=== PATIENT | female | born 1935 | race Caucasian/White ===

== ENCOUNTER 2021-10-08 07:56 | Observation (INO) | payer MEDICARE, SELFPAY ==
[2021-10-08] VITALS (17 sets, daily range): BP systolic 114–144; BP diastolic 49–113; PULSE 67–76; RESP 15–28; TEMP 36.4–36.8; O2SAT 96–100; BMI 34.3
--- NOTE | ~2021-10-08 | CT_ITS ---
EXAMINATION: CT abdomen pelvis w con DATE: 10/08/2021 09:01 INDICATION: Generalized abdominal pain, diarrhea. TECHNIQUE: Computed tomography (CT) of the abdomen and pelvis was performed with 100 CC Omnipaque 300 intravenous contrast. Automated exposure control and iterative reconstruction technique were employe d. Exam dose: 1097.37 mGy-cm total exam DLP. COMPARISON: None. FINDINGS: Minimal discoid atelectasis or scarring in the lower lung zones. Cardiomegaly. Prominent mitral annulus calcification. Prominent coronary artery calcification. No per icardial or pleural effusion. Small sliding hiatal hernia. Status post cholecystectomy, which likely accounts for mild prominence of the bile ducts. No hepatic space-occupying mass lesion. Diffuse pancreatic atrophy. No pancreatic mass lesion, calcification or ductal dilatation. Normal splenic size. Normal morphology of the adrenal glands. 8 mm left renal cyst. No renal space occupying mass lesion is noted otherwise. No urinary tract calc ulus or hydroureteronephrosis. The urinary bladder is evacuated, unremarkable. Status post hysterecto my. There is extensive calcification of the abdominal aorta but no aneurysm. No intraperitoneal or retrop eritoneal or pelvic mass lesion or adenopathy or ascites. Right fat-containing inguinal hernia. Diverticulosis of left and right colon; no CT evidence of diverticulitis. No bowel obstruction. Ther e are some fluid containing small bowel segments with occasional small bowel air-fluid levels, which may be due to enteritis or mild adynamic ileus. Diverticulosis of left and right colon, particularly sigmoid colon; no CT evidence of diverticulitis No bowel wall thickening or pneumatosis or intraperit farias free air. Small fat-containing umbilical hernia. Small right supraumbilical ventral fat-containing hernia. Ther e are at least a couple of fat-containing periumbilical fat-containing hernias. Bilateral L5 pars and articularis defects with grade 1 anterolisthesis at L5-S1. There is degenerative change at the apophyseal joints of the lumbar spine with associated grade 1 ant erolisthesis at L3-4. There is severe degenerative disc disease at L3-4, L4-5 and L5-S1, with associated mild retrolisthesi s at L4-5.. Moderately severe degenerative disc disease at L2-3. Diffuse idiopathic skeletal hyperostosis of the thoracic spine. Bilateral hip osteoarthritis. IMPRESSION: Nondilated fluid containing small bowel segments and scattered small bowel air-fluid lev els, which may be due to enteritis or mild adynamic ileus Cardiomegaly Small sliding hiatal hernia Status post cholecystectomy Pancreatic atrophy Diverticulosis of left and right colon 8 mm left renal cyst Right fat-containing inguinal hernia Small fat-containing umbilical hernia right supraumbilical and a couple of periumbilical ventral abdo velasquez wall fat-containing hernias Extensive degenerative changes of the thoracic and particularly lumbar spine Bilateral hip osteoarthritis Reviewed, dictated and finalized at [facility]. Reviewed, dictated and finalized at [facility]. IMPRESSION: Nondilated fluid containing small bowel segments and scattered sma ll bowel air-fluid levels, which may be due to enteritis or mild adynamic ileus Cardiomegaly Small sliding hiatal hernia Status post cholecystectomy Pancreatic atrophy Diverticulosis of left and right colon 8 mm left renal cyst Right fat-containing inguinal hernia Small fat-containing umbilical hernia right supraumbilical and a couple of jyotsna umbilical ventral abdominal wall fat-containing hernias Extensive degenerative changes of the thoracic and particularly lumbar spine Bilateral hip osteoarthritis
--- NOTE | ~2021-10-08 | XR_ITS ---
XR chest 2V DATE: 10/08/2021 08:28 INDICATION: Weakness TECHNIQUE: AP and lateral views COMPARISON: None FINDINGS: Cardiomegaly. There is extensive thoracic aortic calcification. No hilar or mediastinal enl argement. There is mild discoid atelectasis or scarring in the lower lung zones. No pulmonary consolidation is noted. No pleural effusion or pulmonary vascular congestion or pneumothorax. Diffuse osteopenia. There is scoliosis and degenerative change of the thoracic and lumbar spine. Ther e are some calcifications in the region of the rotator cuff which may indicate bilateral rotator cuff calcific tendinitis. Status post cholecystectomy. IMPRESSION: Mild discoid atelectasis or scarring in the lower lung zones Cardiomegaly Aortic atherosclerosis Osteopenia Status post cholecystectomy Reviewed, dictated and finalized at [facility].
--- NOTE | 2021-10-08 07:58 | ECG_ITS ---
Measurements Intervals [place] Rate: 70 P: 82 [place]: 158 QRS: -38 QRSD: 93 T: 57 QT: 427 QTc: 463 Interpretive Statements SINUS RHYTHM LEFT AXIS DEVIATION BORDERLINE R WAVE PROGRESSION, ANTERIOR LEADS ST-T WAVE ABNORMALITY IN HIGH LATERAL LEADS- CONSIDER ISCHEMIA ABNORMAL ECG Electronically Signed On 10-08-2021 17:08:58 CDT by Puneet Ibarra D.O.
--- NOTE | 2021-10-08 08:12 | PC.NURSE ---
Patient reports she has issues with constipation even though she has diarrhea, she has had past bowel obstruction. Patient reports her abd feels larger than normal and is painful with palpation.
[2021-10-08 08:16] LABS: Basophils Absolute Auto 0.1 K/mm3 (0.0-0.1); Basophils Percent Auto 0.9 % (0.2-1.2); Eosinophils Absolute Auto 0.1 K/mm3 (0-0.3); Eosinophils Percent Auto 1.8 % (0-4.4); Hematocrit 34.4 % (37.0-47.0); Hemoglobin 11.6 g/dL (12.0-15.0); Immature Granulocyte Absolute 0.03 K/mm3 (0.00-0.031); Immature Granulocyte Percent A 0.4 % (0-0.5); Lymphocytes Absolute Auto 1.22 K/mm3 (0.9-3.2); Lymphocytes Percent Auto 15.6 % (18.3-44.2); Mean Corpuscular HGB Conc 33.7 g/dl (32-36); Mean Corpuscular Hemoglobin 29.1 pg (26-34); Mean Corpuscular Volume 86.4 fl (80-100); Mean Platelet Volume 9.5 fl (7.4-10.4); Monocytes Absolute Auto 0.6 K/mm3 (0.1-0.6); Monocytes Percent Auto 7.9 % (2.6-8.5); Neutrophils Absolute Auto 5.7 K/mm3 (1.3-6.7); Neutrophils Percent Auto 73.4 % (45.5-73.1); Platelet Count Result 246 k/mm3 (150-375); Red Blood Count 3.98 M/mm3 (4.2-5.4); Red Cell Distribution Width 13.9 % (11.5-14.5); White Blood Count 7.8 K/mm3 (4.5-10.0)
--- NOTE | 2021-10-08 08:17 | ED.ABDPAIN ---
HPI - Abdominal Pain General Chief Complaint: Weakness Stated Complaint: ABD PAIN/DIARRHEA/WEAKNESS Time Seen by Provider: 10/08/21 08:12 History of Present Illness HPI narrative: pt says night not feeling well then sometime on Saturday more abd pain and diarrhea that evening no blood no other bad food sick contacts travel no n/v/urine chagnes/cp/sob/f/neuro cahgnes but feeling weak all over no uri/loc/trauma. 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 EYES: Denies visual changes, redness, or discharge. ENT: Denies rhinorrhea, congestion, sore throat, or otalgia. CARDIOVASCULAR: Denies chest pain, palpitations, or edema. RESPIRATORY: Denies cough or dyspnea. GASTROINTESTINAL: Denies, nausea, vomiting, but has diarrhea and difuse abd pain. GENITOURINARY: Denies dysuria or hematuria. SKIN: Denies rash or itching. MUSCULOSKELETAL: Denies back pain, joint pain, or myalgia. NEUROLOGIC: Denies headache, numbness, but feels weakness all over. PSYCHIATRIC: Denies anxiety or depression. [facility] Past Medical History Medical History (Updated 10/08/21 @ 10:48 by Tonya Huerta MD) Femoral distal fracture Family History Family History Other Cerebrovascular accident Diabetes mellitus Family history of arthritis Family history of cardiovascular disease Family history of malignant neoplasm Hypertension Social History Social History Smoking status: Never smoker Alcohol intake: current Exam Const: Other: APPEARANCE: Well appearing, no pain in distress, well-nourished. Head normocephalic atraumtaic. EYES: PERRLA/EOMI, conjunctivae very clear. NOSE: Normal no drainage EARS:TMS clear Janet Hoang, with good light reflex. THROAT: Pharynx clear, no exudate. mild tachy membranes NECK: Supple. No adenopathy, no masses. RESPIRATORY: Airway patent, repsirations nonlabored. Clear to auscultation bilaterally, no rales, rhonchi, wheezing. CARDIOVASCULAR: Regular rate and rhythm without murmurs rubs or gallops. ABDOMINAL: Soft, difuse tend no r/g, nondistended, no hepatosplenomegally no masses MUSCULOSKELETAl: Moves all extremities. Strenght/ROM intact, No edema, No calf tenderness. NEURO: Alert. Cranial nerves II through XII intact. Good gait. Good coordination just globally weak due to dehydrated SKIN:: Warm, dry. Normal Color PSYCHIATRIC: Normal affect/mood, normal interaction with parents. Course Course Emergency Course: updated pt at 1035 pt still having pain, lives by herself and daughter has sick at home unable to be there with her will keep here adding flagyl for infection/ileus and admitting Reevaluation(s) Reevaluation #1: dr orlando pina for admission at 1048 Vital Signs Vital signs: Vital Signs Temperature 36.5 C 10/08/21 07:59 Pulse Rate 71 10/08/21 07:59 Respiratory Rate 20 10/08/21 07:59 Blood Pressure 114/74 10/08/21 07:59 Pulse Oximetry 100 10/08/21 07:59 Oxygen Delivery Room Air 10/08/21 07:59 Temperature 36.5 C 10/08/21 07:59 Pulse Rate 68 10/08/21 11:01 Respiratory Rate 17 10/08/21 11:01 Blood Pressure 144/92 H 10/08/21 10:16 Pulse Oximetry 100 10/08/21 10:16 Oxygen Delivery Room Air 10/08/21 07:59 MDM - Abdominal Pain Lab Data Result diagrams: 10/08/21 08:08 10/08/21 08:08 Labs: Lab Results 10/08/21 10/08/21 10/08/21 Range/Units 08:08 08:08 08:08 WBC 7.8 (4.5-10.0) K/mm3 RBC 3.98 L (4.2-5.4) M/mm3 Hgb 11.6 L (12.0-15.0) g/dL Hct 34.4 L (37.0-47.0) % M
[2021-10-08 08:29] LABS: Alanine Aminotransferase 9 U/L (6-35); Albumin Level 3.6 g/dL (3.5-5.1); Alkaline Phosphatase 81 U/L (38-126); Anion Gap 8 mmol/L (8-16); Aspartate Amino Transferase 20 U/L (14-36); Bilirubin,Total 0.6 mg/dL (0.2-1.3); Blood Urea Nitrogen 22 mg/dL (7-17); Calcium 8.7 mg/dL (8.4-10.2); Carbon Dioxide 23 mmol/L (22-30); Chloride 99 mmol/L (98-107); Estimated CRCL calculation 29 ml/min; Estimated Glomerular Filt Rate 39; Glucose 105 mg/dL (65-110); Potassium 4.1 mmol/L (3.4-5.0); Sodium 130 mmol/L (137-145)
[2021-10-08 09:00] LABS: Magnesium 1.8 mg/dL (1.6-2.3)
[2021-10-08 09:12] LABS: Troponin I < 0.012 ng/mL (0.000-0.034)
[2021-10-08 09:34] LABS: Glucose Point of Care 86 mg/dl (65-105)
[2021-10-08 09:43] LABS: Appearance Urine Clear (Clear); Bilirubin Urine Negative (Negative); Blood Urine Negative (Negative); Color Urine Yellow (Yellow); Glucose Urine UA Negative (Negative); Ketones Urine Negative (Negative); Leukocyte Esterase Ur Negative LEU/UL (Negative); Nitrate Urine Negative (Negative); Protein Urine Trace mg/dL (Negative)
[2021-10-08 09:59] LABS: RBC Urine 0-2 /hpf (0-2); WBC Urine 0-3 /hpf
[2021-10-08 10:00] LABS: Add Urine Microscopic? YES
[2021-10-08] MEDS: fentaNYL CITRATE INJ (*CRX) 100 MCG/2 ML VIAL 50 MCG IV PUSH (10:26)
[2021-10-08] MEDS: FAMOTIDINE 20 MG/2 ML VIAL IV PUSH (10:30)
[2021-10-08] MEDS: SODIUM CHLORIDE 0.9% IV 1,000 ML 999 ML IV CONT (10:30)
[2021-10-08] MEDS: ONDANSETRON INJ 4 MG/2 ML VIAL IV PUSH ×2 (10:30→17:03)
[2021-10-08 10:32] LABS: SARS-CoV-2 RNA PCR Negative
[2021-10-08] MEDS: metroNIDAZOLE 500 MG/ISO 100ML 500 MG/100 ML BAG 100 MG IVPB (11:10)
--- NOTE | 2021-10-08 11:14 | PM.IMHP ---
H&P: HPI History of Present Illness Date/Time: 10/08/21 11:14 Chief Complaint: acute abdominal pain Diarrhea Weakness Narrative: patient is a 86-year-old female with medical history of peripheral neuropathy, hypertension, oa, insulin-dependent diabetes mellitus. She presented to [place] emergency department after complaints of abdominal pain and diarrhea since Saturday. Patient reports increased fatigue and weakness. She denies any melena or hematochezia. She denies any recent sick contacts or eating poor food. She denies any recent travel. While in the emergency department labs and imaging were obtained. WBC 7.8, hemoglobin 11.6, hematocrit 34.4 and platelet 246, sodium 130, potassium 1, chloride 99, BUN 22 and creatinine 1.3 with normal LFTs and a negative troponin. UA obtained which was negative. CT of the abdomen and pelvis revealed nondilated fluid containing small bowel segments and scattered small bowel air blue suggestive of enteritis. chest x-ray revealed mild discoid atelectasis or scarring of the lower lungs. But no other acute cardiopulmonary process. EKG revealed normal sinus rhythm with diffuse ST changes. No T-wave in changes. Hospitalist was consulted for further management observation to ileus, enteritis and physical debility. Patient was treated with Pepcid, fentanyl, Flagyl and 1 L of IV fluids in the emergency department. She was also administered Zofran x1. This relieved the patient's symptoms. Patient is being admitted for further management. Review of Systems Review of Systems: All systems reviewed & are unremarkable except as noted in HPI and below PMFSH Past Medical History Medical History (Updated 10/08/21 @ 11:24 by Carin Teixeira APRN) Femoral distal fracture Family History Family History Other Cerebrovascular accident Diabetes mellitus Family history of arthritis Family history of cardiovascular disease Family history of malignant neoplasm Hypertension Social History Social History Smoking status: Never smoker Alcohol intake: current Meds Home Medications and Allergies Home Medications Medication Instructions Recorded Confirmed Type No Home Medications 04/21/19 04/21/19 History Allergies Allergy/AdvReac Type Severity Reaction Status Date / Time poison oak extract Allergy Unknown Unknown Verified 10/08/21 12:28 Vital Signs Vital Signs - 24 hr 10/08/21 07:59 07/03/22 08:06 10/08/21 08:02 Temperature 97.7 F Pulse Rate 71 70 71 Respiratory Rate 20 28 H Blood Pressure 114/74 Pulse Oximetry 100 99 Oxygen Delivery Room Air 10/08/21 09:19 10/08/21 09:45 10/08/21 09:47 Temperature Pulse Rate 70 70 Respiratory Rate 27 H 18 Blood Pressure 134/113 H Pulse Oximetry 99 100 100 Oxygen Delivery 10/08/21 10:00 10/08/21 10:02 10/08/21 10:15 Temperature Pulse Rate 69 67 70 Respiratory Rate 18 20 28 H Blood Pressure 117/93 H Pulse Oximetry 100 100 100 Oxygen Delivery 10/08/21 10:16 10/08/21 11:01 Temperature Pulse Rate 71 68 Respiratory Rate 19 17 Blood Pressure 144/92 H Pulse Oximetry 100 Oxygen Delivery Exam Narrative: General: No acute distress. Mental Status: Awake, alert and oriented to person, place, and time with clear speech. Skin: Skin in warm, dry and intact without rashes or lesions. Head: Normocephalic and atraumatic. Eyes: Conjunctivae are clear without exudates or hemorrhage. Sclera is non-icteric. EOM are intact, PERRLA. Ears: The external ear and canal are non-tender and without swelling or discharge. Nose: Nasal mucosa is pink and moist. Septum midline. Nares patent bilaterally. Throat: Oral mucosa pink and moist with good dentition. Tongue midline. Neck: The neck supple without adenopathy. Trachea midline. No JVD. Cardiac: S1 and S2 regular rate and rhythm.
[2021-10-08 11:35] LABS: Lactic Acid Reflex 0.8 mmol/L (0.7-2.0)
--- NOTE | 2021-10-08 11:41 | PC.NURSE ---
Pt family at bedside. Removed bed alarm.
--- NOTE | 2021-10-08 13:04 | PC.NURSE ---
This patient, Scar Sewell, was admitted to 3 [facility] Surg Room 311-01 at 1303 from ED nurse Bart. Patient/family oriented to hospital policies and general routines including ID bracelet, bed and alarms, visiting hours, pain management, procedures, bathroom and other care routines, personal items, smoking policy, room service/diet, and visiting hours. Information on how to activate the Rapid Response Team has been discussed. Patient/Family are encouraged to report perceived risks to care and to ask questions if they do not understand what they are told or what they should do.
[2021-10-08] MEDS: SODIUM CHLORIDE 0.9% IV 1,000 ML 150 ML IV CONT (13:32)
--- NOTE | 2021-10-08 13:42 | PC.NURSE ---
pt unable to recall home medication
--- NOTE | 2021-10-08 13:45 | PC.NURSE ---
pt states takes 15 u of lantus at HS, and takes bp pill daily in morning but unsure dosage, daughter in law to stop by and verify bp med name and dosage
--- NOTE | 2021-10-08 13:47 | PC.NURSE ---
pt up to bsc without difficulty, urinated in sample unable to collect stool sample at this time.
--- NOTE | 2021-10-08 14:23 | PC.NURSE ---
called pharmacy for 11 am zosyn dose, awaiting delivery of medication
--- NOTE | 2021-10-08 15:21 | PC.NURSE ---
pt uses mail delivery for medication pt prefer [facility] in [place] if new medication at discharge, updated in computer
--- NOTE | 2021-10-08 17:27 | PC.NURSE ---
clarified medication with Susana pt daughter losartan 25 mg po daily and lantus 15 u at hs
--- NOTE | 2021-10-08 18:06 | PC.NURSE ---
all med passed by Korin Breeding this shift.
--- NOTE | 2021-10-08 18:08 | PC.NURSE ---
pt up to bsc without difficulty, urinated in sample unable to collect stool sample at this time.
--- NOTE | 2021-10-08 18:08 | PC.NURSE ---
This patient, Scar Sewell, was admitted to 3 [facility] Surg Room 311-01 at 1303 from ED nurse Bart. Patient/family oriented to hospital policies and general routines including ID bracelet, bed and alarms, visiting hours, pain management, procedures, bathroom and other care routines, personal items, smoking policy, room service/diet, and visiting hours. Information on how to activate the Rapid Response Team has been discussed. Patient/Family are encouraged to report perceived risks to care and to ask questions if they do not understand what they are told or what they should do. Initialized on 10/08/21 13:04 - END OF NOTE
--- NOTE | 2021-10-08 18:09 | PC.NURSE ---
pt unable to recall home medication
[2021-10-08] MEDS: MELATONIN 5 MG TABLET PO (21:15)
[2021-10-08 22:23] LABS: Toxigenic C. Diff NEGATIVE (NEGATIVE)
[2021-10-09 00:50] LABS: Glucose Point of Care 82 mg/dl (65-105)
[2021-10-09] MEDS: DEXTROSE 5%/0.45% SOD CHL 1,000 ML 75 ML IV CONT (01:30)
[2021-10-09 05:58] VITALS: BP 155/56; PULSE 80; RESP 20; TEMP 36.7; O2SAT 100
[2021-10-09 06:24] LABS: Glucose Point of Care 106 mg/dl (65-105)
[2021-10-09 07:05] LABS: Basophils Absolute Auto 0.1 K/mm3 (0.0-0.1); Eosinophils Absolute Auto 0.2 K/mm3 (0-0.3); Eosinophils Percent Auto 2.8 % (0-4.4); Hematocrit 33.8 % (37.0-47.0); Hemoglobin 10.7 g/dL (12.0-15.0); Immature Granulocyte Absolute 0.05 K/mm3 (0.00-0.031); Immature Granulocyte Percent A 0.8 % (0-0.5); Lymphocytes Absolute Auto 0.85 K/mm3 (0.9-3.2); Mean Corpuscular HGB Conc 31.7 g/dl (32-36); Mean Corpuscular Hemoglobin 28.6 pg (26-34); Mean Corpuscular Volume 90.4 fl (80-100); Mean Platelet Volume 9.4 fl (7.4-10.4); Monocytes Absolute Auto 0.5 K/mm3 (0.1-0.6); Monocytes Percent Auto 7.9 % (2.6-8.5); Neutrophils Absolute Auto 4.5 K/mm3 (1.3-6.7); Neutrophils Percent Auto 73.5 % (45.5-73.1); Platelet Count Result 233 k/mm3 (150-375); Red Blood Count 3.74 M/mm3 (4.2-5.4); Red Cell Distribution Width 14.2 % (11.5-14.5); White Blood Count 6.1 K/mm3 (4.5-10.0)
--- NOTE | 2021-10-09 07:11 | PM.IMPN ---
Progress Note: A&P Assessment and Plan (1) Physical debility: Code(s): R53.81 - Other malaise Status: Acute Assessment and Plan: consult physical therapy and occupational therapy eval and treat (2) Ileus: Code(s): K56.7 - Ileus, unspecified Status: Acute Assessment and Plan: Ileus vs enteritis 2/2 below (3) Enteritis: Code(s): K52.9 - Noninfective gastroenteritis and colitis, unspecified Status: Acute Assessment and Plan: Monitor vital signs, I&Os, track stool output, watch for bloody stools, neuro status and patient is a fall risk Monitor serum electrolytes and CBC Gentle IV fluid resuscitation continue on Zosyn 3.375g q6hr , patient does not have a leukocytosis. C diff negative. patient did receive Zosyn and Flagyl in the emergency department. Diet: Clear liquids, advanced as tolerated (4) Abdominal pain: Code(s): R10.9 - Unspecified abdominal pain Status: Acute Assessment and Plan: 2/2 above (5) Hyponatremia: Code(s): E87.1 - Hypo-osmolality and hyponatremia Status: Acute Assessment and Plan: patient appears to have chronic hyponatremia. Approximately 3 years ago the patient had a sodium level of 127. Currently no neuro deficits. However the patient appears dehydrated on exam. She will be initiated on IV fluids on the floor. During renal function appears worse, presenting with possible IVAN as well. Patient's sodium improved- 132 (6) IVAN (acute kidney injury): Code(s): N17.9 - Acute kidney failure, unspecified Status: Acute Assessment and Plan: Patient received 1 L fluid bolus in the emergency department, baseline creatinine and BUN 0.80/12 GFR greater than 60 ( June 2018). continue IV fluid resuscitation Subjective Date/time seen: 10/09/21 07:11 patient is doing well this morning. Advance diet to regular started with clear liquid diet. Patient continues to have mild abdominal discomfort but significantly improved since admission. Monitor fluid volume status closely as patient continues to have IV fluids. With advancement of diet may discontinue IV fluids. Patient's labs are stable. Patient's creatinine is 1.4 this morning, unsure what the patient's baseline creatinine is that she was 0.83 years ago. Patient is followed with a new physician and she is unaware of what her renal function was at previously. Unable to obtain records over the weekend. Patient currently denies any chest pain or sob Review of Systems Review of Systems: All systems reviewed & are unremarkable except as noted in HPI and below Exam Narrative: General: No acute distress. [facility] Mental Status: Awake, alert and oriented to person, place, and time with clear speech. Skin: Skin in warm, dry and intact without rashes or lesions. Head: Normocephalic and atraumatic. Eyes: Conjunctivae are clear without exudates or hemorrhage. Sclera is non-icteric. EOM are intact, PERRLA. Ears: The external ear and canal are non-tender and without swelling or discharge. Nose: Nasal mucosa is pink and moist. Septum midline. Nares patent bilaterally. Throat: Oral mucosa pink and moist with good dentition. Tongue midline. Neck: The neck supple without adenopathy. Trachea midline. No JVD. Cardiac: S1 and S2 regular rate and rhythm. No murmurs, gallops, or rubs auscultated. Respiratory: Chest wall symmetric, nontender and without deformity or trauma. Respirations even and unlabored. Lung sounds are clear to auscultation in all lobes bilaterally without wheezes, rhonchi, or rales. Abdominal: Abdomen soft, round and non-tender to palpation. Bowel sounds present and normoactive in all 4 quadrants. Spine: Neck and back with grossly normal curvature, no deformity in appearance or signs of trauma. Extremities: Upper and lower extremities atraumatic without tenderness or deformity. Full range of motion and muscle strength 4/5 to all extremiti
[2021-10-09 07:22] LABS: Alanine Aminotransferase 8 U/L (6-35); Albumin Level 3.2 g/dL (3.5-5.1); Alkaline Phosphatase 72 U/L (38-126); Anion Gap 3 mmol/L (8-16); Aspartate Amino Transferase 19 U/L (14-36); Bilirubin,Total 0.6 mg/dL (0.2-1.3); Blood Urea Nitrogen 16 mg/dL (7-17); Carbon Dioxide 26 mmol/L (22-30); Chloride 103 mmol/L (98-107); Estimated CRCL calculation 27 ml/min; Estimated Glomerular Filt Rate 36; Glucose 96 mg/dL (65-110); Magnesium 1.7 mg/dL (1.6-2.3); Potassium 3.9 mmol/L (3.4-5.0); Sodium 132 mmol/L (137-145)
[2021-10-09 08:00] VITALS: PULSE 80; RESP 20; O2SAT 100
[2021-10-09 12:16] LABS: Glucose Point of Care 204 mg/dl (65-105)
[2021-10-09 14:00] VITALS: BP 151/58; PULSE 67; RESP 20; TEMP 36.8; O2SAT 100
[2021-10-09 16:59] LABS: Glucose Point of Care 223 mg/dl (65-105)
[2021-10-09 20:47] LABS: Glucose Point of Care 172 mg/dl (65-105)
[2021-10-09] MEDS: MELATONIN 5 MG TABLET PO (21:37)
[2021-10-09 22:00] VITALS: BP 151/100; PULSE 115; RESP 15; TEMP 36.4; O2SAT 97
[2021-10-10 05:53] VITALS: BP 174/60; PULSE 71; RESP 16; TEMP 36.1; O2SAT 96
[2021-10-10 07:33] LABS: Basophils Absolute Auto 0.1 K/mm3 (0.0-0.1); Basophils Percent Auto 1.4 % (0.2-1.2); Eosinophils Absolute Auto 0.2 K/mm3 (0-0.3); Eosinophils Percent Auto 3.8 % (0-4.4); Hematocrit 35.7 % (37.0-47.0); Hemoglobin 11.3 g/dL (12.0-15.0); Immature Granulocyte Absolute 0.05 K/mm3 (0.00-0.031); Immature Granulocyte Percent A 0.8 % (0-0.5); Lymphocytes Absolute Auto 1.17 K/mm3 (0.9-3.2); Lymphocytes Percent Auto 18.8 % (18.3-44.2); Mean Corpuscular HGB Conc 31.7 g/dl (32-36); Mean Corpuscular Volume 91.5 fl (80-100); Mean Platelet Volume 9.8 fl (7.4-10.4); Monocytes Absolute Auto 0.5 K/mm3 (0.1-0.6); Monocytes Percent Auto 7.4 % (2.6-8.5); Neutrophils Absolute Auto 4.2 K/mm3 (1.3-6.7); Neutrophils Percent Auto 67.8 % (45.5-73.1); Platelet Count Result 246 k/mm3 (150-375); White Blood Count 6.2 K/mm3 (4.5-10.0)
[2021-10-10 07:51] LABS: Alanine Aminotransferase 8 U/L (6-35); Albumin Level 3.6 g/dL (3.5-5.1); Alkaline Phosphatase 72 U/L (38-126); Anion Gap 7 mmol/L (8-16); Aspartate Amino Transferase 21 U/L (14-36); Bilirubin,Total 0.6 mg/dL (0.2-1.3); Blood Urea Nitrogen 12 mg/dL (7-17); Calcium 8.3 mg/dL (8.4-10.2); Carbon Dioxide 22 mmol/L (22-30); Chloride 102 mmol/L (98-107); Estimated CRCL calculation 29 ml/min; Estimated Glomerular Filt Rate 39; Glucose 146 mg/dL (65-110); Sodium 131 mmol/L (137-145)
[2021-10-10 08:03] LABS: Glucose Point of Care 148 mg/dl (65-105)
[2021-10-10] MEDS: LOSARTAN POTASSIUM 25 MG TABLET PO (09:38)
--- NOTE | 2021-10-10 10:22 | PM.DS ---
DS: Admitting Diagnosis Discharge Date 10/10/2021 1022 Admitting Diagnosis Abdominal pain Enteritis Hyponatremia IVAN Physical debility DS: Discharge Diagnosis Discharge Diagnosis (1) Enteritis: Code(s): K52.9 - Noninfective gastroenteritis and colitis, unspecified Status: Acute (2) IVAN (acute kidney injury): Code(s): N17.9 - Acute kidney failure, unspecified Status: Acute (3) Hyponatremia: Code(s): E87.1 - Hypo-osmolality and hyponatremia Status: Acute (4) Physical debility: Code(s): R53.81 - Other malaise Status: Acute (5) Diabetes: Code(s): E11.9 - Type 2 diabetes mellitus without complications Status: Chronic DS: Summary Hospital Course Reason for hospitalization: Acute abdominal pain Diarrhea Weakness Hospital Course: Scar Sewell is an 86-year-old female with medical history of?insulin-dependent diabetes with peripheral neuropathy, hypertension, and arthritis.? She presented to the ED, for evaluation of abdominal pain and diarrhea since the Saturday before admission.? She had associated increased fatigue and generalized weakness.? No melena or hematochezia.? No recent sick contacts or concerns for food poisoning.? She denied recent travel, fever, chills, rigors or diaphoresis. In the emergency department, labs and imaging were obtained.? WBC 7.8, hemoglobin 11.6, hematocrit 34.4 and platelet 246, sodium 130, potassium 1, chloride 99, BUN 22 and creatinine 1.3 with normal LFTs and a negative troponin.? UA was negative for acute infection.? CT of the abdomen and pelvis revealed nondilated fluid containing small bowel segments and scattered small bowel air blue suggestive of enteritis. Chest x-ray revealed mild discoid atelectasis or scarring of the lower lungs, but no other acute cardiopulmonary process.? EKG revealed normal sinus rhythm?with diffuse ST changes and no T-wave in changes.?She was treated with Pepcid, fentanyl, Flagyl and 1 L of IV fluids in the emergency department.? She was also administered Zofran x1.? The patient was referred for observation. She was kept NPO with IV hydration and IV zosyn Q6 hours. Zofran was continued PRN for nausea or vomiting. Stool culture and stool cdiff were negative. Her symptoms improved and her diet was advanced to regular food, which she tolerated well. Renal function and sodium level were stable at the time of discharge. She was encouraged to eat low residue diet until feeling better and then changing to high fiber diet to prevent constipation. Neuologic status was stable and at baseline. PT/OT was consulted for evaluation and patient was independent with ambulation. She did not require home health services or outpatient needs. The patient's insulin regimen was discussed. She was counseled at length regarding checking her blood sugar at home at least once daily prior to insulin administration and as needed for symptoms of hypoglycemia, which were thoroughly explained. She verbalized understanding and glucometer supplies were refilled at discharge. She was counseled on diet with her family member and when to seek further care. Glucose remained 86-105 mg/dL while inpatient and off lantus therapy. The patient was discharged home hemodynamically stable and tolerating regular consistency food. She remained afebrile and without abdominal pain. Status at Discharge Cognitive/behavioral status at discharge: AAOx3. Functional status at discharge: independent ambulation Overall status at discharge: patient is progressing back to baseline Time Spent with Patient Time attestation: Total time spent providing and/or coordinating discharge services: Time spent: Greater than 30 minutes (>50% time spent with patient education) Exam Narrative: General: No acute distress. Well-developed older adult female sitting up in the chair. Mental Status/Psych: Awake, alert and oriented to person, place, and time with clear s
== END 2021-10-10 11:30 | disposition home or self-care (01) ==
LOC: ANHED 10:48 → ANH3MEDSUR 12:30
PROVIDERS: Nurse Practitioner Family; Admitting Provider Internal Medicine; Emergency Provider Emergency Medicine; PCP Family Medicine; Visit Provider Nurse Practitioner Family
DX: K52.9 Noninfective gastroenteritis and colitis, unspecified (principal); N17.9 Acute kidney failure, unspecified; E87.1 Hypo-osmolality and hyponatremia; R53.81 Other malaise; E11.42 Type 2 diabetes mellitus with diabetic polyneuropathy; Z79.4 Long term (current) use of insulin; K56.7 Ileus, unspecified; R53.1 Weakness; R10.9 Unspecified abdominal pain; Z90.49 Acquired absence of other specified parts of digestive tract; R94.31 Abnormal electrocardiogram [ECG] [EKG]; I70.0 Atherosclerosis of aorta; M85.80 Other specified disorders of bone density and structure, unspecified site; I10 Essential (primary) hypertension; R53.83 Other fatigue; K44.9 Diaphragmatic hernia without obstruction or gangrene; K86.89 Other specified diseases of pancreas; K57.90 Diverticulosis of intestine, part unspecified, without perforation or abscess without bleeding; N28.1 Cyst of kidney, acquired; K42.9 Umbilical hernia without obstruction or gangrene; M16.0 Bilateral primary osteoarthritis of hip; J98.11 Atelectasis
CPT/HCPCS: 36415; 71046; 74177; 80053; 81001; 82948; 83605; 83735; 84443; 84484; 85025; 87045; 87427; 87493; 93005; 96374; 96375; 96376; 97162; 97165; 99285; A9270; C9803; G0378; J2405; J2543; J3010; J7030; Q9967; U0003; U0005

== ENCOUNTER 2021-11-20 09:23 | Observation (INO) | payer MEDICARE, SELFPAY ==
--- NOTE | ~2021-11-20 | CT_ITS ---
EXAMINATION: CT abdomen pelvis wo con DATE: 11/20/2021 10:23 INDICATION: Right abdomen and back pain TECHNIQUE: Computed tomography (CT) of the abdomen and pelvis was performed without intravenous contr ast. The dose-length product was 889.05 mGy-cm. Automated exposure control and iterative reconstructi on technique were employed. COMPARISON: CT dated 10/08/2021. FINDINGS: Lung bases are unremarkable. No significant pleural or pericardial effusion. Small hiatal h ernia. There is atherosclerosis of the aorta without aneurysm. There is a fat-containing ventral abdo velasquez wall hernia. Status post cholecystectomy. The liver, spleen, adrenal glands are unremarkable. There is fatty repla cement of the pancreas. There is bilateral renal atrophy. Colonic diverticulosis without evidence for acute diverticulitis. Status post hysterectomy. Severe lumbar spondylosis with grade 2 spondylolisth esis at L5-S1. IMPRESSION: 1. No acute abdominal abnormality. 2: Fat-containing ventral abdominal wall hernias. Reviewed, dictated and finalized at location B.
--- NOTE | ~2021-11-20 | CT_ITS ---
EXAMINATION: CT lumbar spine wo con DATE: 11/20/2021 16:55 INDICATION: Intractable back pain. TECHNIQUE: Computed tomography (CT) of the lumbar spine was performed without intravenous contrast. A utomated exposure control and iterative reconstruction technique were employed. The dose-length produ ct was 1292.81 mGy-cm. COMPARISON: None FINDINGS: There is a small sliding hiatal hernia. There is diverticulosis of the colon without eviden ce of diverticulitis. There is 8 degrees levocurvature of thoracolumbar lumbar spine. There are chron ic bilateral L5 pars defects. There is 7 mm anterolisthesis of L5 on S1. There is 6 mm anterolisthesi s of L3 on L4 and 4 mm retrolisthesis of L4 on L5. There is mild chronic height loss of L5 vertebral body posteriorly. There is mildly decreased disc height at L2-L3 and severely decreased disc height f rom L3-L4 through L5-S1. The following disc levels are specifically discussed: L1-L2: The disc is bulging. There is severe bilateral facet joint osteoarthritis. There is mild right and moderate left neural foraminal stenosis. There is mild central canal stenosis. L2-L3: The disc is bulging. There is severe bilateral facet joint osteoarthritis. There is moderate b ilateral neural foraminal stenosis. There is mild central canal stenosis. L3-L4: The disc is bulging. There is severe bilateral facet joint osteoarthritis. There is moderate b ilateral neural foraminal stenosis. There is mild central canal stenosis with moderate stenosis of le ft lateral recess. L4-L5: The disc is bulging. There is severe bilateral facet joint osteoarthritis. There is moderate b ilateral neural foraminal stenosis. There is mild central canal stenosis. L5-S1: The disc is bulging. There is severe bilateral facet joint osteoarthritis. There is moderate b ilateral neural foraminal stenosis. There is mild central canal stenosis. IMPRESSION: 1. Severe lumbar spondylosis. 2. Chronic bilateral L5 pars defects with grade 2 anterolisthesis of L5 on S1. Reviewed, dictated and finalized at location A.
--- NOTE | ~2021-11-20 | MR_ITS ---
EXAMINATION: MR lumbar spine wo con DATE: 11/21/2021 06:50 INDICATION: Intractable back pain TECHNIQUE: Magnetic resonance imaging (MRI) of the lumbar spine was performed without intravenous con trast. Sequences included sagittal T2-weighted FSE, sagittal T2-weighted FS FSE, sagittal T1-weighted FSE, and axial T2-weighted FSE. COMPARISON: Lumbar spine CT dated 11/20/2021 FINDINGS: Mild lumbar levocurvature. 5 mm anterolisthesis L3 on L4 and L5 on S1 and 5 mm retrolisthesis L4 on L 5. Bilateral L5 pars interarticularis defects. Chronic appearing mild posterior wedging of L5 with ap proximately 20% posterior vertebral body height loss. Severe disc height loss at L3-L4, L4-L5 and L5- S1. Moderate disc height loss at T10-T11 and mild disc height loss at T12-L1 and L2-L3. Scattered fib rovascular degenerative endplate changes in the mid to lower lumbar spine. T1 and T2 hyperintense hem angioma at L1. The conus medullaris terminates at L1. There is normal signal in the caudal spinal cor d. 1 cm T2 hyperintense cysts at the lower pole of the left kidney. The following disc levels are spe cifically discussed: T12-L1: Disc is mildly bulging with superimposed annular fissure. Macro flavum There is mild left and moderate right facet joint osteoarthritis. There is mild bilateral neural foraminal stenosis. There is mild central canal stenosis. L1-L2: Disc is minimally bulging. There is hypertrophy of the ligamentum flavum. There is moderate bi lateral facet joint osteoarthritis. There is mild right and mild to moderate left neural foraminal st enosis. There is mild central canal stenosis. L2-L3: Moderate diffuse disc bulge with annular fissures. There is hypertrophy of the ligamentum flav um. There is severe bilateral facet joint osteoarthritis. There is moderate bilateral neural foramina l stenosis. There is moderate central canal stenosis. L3-L4: Annular fissure with broad-based disc extrusion extending from foraminal zone to foraminal zon e with disc material extending up to 4 mm cephalad to the level of the inferior endplate of L3. There is hypertrophy of the ligamentum flavum. There is severe bilateral facet joint osteoarthritis. There is moderate left and and severe right neural foraminal stenosis. There is severe central canal steno sis. L4-L5: Annular fissure and broad-based disc extrusion extending from foraminal zone to foraminal zone with disc extending up to 4 mm caudal to the level of the superior endplate of L5. There is moderate right and severe left facet joint osteoarthritis. There is moderate right and severe left neural for aminal stenosis. There is mild central canal stenosis. L5-S1: Annular fissure with broad-based disc extrusion extending from foraminal zone to foraminal zon e with disc material extending up to 7 mm cephalad to the level of the inferior endplate of L5. There is moderate bilateral facet joint osteoarthritis. There is moderate right and moderate to severe lef t neural foraminal stenosis. There is mild central canal stenosis. IMPRESSION: 1. Severe lower cervical spondylosis including L5 spondylolysis with bilateral pars interarticularis defects and 5 mm anterolisthesis on S1. Reviewed, dictated and finalized at location A.
[2021-11-20 09:36] VITALS: BP 146/87; PULSE 78; RESP 18; TEMP 36.7; O2SAT 100
[2021-11-20 09:53] LABS: Basophils Absolute Auto 0.1 K/mm3 (0.0-0.1); Basophils Percent Auto 0.9 % (0.2-1.2); Eosinophils Absolute Auto 0.1 K/mm3 (0-0.3); Eosinophils Percent Auto 1.4 % (0-4.4); Hematocrit 38.1 % (37.0-47.0); Hemoglobin 12.9 g/dL (12.0-15.0); Immature Granulocyte Absolute 0.02 K/mm3 (0.00-0.031); Immature Granulocyte Percent A 0.4 % (0-0.5); Lymphocytes Absolute Auto 1.01 K/mm3 (0.9-3.2); Lymphocytes Percent Auto 18.2 % (18.3-44.2); Mean Corpuscular HGB Conc 33.9 g/dl (32-36); Mean Corpuscular Hemoglobin 28.9 pg (26-34); Mean Corpuscular Volume 85.4 fl (80-100); Mean Platelet Volume 9.1 fl (7.4-10.4); Monocytes Absolute Auto 0.4 K/mm3 (0.1-0.6); Monocytes Percent Auto 7.4 % (2.6-8.5); Neutrophils Percent Auto 71.7 % (45.5-73.1); Platelet Count Result 254 k/mm3 (150-375); Red Blood Count 4.46 M/mm3 (4.2-5.4); Red Cell Distribution Width 13.9 % (11.5-14.5); White Blood Count 5.6 K/mm3 (4.5-10.0)
[2021-11-20] MEDS: traMADol HCL (*CRX) 50 MG TABLET PO (09:58)
[2021-11-20 10:02] LABS: Alanine Aminotransferase 11 U/L (6-35); Alkaline Phosphatase 78 U/L (38-126); Anion Gap 7 mmol/L (8-16); Aspartate Amino Transferase 22 U/L (14-36); Bilirubin,Total 0.6 mg/dL (0.2-1.3); Blood Urea Nitrogen 15 mg/dL (7-17); Carbon Dioxide 27 mmol/L (22-30); Chloride 95 mmol/L (98-107); Estimated CRCL calculation 33 ml/min; Estimated Glomerular Filt Rate 47; Glucose 107 mg/dL (65-110); Lipase 42 U/L (23-300); Potassium 4.3 mmol/L (3.4-5.0); Sodium 129 mmol/L (137-145)
[2021-11-20 10:27] LABS: Appearance Urine Clear (Clear); Bilirubin Urine Negative (Negative); Blood Urine Negative (Negative); Color Urine Yellow (Yellow); Glucose Urine UA Negative (Negative); Ketones Urine Negative (Negative); Leukocyte Esterase Ur Negative LEU/UL (Negative); Nitrate Urine Negative (Negative); Protein Urine 1+ mg/dL (Negative); Specific Grav Ur 1.015 (1.001-1.035); Urobilinogen Urine 0.2 mg/dL (<2.0); pH Urine 7.5 (5.0-9.0)
[2021-11-20 10:33] LABS: Mucus Urine Rare /lpf; RBC Urine 0-2 /hpf (0-2); Squamous Epithelial Cell Urine Rare /hpf (Few); WBC Urine 0-3 /hpf
[2021-11-20 10:35] LABS: Add Urine Microscopic? YES
[2021-11-20] MEDS: MORPHINE SULFATE (*CRX) 2 MG/ML INJ 1 MG IV PUSH (11:11)
--- NOTE | 2021-11-20 13:11 | PM.IMHP ---
H&P: HPI History of Present Illness Date/Time: 11/20/21 13:11 Chief Complaint: Back pain Narrative: This is an 86-year-old female patient who resides at home alone. She has a history of having a hip fracture in the past that required surgical repair. Her 1 leg is been shorter since that repair and this has caused her to have some lower back pain. She has a history of sciatica but cannot get in to the orthopedic doctor until about January. The patient stated that she has so much pain to her left leg due to the sciatic pain from her back that it interferes with her daily living. Patient's sodium levels also 129 her last 1 last month was 131. Her creatinine is 1.1 and her GFR is 47 which is improved from last month. Her urine is negative. The patient is being admitted to observation status on the date of service of 11/20/2021. Review of Systems Review of Systems: See HPI All systems reviewed & are unremarkable except as noted in HPI and below Constitutional: Constitutional: Reports as per HPI and Reports no additional constitutional complaints Eyes: Eyes: Reports as per HPI and Reports no additional eye complaints ENT: Reports system reviewed and no additional complaints, except as documented and Reports Normal hearing present Cardiovascular: Cardiovascular: Reports no additional cardiovascular complaints Respiratory: Respiratory: Reports no additional respiratory complaints and Reports no additional respiratory complaints Gastrointestinal: Gastrointestinal: Reports as per HPI and Reports no additional gastrointestinal complaints Musculoskeletal: Musculoskeletal: Reports no additional musculoskeletal complaints Integumentary/Breasts: Skin/Breast: Reports system reviewed and no additional complaints, except as docu and Reports as per HPI Neurologic: Reports system reviewed and no additional complaints, except as documented, Reports as per HPI and Reports Normal hearing present Psychiatric: Psychiatric: Reports no additional psychiatric complaints and Reports as per HPI Endocrine: Endocrine: Reports no additional endocrine complaints Hematologic/Lymphatic: Hematologic/Lymphatic: Reports no additional hematologic/lymphatic complaints Allergic/Immunologic: Allergic/Immunologic: Reports no additional allergic/immunologic complaints PMFSH Past Medical History Medical History Diabetes Femoral distal fracture Hip fracture requiring operative repair Hypertension Surgical History Surgical History (Updated 11/20/21 @ 13:13 by Laura Clay NP) H/O: hysterectomy History of hip surgery Hx of cholecystectomy Family History Family History Other Cerebrovascular accident Diabetes mellitus Family history of arthritis Family history of cardiovascular disease Family history of malignant neoplasm Hypertension Social History Social History (Updated 11/20/21 @ 16:07 by Laura Clay NP) Social History: She is of with 2 children. She used to drive of school bus. She chose her 2 daughter lost to be her durable power estate attorney for healthcare. She never smoked. She lives home alone. Code status dnr Smoking status: Never smoker Alcohol intake: unknown Substance use: unknown Spiritual care concerns: No Meds Home Medications and Allergies Home Medications Medication Instructions Recorded Confirmed Type insulin glargine 100 unit/mL 15 unit subcut HS 10/08/21 10/08/21 History subcutaneous solution (Lantus U-100 Insulin) losartan 25 mg tablet 25 tablet PO DAILY 10/08/21 10/08/21 History blood-glucose meter #1 ea 10/10/21 Rx lancets 30 gauge and blood glucose #50 ea 10/10/21 Rx strips combo pack Allergies Allergy/AdvReac Type Severity Reaction Status Date / Time poison oak extract Allergy Unknown Unknown Verified 11/20/21 13:31 Vital Signs Vital Signs
[2021-11-20 13:23] VITALS: BP 100/65; PULSE 67; RESP 18; O2SAT 100
--- NOTE | 2021-11-20 13:26 | ECG_ITS ---
Measurements Intervals [place] Rate: 72 P: 85 AR: 155 QRS: -52 QRSD: 93 T: 21 QT: 424 QTc: 465 Interpretive Statements SINUS RHYTHM LEFT ANTERIOR FASCICULAR BLOCK [QRS AXIS <= -45, QR IN I, RS IN II] COMPARED TO ECG 10/08/2021 08:04:06 THERE IS NO SIGNIFICANT DIFFERENCE Electronically Signed On 11-20-2021 14:10:42 CDT by Kashif Wynn M.D.
--- NOTE | 2021-11-20 13:36 | ED.GENADULT ---
HPI - General Adult General Chief complaint: Back Pain/Injury Stated complaint: right leg pain Time Seen by Provider: 11/20/21 09:27 Related Data Home Medications Medication Instructions Recorded Confirmed insulin glargine 100 unit/mL 15 unit subcut HS 10/08/21 10/08/21 subcutaneous solution (Lantus U-100 Insulin) losartan 25 mg tablet 25 tablet PO DAILY 10/08/21 10/08/21 Allergies Allergy/AdvReac Type Severity Reaction Status Date / Time poison oak extract Allergy Unknown Unknown Verified 11/20/21 13:31 [facility] Past Medical History Medical History (Updated 11/20/21 @ 13:13 by Laura Clay NP) Diabetes Femoral distal fracture Hip fracture requiring operative repair Hypertension Surgical History Surgical History (Updated 11/20/21 @ 13:13 by Laura Clay NP) H/O: hysterectomy History of hip surgery Hx of cholecystectomy Family History Family History Other Cerebrovascular accident Diabetes mellitus Family history of arthritis Family history of cardiovascular disease Family history of malignant neoplasm Hypertension Social History Social History (Updated 11/20/21 @ 13:14 by Laura Clay NP) Social History: 2 c school bus full code Smoking status: Never smoker Alcohol intake: unknown Substance use: unknown Spiritual care concerns: No Course Vital Signs Vital signs: Vital Signs Temperature 98.0 F 11/20/21 09:36 Pulse Rate 78 11/20/21 09:36 Respiratory Rate 18 11/20/21 09:36 Blood Pressure 146/87 H 11/20/21 09:36 Pulse Oximetry 100 11/20/21 09:36 Oxygen Delivery Room Air 11/20/21 09:36 Temperature 98.0 F 11/20/21 09:36 Pulse Rate 67 11/20/21 13:23 Respiratory Rate 18 11/20/21 13:23 Blood Pressure 100/65 11/20/21 13:23 Pulse Oximetry 100 11/20/21 13:23 Oxygen Delivery Room Air 11/20/21 09:36 Medical Decision Making Vital Signs Vital Signs: Vital Signs Temperature 98.0 F 11/20/21 09:36 Pulse Rate 78 11/20/21 09:36 Respiratory Rate 18 11/20/21 09:36 Blood Pressure 146/87 H 11/20/21 09:36 Pulse Oximetry 100 11/20/21 09:36 Oxygen Delivery Room Air 11/20/21 09:36 Temperature 98.0 F 11/20/21 09:36 Pulse Rate 67 11/20/21 13:23 Respiratory Rate 18 11/20/21 13:23 Blood Pressure 100/65 11/20/21 13:23 Pulse Oximetry 100 11/20/21 13:23 Oxygen Delivery Room Air 11/20/21 09:36 Lab Data Result diagrams: 11/20/21 09:46 11/20/21 09:46 Labs: Lab Results 11/20/21 11/20/21 11/20/21 Range/Units 09:46 09:46 10:14 WBC 5.6 (4.5-10.0) K/mm3 RBC 4.46 (4.2-5.4) M/mm3 Hgb 12.9 (12.0-15.0) g/dL Hct 38.1 (37.0-47.0) % MCV 85.4 (80-100) fl MCH 28.9 (26-34) pg MCHC 33.9 (32-36) g/dl RDW 13.9 (11.5-14.5) % Plt Count 254 (150-375) k/mm3 MPV 9.1 (7.4-10.4) fl Immature Gran % (Auto) 0.4 (0-0.5) % Neut % (Auto) 71.7 (45.5-73.1) % Lymph % (Auto) 18.2 L (18.3-44.2) % Harney % (Auto) 7.4 (2.6-8.5) % Eos % (Auto) 1.4 (0-4.4) % Baso % (Auto) 0.9 (0.2-1.2) % Lymph # (Auto) 1.01 (0.9-3.2) K/mm3 Harney # (Auto) 0.4 (0.1-0.6) K/mm3 Eos # (Auto) 0.1 (0-0.3) K/mm3 Baso # (Auto) 0.1 (0.0-0.1) K/mm3 Abs Immat Gran (auto) 0.02 (0.00-0.031) K/mm3 Absolute Neuts (auto) 4.0 (1.3-6.7) K/mm3 Absolute Nucleated RBC 0.0 (0.0-0.012) K/mm3 Nucleated RBC % 0.0 (0.0-0.2) % Sodium 129 L (137-145) mmol/L Potassium 4.3 (3.4-5.0) mmol/L Chloride 95 L (98-107) mmol/L Carbon Dioxide 27 (22-30) mmol/L Anion Gap 7 L (8-16) mmol/L BUN 15 (7-17) mg/dL Creatinine 1.10 H (0.7-1.0) mg/dL Estim Creat Clear Calc 33 ml/min Estimated GFR 47 L (59 - ) Glucose 107 (65-110) mg/dL Calcium 9.0 (8.4-10.2) mg/dL Total Bilirubin 0.6 (0.2-1.3) mg/dL AST 22 (14-
[2021-11-20 15:30] VITALS: BP 112/54; PULSE 67; RESP 18; O2SAT 100
[2021-11-20 15:40] VITALS: BMI 32.6
--- NOTE | 2021-11-20 15:48 | ADMGEN ---
This patient, Scar Sewell, was admitted to Medical Room 344-01. Patient/family oriented to hospital policies and general routines including ID bracelet, bed and alarms, visiting hours, pain management, procedures, bathroom and other care routines, personal items, smoking policy, room service/diet, and visiting hours. Information on how to activate the Rapid Response Team has been discussed. Patient/Family are encouraged to report perceived risks to care and to ask questions if they do not understand what they are told or what they should do.
[2021-11-20 16:05] VITALS: BP 118/55; PULSE 65; RESP 18; TEMP 36.6; O2SAT 100
[2021-11-20 17:05] LABS: Glucose Point of Care 107 mg/dl (65-105)
--- NOTE | 2021-11-20 17:24 | ED.GENADULT ---
HPI - General Adult General Chief complaint: Back Pain/Injury Stated complaint: right leg pain Time Seen by Provider: 11/20/21 09:27 Source: RN notes reviewed History of Present Illness HPI narrative: Patient presents emergency room from home for right-sided back and leg pain. Patient states that she been having increasing pain in the right buttocks going in the right lateral hip and down the leg for the past 5 days. Per the patient's daughter the patient had a history of a femur fracture on the left side in her leg has always been shorter on the right they recently had gotten her a heel rise and since that time she is had increasing pain on the right side. Patient's been trying to take Tylenol at home with minimal relief and took 1000 mg of Tylenol this morning she denies any fevers or chills chest pain shortness of breath abdominal pain numbness or weakness of the extremities bowel or bladder incontinence or any other symptoms Related Data Home Medications Medication Instructions Recorded Confirmed insulin glargine 100 unit/mL 15 unit subcut HS 10/08/21 11/20/21 subcutaneous solution (Lantus U-100 Insulin) losartan 25 mg tablet 25 tablet PO DAILY 10/08/21 11/20/21 Allergies Allergy/AdvReac Type Severity Reaction Status Date / Time poison oak extract Allergy Unknown Unknown Verified 11/20/21 13:31 Review of Systems Review of Systems: Gen.: Denies fevers or chills ENT: Denies congestion Respiratory: Denies shortness of breath or cough CV: Denies chest pain or palpitations GI: Denies abdominal pain nausea, emesis or diarrhea denies incontinence Musculoskeletal: See HPI Neuro: Denies numbness, tingling, weakness or focal weakness Skin: Denies rash Except as documented, all other systems reviewed and negative [facility] Past Medical History Medical History Diabetes Femoral distal fracture Hip fracture requiring operative repair Hypertension Surgical History Surgical History (Updated 11/20/21 @ 13:13 by Laura Clay NP) H/O: hysterectomy History of hip surgery Hx of cholecystectomy Family History Family History Other Cerebrovascular accident Diabetes mellitus Family history of arthritis Family history of cardiovascular disease Family history of malignant neoplasm Hypertension Social History Social History Social History: She is of with 2 children. She used to drive of school bus. She chose her 2 daughter lost to be her durable power deputy commonwealth's attorney for healthcare. She never smoked. She lives home alone. Code status dnr Smoking status: Never smoker Alcohol intake: unknown Substance use: unknown Spiritual care concerns: No Exam Narrative: APPEARANCE: No acute distress, nontoxic, resting in bed HEENT: Normocephalic, atraumatic, OMM RESPIRATORY: No respiratory distress, clear to auscultation bilaterally with no rhonchi wheezing or rales CARDIOVASCULAR: RRR s murmur ABDOMINAL: Soft nondistended tender palpation right lower quadrant no tenderness right upper quadrant, left upper quadrant left lower quadrant no rebound or guarding Back: No midline thoracic lumbar tenderness palpation tender palpation of right paravertebral muscles L4-5 and right piriformis region MUSCULOSKELETAl: Moves all extremities. No clubbing, cyanosis or edema. Tender to palpation of the right lateral hip no swelling or ecchymosis pain with flexion of the great and 45 degrees no tenderness right knee or ankle dorsalis pedis pulse 2+ neurovascular intact NEURO: Awake and alert. Following commands, speech normal, no focal deficits SKIN:: Warm, dry. Normal Color PSYCHIATRIC: Normal affect/mood Course Course Emergency Course: Patient continued to have pain after tramadol given will give morphine Patient continues have pain in the lower back a
[2021-11-20 20:21] LABS: Glucose Point of Care 189 mg/dl (65-105)
[2021-11-20] MEDS: INSULIN GLARGINE (*BKC) 100 UNITS/ML 15 UNITS SUB-Q (20:56)
[2021-11-20 21:27] VITALS: BP 146/60; PULSE 65; RESP 16; TEMP 37; O2SAT 100
[2021-11-21] MEDS: traMADol HCL (*CRX) 25 MG TABLET PO (02:58)
[2021-11-21] MEDS: CYCLOBENZAPRINE HCL 5 MG TABLET PO (02:58)
[2021-11-21] MEDS: fentaNYL CITRATE INJ (*CRX) 100 MCG/2 ML VIAL 25 MCG IV PUSH ×2 (04:29→08:51)
[2021-11-21 05:53] LABS: Basophils Absolute Auto 0.1 K/mm3 (0.0-0.1); Eosinophils Absolute Auto 0.2 K/mm3 (0-0.3); Eosinophils Percent Auto 2.4 % (0-4.4); Hematocrit 37.3 % (37.0-47.0); Hemoglobin 12.2 g/dL (12.0-15.0); Immature Granulocyte Absolute 0.05 K/mm3 (0.00-0.031); Immature Granulocyte Percent A 0.7 % (0-0.5); Lymphocytes Absolute Auto 1.07 K/mm3 (0.9-3.2); Lymphocytes Percent Auto 15.4 % (18.3-44.2); Mean Corpuscular HGB Conc 32.7 g/dl (32-36); Mean Corpuscular Hemoglobin 28.8 pg (26-34); Mean Platelet Volume 9.1 fl (7.4-10.4); Monocytes Absolute Auto 0.6 K/mm3 (0.1-0.6); Monocytes Percent Auto 8.9 % (2.6-8.5); Neutrophils Percent Auto 71.6 % (45.5-73.1); Platelet Count Result 246 k/mm3 (150-375); Red Blood Count 4.24 M/mm3 (4.2-5.4); Red Cell Distribution Width 14.2 % (11.5-14.5)
[2021-11-21 05:54] VITALS: BP 168/66; PULSE 68; RESP 16; TEMP 37.1; O2SAT 98
[2021-11-21 05:58] VITALS: BP 128/42
[2021-11-21 06:09] LABS: Alanine Aminotransferase 17 U/L (6-35); Albumin Level 3.6 g/dL (3.5-5.1); Alkaline Phosphatase 78 U/L (38-126); Anion Gap 4 mmol/L (8-16); Aspartate Amino Transferase 30 U/L (14-36); Bilirubin,Total 0.5 mg/dL (0.2-1.3); Blood Urea Nitrogen 20 mg/dL (7-17); CRP < 0.5 mg/dL (<1.0); Calcium 8.9 mg/dL (8.4-10.2); Carbon Dioxide 29 mmol/L (22-30); Chloride 92 mmol/L (98-107); Estimated CRCL calculation 28 ml/min; Estimated Glomerular Filt Rate 39; Glucose 89 mg/dL (65-110); Lactate Dehydrogenase 136 U/L (120-246); Magnesium 2.1 mg/dL (1.6-2.3); Potassium 3.8 mmol/L (3.4-5.0); Sodium 125 mmol/L (137-145)
[2021-11-21 06:52] LABS: Hemoglobin A1C 6.6 % (<5.7)
[2021-11-21 08:00] VITALS: PULSE 68; RESP 16; O2SAT 98
[2021-11-21 08:02] LABS: Glucose Point of Care 97 mg/dl (65-105)
[2021-11-21] MEDS: predniSONE 20 MG TABLET 60 MG PO (08:51)
--- NOTE | 2021-11-21 10:11 | PM.IMPN ---
Progress Note: A&P Assessment and Plan (1) Sciatica: Code(s): M54.30 - Sciatica, unspecified side Status: Acute Assessment and Plan: -the patient lives home alone is not able to provide activities of daily living or take care of herself at this time due to the pain. -neurosurgeon has been consulted -MRI pending -she is continent of bowel and bladder. -she is moving all extremities without difficulty -she was started on muscle relaxers -PT OT evaluation -prednisone -analgesics (2) Hypertension: Code(s): I10 - Essential (primary) hypertension Status: Acute Assessment and Plan: -resume home medication of losartan -monitor BMP (3) Diabetes: Code(s): E11.9 - Type 2 diabetes mellitus without complications Status: Chronic Assessment and Plan: -Accu-Cheks AC and HS -continue with Lantus (4) Hyponatremia: Code(s): E87.1 - Hypo-osmolality and hyponatremia Status: Acute Assessment and Plan: -continue to monitor, she is at her baseline. -check electrolytes daily. (5) Weakness: Code(s): R53.1 - Weakness Status: Acute Assessment and Plan: -PT and OT evaluation greatly be appreciated. Subjective Date/time seen: 11/21/21 10:11 Still complaining of lower back pain with right-sided sciatica symptoms. Exam Narrative: General: alert and oriented appears to be in pain Psych: appropriate mood nad affect Eyes: PERRLA Neck: Trachea midline, no new lesions Skin: no changes Lungs: CTA Cardiac: Normal S1,S2, no MGR ABD: soft, nd, nt, nbs Ext: no new lesions, no cce Vasc: Pulses intact Musculoskeletal: Some mild tenderness on palpation of lumbar paraspinal muscles on the right side worse than left Objective Data Vital Signs Vital Signs: Vital Signs - 24 hr 11/20/21 13:23 11/20/21 15:30 11/20/21 16:05 Temperature 97.8 F Pulse Rate 67 67 65 Respiratory Rate 18 18 18 Blood Pressure 100/65 112/54 L 118/55 L Pulse Oximetry 100 100 100 Oxygen Delivery 11/20/21 15:40 11/20/21 20:00 11/20/21 21:27 Temperature 98.6 F Pulse Rate 65 Respiratory Rate 16 Blood Pressure 146/60 H Pulse Oximetry 100 Oxygen Delivery Room Air Room Air 08/16/22 05:54 11/21/21 05:58 Temperature 98.7 F Pulse Rate 68 Respiratory Rate 16 Blood Pressure 168/66 H 128/42 L Pulse Oximetry 98 Oxygen Delivery Intake/Output Intake/Output: Intake & Output 11/18/21 11/19/21 11/20/21 11/21/21 23:59 23:59 23:59 23:59 Intake Total 360 240 Output Total 0 200 Balance 360 40 Meds/Results Medications: Active Medications Generic Name Dose Route Start Last Admin Trade Name Freq PRN Reason Stop Dose Admin Cyclobenzaprine HCl 5 mg 11/20/21 15:53 11/21/21 02:58 Cyclobenzaprine Hcl 5 Mg Tablet PO 5 mg Q8H PRN Administration Muscle Spasm Dextrose 12.5 gm 11/20/21 15:50 Dextrose 50% 25 Gm/50 Ml Syringe IV PUSH PRN PRN Hypoglycemia Protocol Fentanyl Citrate 25 mcg 11/20/21 15:53 11/21/21 08:51 Fentanyl Citrate Inj (*Crx) 100 Mcg/2 Ml Vial IV PUSH 25 mcg Q4H PRN Administration Pain Rated 7-10 Glucagon 1 mg 11/20/21 15:50 Glucagon For Inj 1 Mg Vial IM PRN PRN Hypoglycemia Protocol Glucose 15 gm 11/20/21 15:50 Glucose Oral Gel 15 Gm Of Glucse In 37.5 Gm Tube PO PRN PRN Hypoglycemia Protocol Dextrose 1,000 mls @ 100 mls/hr 11/20/21 15:50 Dextrose 5% 1,000 Ml IVPB PRN PRN Hypoglycemia Protocol Insulin Aspart 3 - 6 units 11/20/21 17:00 11/21/21 08:46 Insulin Aspart (*Bkc) 100 Units/Ml SUB-Q Not Given [facility] Protocol Insulin Glargine 15 units 11/20/21 21:00 11/20/21 20:56 Insulin Glargine (*Bkc) 100 Units/Ml SUB-Q 15 units HS SLOAN Administration Prednisone 60 mg 11/21/21 08:00 11/21/21 08:51 Prednisone 20 Mg Tablet PO 60 mg DAILY@0800 SLOAN Administration Tramadol H
[2021-11-21 12:09] LABS: Glucose Point of Care 126 mg/dl (65-105)
[2021-11-21 14:00] VITALS: BP 150/52; PULSE 73; RESP 18; TEMP 36.1; O2SAT 96
[2021-11-21 17:37] LABS: Glucose Point of Care 227 mg/dl (65-105)
[2021-11-21] MEDS: INSULIN ASPART (*BKC) 100 UNITS/ML SUB-Q (17:49)
--- NOTE | 2021-11-21 20:13 | WPDCN ---
Assessment and Plan Assessment and plan (1) Spondylolisthesis at L3-L4 level: Code(s): M43.16 - Spondylolisthesis, lumbar region Status: Acute (2) Foraminal stenosis of lumbar region: Code(s): M48.061 - Spinal stenosis, lumbar region without neurogenic claudication Status: Acute (3) Lumbar spondylosis: Code(s): M47.816 - Spondylosis without myelopathy or radiculopathy, lumbar region Status: Acute Plan Ms. Landers is an 86-year-old female likely has a right L3 radiculopathy related to the foraminal stenosis on the right at L3-4. She does not seem to have quadriceps weakness. Curiously, she has very slight dorsiflexion weakness on the right which could not be related to this nerve root and may be longstanding related to some other process. From a surgical perspective simple foraminotomy at L3-4 could be helpful and is unmanageable surgery if she could be cleared for anesthesia. She prefers to proceed nonsurgically for now. She is doing somewhat better today. If she can be made to be independent in transfers and freely ambulatory with her pain relatively controlled with by mouth pain medicine than she could leave the hospital to follow up as an outpatient, perhaps seeing a local animated cartoons painter for injection around the L3 nerve root and biting time to see if the problem will improve enough that she can avoid surgical decompression. If she cannot be made freely ambulatory then we should consider surgical decompression while she is an inpatient. She will participate with physical therapy tomorrow to demonstrate that she can make transfers and ambulate independently. I have recommended switching her by mouth pain medication to Nixon and trying to avoid the IV pain medication as she is improved and she could be sent home on Nixon as necessary. I will continue to follow. HPI Data of Consult Date/Time: 11/21/21 20:13 Requesting Physician: Billy Levine MD Primary Care Provider: Trevin Wray MD Consult Narrative Narrative: Scar Landers is a 86 year old female Who presented to [facility] with complaints of right lower extremity pain that she has been experiencing for a few weeks. It became severe enough on Saturday that she had to seek help from the emergency room. She was admitted. She has been treated with by mouth analgesics and muscle relaxants. She states that today she is doing somewhat better and has walked on her own power. She has an abnormal gait related to a left femur fracture and its repair years ago. She states that she is not steady on her feet because of confidence but she does not report specific muscle group weakness of either lower extremity. She does not report any bowel or bladder incontinence. The discomfort in the right leg extends down to the knee from some mid back. She is currently taking tramadol by mouth and fentanyl IV. She has an MRI evaluation available for our review. Review of Systems Review of Systems: The patient denies shortness of breath, cough, fever, chills, nausea, vomiting, shortness of breath, weight loss, weight gain, new urinary or bowel disturbance, chest pain. She acknowledges back and right lower extremity pain and an orthopedic injury to her left leg causing an abnormal gait. She is otherwise negative on 12 systems except as noted elsewhere. [facility] Past Medical History Medical History Diabetes Femoral distal fracture Hip fracture requiring operative repair Hypertension Surgical History Surgical History H/O: hysterectomy History of hip surgery Hx of cholecystectomy Family History Family History Other Cerebrovascular accident Diabetes mellitus Family history of arthritis Family history of cardiovascular disease Family history
[2021-11-21 20:15] LABS: Glucose Point of Care 330 mg/dl (65-105)
[2021-11-21] MEDS: INSULIN GLARGINE (*BKC) 100 UNITS/ML 15 UNITS SUB-Q (20:22)
[2021-11-21] MEDS: HYDROcodone/acetaminophen (*CRX) 5-325 MG TABLET 1 TAB PO (20:22)
[2021-11-21 21:44] VITALS: BP 175/55; PULSE 76; RESP 16; TEMP 36.9; O2SAT 99
[2021-11-22 05:59] VITALS: BP 165/80; PULSE 18; RESP 100; TEMP 36.7; O2SAT 100
[2021-11-22 08:00] VITALS: PULSE 18; RESP 100; O2SAT 100
[2021-11-22 08:19] LABS: Glucose Point of Care 125 mg/dl (65-105)
[2021-11-22] MEDS: predniSONE 20 MG TABLET 60 MG PO (09:18)
[2021-11-22 12:40] LABS: Glucose Point of Care 135 mg/dl (65-105)
--- NOTE | 2021-11-22 13:35 | WPDPN ---
Progress Note: A&P Assessment and Plan (1) Lumbar spondylosis: Code(s): M47.816 - Spondylosis without myelopathy or radiculopathy, lumbar region Status: Acute (2) Foraminal stenosis of lumbar region: Code(s): M48.061 - Spinal stenosis, lumbar region without neurogenic claudication Status: Acute (3) Spondylolisthesis at L3-L4 level: Code(s): M43.16 - Spondylolisthesis, lumbar region Status: Acute Plan I recommend increasing Ms. mckenna towels out of bed activity with physical therapy. She should walk in the [place] at least 3 times a day and be up in a chair 3 times a day moving towards as normal activities she can manage. To be at home she must be able to make transfers and ambulate independently. She is still very negative about any decompressive surgery. She is without specific neurologic deficit at this point but is somewhat debilitated. Again, she will need to increase her out of bed activity and do so independently in order to be at home. Subjective Date/time seen: 11/22/21 13:35 Ms. Landers is about the same today as when I saw her yesterday. She has not enjoyed any out of bed activity yet today. She is not complaining of significant pain today. She is not having new lower extremity symptoms. Exam Narrative: Strength appears to be normal in the bilateral lower extremities to direct confrontation. Sensation was intact to light touch throughout the lower extremities. Straight leg raise was negative bilaterally. Objective Data Vital Signs Vital Signs: Vital Signs - 24 hr 11/21/21 14:00 11/21/21 21:44 11/21/21 20:00 Temperature 97.0 F L 98.4 F Pulse Rate 73 76 Respiratory Rate 18 16 Blood Pressure 150/52 H 175/55 H Pulse Oximetry 96 99 Oxygen Delivery Room Air 11/22/21 05:59 11/22/21 08:00 Temperature 98.1 F Pulse Rate 18 L 18 L Respiratory Rate 100 H 100 H Blood Pressure 165/80 H Pulse Oximetry 100 100 Oxygen Delivery Room Air Intake/Output Intake/Output: Intake & Output 11/19/21 11/20/21 11/21/21 11/22/21 23:59 23:59 23:59 23:59 Intake Total 360 1270 570 Output Total 0 775 450 Balance 360 495 120 Meds/Results Medications: Active Medications Generic Name Dose Route Start Last Admin Trade Name Zelalemq PRN Reason Stop Dose Admin Hydrocodone Bitart/Acetaminophen 1 tab 11/21/21 20:12 11/21/21 20:22 Hydrocodone/Acetaminophen (*Crx) 5-325 Mg Tablet PO 1 tab Q4H PRN Administration Pain Rated 4-6 Cyclobenzaprine HCl 5 mg 11/20/21 15:53 11/21/21 02:58 Cyclobenzaprine Hcl 5 Mg Tablet PO 5 mg Q8H PRN Administration Muscle Spasm Dextrose 12.5 gm 11/20/21 15:50 Dextrose 50% 25 Gm/50 Ml Syringe IV PUSH PRN PRN Hypoglycemia Protocol Fentanyl Citrate 25 mcg 11/20/21 15:53 11/21/21 08:51 Fentanyl Citrate Inj (*Crx) 100 Mcg/2 Ml Vial IV PUSH 25 mcg Q4H PRN Administration Pain Rated 7-10 Glucagon 1 mg 11/20/21 15:50 Glucagon For Inj 1 Mg Vial IM PRN PRN Hypoglycemia Protocol Glucose 15 gm 11/20/21 15:50 Glucose Oral Gel 15 Gm Of Glucse In 37.5 Gm Tube PO PRN PRN Hypoglycemia Protocol Dextrose 1,000 mls @ 100 mls/hr 11/20/21 15:50 Dextrose 5% 1,000 Ml IVPB PRN PRN Hypoglycemia Protocol Insulin Aspart 3 - 6 units 11/20/21 17:00 11/22/21 09:17 Insulin Aspart (*Bkc) 100 Units/Ml SUB-Q Not Given TIDWM [facility] Protocol Insulin Glargine 15 units 11/20/21 21:00 11/21/21 20:22 Insulin Glargine (*Bkc) 100 Units/Ml SUB-Q 15 units HS SLOAN Administration Lidocaine 3 patch 11/22/21 09:00 Lidocaine 5% Patch TRANSDERM DAILY SLOAN Prednisone 60 mg 11/21/21 08:00 11/22/21 09:18 Prednisone 20 Mg Tablet PO 60 mg DAILY@0800 SLOAN Administration Tramadol HCl 25 mg 11/20/21 15:52 11/21/21 02:58 Tramadol Hcl (*Crx) 25 Mg Tablet PO 25 mg Q4H PRN Administration Pain Rated 4-6
[2021-11-22 14:00] VITALS: BP 149/48; PULSE 70; RESP 16; TEMP 36.3; O2SAT 100
--- NOTE | 2021-11-22 14:52 | PM.IMPN ---
Progress Note: A&P Assessment and Plan (1) Sciatica: Code(s): M54.30 - Sciatica, unspecified side Status: Acute Assessment and Plan: -the patient lives home alone is not able to provide activities of daily living or take care of herself at this time due to the pain. -neurosurgeon has been consulted -MRI pending -she is continent of bowel and bladder. -she is moving all extremities without difficulty -she was started on muscle relaxers -PT OT evaluation -prednisone -analgesics (2) Hypertension: Code(s): I10 - Essential (primary) hypertension Status: Acute Assessment and Plan: -resume home medication of losartan -monitor BMP (3) Diabetes: Code(s): E11.9 - Type 2 diabetes mellitus without complications Status: Chronic Assessment and Plan: -Accu-Cheks AC and HS -continue with Lantus (4) Hyponatremia: Code(s): E87.1 - Hypo-osmolality and hyponatremia Status: Acute Assessment and Plan: -continue to monitor, she is at her baseline. -check electrolytes daily. (5) Weakness: Code(s): R53.1 - Weakness Status: Acute Assessment and Plan: -PT and OT evaluation greatly be appreciated. Subjective Date/time seen: 11/22/21 14:52 This is an 86-year-old female patient who resides at home alone.? She has a history of having a hip fracture in the past that required surgical repair.? Her 1 leg is been shorter since that repair and this has caused her to have some lower back pain.? She has a history of sciatica but cannot get in to the orthopedic doctor until about January.? The patient stated that she has so much pain to her left leg due to the sciatic pain from her back that it interferes with her daily living.? Patient's sodium levels also 129 her last 1 last month was 131.? Her creatinine is 1.1 and her GFR is 47 which is improved from last month.? Her urine is negative.? The patient is being admitted to observation status on the date of service of 11/20/2021. Review of Systems Review of Systems: All systems reviewed & are unremarkable except as noted in HPI and below Objective Data Vital Signs Vital Signs: Vital Signs - 24 hr 11/21/21 21:44 11/21/21 20:00 11/22/21 05:59 Temperature 98.4 F 98.1 F Pulse Rate 76 18 L Respiratory Rate 16 100 H Blood Pressure 175/55 H 165/80 H Pulse Oximetry 99 100 Oxygen Delivery Room Air 11/22/21 08:00 11/22/21 14:00 Temperature 97.3 F L Pulse Rate 18 L 70 Respiratory Rate 100 H 16 Blood Pressure 149/48 H Pulse Oximetry 100 100 Oxygen Delivery Room Air Intake/Output Intake/Output: Intake & Output 11/19/21 11/20/21 11/21/21 11/22/21 23:59 23:59 23:59 23:59 Intake Total 360 1270 570 Output Total 0 775 450 Balance 360 495 120 Meds/Results Medications: Active Medications Generic Name Dose Route Start Last Admin Trade Name Freq PRN Reason Stop Dose Admin Hydrocodone Bitart/Acetaminophen 1 tab 11/21/21 20:12 11/21/21 20:22 Hydrocodone/Acetaminophen (*Crx) 5-325 Mg Tablet PO 1 tab Q4H PRN Administration Pain Rated 4-6 Cyclobenzaprine HCl 5 mg 11/20/21 15:53 11/21/21 02:58 Cyclobenzaprine Hcl 5 Mg Tablet PO 5 mg Q8H PRN Administration Muscle Spasm Dextrose 12.5 gm 11/20/21 15:50 Dextrose 50% 25 Gm/50 Ml Syringe IV PUSH PRN PRN Hypoglycemia Protocol Fentanyl Citrate 25 mcg 11/20/21 15:53 11/21/21 08:51 Fentanyl Citrate Inj (*Crx) 100 Mcg/2 Ml Vial IV PUSH 25 mcg Q4H PRN Administration Pain Rated 7-10 Glucagon 1 mg 11/20/21 15:50 Glucagon For Inj 1 Mg Vial IM PRN PRN Hypoglycemia Protocol Glucose 15 gm 11/20/21 15:50 Glucose Oral Gel 15 Gm Of Glucse In 37.5 Gm Tube PO PRN PRN Hypoglycemia Protocol Dextrose 1,000 mls @ 100 mls/hr 11/20/21 15:50 Dextrose 5% 1,000 Ml IVPB PRN PRN Hypoglycemia Protocol Insulin Aspart 3 - 6 units 11/06
--- NOTE | 2021-11-22 16:13 | PM.DS ---
DS: Admitting Diagnosis Discharge Date 11/22/2021 Admitting Diagnosis low back pain DS: Discharge Diagnosis Discharge Diagnosis (1) Sciatica: Code(s): M54.30 - Sciatica, unspecified side Status: Acute (2) Hypertension: Code(s): I10 - Essential (primary) hypertension Status: Acute (3) Diabetes: Code(s): E11.9 - Type 2 diabetes mellitus without complications Status: Chronic (4) Hyponatremia: Code(s): E87.1 - Hypo-osmolality and hyponatremia Status: Acute (5) Weakness: Code(s): R53.1 - Weakness Status: Acute DS: Summary Hospital Course Reason for hospitalization: Back pain Narrative: This is an 86-year-old female patient who resides at home alone.? She has a history of having a hip fracture in the past that required surgical repair.? Her 1 leg is been shorter since that repair and this has caused her to have some lower back pain.? She has a history of sciatica but cannot get in to the orthopedic doctor until about January.? The patient stated that she has so much pain to her left leg due to the sciatic pain from her back that it interferes with her daily living.? Patient's sodium levels also 129 her last 1 last month was 131.? Her creatinine is 1.1 and her GFR is 47 which is improved from last month.? Her urine is negative.? The patient is being admitted to observation status on the date of service of 11/20/2021. Hospital Course: patient with low back pain seen by spine surgeon no surgical intervention is needed recommended conservative management with physical activity patient able to manage her ADLs able to transfer from bed to chair, patient was able to walk with a physical therapy without any difficulty, patient's family lives close by and will monitor patient, clinically stable will discharge the patient today. Time Spent with Patient Time attestation: Total time spent providing and/or coordinating discharge services: Exam Narrative: elderly frail Patient is comfortable, NAD HEENT: eyes are clear and none icteric LUNGS: normal respiratory effort ABD: moderately distended Lower extremities: no edema SKIN: nonjaundiced Neuro: grossly intact. DS: Data Data Completed and Pending Labs on day of discharge: Labs from last 24 hours 11/22/21 11/22/21 11/21/21 12:33 08:08 19:50 POC Capillary Glucose 135 H 125 H 330 H 11/21/21 17:35 POC Capillary Glucose 227 H Discharge Plan Discharge Attending physician on discharge: Power Robledo Consulting providers: Moo Hall ; Kashif Cartagena ; Laura Clay ; Aron Daugherty ; Kashif Wynn ; Tian Ardon ; Chandu Pina ; Manuel Becerra V. Discharging Clinician: Power Robledo Patient Disposition: Home, Self-Care Activity: as tolerated Diet: heart healthy Discharge Instructions: Patient to follow-up with her primary care provider as soon as possible, if any symptoms redeveloped to go to nearest emergency department. Patient Instructions: Antibiotic Form Stand Alone Forms: General Discharge Information Follow-up/Referrals: Moo Hall MD [Physician] - Trevin Wray MD [Primary Care Provider] - Discharge Medications: New lidocaine [Lidoderm] 5 % Adhesive Patch,Medicated 3 patch transdermal DAILY Qty: 5 0RF prednisone 10 mg tablet 10 mg PO DAILY Qty: 42 0RF Rx Instructions: 6Tx2d, 5Tx2d, 4Tx2d, 3Tx2d, 2Tx2d, 1Tx2d tramadol-acetaminophen 37.5-325 mg tablet 1 tablet PO Q6H PRN (Reason: pain) Qty: 30 0RF Continued insulin glargine [Lantus U-100 Insulin] 100 unit/mL solution 15 unit SUBCUT HS losartan 25 mg tablet 25 tablet PO DAILY (DME) lancets-blood glucose strips 30 gauge combo pack See Rx Instructions .Route Qty: 50 0RF Rx Instructions: As directed (DME) blood-glucose meter Misc See Rx Instructions .Route Qty: 1 0RF Rx Instructions: As directed Madi
[2021-11-22] MEDS: INSULIN ASPART (*BKC) 100 UNITS/ML SUB-Q (17:04)
[2021-11-22 17:10] LABS: Glucose Point of Care 259 mg/dl (65-105)
== END 2021-11-22 18:00 | disposition home or self-care (01) ==
LOC: ANHED 09:42 → ANH3MED 15:30
PROVIDERS: Nurse Practitioner; Admitting Provider Internal Medicine; Emergency Provider Emergency Medicine; PCP Family Medicine; Visit Provider Family Medicine
DX: M54.41 Lumbago with sciatica, right side (principal); I10 Essential (primary) hypertension; E11.9 Type 2 diabetes mellitus without complications; E87.1 Hypo-osmolality and hyponatremia; R53.1 Weakness; M21.70 Unequal limb length (acquired), unspecified site; M79.604 Pain in right leg; M47.816 Spondylosis without myelopathy or radiculopathy, lumbar region; M48.061 Spinal stenosis, lumbar region without neurogenic claudication; M43.16 Spondylolisthesis, lumbar region; I44.4 Left anterior fascicular block; K45.8 Other specified abdominal hernia without obstruction or gangrene; Z87.81 Personal history of (healed) traumatic fracture; Z98.890 Other specified postprocedural states; Z79.4 Long term (current) use of insulin; Z79.899 Other long term (current) drug therapy
CPT/HCPCS: 36415; 72131; 72148; 74176; 80053; 81001; 82948; 83036; 83615; 83690; 83735; 84443; 85025; 86140; 93005; 96374; 96375; 96376; 97110; 97161; 97165; 99285; A9270; G0378; J1815; J2270; J3010; J7512

== ENCOUNTER 2021-12-25 09:51 | Emergency (ER) | payer MEDICARE, SELFPAY ==
[2021-12-25] VITALS (13 sets, daily range): BP systolic 110–151; BP diastolic 49–93; PULSE 64–70; RESP 16–29; TEMP 36.6; O2SAT 95–100
--- NOTE | ~2021-12-25 | CT_ITS ---
EXAMINATION: CT abdomen pelvis w con DATE: 12/25/2021 12:15 INDICATION: Generalized abdominal pain. TECHNIQUE: Computed tomography (CT) of the abdomen and pelvis was performed with 100 mL Omnipaque 350 intravenous contrast. Automated exposure control and iterative reconstruction technique were employe d. The dose-length product was 1057.82 mGy-cm. COMPARISON: CT abdomen and pelvis 11/20/2021, 10/08/21 FINDINGS: The visualized portions of the lung bases demonstrate mild atelectasis and mild chronic moses g disease. No pleural effusion. There is left atrial enlargement of the heart. There are coronary art miguel angel calcifications. No pericardial effusion. There is a small sliding hiatal hernia. There is mild in trahepatic biliary duct dilatation. The common duct is dilated to 13 mm. There are changes of cholecy stectomy. The spleen, pancreas, and adrenal glands are normal. There is cortical thinning of the kidn eys. There is a 9 mm cyst in left kidney. There is a right inguinal hernia containing fat. There are multiple supraumbilical ventral hernias containing fat. There are scattered diverticula in the colon. There is wall thickening thickening of sigmoid colon with surrounding fat stranding, consistent with diverticulitis. There are no dilated loops of bowel. The appendix is not visualized. There are no pa thologically enlarged lymph nodes. There is no free intraperitoneal fluid. There is severe lumbar and thoracic spondylosis. There are chronic bilateral L5 pars defects. There is 5 mm anterolisthesis of L5 on S1. IMPRESSION: 1. [id number] sigmoid diverticulitis. No perforation or abscess. 2. Small sliding hiatal hernia. 3. Mildly intrahepatic and extrahepatic biliary duct dilatation status post cholecystectomy, stable f rom 10/08/2021 and likely not clinically significant given the normal liver function tests. 4. Supraumbilical ventral hernias containing fat. Reviewed, dictated and finalized at location A. IMPRESSION: 1. [id number] sigmoid diverticulitis. No perforation or abscess. 2. Small sliding hiatal hernia. 3. Mildly intrahepatic and extrahepatic biliary duct dilatation status post cho lecystectomy, stable from 10/08/2021 and likely not clinically significant given the normal liver function tests. 4. Supraumbilical ventral hernias containing fat.
--- NOTE | 2021-12-25 10:56 | ED.ABDPAIN ---
HPI - Abdominal Pain General Chief Complaint: Abdominal Pain Stated Complaint: abd pain, diarrhea Time Seen by Provider: 12/25/21 09:56 Source: patient, family and old records reviewed Mode of arrival: EMS Limitations: no limitations History of Present Illness HPI narrative: Patient is an 86-year-old female who presents the ED via EMS with report of lower abdominal pain. Daughter at bedside assisted in providing information. She reports patient has had intermittent abdominal pain for the last 6 months. She was seen in the ED for back pain and abdominal pain on 11/20 at which point she had a negative CT scan of her abdomen pelvis. Patient does have a history of diverticulosis and was started on Cipro and Flagyl for a suspected diverticulitis flare-up last Saturday by her primary care doctor. Patient reports pain became worse this morning in her lower abdomen, prompting her presentation. Patient has not taken anything for pain today. Last had a bowel movement today and was diarrhea. Denies rectal bleeding, melena. Denies nausea, vomiting. Denies fever. Denies urinary symptoms. Related Data Home Medications Medication Instructions Recorded Confirmed insulin glargine 100 unit/mL 15 unit subcut HS 10/08/21 11/20/21 subcutaneous solution (Lantus U-100 Insulin) losartan 25 mg tablet 25 tablet PO DAILY 10/08/21 11/20/21 Allergies Allergy/AdvReac Type Severity Reaction Status Date / Time poison oak extract Allergy Unknown Unknown Verified 11/20/21 13:31 Review of Systems Review of Systems: CONSTITUTIONAL: Denies fever, chills, or sweats. CARDIOVASCULAR: Denies chest pain. RESPIRATORY: Denies dyspnea. GASTROINTESTINAL: Reports lower ABD pain, diarrhea. Denies rectal bleeding, melena, nausea, vomiting. GENITOURINARY: Denies dysuria or hematuria. All systems reviewed & are unremarkable except as noted in HPI and below PMFSH Past Medical History Medical History Diabetes Femoral distal fracture Hip fracture requiring operative repair Hypertension Surgical History Surgical History H/O: hysterectomy History of hip surgery Hx of cholecystectomy Family History Family History Other Cerebrovascular accident Diabetes mellitus Family history of arthritis Family history of cardiovascular disease Family history of malignant neoplasm Hypertension Social History Social History Social History: She is of with 2 children. She used to drive of school bus. She chose her 2 daughter lost to be her durable power insurance defense attorney for healthcare. She never smoked. She lives home alone. Code status dnr Smoking status: Never smoker Alcohol intake: unknown Substance use: unknown Spiritual care concerns: No Exam Narrative: GENERAL: Elderly, well-nourished, non-toxic, in no acute distress. HEAD: Normocephalic, atraumatic. NECK: Supple. No adenopathy, no masses. RESPIRATORY: Airway patent, respirations nonlabored. Clear to auscultation bilaterally, no rales, rhonchi, wheezing. CARDIOVASCULAR: Regular rate and rhythm without murmurs, rubs, or gallops. Peripheral pulses 2+ and equal bilaterally. ABDOMINAL: Soft, diffuse tenderness in lower abdomen, worse in suprapubic region and right lower quadrant. Nondistended, no hepatosplenomegaly. Normoactive BS. MUSCULOSKELETAL: Moves all extremities. Strength/ROM intact without gross deformities. SKIN: Warm, dry, normal color. No rashes. NEURO: A&O X3. [place]. Speech clear. Cranial nerves II-XII grossly intact. Steady gait. No ataxic movements. PSYCHIATRIC: Appropriate mood and affect. Normal interaction. Course Vital Signs Vital signs: Vital Signs Temperature 97.9 F 12/25/21 09:54 Pulse Rate 70 12/25/21 09:54 Respiratory Ra
[2021-12-25] MEDS: SODIUM CHLORIDE 0.9% IV 1,000 ML 999 ML IV CONT (11:02)
[2021-12-25] MEDS: ONDANSETRON INJ 4 MG/2 ML VIAL IV PUSH (11:03)
[2021-12-25] MEDS: MORPHINE SULFATE (*CRX) 2 MG/ML INJ IV PUSH (11:03)
[2021-12-25 11:30] LABS: Appearance Urine Clear (Clear); Bilirubin Urine Negative (Negative); Blood Urine Negative (Negative); Color Urine Yellow (Yellow); Glucose Urine UA Trace mg/dL (Negative); Ketones Urine Negative (Negative); Leukocyte Esterase Ur Trace LEU/UL (Negative); Nitrate Urine Negative (Negative); Protein Urine 1+ mg/dL (Negative); Specific Grav Ur 1.025 (1.001-1.035); Urobilinogen Urine 0.2 mg/dL (<2.0)
[2021-12-25 11:38] LABS: Basophils Absolute Auto 0.1 K/mm3 (0.0-0.1); Basophils Percent Auto 0.7 % (0.2-1.2); Eosinophils Absolute Auto 0.1 K/mm3 (0-0.3); Immature Granulocyte Absolute 0.09 K/mm3 (0.00-0.031); Immature Granulocyte Percent A 1.1 % (0-0.5); Lymphocytes Percent Auto 12.5 % (18.3-44.2); Mean Corpuscular HGB Conc 32.3 g/dl (32-36); Mean Corpuscular Hemoglobin 28.8 pg (26-34); Mean Corpuscular Volume 89.3 fl (80-100); Monocytes Absolute Auto 0.8 K/mm3 (0.1-0.6); Monocytes Percent Auto 9.9 % (2.6-8.5); Neutrophils Percent Auto 74.8 % (45.5-73.1); Platelet Count Result 280 k/mm3 (150-375); Red Blood Count 3.47 M/mm3 (4.2-5.4); Red Cell Distribution Width 14.6 % (11.5-14.5)
[2021-12-25 11:41] LABS: RBC Urine 0-2 /hpf (0-2)
[2021-12-25 11:43] LABS: Add Urine Microscopic? YES
[2021-12-25 11:48] LABS: Alanine Aminotransferase 12 U/L (6-35); Albumin Level 2.8 g/dL (3.5-5.1); Alkaline Phosphatase 54 U/L (38-126); Anion Gap 9 mmol/L (8-16); Aspartate Amino Transferase 21 U/L (14-36); Bilirubin,Total 0.3 mg/dL (0.2-1.3); Blood Urea Nitrogen 17 mg/dL (7-17); Calcium 7.8 mg/dL (8.4-10.2); Carbon Dioxide 21 mmol/L (22-30); Chloride 100 mmol/L (98-107); Estimated CRCL calculation 30 ml/min; Estimated Glomerular Filt Rate 39; Glucose 186 mg/dL (65-110); Lipase 42 U/L (23-300); Potassium 3.8 mmol/L (3.4-5.0); Sodium 130 mmol/L (137-145)
[2021-12-25] MEDS: MORPHINE SULFATE (*CRX) 4 MG/ML INJ IV PUSH (14:23)
== END 2021-12-25 17:00 | disposition home or self-care (01) ==
PROVIDERS: Physician Assistant; Emergency Provider Emergency Medicine; PCP Family Medicine
DX: K57.32 Diverticulitis of large intestine without perforation or abscess without bleeding (principal); E11.9 Type 2 diabetes mellitus without complications; I10 Essential (primary) hypertension; Z90.710 Acquired absence of both cervix and uterus; Z66 Do not resuscitate; Z79.4 Long term (current) use of insulin; K44.9 Diaphragmatic hernia without obstruction or gangrene; K43.9 Ventral hernia without obstruction or gangrene
CPT/HCPCS: 36415; 74177; 80053; 81001; 83690; 85025; 87086; 96365; 96375; 96376; 99284; J0131; J2270; J2405; J7030; Q9967

== ENCOUNTER 2021-12-31 15:44 | Observation (INO) | payer MEDICARE, SELFPAY ==
[2021-12-31] VITALS (10 sets, daily range): BP systolic 115–174; BP diastolic 48–99; PULSE 65–78; RESP 16–22; TEMP 36.2–36.6; O2SAT 97–100; BMI 34.5
--- NOTE | ~2021-12-31 | CT_ITS ---
EXAMINATION: CT abdomen pelvis w con DATE: 12/31/2021 17:18 INDICATION: Lower quadrant abdominal pain TECHNIQUE: Computed tomography (CT) of the abdomen and pelvis was performed with 100 CC Omnipaque 350 intravenous contrast. Automated exposure control and iterative reconstruction technique were employe d. Exam dose: 1271.37 mGy-cm total exam DLP. COMPARISON: 12/25/2021 CT abdomen pelvis FINDINGS: Minimal atelectasis at the lung bases. No pericardial or pleural effusion. Stable prominenc e size of the intrahepatic and extrahepatic bile ducts since 12/25/2021, likely due to the postcholecy stectomy state. No hepatic, splenic space-occupying mass lesion. Pancreatic atrophy. No pancreatic mass lesion, calci fication or ductal dilatation. Normal morphology of the adrenal glands. 9.4 mm lower pole left renal cyst Renal space-occupying mass lesion or urinary tract calculus or hydroureteronephrosis. The urinary rafael dder is evacuated and not optimally dilated. Right fat-containing inguinal hernia. Status post hysterectomy. There is atherosclerotic calcification abdominal aorta and iliac arteries but no aneurysm. No intrape ritoneal mass lesion or adenopathy or ascites. Small sliding hiatal hernia is noted Diverticulosis of left and right colon. There is mild pericolic soft tissue fat infiltration at the j unction of the distal descending and proximal sigmoid colon consistent with mild sigmoid diverticulit is, without evidence of abscess. There obstruction is noted. There are scattered containing ventral abdominal wall hernias. Diffuse osteopenia. Diffuse idiopathic skeletal hyperostosis of the thoracic spine. 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 Moderately severe degenerative disc disease at L2-3 and severe degenerative disc disease at L3-4, L4- 5 and L5-S1, with mild retrolisthesis at L4-5. There is prominent degenerative changes apophyseal joints with associated grade 1 anterolisthesis at L3-4. Bilateral hip osteoarthritis. IMPRESSION: Mild acute sigmoid diverticulitis Junction of the descending and sigmoid colon, without abscess or free air Diverticulosis of left and right colon Status post cholecystectomy with prominence of the intrahepatic and extrahepatic bile ducts Pancreatic atrophy Small sliding hiatal hernia Left renal cyst Fat-containing right inguinal hernia Reviewed, dictated and finalized at [facility]. Reviewed, dictated and finalized at [facility]. IMPRESSION: Mild acute sigmoid diverticulitis Junction of the descending and sigmoid colon, without abscess or free air Diverticulosis of left and right colon Status post cholecystectomy with prominence of the intrahepatic and extrahepati c bile ducts Pancreatic atrophy Small sliding hiatal hernia Left renal cyst Fat-containing right inguinal hernia
[2021-12-31 16:15] LABS: Basophils Absolute Auto 0.1 K/mm3 (0.0-0.1); Basophils Percent Auto 1.1 % (0.2-1.2); Eosinophils Absolute Auto 0.1 K/mm3 (0-0.3); Eosinophils Percent Auto 0.8 % (0-4.4); Hematocrit 35.1 % (37.0-47.0); Hemoglobin 11.5 g/dL (12.0-15.0); Immature Granulocyte Absolute 0.05 K/mm3 (0.00-0.031); Immature Granulocyte Percent A 0.7 % (0-0.5); Lymphocytes Absolute Auto 1.08 K/mm3 (0.9-3.2); Lymphocytes Percent Auto 14.4 % (18.3-44.2); Mean Corpuscular HGB Conc 32.8 g/dl (32-36); Mean Corpuscular Volume 88.6 fl (80-100); Mean Platelet Volume 9.4 fl (7.4-10.4); Monocytes Absolute Auto 0.7 K/mm3 (0.1-0.6); Monocytes Percent Auto 9.1 % (2.6-8.5); Neutrophils Absolute Auto 5.6 K/mm3 (1.3-6.7); Neutrophils Percent Auto 73.9 % (45.5-73.1); Platelet Count Result 292 k/mm3 (150-375); Red Blood Count 3.96 M/mm3 (4.2-5.4); Red Cell Distribution Width 14.8 % (11.5-14.5); White Blood Count 7.5 K/mm3 (4.5-10.0)
[2021-12-31] MEDS: MORPHINE SULFATE (*CRX) 4 MG/ML INJ IV PUSH (16:19)
[2021-12-31 16:27] LABS: Alanine Aminotransferase 13 U/L (6-35); Albumin Level 3.2 g/dL (3.5-5.1); Alkaline Phosphatase 59 U/L (38-126); Anion Gap 6 mmol/L (8-16); Aspartate Amino Transferase 21 U/L (14-36); Bilirubin,Total 0.5 mg/dL (0.2-1.3); Blood Urea Nitrogen 17 mg/dL (7-17); Calcium 8.3 mg/dL (8.4-10.2); Carbon Dioxide 22 mmol/L (22-30); Chloride 103 mmol/L (98-107); Estimated CRCL calculation 29 ml/min; Estimated Glomerular Filt Rate 39; Glucose 147 mg/dL (65-110); Lipase 55 U/L (23-300); Potassium 3.7 mmol/L (3.4-5.0); Sodium 131 mmol/L (137-145)
[2021-12-31 16:37] LABS: Appearance Urine Clear (Clear); Bilirubin Urine Negative (Negative); Blood Urine Negative (Negative); Color Urine Yellow (Yellow); Glucose Urine UA Negative (Negative); Ketones Urine Negative (Negative); Leukocyte Esterase Ur Trace LEU/UL (Negative); Nitrate Urine Negative (Negative); Protein Urine 2+ mg/dL (Negative); Urobilinogen Urine 0.2 mg/dL (<2.0)
[2021-12-31 16:42] LABS: Mucus Urine Rare /lpf; RBC Urine 0-2 /hpf (0-2); WBC Urine 0-3 /hpf
[2021-12-31 16:48] LABS: Add Urine Microscopic? YES
--- NOTE | 2021-12-31 17:27 | ED.GENADULT ---
HPI - General Adult General Chief complaint: Abdominal Pain Stated complaint: abdomen with diarrhea Time Seen by Provider: 12/31/21 16:06 History of Present Illness HPI narrative: Patient is an 86-year-old female who presents ER with abdominal pain and diarrhea. Patient has been having pain for 3 weeks and had been on some oral antibiotics for diverticulitis. She finished medication yesterday and developed worsening left lower quadrant abdominal pain today. No fevers or chills or sweats. No vomiting. She does report she is gassy has been belching regularly. No history of bowel obstruction and she continues to pass gas. Denies constipation. Related Data Home Medications Medication Instructions Recorded Confirmed insulin glargine 100 unit/mL 15 unit subcut HS 10/08/21 11/20/21 subcutaneous solution (Lantus U-100 Insulin) losartan 25 mg tablet 25 tablet PO DAILY 10/08/21 11/20/21 Allergies Allergy/AdvReac Type Severity Reaction Status Date / Time poison oak extract Allergy Unknown Unknown Verified 11/20/21 13:31 Review of Systems Review of Systems: All systems reviewed & are unremarkable except as noted in HPI and below Constitutional: Constitutional: Denies chills and Denies fever(s) ENT: Denies nasal congestion and Denies sore throat Cardiovascular: Cardiovascular: Denies chest pain and Denies radiating jaw, neck or arm pain Respiratory: Respiratory: Denies cough and Denies dyspnea Gastrointestinal: Gastrointestinal: Reports abdominal pain, Reports bloating, Denies nausea and Denies vomiting PMFSH Past Medical History Medical History Diabetes Femoral distal fracture Hip fracture requiring operative repair Hypertension Surgical History Surgical History H/O: hysterectomy History of hip surgery Hx of cholecystectomy Family History Family History Other Cerebrovascular accident Diabetes mellitus Family history of arthritis Family history of cardiovascular disease Family history of malignant neoplasm Hypertension Social History Social History Social History: She is of with 2 children. She used to drive of school bus. She chose her 2 daughter lost to be her durable power family law attorney for healthcare. She never smoked. She lives home alone. Code status dnr Smoking status: Never smoker Alcohol intake: unknown Substance use: unknown Spiritual care concerns: No Exam Narrative: GENERAL: Uncomfortable-appearing, well-nourished, and in no acute distress. HEAD: Normocephalic, atraumatic. ENT: Mucous membranes moist. CHEST: Clear to auscultation. No respiratory distress. HEART: Regular rate and rhythm. Normal peripheral pulses. ABDOMEN: Soft, tender palpation left lower quadrant with guarding, nondistended, normal active bowel sounds EXTREMITIES: Normal range of motion. No edema. SKIN: Warm, dry, no rash. NEURO: Alert and oriented x3. PSYCH: Normal mood and affect. Course Course Emergency Course: Admit to hospitalist service for diverticulitis that failed outpatient therapy. Will start on Zosyn. Vital Signs Vital signs: Vital Signs Temperature 97.9 F 12/31/21 15:49 Pulse Rate 78 12/31/21 15:49 Respiratory Rate 16 12/31/21 15:49 Blood Pressure 116/48 L 12/31/21 15:49 Pulse Oximetry 100 12/31/21 15:49 Oxygen Delivery Room Air 12/31/21 15:49 Temperature 97.2 F L 12/31/21 16:03 Pulse Rate 74 12/31/21 16:46 Respiratory Rate 20 12/31/21 16:46 Blood Pressure 115/98 H 12/31/21 16:46 Pulse Oximetry 99 12/31/21 16:46 Oxygen Delivery Room Air 12/31/21 15:49 Medical Decision Making Vital Signs Vital Signs: Vital Signs Temperature 97.9 F 12/31/21 15:49 Pulse Rate 78 12/31/21 15:49
--- NOTE | 2021-12-31 18:00 | PM.IMHP ---
H&P: HPI History of Present Illness Date/Time: 12/31/21 18:00 <Vandana Gonzalez PA-C - Last Filed: 12/31/21 23:31> Chief Complaint: Abdominal pain. <Vandana Gonzalez PA-C - Last Filed: 12/31/21 23:31> Narrative: This is a very pleasant 86-year-old female with insulin-dependent type 2 diabetes mellitus, chronic kidney disease, and hypertension who presented to the emergency department from home for evaluation of abdominal pain. She has had ongoing issues with diffuse abdominal discomfort and diarrhea for a couple of months. She was admitted to the hospital in early October with dehydration and enteritis and again in mid November with low back pain attributed to sciatica. Last Saturday she was started on ciprofloxacin and metronidazole for presumed diverticulitis flare up and she was seen in the ER on 12/[address] of the abdomen pelvis showed acute on chronic diverticulitis and she was told to continue her antibiotics and follow-up with surgery as an outpatient. Unfortunately she continues to have cramping and occasional sharp shooting discomfort in the left side of her abdomen with nausea and bloating. She has also had soft and loose stools that she reports as being dark in color. She denies chills and sweats and she has not had a fever to her knowledge. She was afebrile on arrival to the emergency department. White blood cell count was normal at 7.5 and her other labs were reassuring. CT of the abdomen pelvis once again showed findings of sigmoid diverticulitis and extensive diverticulosis. Due to ongoing symptoms she is being admitted for IV antibiotics and pain control as well as consultation with surgery. <Vandana Gonzalez PA-C - Last Filed: 12/31/21 23:31> Review of Systems Review of Systems: Twelve systems were reviewed and are negative except for as per HPI. <Vandana Gonzalez PA-C - Last Filed: 12/31/21 23:31> [facility] Past Medical History Medical History: Medical History Chronic anemia Chronic kidney disease, stage 3 Hip fracture requiring operative repair Hypertension Insulin dependent type 2 diabetes mellitus <Vandana Gonzalez PA-C - Last Filed: 12/31/21 23:31> Surgical History Surgical History: Surgical History History of cholecystectomy Open cholecystectomy History of hip surgery (02/2019) ORIF left femur fracture. History of hysterectomy <Vandana Gonzalez PA-C - Last Filed: 12/31/21 23:31> Family History Family History: Family History Other Cerebrovascular accident Diabetes mellitus Family history of arthritis Family history of cardiovascular disease Family history of malignant neoplasm Hypertension <Vandana Gonzalez PA-C - Last Filed: 12/31/21 23:31> Social History Social History: Social History Social History: The patient is with good and has 2 children. She lives in her own home in [place], 2 daughters live nearby. She is a lifelong nonsmoker. No alcohol or illicit substance abuse. Surrogate medical decision maker: Susana or Lani, daughters. Code status: Full code. Spiritual care concerns: No <Vandana Gonzalez PA-C - Last Filed: 12/31/21 23:31> Meds Home Medications and Allergies Home medications: Home Medications Medication Instructions Recorded Confirmed Type losartan 25 mg tablet 25 tablet PO DAILY 10/08/21 12/31/21 History blood-glucose meter #1 ea 10/10/21 12/31/21 Rx lancets 30 gauge and blood glucose #50 ea 10/10/21 12/31/21 Rx strips combo pack hydrocodone 5 mg-acetaminophen 325 1 tablet PO Q6H PRN pain #10 tabs 12/25/21 12/31/21 Rx mg tablet ondansetron 4 mg disintegrating 4 mg PO Q8H PRN nausea and 12/25/21 12/31/21 Rx tablet vomiting #12 tabs escitalopram oxalate 5 mg t
[2021-12-31 19:07] LABS: SARS-CoV-2 RNA PCR Negative
--- NOTE | 2021-12-31 20:27 | ADMGEN ---
This patient, Scar Sewell, was admitted to [facility] Surg Room 311-01. Patient/family oriented to hospital policies and general routines including ID bracelet, bed and alarms, visiting hours, pain management, procedures, bathroom and other care routines, personal items, smoking policy, room service/diet, and visiting hours. Information on how to activate the Rapid Response Team has been discussed. Patient/Family are encouraged to report perceived risks to care and to ask questions if they do not understand what they are told or what they should do.
[2021-12-31 20:31] LABS: Glucose Point of Care 104 mg/dl (65-105)
[2022-01-01] MEDS: SODIUM CHLORIDE 0.9% IV 1,000 ML 100 ML IV CONT (00:07)
[2022-01-01 05:59] VITALS: BP 169/81; PULSE 70; RESP 17; TEMP 36.4; O2SAT 98
[2022-01-01 06:29] LABS: Glucose Point of Care 116 mg/dl (65-105)
[2022-01-01 06:53] LABS: Hematocrit 33.3 % (37.0-47.0); Hemoglobin 10.5 g/dL (12.0-15.0); Mean Corpuscular HGB Conc 31.5 g/dl (32-36); Mean Corpuscular Hemoglobin 28.6 pg (26-34); Mean Corpuscular Volume 90.7 fl (80-100); Mean Platelet Volume 9.5 fl (7.4-10.4); Platelet Count Result 264 k/mm3 (150-375); Red Blood Count 3.67 M/mm3 (4.2-5.4); Red Cell Distribution Width 14.9 % (11.5-14.5); White Blood Count 5.2 K/mm3 (4.5-10.0)
[2022-01-01 07:04] LABS: Anion Gap 8 mmol/L (8-16); Blood Urea Nitrogen 13 mg/dL (7-17); Calcium 8.1 mg/dL (8.4-10.2); Carbon Dioxide 25 mmol/L (22-30); Chloride 101 mmol/L (98-107); Estimated CRCL calculation 28 ml/min; Estimated Glomerular Filt Rate 39; Glucose 104 mg/dL (65-110); Magnesium 2.1 mg/dL (1.6-2.3); Potassium 3.6 mmol/L (3.4-5.0); Sodium 134 mmol/L (137-145)
[2022-01-01 07:26] LABS: Hemoglobin A1C 7.3 % (<5.7)
[2022-01-01] MEDS: LOSARTAN POTASSIUM 25 MG TABLET PO (09:50)
[2022-01-01] MEDS: ENOXAPARIN 30 MG/0.3 ML SYRINGE SUB-Q (09:50)
[2022-01-01] MEDS: ESCITALOPRAM OXALATE 5 MG TABLET PO (09:50)
--- NOTE | 2022-01-01 10:27 | PM.CNGS ---
Assessment and Plan Assessment and plan (1) Diverticulitis: Code(s): K57.92 - Diverticulitis of intestine, part unspecified, without perforation or abscess without bleeding Status: Acute Assessment and Plan: CT scans from November and December all reviewed. There is evidence of uncomplicated sigmoid diverticulitis on the CT scan a week ago when she was treated with oral antibiotics as an outpatient. She has now returned to the ER with complaints of abdominal pain and the repeat CT scan still shows sigmoid diverticulitis without significant change. No evidence of perforation or abscess. No leukocytosis and she is afebrile. Would recommend to continue treating this conservatively with broad-spectrum IV antibiotics, IV fluids, and analgesics as needed. Will start a clear liquid diet. There is no indication for urgent surgical intervention. Will continue to follow along with serial abdominal exams and labs to see how she progresses with the current treatment. (2) Insulin dependent type 2 diabetes mellitus: Code(s): E11.9 - Type 2 diabetes mellitus without complications; Z79.4 - hand chain maker (current) use of insulin Status: Acute (3) Chronic kidney disease, stage 3: Code(s): N18.30 - Chronic kidney disease, stage 3 unspecified Status: Acute (4) Chronic anemia: Code(s): D64.9 - Anemia, unspecified Status: Acute (5) Hypertension: Code(s): I10 - Essential (primary) hypertension Status: Acute Plan I have discussed the patient's case and plan of care with Dr. Dotson. Thank you for allowing us to see the patient in consultation and we will continue to follow along with you. History of Present Illness Consult details Consult date: 01/01/22 Reason for consult: other (Acute on chronic uncomplicated sigmoid diverticulitis, failed outpatient therapy) Requesting physician: Vandana Gonzalez PA-C Narrative: This is an 86-year-old woman with insulin-dependent type 2 diabetes mellitus, chronic kidney disease, and hypertension who presented to the ED from home for evaluation of abdominal pain. Although she is oriented, she is forgetful and has difficulty with answering historical questions. Her history is primarily obtained from review of the electronic medical record. Her daughter had reported ongoing issues with diffuse abdominal discomfort and diarrhea for the past couple months. She was admitted to the hospital in early September with dehydration and enteritis and again in mid November with low back pain attributed to sciatica. She was evaluated by her PCP on 12/20/21 and was started on ciprofloxacin and metronidazole for presumed diverticulitis as an outpatient. She then presented to the ER on 12/24/[address] scan of abdomen and pelvis showed acute on chronic diverticulitis with no evidence of perforation or abscess. She was sent home and told to continue oral antibiotics with the recommendation to follow-up with surgery as an outpatient. Her antibiotics ended 2 days ago and she apparently began having worsening abdominal pain again yesterday. She has associated nausea and bloating. In the ER, her labs showed a normal white blood cell count. Repeat CT scan of the abdomen and pelvis showed findings of sigmoid diverticulitis without significant change. No evidence of perforation or abscess. She was admitted to the hospitalist service for inpatient treatment with IV antibiotics due to ongoing symptoms. She is currently on IV Zosyn and NPO. Our service has been consulted for recurrent diverticulitis. She is now seen on the medical floor with no family at the bedside. She denies any abdominal pain at this time. She is complaining of thirst and denies any nausea at this time. She cannot recall if she has ever had a colonoscopy in the past. She cannot recall any history of previous episodes of diverticulitis prior to this month. Previous abdominal surgeries include an open cholecyste
--- NOTE | 2022-01-01 11:18 | PM.IMPN ---
Progress Note: A&P Assessment and Plan (1) Diverticulitis: Code(s): K57.92 - Diverticulitis of intestine, part unspecified, without perforation or abscess without bleeding Status: Acute Assessment and Plan: continue antibiotics, already improved. (2) Chronic anemia: Code(s): D64.9 - Anemia, unspecified Status: Acute (3) Chronic kidney disease, stage 3: Code(s): N18.30 - Chronic kidney disease, stage 3 unspecified Status: Acute (4) Insulin dependent type 2 diabetes mellitus: Code(s): E11.9 - Type 2 diabetes mellitus without complications; Z79.4 - medical terminologist (current) use of insulin Status: Acute (5) Hypertension: Code(s): I10 - Essential (primary) hypertension Status: Acute Subjective Date/time seen: 01/01/22 11:18 No new complaints Exam Narrative: General: Nontoxic-appearing female supine in bed. Weight: 83 kilograms. BMI: 34.6. HEENT: Normocephalic, atraumatic. PERRL, EOMI. Sclera anicteric. Tacky mucous membranes. Neck: Supple. Respiratory: Lungs are clear to auscultation bilaterally. Cardiovascular: Regular rate and rhythm with S1-S2. Gastrointestinal: Abdomen is soft and obese with positive bowel sounds. She is tender to palpation throughout the abdomen, more so in the left mid quadrant. No guarding or rebound tenderness. Skin: Warm and dry. No rash or lesions on limited exam. Extremities: No cyanosis, clubbing, or significant edema. Radial and pedal pulses intact. Neurological: Alert. Cranial nerves 2-12 are grossly intact. No gross focal deficits to casual conversation. Psychiatric: Pleasant and cooperative with appropriate mood and affect. Seems to have some mild memory loss. Objective Data Vital Signs Vital Signs: Vital Signs - 24 hr 12/31/21 15:49 12/31/21 16:03 12/31/21 16:01 Temperature 97.9 F 97.2 F L Pulse Rate 78 71 65 Respiratory Rate 16 20 20 Blood Pressure 116/48 L 135/66 135/66 Pulse Oximetry 100 99 99 Oxygen Delivery Room Air 12/31/21 16:16 12/31/21 16:31 12/31/21 16:46 Temperature Pulse Rate 73 73 74 Respiratory Rate 20 20 20 Blood Pressure 132/99 H 147/66 H 115/98 H Pulse Oximetry 100 100 99 Oxygen Delivery 12/31/21 19:07 12/31/21 19:16 12/31/21 19:17 Temperature Pulse Rate 69 68 68 Respiratory Rate 21 H 22 H 17 Blood Pressure 174/83 H Pulse Oximetry Oxygen Delivery 12/31/21 22:00 01/01/22 05:59 01/01/22 09:30 Temperature 97.9 F 97.5 F L Pulse Rate 65 70 Respiratory Rate 18 17 Blood Pressure 140/63 169/81 H Pulse Oximetry 97 98 Oxygen Delivery Room Air Intake/Output Intake/Output: Intake & Output 12/29/21 12/30/21 12/31/21 01/01/22 23:59 23:59 23:59 23:59 Intake Total 50 100 Output Total 500 Balance 50 -400 Meds/Results Medications: Active Medications Generic Name Dose Route Start Last Admin Trade Name Freq PRN Reason Stop Dose Admin Acetaminophen 650 mg 12/31/21 18:51 Acetaminophen 325 Mg Tablet PO Q4H PRN Mild Pain (1-3) or Fever Hydrocodone Bitart/Acetaminophen 1 tab 12/31/21 23:31 Hydrocodone/Acetaminophen (*Crx) 5-325 Mg Tablet PO Q6H PRN Pain Rated 4-6 Dextrose 12.5 gm 12/31/21 23:28 Dextrose 50% 25 Gm/50 Ml Syringe IV PUSH PRN PRN Hypoglycemia Protocol Enoxaparin Sodium 30 mg 01/01/22 09:00 01/01/22 09:50 Enoxaparin 30 Mg/0.3 Ml Syringe SUB-Q 30 mg DAILY SLOAN Administration Escitalopram Oxalate 5 mg 01/01/22 09:00 01/01/22 09:50 Escitalopram Oxalate 5 Mg Tablet PO 5 mg DAILY SLOAN Administration Glucagon 1 mg 12/31/21 23:28 Glucagon For Inj 1 Mg Vial IM PRN PRN Hypoglycemia Protocol Glucose 15 gm 12/31/21 23:28 Glucose Oral Gel 15 Gm Of Glucse In 37.5 Gm Tube PO PRN PRN Hypoglycemia Protocol Piperacillin Sod/Tazobactam Sod 2.25 gm in 50 mls @ 100 mls/hr 01/01/22 01:00 01/01/22 09:45 Zosyn 2.25
[2022-01-01 11:45] LABS: Glucose Point of Care 92 mg/dl (65-105)
[2022-01-01 14:00] VITALS: BP 159/71; PULSE 71; RESP 17; TEMP 36.3; O2SAT 100
[2022-01-01 18:33] LABS: Glucose Point of Care 256 mg/dl (65-105)
[2022-01-01] MEDS: INSULIN GLARGINE (*BKC) 100 UNITS/ML 8 UNITS SUB-Q (21:03)
[2022-01-01 21:33] VITALS: BP 168/72; PULSE 68; RESP 14; TEMP 36.3; O2SAT 98
[2022-01-01 21:50] LABS: Glucose Point of Care 228 mg/dl (65-105)
[2022-01-02 06:00] VITALS: BP 195/76; PULSE 74; RESP 14; TEMP 36.8; O2SAT 97
[2022-01-02] MEDS: hydrALAZINE HCL 20 MG/ML VIAL 10 MG IV PUSH (06:35)
[2022-01-02 07:49] LABS: Glucose Point of Care 106 mg/dl (65-105)
[2022-01-02 08:09] VITALS: BP 144/61; PULSE 70; RESP 12; TEMP 36.4; O2SAT 99
[2022-01-02] MEDS: HYDROcodone/acetaminophen (*CRX) 5-325 MG TABLET 1 TAB PO ×2 (08:16→14:14)
[2022-01-02] MEDS: ONDANSETRON INJ 4 MG/2 ML VIAL IV PUSH ×2 (08:16→13:30)
[2022-01-02] MEDS: ESCITALOPRAM OXALATE 5 MG TABLET PO (08:17)
[2022-01-02] MEDS: LOSARTAN POTASSIUM 25 MG TABLET PO (08:17)
[2022-01-02] MEDS: ENOXAPARIN 30 MG/0.3 ML SYRINGE SUB-Q (08:17)
--- NOTE | 2022-01-02 10:54 | PM.IMPN ---
Progress Note: A&P Assessment and Plan (1) Diverticulitis: Code(s): K57.92 - Diverticulitis of intestine, part unspecified, without perforation or abscess without bleeding Status: Acute Assessment and Plan: continue antibiotics, Yesterday she was doing much better. Today she is having more pain. Appreciate surgical input. (2) Chronic anemia: Code(s): D64.9 - Anemia, unspecified Status: Acute Assessment and Plan: Anemia of chronic disease, this is chronic. Monitor hemoglobin periodically (3) Chronic kidney disease, stage 3: Code(s): N18.30 - Chronic kidney disease, stage 3 unspecified Status: Acute Assessment and Plan: appears to be baseline. (4) Insulin dependent type 2 diabetes mellitus: Code(s): E11.9 - Type 2 diabetes mellitus without complications; Z79.4 - snf (current) use of insulin Status: Acute Assessment and Plan: Monitor blood sugars. Insulin as needed. Blood sugars have been between 90 and 200. (5) Hypertension: Code(s): I10 - Essential (primary) hypertension Status: Acute Assessment and Plan: Blood pressure looks good. Subjective Date/time seen: 01/02/22 10:54 patient is complaining of moderate to severe pain in the left lower quadrant left abdomen. Exam Narrative: General: Nontoxic-appearing female supine in bed. Weight: 83 kilograms. BMI: 34.6. HEENT: Normocephalic, atraumatic. PERRL, EOMI. Sclera anicteric. Tacky mucous membranes. Neck: Supple. Respiratory: Lungs are clear to auscultation bilaterally. Cardiovascular: Regular rate and rhythm with S1-S2. Gastrointestinal: Abdomen is soft and obese with positive bowel sounds. She is tender to palpation throughout the abdomen, more so in the left mid quadrant. No guarding or rebound tenderness. Skin: Warm and dry. No rash or lesions on limited exam. Extremities: No cyanosis, clubbing, or significant edema. Radial and pedal pulses intact. Neurological: Alert. Cranial nerves 2-12 are grossly intact. No gross focal deficits to casual conversation. Psychiatric: Pleasant and cooperative with appropriate mood and affect. Seems to have some mild memory loss. Objective Data Vital Signs Vital Signs: Vital Signs - 24 hr 01/01/22 13:03 01/01/22 14:00 01/01/22 21:33 Temperature 97.4 F L 97.3 F L Pulse Rate 71 68 Respiratory Rate 17 14 Blood Pressure 159/71 H 168/72 H Pulse Oximetry 100 98 Oxygen Delivery Room Air 01/01/22 19:50 01/02/22 06:00 01/02/22 08:09 Temperature 98.2 F 97.6 F Pulse Rate 74 70 Respiratory Rate 14 12 Blood Pressure 195/76 H 144/61 H Pulse Oximetry 97 99 Oxygen Delivery Room Air Intake/Output Intake/Output: Intake & Output 12/30/21 12/31/21 01/01/22 01/02/22 23:59 23:59 23:59 23:59 Intake Total 50 1040 550 Output Total 1000 1200 Balance 50 40 -650 Meds/Results Medications: Active Medications Generic Name Dose Route Start Last Admin Trade Name Freq PRN Reason Stop Dose Admin Acetaminophen 650 mg 12/31/21 18:51 Acetaminophen 325 Mg Tablet PO Q4H PRN Mild Pain (1-3) or Fever Hydrocodone Bitart/Acetaminophen 1 tab 12/31/21 23:31 01/02/22 08:16 Hydrocodone/Acetaminophen (*Crx) 5-325 Mg Tablet PO 1 tab Q6H PRN Administration Pain Rated 4-6 Dextrose 12.5 gm 12/31/21 23:28 Dextrose 50% 25 Gm/50 Ml Syringe IV PUSH PRN PRN Hypoglycemia Protocol Enoxaparin Sodium 30 mg 01/01/22 09:00 01/02/22 08:17 Enoxaparin 30 Mg/0.3 Ml Syringe SUB-Q 30 mg DAILY SLOAN Administration Escitalopram Oxalate 5 mg 01/01/22 09:00 01/02/22 08:17 Escitalopram Oxalate 5 Mg Tablet PO 5 mg DAILY SLOAN Administration Glucagon 1 mg 12/31/21 23:28 Glucagon For Inj 1 Mg Vial IM PRN PRN Hypoglycemia Protocol Glucose 15 gm 12/31/21 23:28 Glucose Oral Gel 15 Gm Of Glucse In 37.5 Gm Tube PO PRN PRN
[2022-01-02 11:28] LABS: Basophils Absolute Auto 0.1 K/mm3 (0.0-0.1); Basophils Percent Auto 1.5 % (0.2-1.2); Eosinophils Absolute Auto 0.1 K/mm3 (0-0.3); Eosinophils Percent Auto 1.5 % (0-4.4); Hematocrit 32.8 % (37.0-47.0); Hemoglobin 10.7 g/dL (12.0-15.0); Immature Granulocyte Absolute 0.02 K/mm3 (0.00-0.031); Immature Granulocyte Percent A 0.3 % (0-0.5); Lymphocytes Absolute Auto 0.88 K/mm3 (0.9-3.2); Lymphocytes Percent Auto 14.6 % (18.3-44.2); Mean Corpuscular HGB Conc 32.6 g/dl (32-36); Mean Corpuscular Hemoglobin 28.6 pg (26-34); Mean Corpuscular Volume 87.7 fl (80-100); Mean Platelet Volume 9.3 fl (7.4-10.4); Monocytes Absolute Auto 0.6 K/mm3 (0.1-0.6); Monocytes Percent Auto 9.1 % (2.6-8.5); Neutrophils Absolute Auto 4.4 K/mm3 (1.3-6.7); Platelet Count Result 287 k/mm3 (150-375); Red Blood Count 3.74 M/mm3 (4.2-5.4); Red Cell Distribution Width 14.8 % (11.5-14.5)
[2022-01-02 11:33] LABS: Anion Gap 9 mmol/L (8-16); Blood Urea Nitrogen 11 mg/dL (7-17); Calcium 8.2 mg/dL (8.4-10.2); Carbon Dioxide 27 mmol/L (22-30); Chloride 99 mmol/L (98-107); Estimated CRCL calculation 28 ml/min; Estimated Glomerular Filt Rate 39; Glucose 104 mg/dL (65-110); Potassium 3.7 mmol/L (3.4-5.0); Sodium 135 mmol/L (137-145)
[2022-01-02 12:22] LABS: Glucose Point of Care 101 mg/dl (65-105)
--- NOTE | 2022-01-02 13:26 | PM.PNGS ---
Progress Note: A&P Assessment and Plan (1) Diverticulitis: Code(s): K57.92 - Diverticulitis of intestine, part unspecified, without perforation or abscess without bleeding Status: Acute Assessment and Plan: Still having abdominal pain today, but now complaining of more epigastric abdominal pain when I saw her this morning. WBC remains normal and she is afebrile. No peritoneal signs on exam. Continue with IV antibiotics and a liquid diet, and repeat labs tomorrow. (2) Insulin dependent type 2 diabetes mellitus: Code(s): E11.9 - Type 2 diabetes mellitus without complications; Z79.4 - [facility]DC (current) use of insulin Status: Acute (3) Chronic anemia: Code(s): D64.9 - Anemia, unspecified Status: Acute Plan I have discussed the patient's case and plan of care with Dr. Dotson. Subjective Subjective Date/Time Seen: 01/02/22 11:26 Patient reports: afebrile Interval history: Patient seen and examined with no family at the bedside. Although oriented to self, place, and time, she still is forgetful and confused with recent history. She reports having epigastric abdominal pain at the time of my exam. This is different in location than yesterday when it was in the LLQ. I asked her if the pain has improved any from yesterday and she responded I don't remember yesterday and I don't know. All she has had for pain since being admitted to the floor is one dose of [place] earlier this morning. Denies any nausea or vomiting. She tolerated clear liquids yesterday but has refused her breakfast tray today. Review of Systems Review of Systems: ROS unobtainable: Yes unobtainable due to mental status Exam Const: General: no acute distress and awake Orientation/consciousness: patient oriented x3 and Other orientation findings (but forgetful and confused regarding her history) GI: Inspection: non-distended and no visible herniation GI Palp: Yes Soft to palpation, Yes Tenderness to palpation present (GI) (diffusely tender in all quadrants), No Guarding due to palpation present (GI), Yes No hepatosplenomegaly present and No Rebound tenderness present Auscultation: normal bowel sounds Extrem: General: normal to inspection and no edema Objective Data Vital Signs Vital Signs: Vital Signs - 24 hr 01/01/22 14:00 01/01/22 21:33 01/01/22 19:50 Temperature 97.4 F L 97.3 F L Pulse Rate 71 68 Respiratory Rate 17 14 Blood Pressure 159/71 H 168/72 H Pulse Oximetry 100 98 Oxygen Delivery Room Air 01/02/22 06:00 01/02/22 08:09 Temperature 98.2 F 97.6 F Pulse Rate 74 70 Respiratory Rate 14 12 Blood Pressure 195/76 H 144/61 H Pulse Oximetry 97 99 Oxygen Delivery Intake/Output Intake/Output: Intake & Output 12/30/21 12/31/21 01/01/22 01/02/22 23:59 23:59 23:59 23:59 Intake Total 50 1040 600 Output Total 1000 1200 Balance 50 40 -600 Meds/Results Medications: Active Medications Generic Name Dose Route Start Last Admin Trade Name Freq PRN Reason Stop Dose Admin Acetaminophen 650 mg 12/31/21 18:51 Acetaminophen 325 Mg Tablet PO Q4H PRN Mild Pain (1-3) or Fever Hydrocodone Bitart/Acetaminophen 1 tab 12/31/21 23:31 01/02/22 08:16 Hydrocodone/Acetaminophen (*Crx) 5-325 Mg Tablet PO 1 tab Q6H PRN Administration Pain Rated 4-6 Dextrose 12.5 gm 12/31/21 23:28 Dextrose 50% 25 Gm/50 Ml Syringe IV PUSH PRN PRN Hypoglycemia Protocol Enoxaparin Sodium 30 mg 01/01/22 09:00 01/02/22 08:17 Enoxaparin 30 Mg/0.3 Ml Syringe SUB-Q 30 mg DAILY SLOAN Administration Escitalopram Oxalate 5 mg 01/01/22 09:00 01/02/22 08:17 Escitalopram Oxalate 5 Mg Tablet PO 5 mg DAILY SLOAN Administration Glucagon 1 mg 12/31/21 23:28 Glucagon For Inj 1 Mg Vial IM PRN PRN Hypoglycemia Protocol Glucose 15 gm 12/31/21 23:28 Glucose Oral Gel 15 Gm Of Glucse In 37.5 Gm Tube PO PRN PRN Hypoglycemi
[2022-01-02 14:00] VITALS: BP 142/60; PULSE 67; RESP 20; TEMP 37.1; O2SAT 98
--- NOTE | 2022-01-02 14:18 | PCOTNOTE ---
Attempted patient at 14:16 pm this date, patient refused stated pain is very high, I just can't do anything. RN aware
[2022-01-02 16:41] LABS: Glucose Point of Care 104 mg/dl (65-105)
--- NOTE | 2022-01-02 17:17 | PCPTNOTE ---
PT attempted to see 2x today, however on first attempt in A.M. patient stated she was too tired to participate due to taking sleeping medication. In the afternoon patient refused due to pain. PT will continue to follow per plan of care.
[2022-01-02] MEDS: INSULIN GLARGINE (*BKC) 100 UNITS/ML 8 UNITS SUB-Q (20:18)
[2022-01-02 20:27] LABS: Glucose Point of Care 136 mg/dl (65-105)
[2022-01-02 21:58] VITALS: BP 149/76; PULSE 73; RESP 16; TEMP 36.6; O2SAT 98
--- NOTE | 2022-01-03 05:03 | PC.NURSE ---
Pt resting comfortably all shift. Pt stated she had a rough morning, but that she is better right now and doesn't want to be any trouble. Pt was reassured that she is no trouble and that we are here to help her how ever she needs help. Pt has been up to the bed side commode over night. Pt compliant with care. Will continue to monitor pt.
[2022-01-03 05:45] VITALS: BP 163/60; PULSE 70; RESP 20; TEMP 36.4; O2SAT 97
[2022-01-03 06:15] LABS: Basophils Absolute Auto 0.1 K/mm3 (0.0-0.1); Basophils Percent Auto 1.4 % (0.2-1.2); Eosinophils Absolute Auto 0.1 K/mm3 (0-0.3); Eosinophils Percent Auto 2.2 % (0-4.4); Hematocrit 34.4 % (37.0-47.0); Hemoglobin 10.9 g/dL (12.0-15.0); Immature Granulocyte Absolute 0.03 K/mm3 (0.00-0.031); Immature Granulocyte Percent A 0.5 % (0-0.5); Lymphocytes Absolute Auto 0.97 K/mm3 (0.9-3.2); Lymphocytes Percent Auto 17.4 % (18.3-44.2); Mean Corpuscular HGB Conc 31.7 g/dl (32-36); Mean Corpuscular Volume 91.5 fl (80-100); Mean Platelet Volume 9.6 fl (7.4-10.4); Monocytes Absolute Auto 0.5 K/mm3 (0.1-0.6); Monocytes Percent Auto 9.2 % (2.6-8.5); Neutrophils Absolute Auto 3.9 K/mm3 (1.3-6.7); Neutrophils Percent Auto 69.3 % (45.5-73.1); Platelet Count Result 268 k/mm3 (150-375); Red Blood Count 3.76 M/mm3 (4.2-5.4); Red Cell Distribution Width 14.9 % (11.5-14.5); White Blood Count 5.6 K/mm3 (4.5-10.0)
[2022-01-03 06:23] LABS: Anion Gap 8 mmol/L (8-16); Blood Urea Nitrogen 11 mg/dL (7-17); Calcium 8.1 mg/dL (8.4-10.2); Carbon Dioxide 25 mmol/L (22-30); Chloride 100 mmol/L (98-107); Estimated CRCL calculation 28 ml/min; Estimated Glomerular Filt Rate 39; Glucose 98 mg/dL (65-110); Potassium 3.5 mmol/L (3.4-5.0); Sodium 133 mmol/L (137-145)
[2022-01-03 06:41] LABS: CRP < 0.5 mg/dL (<1.0)
[2022-01-03 08:08] LABS: Glucose Point of Care 92 mg/dl (65-105)
[2022-01-03] MEDS: ENOXAPARIN 30 MG/0.3 ML SYRINGE SUB-Q (08:34)
[2022-01-03] MEDS: HYDROcodone/acetaminophen (*CRX) 5-325 MG TABLET 1 TAB PO ×2 (08:35→16:36)
[2022-01-03] MEDS: ESCITALOPRAM OXALATE 5 MG TABLET PO (08:35)
[2022-01-03] MEDS: LOSARTAN POTASSIUM 25 MG TABLET PO (08:35)
[2022-01-03 11:57] LABS: Glucose Point of Care 237 mg/dl (65-105)
[2022-01-03] MEDS: INSULIN ASPART (*BKC) 100 UNITS/ML SUB-Q ×2 (12:15→16:36)
--- NOTE | 2022-01-03 13:13 | PM.PNGS ---
Progress Note: A&P Assessment and Plan (1) Diverticulitis: Code(s): K57.92 - Diverticulitis of intestine, part unspecified, without perforation or abscess without bleeding Status: Acute Assessment and Plan: Pain much improved today. WBC remains normal. Okay to advance diet as tolerated to low fiber. Continue antibiotics per primary service. No indication for surgical intervention. Will sign off at this point. Please let us know if there are any surgical questions or concerns. (2) Insulin dependent type 2 diabetes mellitus: Code(s): E11.9 - Type 2 diabetes mellitus without complications; Z79.4 - terminal gauger supervisor (current) use of insulin Status: Acute (3) Chronic anemia: Code(s): D64.9 - Anemia, unspecified Status: Acute Plan I have discussed the patient's case and plan of care with Dr. Dotson. Subjective Subjective Date/Time Seen: 01/03/22 13:13 Patient reports: tolerating liquids well, flatus, bowel movement and afebrile Interval history: Patient seen and examined with her niece at the bedside. She reports very mild abdominal pain in LLQ today, much improved. No nausea or vomiting. Tolerating clear liquids. Review of Systems Review of Systems: ROS unobtainable: Yes unobtainable due to mental status Exam Const: General: no acute distress and awake Orientation/consciousness: patient oriented x3 GI: Inspection: non-distended GI Palp: Yes Soft to palpation, Yes Tenderness to palpation present (GI) (mild LLQ, LUQ), No Guarding due to palpation present (GI) and No Rebound tenderness present Auscultation: normal bowel sounds Psych: Insight: Fair insight present (Psych) Objective Data Vital Signs Vital Signs: Vital Signs - 24 hr 01/02/22 14:00 01/02/22 20:26 01/02/22 21:58 Temperature 98.7 F 97.9 F Pulse Rate 67 73 Respiratory Rate 20 16 Blood Pressure 142/60 H 149/76 H Pulse Oximetry 98 98 Oxygen Delivery Room Air 01/03/22 05:45 01/03/22 07:51 Temperature 97.6 F Pulse Rate 70 Respiratory Rate 20 Blood Pressure 163/60 H Pulse Oximetry 97 Oxygen Delivery Room Air Intake/Output Intake/Output: Intake & Output 12/31/21 01/01/22 01/02/22 01/03/22 23:59 23:59 23:59 23:59 Intake Total 50 1040 820 700 Output Total 1000 1200 1200 Balance 50 40 -380 -500 Meds/Results Medications: Active Medications Generic Name Dose Route Start Last Admin Trade Name Freq PRN Reason Stop Dose Admin Acetaminophen 650 mg 12/31/21 18:51 Acetaminophen 325 Mg Tablet PO Q4H PRN Mild Pain (1-3) or Fever Hydrocodone Bitart/Acetaminophen 1 tab 01/02/22 13:42 01/03/22 08:35 Hydrocodone/Acetaminophen (*Crx) 5-325 Mg Tablet PO 1 tab Q4H PRN Administration Pain Rated 4-6 Dextrose 12.5 gm 12/31/21 23:28 Dextrose 50% 25 Gm/50 Ml Syringe IV PUSH PRN PRN Hypoglycemia Protocol Enoxaparin Sodium 30 mg 01/01/22 09:00 01/03/22 08:34 Enoxaparin 30 Mg/0.3 Ml Syringe SUB-Q 30 mg DAILY SLOAN Administration Escitalopram Oxalate 5 mg 01/01/22 09:00 01/03/22 08:35 Escitalopram Oxalate 5 Mg Tablet PO 5 mg DAILY SLOAN Administration Glucagon 1 mg 12/31/21 23:28 Glucagon For Inj 1 Mg Vial IM PRN PRN Hypoglycemia Protocol Glucose 15 gm 12/31/21 23:28 Glucose Oral Gel 15 Gm Of Glucse In 37.5 Gm Tube PO PRN PRN Hypoglycemia Protocol Piperacillin Sod/Tazobactam Sod 2.25 gm in 50 mls @ 100 mls/hr 01/01/22 01:00 01/03/22 12:33 Zosyn 2.25 Gm/D5w 50 Ml IVPB 100 mls/hr Q6H SLOAN Administration Dextrose 1,000 mls @ 100 mls/hr 12/31/21 23:28 Dextrose 5% 1,000 Ml IVPB PRN PRN Hypoglycemia Protocol Insulin Aspart 2 - 5 units 01/01/22 08:00 01/03/22 12:15 Insulin Aspart (*Bkc) 100 Units/Ml SUB-Q 2 units TIDWM SLOAN Administration Protocol Insulin Glargine 8 units 01/01/22 21:00 01/02/22 20:18 Insulin Glargine (*Bkc) 100 Units/Ml
--- NOTE | 2022-01-03 13:50 | PM.IMPN ---
Progress Note: A&P Assessment and Plan (1) Diverticulitis: Code(s): K57.92 - Diverticulitis of intestine, part unspecified, without perforation or abscess without bleeding Status: Acute Assessment and Plan: Patient presents with abdominal pain. CT scan shows mild acute sigmoid diverticulitis. No abscess or free air. Still with abdominal pain. White count normal. Continue Zosyn. On full liquid diet. Advance as she tolerates . Increase activity. PT OT. change to oral abx tomorrow. (2) Chronic anemia: Code(s): D64.9 - Anemia, unspecified Status: Acute Assessment and Plan: Patient with anemia chronic disease Although no iron studies noted. Will check iron and B12. Continue monitor H&H. (3) Chronic kidney disease, stage 3: Code(s): N18.30 - Chronic kidney disease, stage 3 unspecified Status: Acute Assessment and Plan: Creatinine 1.3 and stable. Continue to monitor. (4) Insulin dependent type 2 diabetes mellitus: Code(s): E11.9 - Type 2 diabetes mellitus without complications; Z79.4 - exterminator (current) use of insulin Status: Acute Assessment and Plan: A1c 7.3. The patient's blood glucose was reviewed on 01/03 Glucose remains mostly well controlled. Continue AccuCheks covering with sliding scale. Hypoglycemia protocol available as needed. Continue current medications. (5) Hypertension: Code(s): I10 - Essential (primary) hypertension Status: Acute Assessment and Plan: Patient's blood pressure was reviewed on 01/03 Blood pressure remains poorly controlled. Losartan has been resumed. Will continue current medications. Subjective Date/time seen: 01/03/22 13:50 Interval history: 86yo female with CKD, DM and HTN here for abdominal pain and found to have diverticulitis. assuming care. Chart reviewed. She denies any nausea or vomiting. She did have a bowel movement. She still feels very weak. She has not been out of bed much. She does have abdominal pain mostly in the left side and flank. She mentions that her son this morning at the [facility]. Exam Narrative: AF 976 163/60 70 20 97% ra Gen - NARD lying semi-recumbent in bed Chest - right base crackles that improve with deep inspiration; nml RR CV - RRR S1/S2 Abd - Soft, minimal left sided and left lower quad tenderness Ext - No pedal edema Psych - Nml mood and affect Skin - Warm and dry Objective Data Vital Signs Vital Signs: Vital Signs - 24 hr 01/02/22 14:00 01/02/22 20:26 01/02/22 21:58 Temperature 98.7 F 97.9 F Pulse Rate 67 73 Respiratory Rate 20 16 Blood Pressure 142/60 H 149/76 H Pulse Oximetry 98 98 Oxygen Delivery Room Air 01/03/22 05:45 01/03/22 07:51 Temperature 97.6 F Pulse Rate 70 Respiratory Rate 20 Blood Pressure 163/60 H Pulse Oximetry 97 Oxygen Delivery Room Air Intake/Output Intake/Output: Intake & Output 12/31/21 01/01/22 01/02/22 01/03/22 23:59 23:59 23:59 23:59 Intake Total 50 1040 820 750 Output Total 1000 1200 1200 Balance 50 40 -380 -450 Meds/Results Medications: Active Medications Generic Name Dose Route Start Last Admin Trade Name Zelalemq PRN Reason Stop Dose Admin Acetaminophen 650 mg 12/31/21 18:51 Acetaminophen 325 Mg Tablet PO Q4H PRN Mild Pain (1-3) or Fever Hydrocodone Bitart/Acetaminophen 1 tab 01/02/22 13:42 01/03/22 08:35 Hydrocodone/Acetaminophen (*Crx) 5-325 Mg Tablet PO 1 tab Q4H PRN Administration Pain Rated 4-6 Dextrose 12.5 gm 12/31/21 23:28 Dextrose 50% 25 Gm/50 Ml Syringe IV PUSH PRN PRN Hypoglycemia Protocol Enoxaparin Sodium 30 mg 01/01/22 09:00 01/03/22 08:34 Enoxaparin 30 Mg/0.3 Ml Syringe SUB-Q 30 mg DAILY SLOAN Administration Escitalopram Oxalate 5 mg 01/01/22 09:00 01/03/22 08:35 Escitalopram Oxalate 5 Mg Tablet PO 5 mg DAILY
--- NOTE | 2022-01-03 13:52 | PCOTNOTE ---
Attempted to see patient this pm, however patient declined. Pt sleeping upon entering, easily aroused. Did you hear what happened today? My son this morning. I just feel lazy today. Pt requested to bathe upper body laying in bed, That's good for today. Thank you.
[2022-01-03 14:00] VITALS: BP 124/46; PULSE 66; RESP 18; TEMP 36.9; O2SAT 98
[2022-01-03 16:35] LABS: Glucose Point of Care 259 mg/dl (65-105)
[2022-01-03] MEDS: INSULIN GLARGINE (*BKC) 100 UNITS/ML 8 UNITS SUB-Q (20:19)
[2022-01-03 20:22] LABS: Glucose Point of Care 161 mg/dl (65-105)
[2022-01-03 22:00] VITALS: BP 116/49; PULSE 69; RESP 14; TEMP 36.2; O2SAT 98
--- NOTE | 2022-01-04 01:58 | PC.NURSE ---
Pt resting comfortably this shift. Pt has no complaints of pain. Pt continues to use bedside commode. Will continue to monitor pt.
[2022-01-04 05:27] VITALS: BP 150/62; PULSE 70; RESP 14; TEMP 36.6; O2SAT 97
[2022-01-04 05:58] LABS: Hematocrit 34.2 % (37.0-47.0); Mean Corpuscular HGB Conc 32.2 g/dl (32-36); Mean Corpuscular Hemoglobin 29.3 pg (26-34); Mean Platelet Volume 9.6 fl (7.4-10.4); Platelet Count Result 244 k/mm3 (150-375); Red Blood Count 3.76 M/mm3 (4.2-5.4); Red Cell Distribution Width 14.8 % (11.5-14.5); White Blood Count 6.2 K/mm3 (4.5-10.0)
[2022-01-04 06:47] LABS: Anion Gap 5 mmol/L (8-16); Blood Urea Nitrogen 11 mg/dL (7-17); Carbon Dioxide 25 mmol/L (22-30); Chloride 99 mmol/L (98-107); Estimated CRCL calculation 28 ml/min; Estimated Glomerular Filt Rate 39; Glucose 100 mg/dL (65-110); Iron 39 ug/dL (37-170); Potassium 3.4 mmol/L (3.4-5.0); Sodium 129 mmol/L (137-145)
[2022-01-04 06:52] LABS: Percent Iron Saturation 22 % (20-50)
[2022-01-04 07:41] LABS: Glucose Point of Care 105 mg/dl (65-105)
[2022-01-04 07:48] LABS: Folic Acid > 20.0 ng/mL (2.76->20)
[2022-01-04] MEDS: LOSARTAN POTASSIUM 25 MG TABLET PO (08:25)
[2022-01-04] MEDS: HYDROcodone/acetaminophen (*CRX) 5-325 MG TABLET 1 TAB PO (08:25)
[2022-01-04] MEDS: ENOXAPARIN 30 MG/0.3 ML SYRINGE SUB-Q (08:26)
[2022-01-04] MEDS: ESCITALOPRAM OXALATE 5 MG TABLET PO (08:26)
[2022-01-04] MEDS: AMOXICILLIN/CLAVULANATE K 500-125 MG TAB 1 TABLET PO (09:13)
[2022-01-04 10:12] LABS: Glucose Point of Care 177 mg/dl (65-105)
[2022-01-04 11:25] LABS: Glucose Point of Care 177 mg/dl (65-105)
[2022-01-04 14:00] VITALS: BP 139/55; PULSE 68; RESP 14; TEMP 36.1; O2SAT 99
[2022-01-04 16:44] LABS: Glucose Point of Care 195 mg/dl (65-105)
--- NOTE | 2022-01-04 17:49 | PM.DS ---
DS: Admitting Diagnosis Discharge Date 01/04/22 Admitting Diagnosis Abdominal pain DS: Discharge Diagnosis Discharge Diagnosis (1) Diverticulitis: Code(s): K57.92 - Diverticulitis of intestine, part unspecified, without perforation or abscess without bleeding Status: Acute (2) Chronic anemia: Code(s): D64.9 - Anemia, unspecified Status: Acute (3) Chronic kidney disease, stage 3: Code(s): N18.30 - Chronic kidney disease, stage 3 unspecified Status: Acute (4) Insulin dependent type 2 diabetes mellitus: Code(s): E11.9 - Type 2 diabetes mellitus without complications; Z79.4 - [facility] (current) use of insulin Status: Acute (5) Hypertension: Code(s): I10 - Essential (primary) hypertension Status: Acute DS: Summary Hospital Course Reason for hospitalization: 86yo female with CKD, DM and HTN here for abdominal pain and found to have diverticulitis. Please see H&P for details Hospital Course: Patient presents with abdominal pain.? CT scan shows mild acute sigmoid diverticulitis.? No abscess or free air.? White count was normal and remained normal. She had mild anemia consistent with anemia of chronic disease. She was started on Zosyn. She has CKD with Cr 1.3 and this remained stable. A1c 7.3.?Glucose remained mostly well controlled.?She was started on clear liquid diet and diet was advanced. She was up walking in the halls with therapy but not up much on her own accord. She did well. She was transitioned to oral abx. She was able to be discharged home on 01/04/22. Status at Discharge Cognitive/behavioral status at discharge: stable Time Spent with Patient Time attestation: Total time spent providing and/or coordinating discharge services: 35 minutes Time spent: Greater than 30 minutes Exam Narrative: AF 96.9 139/55 68 14 99% ra Gen - NARD lying semi-recumbent in bed Chest - few scattered rhonchi o/w clear. nml RR CV - RRR S1/S2 Abd - Soft, no significant abdominal pain. nml BS Ext - No pedal edema Psych - Nml mood and affect Skin - Warm and dry DS: Data Data Completed and Pending Labs on day of discharge: Labs from last 24 hours 01/04/22 01/04/22 01/04/22 16:36 11:23 10:04 WBC RBC Hgb Hct MCV MCH MCHC RDW Plt Count MPV Sodium Potassium Chloride Carbon Dioxide Anion Gap BUN Creatinine Estim Creat Clear Calc Estimated GFR Glucose POC Capillary Glucose 195 H 177 H 177 H Calcium Magnesium Iron TIBC % Saturation Ferritin Vitamin B12 Folate 01/04/22 01/04/22 01/04/22 07:29 05:33 05:33 WBC RBC Hgb Hct MCV MCH MCHC RDW Plt Count MPV Sodium 129 L Potassium 3.4 Chloride 99 Carbon Dioxide 25 Anion Gap 5 L BUN 11 Creatinine 1.30 H Estim Creat Clear Calc 28 Estimated GFR 39 L Glucose 100 POC Capillary Glucose 105 Calcium 8.0 L Magnesium 2.0 Iron 39 TIBC 175 L % Saturation 22 Ferritin 114.00 Vitamin B12 691.0 Folate > 20.0 H 01/04/22 01/03/22 05:33 20:17 WBC 6.2 RBC 3.76 L Hgb 11.0 L Hct 34.2 L MCV 91.0 MCH 29.3 MCHC 32.2 RDW 14.8 H Plt Count 244 MPV 9.6 Sodium Potassium Chloride Carbon Dioxide Anion Gap BUN Creatinine Estim Creat Clear Calc Estimated GFR Glucose POC Capillary Glucose 161 H Calcium Magnesium Iron TIBC % Saturation Ferritin Vitamin B12 Folate Discharge Plan Discharge Discharging Clinician: Zbigniew Mazariegos Anticipated Discharge Date/Time: 01/04/22 17:56 Patient Disposition: Home Health Service Activity: as tolerated Diet: low fiber Discharge Instructions: Per Care Coordination, patient to discharge with [facility] ([phone]) for PT/OT and fdc services. [facility]
== END 2022-01-04 19:11 | disposition home health service (06) ==
LOC: ANHED 19:01 → ANH3MEDSUR 19:49
PROVIDERS: Chiropractor; Nurse Practitioner Family; Physician Assistant; Admitting Provider Family Medicine; Emergency Provider Emergency Medicine; PCP Family Medicine; Visit Provider Internal Medicine
DX: K57.32 Diverticulitis of large intestine without perforation or abscess without bleeding (principal); K86.89 Other specified diseases of pancreas; I12.9 Hypertensive chronic kidney disease with stage 1 through stage 4 chronic kidney disease, or unspecified chronic kidney disease; E11.22 Type 2 diabetes mellitus with diabetic chronic kidney disease; N18.30 Chronic kidney disease, stage 3 unspecified; K44.9 Diaphragmatic hernia without obstruction or gangrene; K40.90 Unilateral inguinal hernia, without obstruction or gangrene, not specified as recurrent; Z90.49 Acquired absence of other specified parts of digestive tract; Z90.710 Acquired absence of both cervix and uterus; D64.9 Anemia, unspecified; N28.1 Cyst of kidney, acquired; Z20.822 Contact with and (suspected) exposure to COVID-19; Z79.4 Long term (current) use of insulin; Z79.891 Long term (current) use of opiate analgesic; Z79.899 Other long term (current) drug therapy; Z83.3 Family history of diabetes mellitus; Z82.49 Family history of ischemic heart disease and other diseases of the circulatory system
CPT/HCPCS: 36415; 74177; 80048; 80053; 81001; 82607; 82728; 82746; 82948; 83036; 83540; 83550; 83690; 83735; 85025; 85027; 86140; 96365; 96366; 96372; 96375; 96376; 97116; 97161; 97165; 99285; A9270; C9803; G0378; J0360; J1650; J1815; J2270; J2405; J2543; J7030; Q9967; U0003; U0005

== ENCOUNTER 2022-09-07 09:45 | Inpatient (IN) | payer MEDICARE, SELFPAY ==
[2022-09-07] VITALS (26 sets, daily range): BP systolic 129–155; BP diastolic 52–74; PULSE 65–80; RESP 14–35; TEMP 36.1–36.5; O2SAT 96–100; BMI 31.1
--- NOTE | ~2022-09-07 | XR_ITS ---
XR enema water soluble DATE: 09/08/2022 14:27 INDICATION: Sigmoid colon stricture reported on 09/07/2022 CT examination TECHNIQUE: Water-soluble retrograde contrast enema with Omnipaque 350 2 minutes fluoroscopy time DAP 99.7 Gycm2 COMPARISON: 09/07/2022 CTA chest abdomen pelvis FINDINGS: There are numerous diverticula of the sigmoid colon. 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 This severe stricture impeded the retrograde flow of barium, preventing complete filling of the colon . Diverticulosis of the descending colon is noted. 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 Reviewed, dictated and finalized at location A. IMPRESSION: Severe constricting apple core lesion consistent with adenocarcinom a of the proximal sigmoid colon Diverticulosis of the sigmoid and descending colon Incomplete examination of the colon
--- NOTE | ~2022-09-07 | XR_ITS ---
EXAMINATION: XR chest port-a-cath/central INDICATION: Central line insertion TECHNIQUE: AP view of the chest was obtained. COMPARISON: 09/07/2022 FINDINGS: A right internal jugular central venous catheter ends with its tip in the proximal right at rium. The nasogastric tube is in the stomach. The lungs are free of acute opacities. No pleural effus ion or pneumothorax. The cardiomediastinal silhouette is normal. The visualized bones and soft tissue s are unremarkable. IMPRESSION: 1. Right internal jugular central venous catheter ending with its tip in the proximal right atrium. Reviewed, dictated and finalized at location F. IMPRESSION: 1. Right internal jugular central venous catheter ending with its tip in the pr oximal right atrium.
--- NOTE | ~2022-09-07 | CT_ITS ---
EXAMINATION: CT cervical spine wo con DATE: 09/07/2022 11:02 INDICATION: Syncope. TECHNIQUE: Computed tomography (CT) of the cervical spine was performed without intravenous contrast. Automated exposure control and iterative reconstruction technique were employed. The dose-length pro duct was 188.08 mGy-cm. COMPARISON: None FINDINGS: There are nodules in the thyroid measuring up to 11 mm, likely not clinically significant.. There is 7 degrees dextrocurvature of cervical spine. There is kyphosis of cervical spine. Vertebral body heights and intervertebral disc heights are normal. The following disc levels are specifically discussed: C2-C3: There is no uncovertebral joint osteoarthritis. There is severe bilateral facet joint osteoart hritis. There is mild left neural foraminal stenosis. There is no central canal stenosis. C3-C4: There is mild bilateral uncovertebral joint osteoarthritis. There is severe bilateral facet blanca int osteoarthritis. There is mild bilateral neural foraminal stenosis. There is mild central canal st enosis. C4-C5: There is mild right and moderate left uncovertebral joint osteoarthritis. There is mild right and severe left facet joint osteoarthritis. There is mild left neural foraminal stenosis. There is mi ld central canal stenosis. C5-C6: There is mild bilateral uncovertebral joint osteoarthritis. There is mild right and severe lef t facet joint osteoarthritis. There is mild left neural foraminal stenosis. There is mild central can al stenosis. C6-C7: There is mild left uncovertebral joint osteoarthritis. There is moderate bilateral facet joint osteoarthritis. There is mild left neural foraminal stenosis. There is mild central canal stenosis. C7-T1: There is no uncovertebral joint osteoarthritis. There is severe bilateral facet joint osteoart hritis. There is mild bilateral neural foraminal stenosis. There is no central canal stenosis. IMPRESSION: 1. No fracture. 2. Mild cervical spondylosis. Reviewed, dictated and finalized at location A.
--- NOTE | ~2022-09-07 | XR_ITS ---
XR chest 1V portable 09/15/2022 05:57 Indication: Respiratory failure Procedure: AP portable chest Comparison: Comparison to multiple prior studies sequentially, with oldest reviewed study dated 09/2022. Findings: Right IJ central line tip near the cavoatrial junction. Bilateral perihilar interstitial in filtrates. Possible left pleural effusion. No pneumothorax. No acute osseous abnormality. Cardiomegal y. Impression: 1: Bilateral perihilar interstitial infiltrates may represent edema, pneumonia and/or atelectasis. Reviewed, dictated and finalized at location A. Impression: 1: Bilateral perihilar interstitial infiltrates may represent edema, pneumonia and/or atelectasis.
--- NOTE | ~2022-09-07 | XR_ITS ---
Portable chest x-ray Comparison: 09/12/2022 Clinical History: Respiratory failure Findings: NG tube and right IJ line are unchanged. Probable linear areas of bibasilar atelectasis or scarring. Lungs are otherwise clear. Cardiomediastinal silhouette is stable. Bones and soft tissues are unremarkable. Impression: Probable linear bibasilar atelectasis and/or scarring. Support tubes, as above. Reviewed, dictated and finalized at location . Impression: Probable linear bibasilar atelectasis and/or scarring. Support tubes, as above.
--- NOTE | ~2022-09-07 | XR_ITS ---
EXAMINATION: XR chest 1V portable INDICATION: Shortness of breath TECHNIQUE: Portable AP chest at 0839 hours COMPARISON: 09/15/2022 FINDINGS: A left upper extremity PICC ends with its tip in the proximal superior vena cava. A right i nternal jugular catheter has been removed. Left basilar airspace opacities persist but have improved. No pleural effusion or pneumothorax. Cardiomegaly is noted. IMPRESSION: 1. Left basilar airspace opacity, consistent with atelectasis versus pneumonia. 2. Right internal jugular catheter removed and right upper extremity PICC placed in expected position . Reviewed, dictated and finalized at location A. IMPRESSION: 1. Left basilar airspace opacity, consistent with atelectasis versus pneumonia. 2. Right internal jugular catheter removed and right upper extremity PICC place d in expected position.
--- NOTE | ~2022-09-07 | XR_ITS ---
EXAMINATION: XR chest 1V DATE: 09/07/2022 11:09 INDICATION: Syncope. TECHNIQUE: A single frontal view of the chest was obtained. COMPARISON: Chest 2 views 10/08/2021, chest CT 09/07/2022 FINDINGS: The chest demonstrates clear lungs without pneumonia, pleural effusion, or pneumothorax. Th e heart size is normal. Surgical clips in the right upper quadrant are likely from cholecystectomy. IMPRESSION: 1. No acute cardiopulmonary disease. Reviewed, dictated and finalized at location A.
--- NOTE | ~2022-09-07 | XR_ITS ---
XR abdomen NG/feed tube rechec DATE: 09/08/2022 08:39 INDICATION: Nasogastric tube position check TECHNIQUE: Portable AP view on 10/05/2022 at 0835 hours COMPARISON: KUB at 0514 hours FINDINGS: NG tube is again noted with distal tip overlying the gastric fundus. Surgical clip, right upper quadrant, likely due to cholecystectomy. Nonspecific bowel gas pattern. IMPRESSION: NG tube tip in gastric fundus Reviewed, dictated and finalized at Location A. Reviewed, dictated and finalized at location A.
--- NOTE | ~2022-09-07 | XR_ITS ---
XR abdomen NG/feed tube insert DATE: 09/08/2022 06:11 INDICATION: NG tube placement TECHNIQUE: Portable AP view on at 0514 hours COMPARISON: 09/07/2022 portable AP view at 1300 hours FINDINGS: An NG tube is present, distal tip overlying the gastric fundus, the proximal side-port situ ated in the region of the diaphragmatic hiatus. Surgical clips overlie the right upper quadrant, consistent with cholecystectomy. Nonspecific bowel gas pattern. Radiopaque contrast material is noted in the urinary bladder. Degenerative changes of the thoracic and lumbar spine. Osteopenia. IMPRESSION: NG tube in gastric fundus with proximal side port near diaphragmatic hiatus Reviewed, dictated and finalized at [facility] A. Reviewed, dictated and finalized at location A. IMPRESSION: NG tube in gastric fundus with proximal side port near diaphragmati c hiatus
--- NOTE | ~2022-09-07 | XR_ITS ---
Portable chest x-ray Comparison: 09/10/2022 Clinical History: Respiratory failure Findings: Endotracheal tube, NG tube, and right IJ line are in satisfactory positions. Lungs are elsy ar, without focal consolidation or pleural effusion. Cardiomediastinal silhouette is stable. Bones a nd soft tissues are unremarkable. Impression: Support tubes, as above. Clear lungs. Reviewed, dictated and finalized at location M. Impression: Support tubes, as above. Clear lungs.
--- NOTE | ~2022-09-07 | US_ITS ---
EXAMINATION: US renal BI DATE: 09/12/2022 16:20 INDICATION: Acute kidney injury. TECHNIQUE: Multiple ultrasound grayscale images of the kidneys were obtained. COMPARISON: CT abdomen and pelvis 09/07/2022 FINDINGS: The right kidney measures 10.6 x 4.5 x 5.6 cm. The left kidney measures 10.6 x 5.0 x 5.3 cm. The kidn eys demonstrate normal parenchymal echogenicity. There is no hydronephrosis. The bladder is obscured by bandages. There is a small volume of ascites. IMPRESSION: 1. Normal kidney sizes. No hydronephrosis. 2. Small volume of ascites. Reviewed, dictated and finalized at location A.
--- NOTE | ~2022-09-07 | CT_ITS ---
EXAMINATION: CT abdomen pelvis wo con DATE: 09/21/2022 14:17 INDICATION: Abdominal pain. Emesis. TECHNIQUE: Computed tomography (CT) of the abdomen and pelvis was performed without intravenous contr ast. Automated exposure control and iterative reconstruction technique were employed. The dose-length product was 1249.79 mGy-cm. COMPARISON: CT abdomen and pelvis 09/16/2022 FINDINGS: The visualized portions of the lung bases demonstrate mild atelectasis. There are small ple ural effusions. The heart size is normal. There are coronary artery calcifications. No pericardial ef fusion. The calcifications aortic . There is a small sliding hiatal hernia. The liver and spleen are normal. There are changes of cholecystectomy. The pancreas and adrenal glands are normal. There is co rtical thinning of the kidneys. There is mild bilateral hydronephrosis and hydroureter. The bladder i s markedly distended. There is a right inguinal hernia containing fat. There is an end colostomy in t he left abdomen. There is a Parish pouch in the pelvis. There are scattered diverticula in the colo n. There is calcified atherosclerosis of the aorta and many of the other arteries. Anterior skin stap les are noted. There is a large volume of ascites. Body wall edema is noted. There are chronic bilate ral L5 pars defects. There is 7 mm anterolisthesis of L5 on S1. There is severe thoracic and lumbar s pondylosis. IMPRESSION: 1. Small pleural effusions, stable from 09/16/2022. 2. Stable large volume of ascites. 3. New mild bilateral hydronephrosis, likely secondary to the markedly distended bladder. 4. Small sliding hiatal hernia. Reviewed, dictated and finalized at location A. IMPRESSION: 1. Small pleural effusions, stable from 09/16/2022. 2. Stable large volume of ascites. 3. New mild bilateral hydronephrosis, likely secondary to the markedly distende d bladder. 4. Small sliding hiatal hernia.
--- NOTE | ~2022-09-07 | CT_ITS ---
EXAMINATION: CTA chest PE abdomen pel DATE: 09/07/2022 11:02 INDICATION: Syncope. TECHNIQUE: Computed tomography angiography (CTA) of the chest was performed with 100 mL Omnipaque-350 intravenous contrast timed to evaluate the pulmonary arteries. Coronal maximum intensity projection 3D-reconstructions were created by the technologist. Computed tomography (CT) of the abdomen and pelv is was performed with intravenous contrast. Automated exposure control and iterative reconstruction t echnique were employed. The dose-length product was 1834.95 mGy-cm. COMPARISON: Chest CT 12/31/2021 FINDINGS: CTA chest: The lungs demonstrate mild atelectasis. A calcified left lung nodule and calcified left hi lar lymph nodes are consistent with old granulomatous disease. There are peripheral reticular opaciti es in right lower lobe, consistent with chronic interstitial lung disease. No pleural effusion. There is left atrial enlargement of the heart. There are coronary artery calcifications. No pericardial ef fusion. There is a small sliding hiatal hernia. There is no pulmonary embolus. There is severe thorac ic spondylosis. CT abdomen and pelvis: There is mild intrahepatic biliary duct dilatation and dilatation of the commo n duct to 12 mm, likely not clinically significant given the normal liver function tests. There are c hanges of cholecystectomy. The spleen, pancreas, and adrenal glands are normal. There is cortical thi nning of the kidneys. There is a 10 mm cyst in left kidney. There are supraumbilical and periumbilica l ventral hernias containing fat. There is a right inguinal hernia containing fat. There are scattere d diverticula in the colon. There is focal wall thickening of the sigmoid colon with stricture. There is gaseous distention of the more proximal colon. The small bowel is normal in caliber. There is zay cified atherosclerosis of the aorta and many of the other arteries. There are no pathologically enlar ged lymph nodes. There is a small volume of ascites. There is severe lumbar spondylosis. There are ch ronic bilateral L5 pars defects. There is 9 mm anterolisthesis of L5 on S1. IMPRESSION: 1. Focal wall thickening of the sigmoid colon with stricture and partial bowel obstruction suspicious for adenocarcinoma. 2. Small volume of ascites. 3. No pulmonary embolus. 4. Small sliding hiatal hernia. 5. Ventral hernias and right inguinal hernia containing fat. Reviewed, dictated and finalized at location A.
--- NOTE | ~2022-09-07 | XR_ITS ---
EXAMINATION: XR abdomen NG/feed tube insert DATE: 09/07/2022 13:05 INDICATION: Nasogastric tube placement. TECHNIQUE: An upright view of the abdomen was obtained. COMPARISON: Abdomen radiographs 05/21/2016 FINDINGS: The lower abdomen is excluded. The nasogastric tube tip is in the stomach. Surgical clips i n the right upper quadrant are likely from cholecystectomy. IMPRESSION: 1. Nasogastric tube tip in the stomach. Reviewed, dictated and finalized at location A.
--- NOTE | ~2022-09-07 | CT_ITS ---
EXAMINATION: CT brain wo con DATE: 09/07/2022 11:01 INDICATION: Syncope. TECHNIQUE: Computed tomography (CT) of the head was performed without intravenous contrast. The mA wa s adjusted according to patient size. Iterative reconstruction technique was employed. The dose-lengt h product was 908.00 mGy-cm. COMPARISON: Head CT 09/14/2013 FINDINGS: There are scattered areas of low attenuation in the cerebral white matter. There is no intr acranial hemorrhage, acute infarction, or abnormal intracranial mass lesion. The ventricles are julien l in size. There is mild mucosal thickening in the paranasal sinuses. The mastoid air cells are julien l. There is a peripherally calcified mass in left parietal scalp, likely an old hematoma or sebaceous cyst. There are likely changes of ocular lens replacement surgeries. IMPRESSION: 1. Worsened moderate nonspecific cerebral white matter disease, which likely represents chronic small vessel ischemic disease. Reviewed, dictated and finalized at location A. IMPRESSION: 1. Worsened moderate nonspecific cerebral white matter disease, which likely re presents chronic small vessel ischemic disease.
--- NOTE | ~2022-09-07 | XR_ITS ---
Portable chest x-ray Comparison: 09/11/2022 Clinical History: Respiratory failure Findings: Endotracheal tube, NG tube, and right IJ line are in satisfactory positions. Suspected ELECTRICAL LINEMAN D. No consolidation or pleural effusion. Cardiomediastinal silhouette is stable. Bones and soft tiss ues are unremarkable. Impression: Support tubes, as above. Suspected COPD. Reviewed, dictated and finalized at location M. Impression: Support tubes, as above. Suspected COPD.
--- NOTE | ~2022-09-07 | CT_ITS ---
EXAMINATION: CT abdomen pelvis wo con DATE: 09/16/2022 17:08 INDICATION: Nausea and vomiting TECHNIQUE: Computed tomography (CT) of the abdomen and pelvis was performed without intravenous contr ast. Automated exposure control and iterative reconstruction technique were employed. Exam dose: 132 5.95 mGy-cm total exam DLP. COMPARISON: 09/07/2022 CTA chest abdomen pelvis FINDINGS: Mild bilateral dependent pleural effusions with associated compressive bilateral lower lobe atelectasis. Cardiomegaly. Coronary artery calcification. Mitral annulus calcification. No pericardial effusion. There is moderate ascites. Nodular appearing surface of the liver suggesting cirrhosis. No hepatic space by mass lesion is evide nt on this limited noncontrast examination. Status post cholecystectomy. No bile duct dilatation. Prominent pancreatic atrophy/fatty change. No pancreatic duct dilatation is noted. Normal splenic size. Normal adrenal glands. Bilateral renal atrophy. No renal space-occupying mass lesion or urinary tract calculus or hydrourete ronephrosis is evident. There is a Davis catheter within the evacuated urinary bladder. There is extensive atherosclerotic calcification of the abdominal aorta, without aneurysm. No intrape ritoneal or retroperitoneal or pelvic mass lesion or adenopathy is evident. Transverse colostomy. Diverticulosis of the colon. There are nonspecific fluid levels of the small galdino wel which may be due to enteritis or mild adynamic ileus. Degenerative changes of the thoracic spine including diffuse idiopathic skeletal hyperostosis. There is severe multilevel degenerative disc disease of the lumbar spine; there is associated mild re trolisthesis at L4 5. Bilateral L5 pars interarticularis defects are present with associated grade 2 anterolisthesis at L5- S1. Grade 1 anterolisthesis at L3-4 due to degenerative change at the apophyseal joints. Bilateral hip osteoarthritis. Recent abdominal surgery with hipolito along the mid anterior abdominal and posterior black Edema of the abdominal and pelvic black proximal thighs IMPRESSION: Cardiomegaly Hepatic surface nodularity suggested, which may indicate cirrhosis Moderate ascites Diverticulosis of the colon Transverse colostomy Mild bilateral pleural effusions, bilateral dependent lower lobe atelectasis Edema of the abdominal pelvic black, proximal thighs Reviewed, dictated and finalized at Location A. Reviewed, dictated and finalized at location A.
--- NOTE | ~2022-09-07 | XR_ITS ---
XR abdomen obstructive series DATE: 09/09/2022 08:45 INDICATION: Partial colon obstruction due to: Stricture TECHNIQUE: Portable supine and upright AP views COMPARISON: 09/25/2022 portable AP 10/05/2022/abdominal contrast radiographic adenoma FINDINGS: Mild residual radiopaque contrast material is noted in the sigmoid colon; diverticulosis of the sigmoid colon.. No intraperitoneal free air is detected. No abnormal dilatation of the small or large bowel. Levoscoliosis and multilevel degenerative disc disease of the lumbar spine. 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 Reviewed, dictated and finalized at location A.
--- NOTE | ~2022-09-07 | US_ITS ---
EXAMINATION: US renal BI DATE: 09/21/2022 14:41 INDICATION: Elevated creatinine TECHNIQUE: Multiple grayscale and Doppler ultrasound images of the kidneys were obtained. COMPARISON: 09/12/2022 FINDINGS: The right kidney measures 11.7 x 6.9 x 5.6 cm. The left kidney measures 11.0 x 4.9 x 5.2 cm . The kidneys demonstrate normal parenchymal echogenicity. Right upper quadrant ascites is noted. The re is mild bilateral hydronephrosis.. The bladder is normal in appearance. Ureteral jets are not defi nitely demonstrated.. IMPRESSION: 1. Mild bilateral hydronephrosis. Reviewed, dictated and finalized at location A.
--- NOTE | ~2022-09-07 | XR_ITS ---
EXAMINATION: XR abdomen/kub 1V INDICATION: Abdominal pain and vomiting TECHNIQUE: Supine views of the abdomen were obtained on 2 radiographs. COMPARISON: CT, 09/16/2022 FINDINGS: Surgical skin hipolito are noted. There are no definitely dilated loops of bowel or free int raperitoneal gas there is advanced osteoarthritis of the hips. Severe lumbar spondylosis is noted. Th ere are cholecystectomy clips in the right upper quadrant.. IMPRESSION: 1. No radiographic correlate for the patient's symptoms. Reviewed, dictated and finalized at location A.
--- NOTE | ~2022-09-07 | XR_ITS ---
Portable chest x-ray Comparison: 09/13/2022 Clinical History: Respiratory failure Findings: Right IJ line is unchanged. There is mild bibasilar pulmonary edema/atelectasis. Probable minimal left pleural effusion. Cardiomediastinal silhouette is stable. Bones and soft tissues are un remarkable. Impression: Mild bibasilar pulmonary edema/atelectasis and probable minimal left pleural effusion. Correlate clin ically for pneumonia. Right IJ line, unchanged. Reviewed, dictated and finalized at location M. Impression: Mild bibasilar pulmonary edema/atelectasis and probable minimal left pleural ef fusion. Correlate clinically for pneumonia. Right IJ line, unchanged.
--- NOTE | ~2022-09-07 | XR_ITS ---
Portable upright view of the abdomen Clinical history: NG tube placement Findings: NG tube is in satisfactory position. Bowel gas pattern is nonspecific. No evidence for obst ruction or free air. No abnormal mass lesion or calcification is seen. Osseous structures are intact. Impression: NG tube in satisfactory position. Visualized bowel loops demonstrate nonspecific bowel gas pattern. Reviewed, dictated and finalized at location . Impression: NG tube in satisfactory position. Visualized bowel loops demonstrate nonspecific bowel gas pattern.
--- NOTE | 2022-09-07 09:49 | ECG_ITS ---
Measurements Intervals [place] Rate: 64 P: 81 AR: 169 QRS: -47 QRSD: 93 T: 69 QT: 429 QTc: 445 Interpretive Statements SINUS RHYTHM LEFT ANTERIOR FASCICULAR BLOCK [QRS AXIS <= -45, QR IN I, RS IN II] COMPARED TO ECG 11/20/2021 13:36:24 NO SIGNIFICANT CHANGES Electronically Signed On 09-07-2022 13:49:14 CDT by Raul Vigil M.D.
[2022-09-07 10:22] LABS: Basophils Absolute Auto 0.1 K/mm3 (0.0-0.1); Basophils Percent Auto 0.7 % (0.2-1.2); Eosinophils Absolute Auto 0.1 K/mm3 (0-0.3); Hematocrit 34.8 % (37.0-47.0); Hemoglobin 11.5 g/dL (12.0-15.0); Immature Granulocyte Absolute 0.05 K/mm3 (0.00-0.031); Immature Granulocyte Percent A 0.6 % (0-0.5); Lymphocytes Absolute Auto 0.91 K/mm3 (0.9-3.2); Lymphocytes Percent Auto 10.9 % (18.3-44.2); Mean Corpuscular Hemoglobin 27.9 pg (26-34); Mean Corpuscular Volume 84.5 fl (80-100); Mean Platelet Volume 9.5 fl (7.4-10.4); Monocytes Absolute Auto 0.4 K/mm3 (0.1-0.6); Monocytes Percent Auto 5.1 % (2.6-8.5); Neutrophils Absolute Auto 6.8 K/mm3 (1.3-6.7); Neutrophils Percent Auto 81.7 % (45.5-73.1); Platelet Count Result 267 k/mm3 (150-375); Red Blood Count 4.12 M/mm3 (4.2-5.4); Red Cell Distribution Width 15.4 % (11.5-14.5); White Blood Count 8.4 K/mm3 (4.5-10.0)
[2022-09-07 10:33] LABS: Prothrombin Time 13.9 Seconds (11.1-14.7)
[2022-09-07 10:35] LABS: Lactic Acid Reflex 1.2 mmol/L (0.7-2.0)
[2022-09-07 10:36] LABS: Alanine Aminotransferase 12 U/L (6-35); Albumin Level 3.5 g/dL (3.5-5.1); Alkaline Phosphatase 77 U/L (38-126); Anion Gap 8 mmol/L (8-16); Aspartate Amino Transferase 26 U/L (14-36); Bilirubin,Total 0.6 mg/dL (0.2-1.3); Blood Urea Nitrogen 21 mg/dL (7-17); Calcium 8.4 mg/dL (8.4-10.2); Carbon Dioxide 22 mmol/L (22-30); Chloride 93 mmol/L (98-107); Estimated CRCL calculation 25 ml/min; Estimated Glomerular Filt Rate 36; Glucose 109 mg/dL (65-110); Potassium 5.1 mmol/L (3.4-5.0); Sodium 123 mmol/L (137-145)
[2022-09-07 10:37] LABS: Magnesium 1.9 mg/dL (1.6-2.3)
[2022-09-07 10:41] LABS: Appearance Urine Clear (Clear); Bacteria Urine None Seen /hpf; Bilirubin Urine Negative (Negative); Blood Urine Negative (Negative); Color Urine Yellow (Yellow); Glucose Urine UA Negative (Negative); Ketones Urine Negative (Negative); Leukocyte Esterase Ur Negative LEU/UL (Negative); Need Manual Microscopic Reviewed; Nitrate Urine Negative (Negative); Non Pathogenic Casts 0-2; Protein Urine Trace mg/dL (Negative); RBC Urine 0-2 /hpf (0-2); Specific Grav Ur 1.012 (1.001-1.035); Squamous Epithelial Cell Urine None seen /hpf (Few); WBC Urine 0-5 /hpf
[2022-09-07 10:47] LABS: NT Pro B Type Natriuretic Pept 3840 pg/mL (19.9-100); Troponin I < 0.012 ng/mL (0.000-0.034)
[2022-09-07 10:50] LABS: Add Urine Microscopic? YES
[2022-09-07 11:16] LABS: Lipase 35 U/L (23-300)
[2022-09-07] MEDS: ONDANSETRON INJ 4 MG/2 ML VIAL IV PUSH (11:27)
[2022-09-07] MEDS: DICYCLOMINE HCL INJ 20 MG/2 ML VIAL IM (11:27)
[2022-09-07] MEDS: FAMOTIDINE 20 MG/2 ML VIAL IV PUSH (11:27)
--- NOTE | 2022-09-07 12:56 | ED.GENADULT ---
HPI - General Adult General Chief complaint: Fall Stated complaint: syncopal, abd pain, dizziness Time Seen by Provider: 09/07/22 10:05 History of Present Illness HPI narrative: Scar Sewell is an 87 y/o female with past medical history of diverticulosis with admission about a year ago for acute diverticulitis, DM and cholecystectomy. She is brought in today by EMS from home after having a possible syncope/ fall today. She denies hitting head or LOC but then she is not quite sure. Patient reports feeling light headed with abdominal pain that started yesterday. She reports she has frequent BMs so her PCP has her on daily loperamide, she tried taking gas medication yesterday to help with her pain. Today she started to feel worse and either lowered self or fell and then called for her daughter in law to come who then called 911 Patient's main complaint is this lower to left lower abdominal pain that feels much worse today. She reports she had an episode of emesis this AM before the syncope/fall. Her last BM was her normal small amount of stool yesterday, the last time she ate was last night at dinner. Related Data Allergies Allergy/AdvReac Type Severity Reaction Status Date / Time poison oak extract Allergy Unknown Unknown Verified 08/24/22 10:20 Review of Systems Review of Systems: CONSTITUTIONAL: Denies fever, chills, or sweats. EYES: Denies visual changes, redness, or discharge. ENT: Denies rhinorrhea, congestion, sore throat, or otalgia. CARDIOVASCULAR: Denies chest pain, palpitations, or edema. RESPIRATORY: Denies cough or dyspnea. GASTROINTESTINAL: Reports lower mid to left lower abdominal pain progressing over the past couple days became worse today. Episode of emesis today before syncope, last BM yesterday GENITOURINARY: Denies dysuria or hematuria. SKIN: Denies rash or itching. MUSCULOSKELETAL: Denies back pain, joint pain, or myalgia. NEUROLOGIC: Denies headache, numbness, dizziness, or weakness. PSYCHIATRIC: Denies anxiety or depression. 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 History of hysterectomy Family History Family History Other Cerebrovascular accident Diabetes mellitus Family history of arthritis Family history of cardiovascular disease Family history of malignant neoplasm Hypertension Social History Social History (Updated 09/07/22 @ 13:34 by Laura Clay NP) Social History: The patient is with good and has 2 children one son she lives home alone . She is a lifelong nonsmoker. No alcohol or illicit substance abuse. Surrogate medical decision maker: Susana or Lani, daughters. Code status: DNR Smoking status: Never smoker Alcohol intake: never Substance use: never Substance use type: does not use Lack of Transportation: No Lack of Food: Never True Current Housing: I Have Housing Concerned About Future Housing: No Difficulty Paying Gas/Electric Bills: No Difficulty Paying for Meds: No Currently Unemployed: No Education: [employer]
[2022-09-07] MEDS: SODIUM CHLORIDE 0.9% IV 1,000 ML 75 ML IV CONT (13:25)
[2022-09-07] MEDS: fentaNYL CITRATE INJ (*CRX) 100 MCG/2 ML VIAL 25 MCG IV PUSH (13:25)
--- NOTE | 2022-09-07 13:29 | PM.IMHP ---
H&P: HPI History of Present Illness Date/Time: 09/07/22 13:29 Chief Complaint: fall Narrative: this is a 87-year-old female patient is very hard of hearing. The patient has a history of diverticulosis with history of diverticulitis and diabetes. The patient was brought from home after a possible syncopal episode she had a fall. The patient denied hitting her head or losing consciousness. The patient stated that she felt lightheaded with abdominal pain. She reports she has frequent BM saw her PCP place the patient on Lomotil. The patient also tried taking Gas-X yesterday to help with her pain. The patient felt worse today and lowered herself to the ground and called her daughter in-law to come get her and the daughter lost suggested that she call 911. The patient had an episode of emesis this morning before she had her syncope and fall. Her last bowel movement was normal yesterday. She last ate last night at her dinner. H&H 11.5 and 34.8. sodium 123. Potassium 5.1 chloride 93. Creatinine is 1.4 her last known creatinine is 1.3 on 01/04/2022. BNP 3840. and ng tip in the stomach. Chest abdomen pelvis CT 1. Focal wall thickening of the sigmoid colon with stricture and partial bowel obstruction suspicious for adenocarcinoma. 2. Small volume of ascites. 3. No pulmonary embolus. 4. Small sliding hiatal hernia. 5. Ventral hernias and right inguinal hernia containing fat. chest x-ray was read as no acute cardiopulmonary disease. Cervical spine CT read as 1. No fracture. 2. Mild cervical spondylosis. head CT read as. Worsened moderate nonspecific cerebral white matter disease, which likely represents chronic small vessel ischemic disease. the patient was given IV fluids, Pepcid Bentyl Zofran and fentanyl. I also ordered her Chloraseptic spray for the complaints of sore throat after the NG tube was placed. I had a discussion with the patient she stated she is a DNR. I asked the patient if I could involve GI to see if we could possibly do a colonoscopy for biopsies of the possible mass. The patient stated that she does not want a biopsy at this time. The patient had asked me if we could take out the NG tube several times because of so uncomfortable. The patient stated just let me .The Patient is being admitted to inpatient status on the date of service of 09/07/2022. Review of Systems Review of Systems: All systems reviewed & are unremarkable except as noted in HPI and below Constitutional: Constitutional: Reports as per HPI and Reports no additional constitutional complaints Eyes: Eyes: Reports as per HPI and Reports no additional eye complaints ENT: Reports system reviewed and no additional complaints, except as documented and Reports Normal hearing present Cardiovascular: Cardiovascular: Reports no additional cardiovascular complaints Respiratory: Respiratory: Reports no additional respiratory complaints and Reports no additional respiratory complaints Gastrointestinal: Gastrointestinal: Reports as per HPI and Reports no additional gastrointestinal complaints Musculoskeletal: Musculoskeletal: Reports no additional musculoskeletal complaints Integumentary/Breasts: Skin/Breast: Reports system reviewed and no additional complaints, except as docu and Reports as per HPI Neurologic: Reports system reviewed and no additional complaints, except as documented, Reports as per HPI and Reports Normal hearing present Psychiatric: Psychiatric: Reports no additional psychiatric complaints and Reports as per HPI Endocrine: Endocrine: Reports no additional endocrine complaints Hematologic/Lymphatic: Hematologic/Lymphatic: Reports no additional hematologic/lymphatic complaints Allergic/Immunologic: Allergic/Immunologic: Reports no additional allergic/immunologic complaints [facility] Past Medical History Medical History Atherosclerosis of aorta Cerebral atherosclerosis Chronic
[2022-09-07] MEDS: PHENOL/SOD PHENO SPRAY CHERRY (*BKC) 1 SPRAY MUCOUS MEM ×2 (13:42→16:53)
--- NOTE | 2022-09-07 14:45 | PC.NURSE ---
This patient, Scar Sewell, was admitted to 2 Medical Room 242-. Patient/family oriented to hospital policies and general routines including ID bracelet, bed and alarms, visiting hours, pain management, procedures, bathroom and other care routines, personal items, smoking policy, room service/diet, and visiting hours. Information on how to activate the Rapid Response Team has been discussed. Patient/Family are encouraged to report perceived risks to care and to ask questions if they do not understand what they are told or what they should do.
--- NOTE | 2022-09-07 15:10 | PCDIET ---
MST 2 for unsure of weight loss. Patient is admitted for Bowel Obstruction. Diet order is currently NPO. No nutrition recommendations at this time. Will follow up once diet order has advanced.
[2022-09-08 00:28] LABS: Anion Gap 5 mmol/L (8-16); Blood Urea Nitrogen 22 mg/dL (7-17); Calcium 8.2 mg/dL (8.4-10.2); Carbon Dioxide 24 mmol/L (22-30); Chloride 96 mmol/L (98-107); Estimated CRCL calculation 25 ml/min; Estimated Glomerular Filt Rate 36; Glucose 91 mg/dL (65-110); Potassium 4.9 mmol/L (3.4-5.0); Sodium 125 mmol/L (137-145)
[2022-09-08 04:16] VITALS: BP 138/73; PULSE 65; RESP 20; TEMP 36.5; O2SAT 99
[2022-09-08 06:17] LABS: Alanine Aminotransferase 13 U/L (6-35); Albumin Level 3.6 g/dL (3.5-5.1); Alkaline Phosphatase 84 U/L (38-126); Anion Gap 7 mmol/L (8-16); Aspartate Amino Transferase 34 U/L (14-36); Bilirubin,Total 0.7 mg/dL (0.2-1.3); Blood Urea Nitrogen 21 mg/dL (7-17); Calcium 8.4 mg/dL (8.4-10.2); Carbon Dioxide 24 mmol/L (22-30); Chloride 95 mmol/L (98-107); Cholesterol 148 mg/dL (0-200); Estimated CRCL calculation 25 ml/min; Estimated Glomerular Filt Rate 36; Glucose 86 mg/dL (65-110); HDL Direct 34 mg/dL; Magnesium 2.1 mg/dL (1.6-2.3); Sodium 126 mmol/L (137-145); Triglycerides 98 mg/dL (<150)
[2022-09-08 06:18] LABS: Lactic Acid Reflex 0.7 mmol/L (0.7-2.0)
[2022-09-08 06:28] LABS: LDL Cholesterol Direct 86 mg/dL
--- NOTE | 2022-09-08 07:52 | PM.IMPN ---
Progress Note: A&P Assessment and Plan (1) Bowel obstruction: Qualifiers: Intestinal obstruction extent: partial Intestinal obstruction type: unspecified Qualified Code(s): K56.600 - Partial intestinal obstruction, unspecified as to cause Code(s): K56.609 - Unspecified intestinal obstruction, unspecified as to partial versus complete obstruction Status: Acute Assessment and Plan: Patient presented to the hospital with complaints of abdominal pain. Patient reportedly had multiple episodes of diarrhea has been taking Lomotil. Last bowel movement 09/06 and reportedly normal. Patient had episode of emesis. CT abdomen and pelvis demonstrated focal wall thickening to the sigmoid colon with stricture partial bowel obstruction suspicious for adenocarcinoma General surgery consulted and managing Continue bowel rest, NG tube, and IV fluids Await bowel function return (2) Syncope and collapse: Code(s): R55 - Syncope and collapse Status: Acute Assessment and Plan: Patient presented with fall and questionable syncope versus near-syncope. No reported head injury of consciousness patient ?is not quite sure? per ED notes. Head CT is negative for acute disease, incidentally noted on a worsened moderate nonspecific cerebral white matter disease Likely secondary to dehydration from emesis EKG shows sinus rhythm with left anterior fascicular block at 64 beats per minute without significant change from 11/20/2021 orthostatic vitals Continue gentle IV hydration. Patient was noted to have elevated BNP she is NPO due to bowel obstruction as above some monitor volume status closely. (3) Dehydration: Code(s): E86.0 - Dehydration Status: Acute Assessment and Plan: As above. (4) Hyponatremia: Code(s): E87.1 - Hypo-osmolality and hyponatremia Status: Acute Assessment and Plan: Sodium noted to be 123 on admission. Baseline sodium appears 130-135. Likely hypovolemia hyponatremia. Continue IV fluids. Monitor neuro status and sodium level. Holding SSRI due to NPO 09/08/2022 sodium 126 this morning. Repeat this afternoon (5) Type 2 diabetes mellitus with diabetic chronic kidney disease: Qualifiers: Chronic kidney disease stage: stage 3 (moderate) Chronic kidney disease stage 3 subtype: stage 3b (GFR 30-44) Diabetes mellitus press tender long goods insulin use: with longterm use Qualified Code(s): E11.22 - Type 2 diabetes mellitus with diabetic chronic kidney disease; N18.32 - Chronic kidney disease, stage 3b; Z79.4 - detention (current) use of insulin Code(s): E11.22 - Type 2 diabetes mellitus with diabetic chronic kidney disease Status: Chronic Assessment and Plan: Chronic, insulin dependent diabetes. hold lantus accu-Cheks every 6 hours with low dose aspart sliding scale insulin Q6 hours. A1c 6.2% h/o CKD 3b with baseline GFR 39, creatinine 1.3, BUN 11. On admission, BUN 21, creatinine 1.4, GFR 36 and near baseline. (6) Major depressive disorder, recurrent, unspecified: Qualifiers: Active/Remission status: remission status unspecified Qualified Code(s): F33.9 - Major depressive disorder, recurrent, unspecified Code(s): F33.9 - Major depressive disorder, recurrent, unspecified Status: Chronic Assessment and Plan: Chronic, not in acute exacerbation. Lexapro on hold on treating hyponatremia and patient is NPO. (7) Pure hypercholesterolemia, unspecified: Code(s): E78.00 - Pure hypercholesterolemia, unspecified Status: Chronic Assessment and Plan: Chronic, does not appear patient is on a statin her other cholesterol-lowering medications. Lipid panel within normal limits; LDL 86, HDL 34, triglycerides 98 Plan code status: DNR Discharge disposition: Patient is from home and lives alone. Ambulate with assistance and order PT/OT if concerns raised Diet:
[2022-09-08 08:06] LABS: Glucose Point of Care 91 mg/dl (65-105)
[2022-09-08 08:39] LABS: Hemoglobin A1C 6.2 % (<5.7)
[2022-09-08 08:53] LABS: Free T4 Free Thyroxine Reflex 1.05 ng/dL (0.78-2.19)
[2022-09-08] MEDS: FAMOTIDINE 20 MG/2 ML VIAL IV PUSH ×2 (09:09→20:50)
[2022-09-08] MEDS: DEXTROSE 5%/0.9% SOD CHL 1,000 ML 75 ML IV CONT (09:10)
[2022-09-08 09:45] LABS: Total Triiodothyronine (T3) 0.86 NG/ML (0.97-1.69)
[2022-09-08 11:50] LABS: Glucose Point of Care 103 mg/dl (65-105)
--- NOTE | 2022-09-08 14:49 | PM.CNGS ---
Assessment and Plan Assessment and plan (1) Bowel obstruction: Qualifiers: Intestinal obstruction extent: partial Intestinal obstruction type: unspecified Qualified Code(s): K56.600 - Partial intestinal obstruction, unspecified as to cause Code(s): K56.609 - Unspecified intestinal obstruction, unspecified as to partial versus complete obstruction Status: Acute Assessment and Plan: I discussed the findings of sigmoid colon stricture and partial colonic obstruction with the patient. I explained that the most likely causes for this would be diverticular disease or colon cancer. Patient was not interested in colonoscopy but did agree to a lower GI contrast study with water-soluble contrast. I am not sure she would agree to surgery but she does not seem to be adamantly opposed. Assuming she does have at least partial colonic obstruction, any improvement will be very temporary without surgery which could include a colostomy. Recommend continuing the nasogastric tube for now with NPO except ice chips. Will get lower GI as above. Further plans pending the result. (2) Type 2 diabetes mellitus with diabetic chronic kidney disease: Qualifiers: Diabetes mellitus moth exterminator insulin use: with moth exterminator use Chronic kidney disease stage: stage 3 (moderate) Chronic kidney disease stage 3 subtype: stage 3b (GFR 30-44) Qualified Code(s): E11.22 - Type 2 diabetes mellitus with diabetic chronic kidney disease; N18.32 - Chronic kidney disease, stage 3b; Z79.4 - salvage determiner (current) use of insulin Code(s): E11.22 - Type 2 diabetes mellitus with diabetic chronic kidney disease Status: Chronic (3) detention (current) use of insulin: Code(s): Z79.4 - detention (current) use of insulin Status: Acute (4) Hyponatremia: Code(s): E87.1 - Hypo-osmolality and hyponatremia Status: Acute Assessment and Plan: One hundred twenty-three on admission History of Present Illness Consult details Consult date: 09/08/22 Requesting physician: Gabrielle Robertson APRN Narrative: Patient is an 87-year-old woman who was having lower abdominal pain and an episode of vomiting. She came to the emergency room yesterday after having possibly a syncopal episode and a fall. She does not really recall the details but does think she got lightheaded due to her abdominal pain and then fell but is unsure if she lost consciousness. She was brought to the emergency room by emergency services. Evaluation there showed her to have normal vital signs and some tenderness in the left lower abdomen. She is mildly anemic with a normal white blood cell count. Her creatinine was elevated at 1.4. She had a BNP of 3840. Sodium was low at 123 and potassium was slightly elevated at 5.1. Liver enzymes and urinalysis were normal. She had a CT scan of the abdomen and pelvis which showed evidence of a partial distal colonic obstruction in the sigmoid colon. There was focal wall thickening and stricture suspicious for carcinoma. Patient was admitted here briefly for an episode of diverticulitis approximately 9 months ago. She does not recall ever having had a colonoscopy. When the hospitalist saw her for admission she declined to be interested in having a colonoscopy. She has DNR status. She has insulin-dependent diabetes and hypertension. She had a previous open cholecystectomy and hysterectomy. She had a nasogastric tube placed in the emergency room. She had removed the NG at least a couple of times since then but currently it is in place and working well. She is seen now in consultation. She tells me that her abdominal pain is gone. She has passed some gas but no bowel movements. I discussed the x-ray findings and my suspicions for her diagnosis. I explained that surgery will likely be necessary if the CT scan report of a sigmoid colon stricture is correct. She was not sure if she would be willing to have surgery and voiced that
[2022-09-08 15:44] LABS: Anion Gap 5 mmol/L (8-16); Blood Urea Nitrogen 22 mg/dL (7-17); Calcium 8.3 mg/dL (8.4-10.2); Carbon Dioxide 25 mmol/L (22-30); Chloride 96 mmol/L (98-107); Estimated CRCL calculation 27 ml/min; Estimated Glomerular Filt Rate 39; Glucose 98 mg/dL (65-110); Potassium 4.8 mmol/L (3.4-5.0); Sodium 126 mmol/L (137-145)
[2022-09-08 15:53] VITALS: BP 190/69; PULSE 69; RESP 18; TEMP 36.3; O2SAT 100
[2022-09-08 16:30] VITALS: BP 192/80
[2022-09-08 16:58] LABS: Glucose Point of Care 110 mg/dl (65-105)
[2022-09-08 18:52] VITALS: BP 135/72
[2022-09-08 20:00] VITALS: PULSE 69; RESP 18; O2SAT 100
--- NOTE | 2022-09-08 20:35 | PC.NURSE ---
Per report from day shift nurse: Patient has pulled out NG tube 3 times today. NG tube was out when typewriter aligner arrived on unit. Day shift nurse had called exchange to report to surgery and was awaiting call back for further instruction right before shift change. Dr Fountain called typewriter aligner back and typewriter aligner explained situation. Patient is adamant that she does not want NG tube replaced. Dr. Fountain stated that because patient was refusing we will leave the NG tube out at this time.
[2022-09-08] MEDS: LORazepam INJ (*CRX) 2 MG/ML VIAL 0.5 MG IV PUSH (20:50)
[2022-09-08 23:22] VITALS: BP 152/68; PULSE 70; RESP 20; TEMP 36.6; O2SAT 99
[2022-09-09 06:00] VITALS: BP 145/90; PULSE 84; RESP 18; TEMP 36.5; O2SAT 95
[2022-09-09 07:45] LABS: Glucose Point of Care 110 mg/dl (65-105)
--- NOTE | 2022-09-09 09:18 | P.PNIM_ITS ---
Progress Note: A&P Assessment and Plan (1) Bowel obstruction: Qualifiers: Intestinal obstruction extent: partial Intestinal obstruction type: unspecified Qualified Code(s): K56.600 - Partial intestinal obstruction, unspecified as to cause Code(s): K56.609 - Unspecified intestinal obstruction, unspecified as to partial versus complete obstruction Status: Acute Assessment and Plan: Patient presented to the hospital with complaints of abdominal pain. Patient reportedly had multiple episodes of diarrhea has been taking Lomotil. Last bowel movement 09/06 and reportedly normal. Patient had episode of emesis. * CT abdomen and pelvis demonstrated focal wall thickening to the sigmoid colon with stricture partial bowel obstruction suspicious for adenocarcinoma * General surgery managing * Patient pulled multiple NG tubes out overnight and currently discontinued. * Continue bowel rest and IV fluids. Adjust per Surgery recommendations. * Await bowel function return (2) Syncope and collapse: Code(s): R55 - Syncope and collapse Status: Acute Assessment and Plan: Patient presented with fall and questionable syncope versus near-syncope. No reported head injury of consciousness patient ?is not quite sure? per ED notes. * Head CT is negative for acute disease, incidentally noted on a worsened moderate nonspecific cerebral white matter disease * Likely secondary to dehydration from emesis * EKG shows sinus rhythm with left anterior fascicular block at 64 beats per minute without significant change from 11/20/2021 * orthostatic vitals * Continue gentle IV hydration. Patient was noted to have elevated BNP she is NPO due to bowel obstruction as above some monitor volume status closely. (3) Dehydration: Code(s): E86.0 - Dehydration Status: Acute Assessment and Plan: As above. (4) Hyponatremia: Code(s): E87.1 - Hypo-osmolality and hyponatremia Status: Acute Assessment and Plan: Sodium noted to be 123 on admission. Baseline sodium appears 130-135. Likely hypovolemia hyponatremia. * Continue IV fluids. * Monitor neuro status and sodium level. * Holding SSRI due to NPO * 09/08/22 sodium 126 in am and pm. * 09/09/22 sodium 128. Improving. (5) Type 2 diabetes mellitus with diabetic chronic kidney disease: Qualifiers: Chronic kidney disease stage: stage 3 (moderate) Chronic kidney disease stage 3 subtype: stage 3b (GFR 30-44) Diabetes mellitus half-way insulin use: with half-way use Qualified Code(s): E11.22 - Type 2 diabetes mellitus with diabetic chronic kidney disease; N18.32 - Chronic kidney disease, stage 3b; Z79.4 - retirement (current) use of insulin Code(s): E11.22 - Type 2 diabetes mellitus with diabetic chronic kidney disease Status: Chronic Assessment and Plan: Chronic, insulin dependent diabetes. * hold lantus * accu-Cheks every 6 hours with low dose aspart sliding scale insulin Q6 hours. * A1c 6.2% * h/o CKD 3b with baseline GFR 39, creatinine 1.3, BUN 11. On admission, BUN 21, creatinine 1.4, GFR 36 and near baseline. * Glucose stable 110 to 128 on D5 fluids. (6) Major depressive disorder, recurrent, unspecified: Code(s): F33.9 - Major depressive disorder, recurrent, unspecified Status: Chronic Assessment and Plan: Chronic, not in acute exacerbation. * Resume Lexapro since NG tube is out. Monitor sodium level (7) Pure hypercholesterolemia, unspecified: Code(s): E78.00 - Pure hypercholesterolemia, unspecified
--- NOTE | 2022-09-09 09:18 | PM.IMPN ---
Progress Note: A&P Assessment and Plan (1) Bowel obstruction: Qualifiers: Intestinal obstruction extent: partial Intestinal obstruction type: unspecified Qualified Code(s): K56.600 - Partial intestinal obstruction, unspecified as to cause Code(s): K56.609 - Unspecified intestinal obstruction, unspecified as to partial versus complete obstruction Status: Acute Assessment and Plan: Patient presented to the hospital with complaints of abdominal pain. Patient reportedly had multiple episodes of diarrhea has been taking Lomotil. Last bowel movement 09/06 and reportedly normal. Patient had episode of emesis. CT abdomen and pelvis demonstrated focal wall thickening to the sigmoid colon with stricture partial bowel obstruction suspicious for adenocarcinoma General surgery managing Patient pulled multiple NG tubes out overnight and currently discontinued. Continue bowel rest and IV fluids. Adjust per Surgery recommendations. Await bowel function return (2) Syncope and collapse: Code(s): R55 - Syncope and collapse Status: Acute Assessment and Plan: Patient presented with fall and questionable syncope versus near-syncope. No reported head injury of consciousness patient ?is not quite sure? per ED notes. Head CT is negative for acute disease, incidentally noted on a worsened moderate nonspecific cerebral white matter disease Likely secondary to dehydration from emesis EKG shows sinus rhythm with left anterior fascicular block at 64 beats per minute without significant change from 11/20/2021 orthostatic vitals Continue gentle IV hydration. Patient was noted to have elevated BNP she is NPO due to bowel obstruction as above some monitor volume status closely. (3) Dehydration: Code(s): E86.0 - Dehydration Status: Acute Assessment and Plan: As above. (4) Hyponatremia: Code(s): E87.1 - Hypo-osmolality and hyponatremia Status: Acute Assessment and Plan: Sodium noted to be 123 on admission. Baseline sodium appears 130-135. Likely hypovolemia hyponatremia. Continue IV fluids. Monitor neuro status and sodium level. Holding SSRI due to NPO 09/08/22 sodium 126 in am and pm. 09/09/22 sodium 128. Improving. (5) Type 2 diabetes mellitus with diabetic chronic kidney disease: Qualifiers: Chronic kidney disease stage: stage 3 (moderate) Chronic kidney disease stage 3 subtype: stage 3b (GFR 30-44) Diabetes mellitus moth exterminator insulin use: with fpc use Qualified Code(s): E11.22 - Type 2 diabetes mellitus with diabetic chronic kidney disease; N18.32 - Chronic kidney disease, stage 3b; Z79.4 - moth exterminator (current) use of insulin Code(s): E11.22 - Type 2 diabetes mellitus with diabetic chronic kidney disease Status: Chronic Assessment and Plan: Chronic, insulin dependent diabetes. hold lantus accu-Cheks every 6 hours with low dose aspart sliding scale insulin Q6 hours. A1c 6.2% h/o CKD 3b with baseline GFR 39, creatinine 1.3, BUN 11. On admission, BUN 21, creatinine 1.4, GFR 36 and near baseline. Glucose stable 110 to 128 on D5 fluids. (6) Major depressive disorder, recurrent, unspecified: Code(s): F33.9 - Major depressive disorder, recurrent, unspecified Status: Chronic Assessment and Plan: Chronic, not in acute exacerbation. Resume Lexapro since NG tube is out. Monitor sodium level (7) Pure hypercholesterolemia, unspecified: Code(s): E78.00 - Pure hypercholesterolemia, unspecified Status: Chronic Assessment and Plan: Chronic, does not appear patient is on a statin her other cholesterol-lowering medications. Lipid panel within normal limits; LDL 86, HDL 34, triglycerides 98 (8) Delirium: Code(s): R41.0 - Disorientation, unspecified Status: Acute Assessment and Plan: Patient with confusion, agitation and hallucinations stevie
[2022-09-09] MEDS: FAMOTIDINE 20 MG/2 ML VIAL IV PUSH ×2 (10:19→20:09)
[2022-09-09 11:54] LABS: Glucose Point of Care 116 mg/dl (65-105)
[2022-09-09 13:55] VITALS: BP 142/70; PULSE 75; RESP 18; TEMP 36.4; O2SAT 99
--- NOTE | 2022-09-09 14:18 | PCPTNOTE ---
HOLD PT eval this date per WILMA Hernandez, she reports pt is confused and AMS.
[2022-09-09 15:06] LABS: Basophils Absolute Auto 0.1 K/mm3 (0.0-0.1); Basophils Percent Auto 1.6 % (0.2-1.2); Eosinophils Absolute Auto 0.2 K/mm3 (0-0.3); Eosinophils Percent Auto 3.4 % (0-4.4); Hematocrit 35.7 % (37.0-47.0); Hemoglobin 11.5 g/dL (12.0-15.0); Immature Granulocyte Absolute 0.03 K/mm3 (0.00-0.031); Immature Granulocyte Percent A 0.5 % (0-0.5); Lymphocytes Absolute Auto 1.12 K/mm3 (0.9-3.2); Lymphocytes Percent Auto 20.1 % (18.3-44.2); Mean Corpuscular HGB Conc 32.2 g/dl (32-36); Mean Corpuscular Hemoglobin 27.7 pg (26-34); Mean Platelet Volume 9.5 fl (7.4-10.4); Monocytes Absolute Auto 0.6 K/mm3 (0.1-0.6); Monocytes Percent Auto 9.9 % (2.6-8.5); Neutrophils Absolute Auto 3.6 K/mm3 (1.3-6.7); Neutrophils Percent Auto 64.5 % (45.5-73.1); Platelet Count Result 266 k/mm3 (150-375); Red Blood Count 4.15 M/mm3 (4.2-5.4); Red Cell Distribution Width 15.5 % (11.5-14.5); White Blood Count 5.6 K/mm3 (4.5-10.0)
[2022-09-09] MEDS: DEXTROSE 5%/0.9% SOD CHL 1,000 ML 75 ML IV CONT (15:11)
[2022-09-09 15:36] LABS: Alanine Aminotransferase 14 U/L (6-35); Albumin Level 3.7 g/dL (3.5-5.1); Alkaline Phosphatase 82 U/L (38-126); Anion Gap 8 mmol/L (8-16); Aspartate Amino Transferase 34 U/L (14-36); Bilirubin,Total 0.9 mg/dL (0.2-1.3); Blood Urea Nitrogen 19 mg/dL (7-17); Calcium 8.6 mg/dL (8.4-10.2); Carbon Dioxide 22 mmol/L (22-30); Chloride 98 mmol/L (98-107); Estimated CRCL calculation 31 ml/min; Estimated Glomerular Filt Rate 47; Glucose 128 mg/dL (65-110); Potassium 4.7 mmol/L (3.4-5.0); Sodium 128 mmol/L (137-145)
--- NOTE | 2022-09-09 16:23 | PM.PNGS ---
Progress Note: A&P Assessment and Plan (1) Stricture of sigmoid colon: Code(s): K56.699 - Other intestinal obstruction unspecified as to partial versus complete obstruction Status: Acute Assessment and Plan: I discussed the findings with the patient and with her [id number] and her niece. Her lower GI yesterday showed complete retrograde obstruction to an apple-core lesion in the distal descending or proximal sigmoid colon. This is most likely a colon cancer. It could also be a diverticular stricture but this seems to be less likely. I explained that while colostomy is an option and may be necessary, resection with anastomosis would be preferable and is likely to be successful. I discussed the surgery with the patient and her 2 family members. Plan is to do this as an open surgery and resect the strictured area with primary anastomosis. I explained that despite our intentions, it may be necessary to create a colostomy rather than anastomosis. I also explained that the patient is at high risk for this surgery due to her age and her mental status as well as her diabetes and kidney disease. None the less, aside from hospice, the only other option would be simple colostomy diversion which they would not want to do. I also explained that usually elderly patients have worsened mental status after surgery. They understand that patient may well need to go to [facility] after discharge. I explained the usual length of time in the hospital as well as the usual overall recovery. I explained that mental status changes due usually reverse but not always and sometimes they stay had a diminished capacity following the surgery. Patient is right now very confused and, according to her family, more confused than when she 1st came to the hospital. After discussion, the patient and her family agree to go ahead with the surgery. We will plan to do this tomorrow afternoon. (2) Bowel obstruction: Qualifiers: Intestinal obstruction extent: partial Intestinal obstruction type: unspecified Qualified Code(s): K56.600 - Partial intestinal obstruction, unspecified as to cause Code(s): K56.609 - Unspecified intestinal obstruction, unspecified as to partial versus complete obstruction Status: Acute Assessment and Plan: Complete retrograde obstruction of the proximal sigmoid distal descending colon, partial antegrade obstruction. If patient begins eating, she will no doubt experience symptoms of distal colonic obstruction similar to what she had on admission. Although I would like to keep a nasogastric tube down until her surgery, she is more confused and unable to leave this in place. We will continue NPO with sips for meds and ice chips. Plan to proceed tomorrow as discussed. (3) Hyponatremia: Code(s): E87.1 - Hypo-osmolality and hyponatremia Status: Acute Assessment and Plan: Improving, sodium 128 today. (4) Type 2 diabetes mellitus with diabetic chronic kidney disease: Qualifiers: Diabetes mellitus snf insulin use: with terminal carman use Chronic kidney disease stage: stage 3 (moderate) Chronic kidney disease stage 3 subtype: stage 3b (GFR 30-44) Qualified Code(s): E11.22 - Type 2 diabetes mellitus with diabetic chronic kidney disease; N18.32 - Chronic kidney disease, stage 3b; Z79.4 - superintendent marine [employer] (current) use of insulin Code(s): E11.22 - Type 2 diabetes mellitus with diabetic chronic kidney disease Status: Chronic (5) superintendent marine oil terminal (current) use of insulin: Code(s): Z79.4 - superintendent marine oil terminal (current) use of insulin Status: Acute Subjective Subjective Date/Time Seen: 09/09/22 16:23 Patient reports: other (Patient more confused today.) Interval history: Patient would not leave her nasogastric tube in place. Refused to have it replaced. Review of Systems Review of Systems: ROS unobtainable: Yes unobtainable due to mental status Exam Const: General:
--- NOTE | 2022-09-09 16:32 | PCOTNOTE ---
Attempted OT evaluation on this date. Per WILMA Hernandez, request waiting on pt. evaluation, as she reports pt is confused with behavioral concerns for safety at this time.
[2022-09-09 17:46] LABS: Glucose Point of Care 143 mg/dl (65-105)
[2022-09-09 17:53] LABS: Carcinoembryonic Antigen 3.6 ng/mL (0.0-3.0)
[2022-09-09] MEDS: QUEtiapine FUMARATE 12.5 MG TABLET PO (20:09)
[2022-09-09 21:24] VITALS: BP 109/84; PULSE 75; RESP 14; TEMP 36.3; O2SAT 100
[2022-09-10] VITALS (12 sets, daily range): BP systolic 163–171; BP diastolic 57–72; PULSE 66–102; RESP 14–22; TEMP 36.2–36.5; O2SAT 95–100; BMI 31.1
[2022-09-10 00:40] LABS: Glucose Point of Care 142 mg/dl (65-105)
[2022-09-10] MEDS: CHLORHEXIDINE GLUCONATE 4% SOL 120 ML BTL 1 APPLIC TOPICAL (04:19)
[2022-09-10] MEDS: DEXTROSE 5%/0.9% SOD CHL 1,000 ML 75 ML IV CONT (04:37)
[2022-09-10 06:02] LABS: Basophils Absolute Auto 0.1 K/mm3 (0.0-0.1); Basophils Percent Auto 1.3 % (0.2-1.2); Eosinophils Absolute Auto 0.3 K/mm3 (0-0.3); Eosinophils Percent Auto 4.7 % (0-4.4); Hematocrit 34.7 % (37.0-47.0); Hemoglobin 11.1 g/dL (12.0-15.0); Immature Granulocyte Absolute 0.02 K/mm3 (0.00-0.031); Immature Granulocyte Percent A 0.4 % (0-0.5); Lymphocytes Absolute Auto 1.06 K/mm3 (0.9-3.2); Lymphocytes Percent Auto 19.9 % (18.3-44.2); Mean Corpuscular Hemoglobin 27.7 pg (26-34); Mean Corpuscular Volume 86.5 fl (80-100); Mean Platelet Volume 9.8 fl (7.4-10.4); Monocytes Absolute Auto 0.5 K/mm3 (0.1-0.6); Monocytes Percent Auto 10.1 % (2.6-8.5); Neutrophils Absolute Auto 3.4 K/mm3 (1.3-6.7); Neutrophils Percent Auto 63.6 % (45.5-73.1); Platelet Count Result 253 k/mm3 (150-375); Red Blood Count 4.01 M/mm3 (4.2-5.4); Red Cell Distribution Width 15.5 % (11.5-14.5); White Blood Count 5.3 K/mm3 (4.5-10.0)
[2022-09-10 06:18] LABS: Alanine Aminotransferase 13 U/L (6-35); Albumin Level 3.2 g/dL (3.5-5.1); Alkaline Phosphatase 70 U/L (38-126); Anion Gap 3 mmol/L (8-16); Aspartate Amino Transferase 29 U/L (14-36); Bilirubin,Total 0.7 mg/dL (0.2-1.3); Blood Urea Nitrogen 17 mg/dL (7-17); Calcium 8.2 mg/dL (8.4-10.2); Carbon Dioxide 26 mmol/L (22-30); Chloride 99 mmol/L (98-107); Estimated CRCL calculation 31 ml/min; Estimated Glomerular Filt Rate 47; Glucose 143 mg/dL (65-110); Potassium 4.5 mmol/L (3.4-5.0); Sodium 128 mmol/L (137-145)
[2022-09-10 06:40] LABS: Glucose Point of Care 149 mg/dl (65-105)
--- NOTE | 2022-09-10 08:23 | PCOTNOTE ---
Patient is going for surgery today, plan to cancel OT orders at this time. Please re-order therapy following surgery and when medically appropriate.
[2022-09-10 08:29] LABS: Glucose Point of Care 169 mg/dl (65-105)
--- NOTE | 2022-09-10 08:31 | PCPTNOTE ---
Patient is going for surgery today, plan to cancel PT orders at this time. Please re-order therapy following surgery and when medically appropriate.
[2022-09-10] MEDS: FAMOTIDINE 20 MG/2 ML VIAL IV PUSH ×2 (08:52→22:42)
[2022-09-10 11:48] LABS: Glucose Point of Care 174 mg/dl (65-105)
--- NOTE | 2022-09-10 12:24 | PC.NURSE ---
To OR via bed. Family at bedside. Davis draining yellow urine. Family at bedside. Verbal report given to Claire DILLON Preop at bedside.
--- NOTE | 2022-09-10 13:03 | WPDHPUPDATE1 ---
History and Physical Update Update Date/Time: 09/10/22 13:03 History and Physical has been reviewed, including an updated exam of the patient. There are NO changes in the patient's condition. Risks, benefits, and alternatives have been discussed and questions answered. Patient agrees to proceed with procedure.
--- NOTE | 2022-09-10 13:04 | P.CDI_ITS ---
CDI Query Clarification Request BMI 31.1 Nutritional Diagnostic Statement Severe malnutrition related to inadequate protein-energy intake in the setting of acute disease (small bowel obstruction) as evidence by <EER for > 7 days (NPO x 4 days and poor PO intake at home < 75% of estimated needs with significant weight loss of 6% in the past month. Please refer to the comprehensive nutrition assessment for further information. Please clarify severity of protein calorie malnutrition * Mild * Moderate * Severe * Other/Unspecified <Amanda Sofia RN - Last Filed: 09/10/22 13:10> Clarified Diagnosis Clarified Diagnosis: severe protein-calorie malnutrition <Sharon Arce APRN - Last Filed: 09/13/22 20:12>
--- NOTE | 2022-09-10 13:08 | P.PNIM_ITS ---
Progress Note: A&P Assessment and Plan (1) Bowel obstruction: Qualifiers: Intestinal obstruction extent: partial Intestinal obstruction type: unspecified Qualified Code(s): K56.600 - Partial intestinal obstruction, unspecified as to cause Code(s): K56.609 - Unspecified intestinal obstruction, unspecified as to partial versus complete obstruction Status: Acute Assessment and Plan: Patient presented to the hospital with complaints of abdominal pain. Patient reportedly had multiple episodes of diarrhea has been taking Lomotil. Last bowel movement 09/06 and reportedly normal. Patient had episode of emesis. * CT abdomen and pelvis demonstrated focal wall thickening to the sigmoid colon with stricture partial bowel obstruction suspicious for adenocarcinoma * General surgery managing * Patient pulled multiple NG tubes out overnight and currently discontinued. * Continue bowel rest and IV fluids. * 09/10/22 going to OR today for open surgery with resection of stricture. (2) Stricture of sigmoid colon: Code(s): K56.699 - Other intestinal obstruction unspecified as to partial versus complete obstruction Status: Acute Assessment and Plan: As above. (3) Syncope and collapse: Code(s): R55 - Syncope and collapse Status: Resolved Assessment and Plan: Patient presented with fall and questionable syncope versus near-syncope. No reported head injury of consciousness patient ?is not quite sure? per ED notes. * Head CT is negative for acute disease, incidentally noted on a worsened moderate nonspecific cerebral white matter disease * Likely secondary to dehydration from emesis * EKG shows sinus rhythm with left anterior fascicular block at 64 beats per minute without significant change from 11/20/2021 * orthostatic vitals negative * Continue gentle IV hydration while NPO. (4) Dehydration: Code(s): E86.0 - Dehydration Status: Acute Assessment and Plan: As above. (5) Hyponatremia: Code(s): E87.1 - Hypo-osmolality and hyponatremia Status: Acute Assessment and Plan: Sodium noted to be 123 on admission. Baseline sodium appears 130-135. Likely hypovolemia hyponatremia. * Continue IV fluids. * Monitor neuro status and sodium level. * Holding SSRI due to NPO * 09/08/22 sodium 126 in am and pm. * 09/09/22 sodium 128. Improving. * 09/10/22 sodium 128 and unchanged. (6) Type 2 diabetes mellitus with diabetic chronic kidney disease: Qualifiers: Chronic kidney disease stage: stage 3 (moderate) Chronic kidney disease stage 3 subtype: stage 3b (GFR 30-44) Diabetes mellitus medical terminologist insulin use: with medical terminologist use Qualified Code(s): E11.22 - Type 2 diabetes mellitus with diabetic chronic kidney disease; N18.32 - Chronic kidney disease, stage 3b; Z 79.4 - rodent exterminator (current) use of insulin Code(s): E11.22 - Type 2 diabetes mellitus with diabetic chronic kidney disease Status: Chronic Assessment and Plan: Chronic, insulin dependent diabetes. * hold lantus * accu-Cheks every 6 hours with low dose aspart sliding scale insulin Q6 hours. * A1c 6.2% * h/o CKD 3b with baseline GFR 39, creatinine 1.3, BUN 11. On admission, BUN 21, creatinine 1.4, GFR 36 and near baseline. * Glucose stable <180 on D5 fluids. (7) Major depressive disorder, recurrent, unspecified: Qualifiers: Active/Remission status: remission status unspecified Qualified Code(s): F33.9 - Major depressive disorder, recurrent, unspecified Code(s): F33.9
--- NOTE | 2022-09-10 13:08 | PM.IMPN ---
Progress Note: A&P Assessment and Plan (1) Bowel obstruction: Qualifiers: Intestinal obstruction extent: partial Intestinal obstruction type: unspecified Qualified Code(s): K56.600 - Partial intestinal obstruction, unspecified as to cause Code(s): K56.609 - Unspecified intestinal obstruction, unspecified as to partial versus complete obstruction Status: Acute Assessment and Plan: Patient presented to the hospital with complaints of abdominal pain. Patient reportedly had multiple episodes of diarrhea has been taking Lomotil. Last bowel movement 09/06 and reportedly normal. Patient had episode of emesis. CT abdomen and pelvis demonstrated focal wall thickening to the sigmoid colon with stricture partial bowel obstruction suspicious for adenocarcinoma General surgery managing Patient pulled multiple NG tubes out overnight and currently discontinued. Continue bowel rest and IV fluids. 09/10/22 going to OR today for open surgery with resection of stricture. (2) Stricture of sigmoid colon: Code(s): K56.699 - Other intestinal obstruction unspecified as to partial versus complete obstruction Status: Acute Assessment and Plan: As above. (3) Syncope and collapse: Code(s): R55 - Syncope and collapse Status: Resolved Assessment and Plan: Patient presented with fall and questionable syncope versus near-syncope. No reported head injury of consciousness patient ?is not quite sure? per ED notes. Head CT is negative for acute disease, incidentally noted on a worsened moderate nonspecific cerebral white matter disease Likely secondary to dehydration from emesis EKG shows sinus rhythm with left anterior fascicular block at 64 beats per minute without significant change from 11/20/2021 orthostatic vitals negative Continue gentle IV hydration while NPO. (4) Dehydration: Code(s): E86.0 - Dehydration Status: Acute Assessment and Plan: As above. (5) Hyponatremia: Code(s): E87.1 - Hypo-osmolality and hyponatremia Status: Acute Assessment and Plan: Sodium noted to be 123 on admission. Baseline sodium appears 130-135. Likely hypovolemia hyponatremia. Continue IV fluids. Monitor neuro status and sodium level. Holding SSRI due to NPO 09/08/22 sodium 126 in am and pm. 09/09/22 sodium 128. Improving. 09/10/22 sodium 128 and unchanged. (6) Type 2 diabetes mellitus with diabetic chronic kidney disease: Qualifiers: Chronic kidney disease stage: stage 3 (moderate) Chronic kidney disease stage 3 subtype: stage 3b (GFR 30-44) Diabetes mellitus fpc insulin use: with fpc use Qualified Code(s): E11.22 - Type 2 diabetes mellitus with diabetic chronic kidney disease; N18.32 - Chronic kidney disease, stage 3b; Z79.4 - terminal operations manager (current) use of insulin Code(s): E11.22 - Type 2 diabetes mellitus with diabetic chronic kidney disease Status: Chronic Assessment and Plan: Chronic, insulin dependent diabetes. hold lantus accu-Cheks every 6 hours with low dose aspart sliding scale insulin Q6 hours. A1c 6.2% h/o CKD 3b with baseline GFR 39, creatinine 1.3, BUN 11. On admission, BUN 21, creatinine 1.4, GFR 36 and near baseline. Glucose stable <180 on D5 fluids. (7) Major depressive disorder, recurrent, unspecified: Qualifiers: Active/Remission status: remission status unspecified Qualified Code(s): F33.9 - Major depressive disorder, recurrent, unspecified Code(s): F33.9 - Major depressive disorder, recurrent, unspecified Status: Chronic Assessment and Plan: Chronic, not in acute exacerbation. Resume Lexapro since NG tube is out. Monitor sodium level (8) Pure hypercholesterolemia, unspecified: Code(s): E78.00 - Pure hypercholesterolemia, unspecified Status: Chronic Assessment and Plan: Chronic, does not appear patient
[2022-09-10 13:21] LABS: Glucose Point of Care 144 mg/dl (65-105)
[2022-09-10 14:01] LABS: Glucose Point of Care 161 mg/dl (65-105)
--- NOTE | 2022-09-10 14:01 | WPDANESEPPF ---
Anes - Initial Pre Proc Eval Procedure: Operation Date: 09/10/22 15:00 Proposed Procedures p Open Sigmoidectomy - Lino Fountain MD Date/Time: 09/10/22 14:01 Surgeon: Billy Levine MD Pre Op Diagnosis: Bowel Obstruction Patient Data Age: 87 Gender: F Height: 1.57 m Weight: 77.2 kg Last Vital Signs Temp 36.5 C 09/10/22 13:06 Pulse 70 09/10/22 13:06 Resp 14 09/10/22 13:06 BP 168/57 H 09/10/22 13:06 Pulse Ox 97 09/10/22 13:06 O2 Del Method Room Air 09/10/22 13:06 Allergies Allergy/AdvReac Type Severity Reaction Status Date / Time poison oak extract Allergy Unknown Unknown Verified 09/10/22 13:11 Home Medications Medication Instructions Recorded Confirmed Type blood-glucose meter #1 ea 10/10/21 09/08/22 Rx lancets 30 gauge and blood glucose #50 ea 10/10/21 09/08/22 Rx strips combo pack insulin glargine 100 unit/mL 8 unit (0.08 mL) subcut HS #10 mL 01/04/22 09/07/22 Rx subcutaneous solution (Lantus U-100 Insulin) escitalopram oxalate 10 mg tablet 10 mg PO DAILY #90 tabs 04/16/22 09/07/22 Rx losartan 25 mg tablet 25 mg PO DAILY #90 tabs 04/24/22 09/07/22 Rx insulin syringe-needle U-100 1 mL #100 ea 07/16/22 09/08/22 Rx 29 gauge x 1/2 (BD Insulin Syringe) Laboratory Tests 09/09/22 09/09/22 09/09/22 14:42 16:52 17:42 WBC 5.6 K/mm3 (4.5-10.0) RBC 4.15 L M/mm3 (4.2-5.4) Hgb 11.5 L g/dL (12.0-15.0) Hct 35.7 L % (37.0-47.0) MCV 86.0 fl (80-100) MCH 27.7 pg (26-34) MCHC 32.2 g/dl (32-36) RDW 15.5 H % (11.5-14.5) Plt Count 266 k/mm3 (150-375) MPV 9.5 fl (7.4-10.4) Immature Gran % (Auto) 0.5 % (0-0.5) Neut % (Auto) 64.5 % (45.5-73.1) Lymph % (Auto) 20.1 % (18.3-44.2) Graham % (Auto) 9.9 H % (2.6-8.5) Eos % (Auto) 3.4 % (0-4.4) Baso % (Auto) 1.6 H % (0.2-1.2) Lymph # (Auto) 1.12 K/mm3 (0.9-3.2) Graham # (Auto) 0.6 K/mm3 (0.1-0.6) Eos # (Auto) 0.2 K/mm3 (0-0.3) Baso # (Auto) 0.1 K/mm3 (0.0-0.1) Abs Immat Gran (auto) 0.03 K/mm3 (0.00-0.031) Absolute Neuts (auto) 3.6 K/mm3 (1.3-6.7) Absolute Nucleated RBC 0.0 K/mm3 (0.0-0.012) Nucleated RBC % 0.0 % (0.0-0.2) Sodium 128 L mmol/L (137-145) Potassium 4.7 mmol/L (3.4-5.0) Chloride 98 mmol/L (98-107) Carbon Dioxide 22 mmol/L (22-30) Anion Gap 8 mmol/L (8-16) BUN 19 H mg/dL (7-17) Creatinine 1.10 H mg/dL (0.7-1.0) Estim Creat Clear Calc 31 ml/min Estimated GFR 47 L (59 - ) Glucose 128 H mg/dL (65-110) POC Capillary Glucose 143 H mg/dl (65-105) Calcium 8.6 mg/dL (8.4-10.2) Total Bilirubin 0.9 mg/dL (0.2-1.3) AST 34 U/L (14-36) ALT 14 U/L (6-35) Alkaline Phosphatase 82 U/L (38-126) Total Protein 7.0 g/dL (6.3-8.2) Albumin 3.7 g/dL (3.5-5.1) Carcinoembryonic Ag 3.6 H ng/mL (0.0-3.0) Blood Type A Positive Antibody Screen Negative 09/09/22 09/10/22 09/10/22 23:54 05:10 06:37 WBC 5.3 K/mm3 (4.5-10.0) RBC 4.01 L M/mm3 (4.2-5.4) Hgb 11.1 L g/dL (12.0-15.0) Hct 34.7 L % (37.0-47.0) MCV 86.5 fl (80-100) MCH 27.7 pg (26-34) MCHC 32.0 g/dl (32-36) RDW 15.5 H % (11.5-14.5) Plt Count 253 k/mm3 (150-375) MPV 9.8 fl (7.4-10.4) Immature Gran % (Auto) 0.4 % (0-0.5) Neut % (Auto) 63.6 % (45.5-73.1) Lymph % (Auto) 19.9 % (18.3-44.2) Graham % (Auto) 10.1 H % (2.6-8.5) Eos % (Auto) 4.7 H % (0-4.4) Baso % (Auto) 1.3 H %
[2022-09-10] MEDS: metroNIDAZOLE 500 MG/ISO 100ML 500 MG/100 ML BAG 100 MG IVPB (14:25)
[2022-09-10] MEDS: ceFAZolin 2 GM/D5W 50 ML 2 GM/50 ML BAG IVPB (14:25)
[2022-09-10 17:26] LABS: Hematocrit 40.3 % (37.0-47.0); Hemoglobin 12.8 g/dL (12.0-15.0); Mean Corpuscular HGB Conc 31.8 g/dl (32-36); Mean Corpuscular Hemoglobin 28.1 pg (26-34); Mean Corpuscular Volume 88.6 fl (80-100); Mean Platelet Volume 9.3 fl (7.4-10.4); Platelet Count Result 249 k/mm3 (150-375); Red Blood Count 4.55 M/mm3 (4.2-5.4); Red Cell Distribution Width 15.5 % (11.5-14.5); White Blood Count 16.2 K/mm3 (4.5-10.0)
[2022-09-10 18:09] LABS: INR 1.2; Prothrombin Time 15.9 Seconds (11.1-14.7)
[2022-09-10 18:10] LABS: Partial Thromboplastin Time 35.2 SECONDS (22.3-36.8)
--- NOTE | 2022-09-10 19:24 | W.PM.PROC2 ---
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 She came into the hospital with a possible syncopal episode and abdominal pain. CT scan suggested a malignancy in the sigmoid colon. She had a water-soluble lower GI which showed complete retrograde obstruction of a apple-core lesion in the proximal sigmoid colon very suggestive of malignancy. Her CEA level was slightly elevated at 3.6. CT scan did not show any evidence of metastatic disease. She has not been vomiting and is taken to surgery now for left colectomy and hopefully colo rectal anastomosis. Findings The bowel was quite a bit more dilated and edematous than expected. There were a tremendous number of diverticuli in the left colon as well as the upper rectum. There was a lot of edema and inflammation around the area of the tumor and sigmoid colon. The distal descending colon and most of the sigmoid colon were stuck to the left lateral abdominal sidewall and left upper pelvis. Attempts were made to provide colorectal anastomosis. However once the left colon was removed, there was oozing of blood from literally all of the areas of dissection despite the fact that these had been dry before. It took a considerable amount of time to achieve hemostasis. Blood loss was much more than expected at 500 cc. 2 units of packed cells were given intraoperatively. The patient was not hypotensive during the surgery. The splenic flexure was taken down in anticipation of colo rectal anastomosis. However, despite several attempts to find suitable bowel for anastomosis, this could not be achieved. Patient ended with a distal transverse end colostomy in the left upper quadrant. Rectum was stapled off consistent with a Parish procedure. Description of Procedure Patient was taken to surgery and induced into general anesthesia. Davis catheter was placed. Rectal irrigation and rectal tube were placed. She was in Puneet stirrups in lithotomy. The abdomen was prepped and draped. A lower midline incision was made following the previous lower abdominal midline incision and going above the umbilicus to coincide with the lower portion of her right paramedian incision. We dissected down through the abdominal wall fascia. There were anterior abdominal wall he shins and some hernias of the abdominal wall. Peritoneal cavity was opened. We took down these omental adhesions. I removed the herniated contents and removed any frayed fascia associated with the hernias. I was able to palpate the tumor. I freed the omentum from numerous adhesions. I then eviscerated the omentum and the small intestine so that it lay on the anterior abdominal wall above the incision. This allowed us good access to the descending colon and sigmoid colon. The sigmoid colon and distal descending colon were very attached to the left lateral sidewall. Dissection was carried out above the area of the tumor and the inflammation associated with the obstruction. I was then able to carefully dissect the distal descending colon tumor and sigmoid colon off of the sidewall and mobilize the left colon on its mesentery. Cautery was used for hemostasis. Eventually all of this was mobilized. The number of diverticuli were significant and they extended well up most of the left colon. Even down to what appeared to be rectum at the peritoneal reflection had diverticula. I dissected out the upper rectum dividing the lateral peritoneal attachments. I took care to find both ureters and carefully avoided them. I then dissected across the up
[2022-09-10] MEDS: LACTATED RINGERS 1,000 ML 100 ML IV CONT (20:00)
[2022-09-10] MEDS: hetaSTARCH 6%/NACL 500 ML 250 ML IV CONT (20:10)
[2022-09-10] MEDS: MIDAZOLAM HCL (*CRX) 2 MG/2 ML VIAL IV PUSH (20:15)
[2022-09-10] MEDS: FENTANYL 2,500MCG/NS250ML(*CRX 2,500 MCG/250 ML BAG IV CONT (21:08)
[2022-09-10] MEDS: MIDAZOLAM 100MG/NS 100ML(*CRX) 100 MG/100 ML BAG IV CONT (21:09)
[2022-09-10 21:17] LABS: Alveolar/Arterial O2 Gradient 51.1 mmHg; Base Excess ABG -10.7 mEq/l (+/-2.0); Device VENTILATOR; Fractional Inspired Oxygen 30 %; HCO3 ABG 14.1 mEq/l (22.0-26.0); Oxygen Content ABG 17.8 %vol (16.0-22.0); Oxygen Saturation ABG 98.4 % (95.0-100.0); Oxyhemoglobin 97.2 % THb (90.0-100.0); PCO2 ABG 28.9 mmHg (35.0-45.0); PO2 ABG 128.8 mmHg (80.0-100.0); PO2 FiO2 Ratio Arterial Blood 4.29 %; Site Drawn RIGHT BRACHIAL; Total Hemoglobin 12.9 g/dL (12.0-18.0); pH ABG 7.307 (7.350-7.450)
[2022-09-10 21:18] LABS: Arterial Blood Gas PEEP 5 cmH2O; Arterial Blood Gas Tidal Volume 400 ml; Arterial Blood Gas Vent Mode CMV; Arterial Blood Gas Ventilator rate 16 /MIN
--- NOTE | 2022-09-10 21:46 | P.PCNBED_ITS ---
Procedures Central Line Placement Right IJ: Central Line Date: 09/10/22 Central Line Time: 16:45 Consent: I have discussed with the patient and/or surrogate, the non-emergent placement of a central venous catheter, including its clinical necessity/indication and associated potential risks and complications. The patient and/or surrogate understand(s) and acknowledge(s) the need to proceed with central venous catheter insertion as an important element of the patient's clinical management. Time Out Performed: Yes Patient Position: trendelenburg Patient placed on monitor/pulse ox: Yes Provider Prep: mask, sterile gown, sterile gloves, Max. sterile barrier precautions, cap, hand hygiene with conventional soap/water or alcohol based hand rub and emergent ? sterile barriers not used Central line prep: 2% Chlorhexidine scrub Local anesthesia used: other anesthetic (versed) Amount of anesthesia used (ml): 2 Sterile US Technique with sterile gel/sterile probe covers: Yes Central line lumen inserted: triple Tanzanian: 15 Length (cm): 15 Depth of Insertion (cm): 15 Post Procedure: sutured in place, good blood return, all ports aspirated, flushed, capped, transparent dressing, hemostatic product, antimicrobial product and aseptic technique maintained throughout procedure Post procedure x-ray: tip of catheter in good position and no pneumothorax seen Patient tolerated procedure: well and no complications Complications: none
[2022-09-10] MEDS: SODIUM BICARBONATE 8.4% 50 MEQ/50 ML SYRINGE 100 MEQ IV PUSH (22:27)
[2022-09-10] MEDS: MINERAL OIL/WHITE PETROLATUM OINTMENT 1 APPLIC EACH EYE (22:38)
[2022-09-11] VITALS (34 sets, daily range): BP systolic 91–137; BP diastolic 51–83; PULSE 86–116; RESP 18–25; TEMP 36.6–37.3; O2SAT 99–100
[2022-09-11] MEDS: INSULIN ASPART (*BKC) 100 UNITS/ML SUB-Q ×4 (01:10→21:03)
[2022-09-11 01:27] LABS: Glucose Point of Care 236 mg/dl (65-105)
[2022-09-11 05:27] LABS: Basophils Absolute Auto 0.1 K/mm3 (0.0-0.1); Basophils Percent Auto 0.5 % (0.2-1.2); Eosinophils Absolute Auto 0.2 K/mm3 (0-0.3); Eosinophils Percent Auto 2.1 % (0-4.4); Hematocrit 33.5 % (37.0-47.0); Immature Granulocyte Absolute 0.02 K/mm3 (0.00-0.031); Immature Granulocyte Percent A 0.2 % (0-0.5); Lymphocytes Absolute Auto 0.51 K/mm3 (0.9-3.2); Lymphocytes Percent Auto 4.9 % (18.3-44.2); Mean Corpuscular HGB Conc 32.8 g/dl (32-36); Mean Corpuscular Hemoglobin 28.4 pg (26-34); Mean Corpuscular Volume 86.6 fl (80-100); Mean Platelet Volume 9.6 fl (7.4-10.4); Monocytes Absolute Auto 0.5 K/mm3 (0.1-0.6); Monocytes Percent Auto 4.6 % (2.6-8.5); Neutrophils Absolute Auto 9.1 K/mm3 (1.3-6.7); Neutrophils Percent Auto 87.7 % (45.5-73.1); Platelet Count Result 219 k/mm3 (150-375); Red Blood Count 3.87 M/mm3 (4.2-5.4); Red Cell Distribution Width 15.7 % (11.5-14.5); White Blood Count 10.4 K/mm3 (4.5-10.0)
[2022-09-11] MEDS: LACTATED RINGERS 1,000 ML 100 ML IV CONT ×2 (05:29→14:23)
[2022-09-11 05:51] LABS: Alkaline Phosphatase 42 U/L (38-126); Anion Gap 6 mmol/L (8-16); Aspartate Amino Transferase 36 U/L (14-36); Bilirubin,Total 0.9 mg/dL (0.2-1.3); Blood Urea Nitrogen 22 mg/dL (7-17); Calcium 7.3 mg/dL (8.4-10.2); Carbon Dioxide 22 mmol/L (22-30); Chloride 106 mmol/L (98-107); Estimated CRCL calculation 22 ml/min; Estimated Glomerular Filt Rate 31; Glucose 193 mg/dL (65-110); Potassium 3.8 mmol/L (3.4-5.0); Sodium 134 mmol/L (137-145)
[2022-09-11 05:54] LABS: Alveolar/Arterial O2 Gradient 52.5 mmHg; Base Excess ABG -6.7 mEq/l (+/-2.0); Carboxyhemoglobin 0.3 % THb (0-2.0); Fractional Inspired Oxygen 25 %; HCO3 ABG 16.6 mEq/l (22.0-26.0); Methemoglobin ABG 0.1 %THb (0-1.5); Oxygen Content ABG 16.2 %vol (16.0-22.0); Oxygen Saturation ABG 97.3 % (95.0-100.0); Oxyhemoglobin 96.3 % THb (90.0-100.0); PO2 ABG 93.7 mmHg (80.0-100.0); PO2 FiO2 Ratio Arterial Blood 3.75 %; Reduced Hemoglobin 3.3 %THb (0-5.0); Total Hemoglobin 11.9 g/dL (12.0-18.0); pH ABG 7.406 (7.350-7.450)
[2022-09-11 05:55] LABS: Device VENTILATOR; Site Drawn RIGHT BRACHIAL
[2022-09-11 05:56] LABS: Arterial Blood Gas PEEP 5 cmH2O; Arterial Blood Gas Tidal Volume 400 ml; Arterial Blood Gas Vent Mode CMV; Arterial Blood Gas Ventilator rate 20 /MIN
[2022-09-11 06:18] LABS: Alanine Aminotransferase 33 U/L (6-35)
--- NOTE | 2022-09-11 07:05 | PCOTNOTE ---
Patient currently on mechanical ventilation. Canceling OT orders at this time. Please re-order when medically appropriate.
--- NOTE | 2022-09-11 07:22 | PM.PNGS ---
Progress Note: A&P Assessment and Plan (1) Bowel obstruction: Qualifiers: Intestinal obstruction extent: partial Intestinal obstruction type: unspecified Qualified Code(s): K56.600 - Partial intestinal obstruction, unspecified as to cause Code(s): K56.609 - Unspecified intestinal obstruction, unspecified as to partial versus complete obstruction Status: Acute Assessment and Plan: Colostomy functioning well relieving the obstruction (2) Stricture of sigmoid colon: Code(s): K56.699 - Other intestinal obstruction unspecified as to partial versus complete obstruction Status: Acute Assessment and Plan: Most likely sigmoid colon cancer. Await pathology report. (3) Acute respiratory failure: Code(s): J96.00 - Acute respiratory failure, unspecified whether with hypoxia or hypercapnia Status: Acute Assessment and Plan: Remains critically ill. Management per trash collector. Subjective Subjective Date/Time Seen: 09/11/22 07:22 Post Op day: 1 Patient reports: other (Remains on mechanical ventilator) Interval history: Patient was hypotensive last night while in the ICU. Central line placed and additional fluids were given. Blood pressure now stable. Making adequate urine. Review of Systems Review of Systems: ROS unobtainable: Yes unobtainable due to endotracheal tube Exam Const: General: other (On mechanical ventilator, nonresponsive) GI: Inspection: non-distended, incision (Dressing dry and intact) and other (Much colostomy output) GI Palp: Yes Soft to palpation Auscultation: absent bowel sounds Objective Data Vital Signs Vital Signs: Vital Signs - 24 hr 09/10/22 08:24 09/10/22 08:52 09/10/22 13:06 Temperature 36.5 C Pulse Rate 70 Respiratory Rate 18 14 Blood Pressure 168/57 H Pulse Oximetry 95 95 97 Oxygen Delivery Room Air Room Air Room Air Fraction of Inspired Oxygen 09/10/22 20:57 09/10/22 21:08 09/10/22 21:09 Temperature Pulse Rate 86 85 85 Respiratory Rate 22 H 20 Blood Pressure Pulse Oximetry 100 Oxygen Delivery Mechanical Ventilation Fraction of Inspired Oxygen 40 09/10/22 21:16 09/10/22 21:16 09/10/22 20:00 Temperature Pulse Rate 89 89 83 Respiratory Rate 18 18 18 Blood Pressure Pulse Oximetry 100 Oxygen Delivery Mechanical Ventilation Fraction of Inspired Oxygen 30 09/10/22 22:00 09/11/22 00:00 09/11/22 00:00 Temperature 36.2 C L Pulse Rate 98 98 Respiratory Rate 20 20 Blood Pressure 163/72 H Pulse Oximetry 100 100 Oxygen Delivery Mechanical Ventilation Fraction of Inspired Oxygen 30 30 09/10/22 23:05 09/11/22 02:15 09/11/22 03:49 Temperature Pulse Rate 83 97 97 Respiratory Rate 20 Blood Pressure Pulse Oximetry 100 100 100 Oxygen Delivery Mechanical Ventilation Mechanical Ventilation Mechanical Ventilation Fraction of Inspired Oxygen 30 30 30 09/11/22 03:51 09/11/22 02:00 09/11/22 04:00 Temperature 37.3 C Pulse Rate 98 96 Respiratory Rate 20 20 Blood Pressure 106/63 97/55 L Pulse Oximetry 100 100 Oxygen Delivery Fraction of Inspired Oxygen 30 09/10/22 23:00 09/10/22 23:00 09/11/22 05:00 Temperature Pulse Rate 102 H 102 H 94 Respiratory Rate 20 20 Blood Pressure Pulse Oximetry 99 Oxygen Delivery Mechanical Ventilation Fraction of Inspired Oxygen 25 09/11/22 06:00 Temperature Pulse Rate 93 Respiratory Rate 20 Blood Pressure 92/54 L Pulse Oximetry 100 Oxygen Delivery Fraction of Inspired Oxygen Intake/Output Intake/Output: Intake & Output 09/08/22 09/09/22 09/10/22 09/11/22 23:59 23:59 23:59 23:59 Intake Total 9263 405 2895 1000 Output Total 175 1150 2770 525 Balance 825 -902 -203 475 Meds/Results Medications: Active Medications Generic Name Dose Route Start Last Admin Trade Name Freq PRN Reason Stop Dose Admin Acetaminophen 650 mg 09/10/22 19:50 Acetaminophen 650
--- NOTE | 2022-09-11 07:37 | WPDANESPN ---
Anes - Prog Note Post-Op Date/Time: 09/11/22 07:37 Respiratory status: other (remains intubated) Vital Signs: Last Vital Signs Temp 37.3 C 09/11/22 04:00 Pulse 93 09/11/22 06:00 Resp 20 09/11/22 06:00 BP 92/54 L 09/11/22 06:00 Pulse Ox 100 09/11/22 06:00 O2 Del Method Mechanical Ventilation 09/11/22 05:00 FiO2 25 09/11/22 05:00 Pain Score (VAS): unable to assess-pt remains mechanically ventilated I/O: Intake & Output 09/10/22 09/10/22 09/11/22 15:59 23:59 07:59 Intake Total 466 406 1223 Output Total 700 690 525 Balance -550 10 475 Laboratory Tests 09/11/22 05:16 09/11/22 05:16 09/09/22 09/10/22 09/10/22 16:52 08:14 11:45 WBC RBC Hgb Hct MCV MCH MCHC RDW Plt Count MPV Immature Gran % (Auto) Neut % (Auto) Lymph % (Auto) Bland % (Auto) Eos % (Auto) Baso % (Auto) Lymph # (Auto) Bland # (Auto) Eos # (Auto) Baso # (Auto) Abs Immat Gran (auto) Absolute Neuts (auto) Absolute Nucleated RBC Nucleated RBC % PT INR APTT Puncture Site ABG pH ABG pCO2 ABG pO2 ABG PO2/FiO2 Ratio ABG HCO3 ABG O2 Saturation ABG O2 Content ABG Base Excess A-a Gradient Oxyhemoglobin Carboxyhemoglobin Methemoglobin Reduced Hemoglobin Total Hemoglobin O2 Delivery Device O2 Liters/Min Minute Volume Vent Rate Vent Mode FiO2 Tidal Volume PEEP Peak Inspir Pressure Pressure Support Sodium Potassium Chloride Carbon Dioxide Anion Gap BUN Creatinine Estim Creat Clear Calc Estimated GFR Glucose POC Capillary Glucose 169 H 174 H Calcium Total Bilirubin AST ALT Alkaline Phosphatase Total Protein Albumin Blood Type A Positive Antibody Screen Negative Crossmatch See Detail 09/10/22 09/10/22 09/10/22 13:16 13:35 17:10 WBC 16.2 H RBC 4.55 Hgb 12.8 Hct 40.3 MCV 88.6 MCH 28.1 MCHC 31.8 L RDW 15.5 H Plt Count 249 MPV 9.3 Immature Gran % (Auto) Neut % (Auto) Lymph % (Auto) Bland % (Auto) Eos % (Auto) Baso % (Auto) Lymph # (Auto) Bland # (Auto) Eos # (Auto) Baso # (Auto) Abs Immat Gran (auto) Absolute Neuts (auto) Absolute Nucleated RBC Nucleated RBC % PT INR APTT Puncture Site ABG pH ABG pCO2 ABG pO2 ABG PO2/FiO2 Ratio ABG HCO3 ABG O2 Saturation ABG O2 Content ABG Base Excess A-a Gradient Oxyhemoglobin Carboxyhemoglobin Methemoglobin Reduced Hemoglobin Total Hemoglobin O2 Delivery Device O2 Liters/Min Minute Volume Vent Rate Vent Mode FiO2 Tidal Volume PEEP Peak Inspir Pressure Pressure Support Sodium Potassium Chloride Carbon Dioxide Anion Gap BUN Creatinine Estim Creat Clear Calc Estimated GFR Glucose POC Capillary Glucose 144 H 161 H Calcium Total Bilirubin AST ALT Alkaline Phosphatase Total Protein Albumin Blood Type Antibody Screen Crossmatch 09/10/22 09/10/22 09/11/22 17:45 20:52 01:09 WBC RBC Hgb Hct MCV MCH MCHC RDW Plt Count MPV Immature Gran % (Auto) Neut % (Auto) Lymph % (Auto) Bland % (Auto) Eos % (Auto) Baso % (Auto) Lymph # (Auto) Bland # (Auto) Eos # (Auto) Baso # (Auto) Abs Immat Gran (auto) Absolute Neuts (auto) Absolute Nucleated RBC Nucleated RBC % PT 15.9 H INR 1.2 APTT 35.2 Puncture Site Right brachial ABG pH 7.307 L ABG pCO2 28.9 L ABG pO2 128.8 H ABG PO2/FiO2 Ratio 4.29 ABG HCO3 14.1 L ABG O2 Saturation 98.4 ABG O2 Content 17.8 ABG Base Excess -10.7 A-a Gradient 51.1 Oxyhemoglobin 97.2 Carboxyhemoglobin Methemoglobin Reduced Hemoglobin
--- NOTE | 2022-09-11 07:42 | PCPTNOTE ---
Patient currently on mechanical ventilation. Canceling PT orders at this time. Please re-order when medically appropriate.
--- NOTE | 2022-09-11 07:59 | PM.IMPN ---
Progress Note: A&P Assessment and Plan (1) Bowel obstruction: Qualifiers: Intestinal obstruction extent: partial Intestinal obstruction type: unspecified Qualified Code(s): K56.600 - Partial intestinal obstruction, unspecified as to cause Code(s): K56.609 - Unspecified intestinal obstruction, unspecified as to partial versus complete obstruction Status: Acute Assessment and Plan: Patient presented to the hospital with complaints of abdominal pain. Patient reportedly had multiple episodes of diarrhea has been taking Lomotil. Last bowel movement 09/06 and reportedly normal. Patient had episode of emesis. CT abdomen and pelvis demonstrated focal wall thickening to the sigmoid colon with stricture partial bowel obstruction suspicious for adenocarcinoma. 09/10/22 OR resection of stricture, placement of colostomy (2) Stricture of sigmoid colon: Code(s): K56.699 - Other intestinal obstruction unspecified as to partial versus complete obstruction Status: Acute Assessment and Plan: As above. (3) Syncope and collapse: Code(s): R55 - Syncope and collapse Status: Resolved Assessment and Plan: Patient presented with fall and questionable syncope versus near-syncope. No reported head injury of consciousness patient ?is not quite sure? per ED notes. Head CT is negative for acute disease, incidentally noted on a worsened moderate nonspecific cerebral white matter disease Likely secondary to dehydration from emesis EKG shows sinus rhythm with left anterior fascicular block at 64 beats per minute without significant change from 11/20/2021 orthostatic vitals negative int/sed, monitor telemetry (4) Dehydration: Code(s): E86.0 - Dehydration Status: Acute Assessment and Plan: As above. (5) Hyponatremia: Code(s): E87.1 - Hypo-osmolality and hyponatremia Status: Acute Assessment and Plan: Resolved, monitor (6) Type 2 diabetes mellitus with diabetic chronic kidney disease: Qualifiers: Chronic kidney disease stage: stage 3 (moderate) Chronic kidney disease stage 3 subtype: stage 3b (GFR 30-44) Diabetes mellitus nursing home insulin use: with watermelon harvesting supervisor use Qualified Code(s): E11.22 - Type 2 diabetes mellitus with diabetic chronic kidney disease; N18.32 - Chronic kidney disease, stage 3b; Z79.4 - watermelon harvesting supervisor (current) use of insulin Code(s): E11.22 - Type 2 diabetes mellitus with diabetic chronic kidney disease Status: Chronic Assessment and Plan: Goal less than 180 for best healing, defer glucose control to animal treatment investigator, continue accuchecks + SSI (7) Major depressive disorder, recurrent, unspecified: Qualifiers: Active/Remission status: remission status unspecified Qualified Code(s): F33.9 - Major depressive disorder, recurrent, unspecified Code(s): F33.9 - Major depressive disorder, recurrent, unspecified Status: Chronic Assessment and Plan: Continue home meds as able (8) Delirium: Code(s): R41.0 - Disorientation, unspecified Status: Acute Assessment and Plan: Patient with confusion, agitation and hallucinations overnight and today 09/09/22. CT head on admission was negative for acute disease. neuro exam without focal changes. Stop Ativan; patient received 2 doses yesterday and today. Delirium protocol 09/10/22 patient is without hallucinations, but more lethargic today. change seroquel 12.5 mg PO at HS PRN agitation. (9) Protein-calorie malnutrition, severe: Code(s): E43 - Unspecified severe protein-calorie malnutrition Status: Acute Assessment and Plan: Severe, protein-calorie malnutrition. Appreciate Four Roll Calender Operator recommendations when patient is able to take PO. Plan code status: DNR Discharge disposition: Patient is from home and lives alone. Diet: NPO DVT prophylaxis: SCDs GI prophylaxis: with famoti
[2022-09-11] MEDS: dexmedeTOMIDine 400 MCG/100 ML 400 MCG/100 ML BAG IV CONT (08:00)
[2022-09-11] MEDS: FAMOTIDINE 20 MG/2 ML VIAL IV PUSH ×2 (08:56→21:03)
[2022-09-11] MEDS: MINERAL OIL/WHITE PETROLATUM OINTMENT 1 APPLIC EACH EYE ×2 (09:00→21:03)
--- NOTE | 2022-09-11 09:28 | WPDCNINT ---
Assessment and Plan Assessment and plan (1) Acute respiratory failure: Code(s): J96.00 - Acute respiratory failure, unspecified whether with hypoxia or hypercapnia Status: Acute Assessment and Plan: Acute Respiratory failure secondary to general anesthesia and hypotension ABG and PCXR reviewed Will plan sedation holiday and weaning trial and if possible will try to extubate patient Bronchodilators (2) Bowel obstruction: Qualifiers: Intestinal obstruction extent: partial Intestinal obstruction type: unspecified Qualified Code(s): K56.600 - Partial intestinal obstruction, unspecified as to cause Code(s): K56.609 - Unspecified intestinal obstruction, unspecified as to partial versus complete obstruction Status: Acute Assessment and Plan: Likely secondary to colon cancer Now status post Left colectomy with creation end colostomy, Parish procedure, takedown splenic flexure Colostomy in place with stool output Bowel sounds are still absent Management per surgery (3) Stricture of sigmoid colon: Code(s): K56.699 - Other intestinal obstruction unspecified as to partial versus complete obstruction Status: Acute Assessment and Plan: See above (4) Hypotension: Code(s): I95.9 - Hypotension, unspecified Status: Acute Assessment and Plan: Likely secondary to general anesthesia and volume loss Status post IV fluid bolus and PRBC transfusion Blood pressure has improved and patient has any vasopressors this time Continue monitor closely IV albumin ordered (5) Delirium: Code(s): R41.0 - Disorientation, unspecified Status: Acute Assessment and Plan: Patient had issues with delirium prior to surgery while on the floor and pulled out lines and tubes multiple times. She was started on Seroquel which is now on hold after surgery I will start patient on Precedex infusion to try to extubate patient and hold fentanyl and Versed (6) Acute on chronic renal failure: Code(s): N17.9 - Acute kidney failure, unspecified; N18.9 - Chronic kidney disease, unspecified Status: Acute Assessment and Plan: Patient has chronic kidney disease and creatinine is now elevated 1.6. Continue IV fluids Monitor urine output electrolytes and creatinine (7) Type 2 diabetes mellitus with diabetic chronic kidney disease: Qualifiers: Diabetes mellitus fpc insulin use: with fpc use Chronic kidney disease stage: stage 3 (moderate) Chronic kidney disease stage 3 subtype: stage 3b (GFR 30-44) Qualified Code(s): E11.22 - Type 2 diabetes mellitus with diabetic chronic kidney disease; N18.32 - Chronic kidney disease, stage 3b; Z79.4 - terminal make up operator (current) use of insulin Code(s): E11.22 - Type 2 diabetes mellitus with diabetic chronic kidney disease Status: Chronic Assessment and Plan: Sliding scale insulin Plan DVT prophylaxis -SCDs Stress ulcer prophylaxis -Pepcid Nutrition -NPO Code Status -patient is DNR Total Critical Care Time - 35 minutes Due to a high probability of clinically significant, life threatening deterioration, the patient required my highest level of preparedness to intervene emergently and I personally spent this critical care time directly and personally managing the patient. This critical care time included obtaining a history; examining the patient; pulse oximetry; ordering and review of studies; arranging urgent treatment with development of a management plan; evaluation of patient's response to treatment; frequent reassessment; and discussions with other providers. It was exclusive of separately billable procedures and treating other patients and teaching time. Please see Assessment and Plan section and the rest of the note for further information on patient assessment and treatment Decorating And Assembly Supervisor Consult Note Consult date: 09/11/22 Reason for consult: Acute respiratory failure HPI: Scar Salazar
--- NOTE | 2022-09-11 11:25 | PCFNICU ---
ICU Rounding Note: Pt current nutrition is NPO Last recorded weight is 77.2 kg. Bowel Motility:+Bm reported / Labs Reviewed:Glu 193, GFR 31,BUN 22, Cr 1.6, Na 134, Alb 2.0 Meds Noted:Pepcid, LR Skin: WNL Additional Notes: Patient remains on mechanical vent. Post opt colectomy. No plans for tube feedings today. Following daily in ICU rounds.
[2022-09-11] MEDS: ALBUMIN HUMAN 25% 25 GM/100 ML 100 ML IVPB ×2 (11:50→17:21)
[2022-09-11 13:08] LABS: Glucose Point of Care 230 mg/dl (65-105)
[2022-09-11] MEDS: CENTRAL LINE FLUSH 10 ML IV PUSH ×2 (13:47→21:04)
[2022-09-11 14:35] LABS: Basophils Absolute Auto 0.1 K/mm3 (0.0-0.1); Basophils Percent Auto 0.4 % (0.2-1.2); Hematocrit 30.4 % (37.0-47.0); Hemoglobin 10.1 g/dL (12.0-15.0); Immature Granulocyte Absolute 0.04 K/mm3 (0.00-0.031); Immature Granulocyte Percent A 0.3 % (0-0.5); Lymphocytes Absolute Auto 0.59 K/mm3 (0.9-3.2); Lymphocytes Percent Auto 4.4 % (18.3-44.2); Mean Corpuscular HGB Conc 33.2 g/dl (32-36); Mean Corpuscular Hemoglobin 28.5 pg (26-34); Mean Corpuscular Volume 85.9 fl (80-100); Mean Platelet Volume 9.5 fl (7.4-10.4); Monocytes Absolute Auto 0.5 K/mm3 (0.1-0.6); Monocytes Percent Auto 3.7 % (2.6-8.5); Neutrophils Absolute Auto 12.3 K/mm3 (1.3-6.7); Neutrophils Percent Auto 91.2 % (45.5-73.1); Platelet Count Result 202 k/mm3 (150-375); Red Blood Count 3.54 M/mm3 (4.2-5.4); Red Cell Distribution Width 15.9 % (11.5-14.5); White Blood Count 13.5 K/mm3 (4.5-10.0)
[2022-09-11 14:45] LABS: Fibrinogen 395 mg/dl (215-510); INR 1.6; Prothrombin Time 20.1 Seconds (11.1-14.7)
[2022-09-11] MEDS: fentaNYL CITRATE INJ (*CRX) 100 MCG/2 ML VIAL 25 MCG IV PUSH (16:15)
[2022-09-11] MEDS: LACTATED RINGERS 500 ML 999 ML IV CONT (18:06)
[2022-09-11] MEDS: ALBUMIN HUMAN 5% 25 GM/500 ML BTL IV CONT (18:18)
[2022-09-11 21:04] LABS: Glucose Point of Care 203 mg/dl (65-105)
[2022-09-11 21:04] LABS: Glucose Point of Care 206 mg/dl (65-105)
[2022-09-12] VITALS (22 sets, daily range): BP systolic 71–151; BP diastolic 43–72; PULSE 81–98; RESP 15–24; TEMP 37–37.4; O2SAT 92–100
[2022-09-12] MEDS: ALBUMIN HUMAN 25% 25 GM/100 ML 100 ML IVPB ×4 (00:14→17:38)
[2022-09-12 00:27] LABS: Glucose Point of Care 156 mg/dl (65-105)
[2022-09-12] MEDS: LACTATED RINGERS 1,000 ML 100 ML IV CONT (02:33)
[2022-09-12] MEDS: fentaNYL CITRATE INJ (*CRX) 100 MCG/2 ML VIAL 12.5 MCG IV PUSH (02:39)
[2022-09-12] MEDS: dexmedeTOMIDine 400 MCG/100 ML 400 MCG/100 ML BAG 5.79 MCG IV CONT (02:58)
[2022-09-12 04:20] LABS: Glucose Point of Care 168 mg/dl (65-105)
[2022-09-12] MEDS: CENTRAL LINE FLUSH 10 ML IV PUSH ×4 (05:00→21:01)
[2022-09-12 05:11] LABS: Basophils Percent Auto 0.2 % (0.2-1.2); Hematocrit 24.5 % (37.0-47.0); Hemoglobin 8.1 g/dL (12.0-15.0); Immature Granulocyte Absolute 0.08 K/mm3 (0.00-0.031); Immature Granulocyte Percent A 0.7 % (0-0.5); Lymphocytes Absolute Auto 0.66 K/mm3 (0.9-3.2); Lymphocytes Percent Auto 6.1 % (18.3-44.2); Mean Corpuscular HGB Conc 33.1 g/dl (32-36); Mean Corpuscular Hemoglobin 28.3 pg (26-34); Mean Corpuscular Volume 85.7 fl (80-100); Mean Platelet Volume 9.9 fl (7.4-10.4); Monocytes Absolute Auto 0.5 K/mm3 (0.1-0.6); Monocytes Percent Auto 4.4 % (2.6-8.5); Neutrophils Absolute Auto 9.6 K/mm3 (1.3-6.7); Neutrophils Percent Auto 88.6 % (45.5-73.1); Platelet Count Result 163 k/mm3 (150-375); Red Blood Count 2.86 M/mm3 (4.2-5.4); Red Cell Distribution Width 15.9 % (11.5-14.5); White Blood Count 10.8 K/mm3 (4.5-10.0)
[2022-09-12 05:17] LABS: Alanine Aminotransferase 16 U/L (6-35); Albumin Level 2.9 g/dL (3.5-5.1); Alkaline Phosphatase 32 U/L (38-126); Anion Gap 5 mmol/L (8-16); Aspartate Amino Transferase 56 U/L (14-36); Bilirubin,Total 0.8 mg/dL (0.2-1.3); Blood Urea Nitrogen 29 mg/dL (7-17); Calcium 7.8 mg/dL (8.4-10.2); Carbon Dioxide 26 mmol/L (22-30); Chloride 103 mmol/L (98-107); Estimated CRCL calculation 18 ml/min; Estimated Glomerular Filt Rate 24; Glucose 149 mg/dL (65-110); Magnesium 1.5 mg/dL (1.6-2.3); Sodium 134 mmol/L (137-145)
[2022-09-12] MEDS: fentaNYL CITRATE INJ (*CRX) 100 MCG/2 ML VIAL 25 MCG IV PUSH (05:19)
[2022-09-12 05:51] LABS: Alveolar/Arterial O2 Gradient 35.8 mmHg; Base Excess ABG -0.8 mEq/l (+/-2.0); Carboxyhemoglobin 0.3 % THb (0-2.0); Fractional Inspired Oxygen 21 %; HCO3 ABG 21.7 mEq/l (22.0-26.0); Methemoglobin ABG 0.3 %THb (0-1.5); Oxygen Content ABG 12.1 %vol (16.0-22.0); Oxyhemoglobin 94.7 % THb (90.0-100.0); PCO2 ABG 27.9 mmHg (35.0-45.0); PO2 ABG 80.5 mmHg (80.0-100.0); PO2 FiO2 Ratio Arterial Blood 3.83 %; Reduced Hemoglobin 4.7 %THb (0-5.0)
[2022-09-12 05:53] LABS: Device VENTILATOR; Modified Allen's Test Pass; Site Drawn RIGHT RADIAL; pH ABG 7.508 (7.350-7.450)
[2022-09-12 05:54] LABS: Arterial Blood Gas PEEP 5 cmH2O; Arterial Blood Gas Tidal Volume 400 ml; Arterial Blood Gas Vent Mode CMV; Arterial Blood Gas Ventilator rate 18 /MIN
[2022-09-12 07:39] LABS: Glucose Point of Care 158 mg/dl (65-105)
[2022-09-12 08:10] LABS: Creatine Kinase 1010 U/L (30-135)
--- NOTE | 2022-09-12 08:25 | WPDINTPN ---
Progress Note: A&P Assessment and Plan (1) Acute respiratory failure: Code(s): J96.00 - Acute respiratory failure, unspecified whether with hypoxia or hypercapnia Status: Acute Assessment and Plan: Acute Respiratory failure secondary to general anesthesia and hypotension ABG and PCXR reviewed 09/11 PSV weaning trial was attempted but patient became apneic was not awake enough. Sedation was discontinue and transition to Precedex 09/12 will perform a weaning trial and assess for extubation Bronchodilators (2) Bowel obstruction: Qualifiers: Intestinal obstruction extent: partial Intestinal obstruction type: unspecified Qualified Code(s): K56.600 - Partial intestinal obstruction, unspecified as to cause Code(s): K56.609 - Unspecified intestinal obstruction, unspecified as to partial versus complete obstruction Status: Acute Assessment and Plan: Likely secondary to colon cancer Now status post Left colectomy with creation end colostomy, Parish procedure, takedown splenic flexure Colostomy in place with stool output Bowel sounds are still absent Management per surgery (3) Stricture of sigmoid colon: Code(s): K56.699 - Other intestinal obstruction unspecified as to partial versus complete obstruction Status: Acute Assessment and Plan: See above (4) Hypotension: Code(s): I95.9 - Hypotension, unspecified Status: Acute Assessment and Plan: Likely secondary to general anesthesia and volume loss Status post IV fluid bolus and PRBC transfusion Blood pressure has improved and patient is not requiring any vasopressors Continue monitor closely Continue iV albumin (5) Delirium: Code(s): R41.0 - Disorientation, unspecified Status: Acute Assessment and Plan: Patient had issues with delirium prior to surgery while on the floor and pulled out lines and tubes multiple times. She was started on Seroquel which is now on hold after surgery Continue precedex infusion to try to extubate patient and hold fentanyl and Versed (6) Acute on chronic renal failure: Code(s): N17.9 - Acute kidney failure, unspecified; N18.9 - Chronic kidney disease, unspecified Status: Acute Assessment and Plan: Patient has chronic kidney disease and creatinine is now elevated 2.0 Likely multifactorial secondary to surgery hypotension and contrast Patient has received adequate amount of IV fluids. Will hold crystalloids continue albumin for another [address] done recently did not show any stones or hydronephrosis Check CK level Consult nephrology Monitor urine output electrolytes and creatinine (7) Type 2 diabetes mellitus with diabetic chronic kidney disease: Qualifiers: Diabetes mellitus terminal gauger insulin use: with terminal gauger use Chronic kidney disease stage: stage 3 (moderate) Chronic kidney disease stage 3 subtype: stage 3b (GFR 30-44) Qualified Code(s): E11.22 - Type 2 diabetes mellitus with diabetic chronic kidney disease; N18.32 - Chronic kidney disease, stage 3b; Z79.4 - rn long term care (current) use of insulin Code(s): E11.22 - Type 2 diabetes mellitus with diabetic chronic kidney disease Status: Chronic Assessment and Plan: Sliding scale insulin (8) Anemia: Code(s): D64.9 - Anemia, unspecified Status: Acute Assessment and Plan: Multifactorial She had received 2 units of PRBC intraoperatively Hemoglobin trended down to 8.1 today No obvious signs of bleed Continue to monitor closely Transfuse as needed Plan DVT prophylaxis -SCDs Stress ulcer prophylaxis -Pepcid Nutrition -NPO Code Status -patient is DNR Total Critical Care Time - 32 minutes Due to a high probability of clinically significant, life threatening deterioration, the patient required my highest level of preparedness to intervene emergently and I personally spent this critical care time directly and personally managing the patien
--- NOTE | 2022-09-12 08:45 | PM.CNNEP ---
Assessment and Plan Assessment and plan (1) IVAN (acute kidney injury): Code(s): N17.9 - Acute kidney failure, unspecified Status: Acute Assessment and Plan: multifactorial: recent surgery hypotension/hemodyanamic instability prerenal factors ARB therapy CD REACTOR OPERATOR contrast exposure (although less likely since that was on 09/07/22) recent imaging of kidneys without obstruction check CPK, urine electrolytes, and urine eosinophils check renal ultrasound continue efforts to maintain hemodynamics follow repeat labs and UOP (2) Chronic kidney disease, stage 3b: Code(s): N18.32 - Chronic kidney disease, stage 3b Status: Chronic Assessment and Plan: baseline creatinine seems run around 1.1 - 1.4mg/dl in the last year or so presumably secondary to hypertension, diabetes, vascular disease, and age-related changes (3) Bowel obstruction: Qualifiers: Intestinal obstruction extent: partial Intestinal obstruction type: unspecified Qualified Code(s): K56.600 - Partial intestinal obstruction, unspecified as to cause Code(s): K56.609 - Unspecified intestinal obstruction, unspecified as to partial versus complete obstruction Status: Acute Assessment and Plan: due to colon cancer s/p left colectomy with creation end colostomy, Parish procedure, and takedown splenic flexure colostomy in place await for return of bowel function Surgery following (4) Acute respiratory failure: Code(s): J96.00 - Acute respiratory failure, unspecified whether with hypoxia or hypercapnia Status: Acute Assessment and Plan: due to general anesthesia and hypotension follow CXR and ABGs on bronchodilators weaning as tolerated (5) Hypotension: Code(s): I95.9 - Hypotension, unspecified Status: Acute Assessment and Plan: probably due anesthesia and volume depletion s/p IVFs and PRBC transfusion BP better and no need for vasopressor therapy PRN IV albumin follow trend of hemodynamics (6) Type 2 diabetes mellitus with diabetic chronic kidney disease: Qualifiers: Chronic kidney disease stage: stage 3 (moderate) Chronic kidney disease stage 3 subtype: stage 3b (GFR 30-44) Diabetes mellitus intermediate manager insulin use: with jail use Qualified Code(s): E11.22 - Type 2 diabetes mellitus with diabetic chronic kidney disease; N18.32 - Chronic kidney disease, stage 3b; Z79.4 - care home (current) use of insulin Code(s): E11.22 - Type 2 diabetes mellitus with diabetic chronic kidney disease Status: Chronic Assessment and Plan: follow accu-checks glycemic control per process control operator I will continue follow the patient with you while she remains hospitalized and make further recommendations as deemed necessary. Thank you for allowing me to participate in care of this patient. History of Present Illness Reason for Consult Consult date: 09/12/22 Reason for consult: acute renal failure (on chronic kidney disease) Chief Complaint Chief complaint: Bowel Obstruction History of Present Illness Narrative: All the information I have obtained is from review of the electronic medical record as well as discussion with the physician/nurses involved in the patient's care as she is currently intubated and on mechanical ventilation. The patient is an 87-year-old female with a past medical history as outlined below who presented to [facility] Emergency room after a possible syncopal episode and associated fall. Following the fall, she reports no losing consciousness or hitting her head. She does state though that she felt lightheaded prior to the fall in association with abdominal pain. Interestingly, she has been having issues and problems with frequent bowel movements if not diarrhea and when she saw her primary care physician for this issue, she was started on Lomotil. The day prior to admission, she state
--- NOTE | 2022-09-12 08:45 | P.CONNP_ITS ---
Assessment and Plan Assessment and plan (1) IVAN (acute kidney injury): Code(s): N17.9 - Acute kidney failure, unspecified Status: Acute Assessment and Plan: * multifactorial: * recent surgery * hypotension/hemodyanamic instability * prerenal factors * ARB therapy E COMMERCE ARCHITECT * contrast exposure (although less likely since that was on 09/07/22) * recent imaging of kidneys without obstruction * check CPK, urine electrolytes, and urine eosinophils * check renal ultrasound * continue efforts to maintain hemodynamics * follow repeat labs and UOP (2) Chronic kidney disease, stage 3b: Code(s): N18.32 - Chronic kidney disease, stage 3b Status: Chronic Assessment and Plan: * baseline creatinine seems run around 1.1 - 1.4mg/dl in the last year or so * presumably secondary to hypertension, diabetes, vascular disease, and age- related changes (3) Bowel obstruction: Qualifiers: Intestinal obstruction extent: partial Intestinal obstruction type: uns pecified Qualified Code(s): K56.600 - Partial intestinal obstruction, unsp ecified as to cause Code(s): K56.609 - Unspecified intestinal obstruction, unspecified as to partial versus complete obstruction Status: Acute Assessment and Plan: * due to colon cancer * s/p left colectomy with creation end colostomy, Parish procedure, and [place] splenic flexure * colostomy in place * await for return of bowel function * Surgery following (4) Acute respiratory failure: Code(s): J96.00 - Acute respiratory failure, unspecified whether with hypoxia or hypercapnia Status: Acute Assessment and Plan: * due to general anesthesia and hypotension * follow CXR and ABGs * on bronchodilators * weaning as tolerated (5) Hypotension: Code(s): I95.9 - Hypotension, unspecified Status: Acute Assessment and Plan: * probably due anesthesia and volume depletion * s/p IVFs and PRBC transfusion * BP better and no need for vasopressor therapy * PRN IV albumin * follow trend of hemodynamics (6) Type 2 diabetes mellitus with diabetic chronic kidney disease: Qualifiers: Chronic kidney disease stage: stage 3 (moderate) Chronic kidney disease stage 3 subtype: stage 3b (GFR 30-44) Diabetes mellitus terminal carman insulin use: with terminal carman use Qualified Code(s): E11.22 - Type 2 diabetes mellitus with diabetic chronic kidney disease; N18.32 - Chronic kidney disease, stage 3b; Z79.4 - penitentiary (current) use of insulin Code(s): E11.22 - Type 2 diabetes mellitus with diabetic chronic kidney disease Status: Chronic Assessment and Plan: * follow accu-checks * glycemic control per wine steward/stewardess I will continue follow the patient with you while she remains hospitalized and make further recommendations as deemed necessary. Thank you for allowing me to participate in care of this patient. History of Present Illness Reason for Consult Consult date: 09/12/22 Reason for consult: acute renal failure (on chronic kidney disease) Chief Complaint Chief complaint: Bowel Obstruction History of Present Illness Narrative: All the information I have obtained is from review of the electronic medical record as well as discussion with the physician/nurses involved in the patient's care as she is currently intubated and on mechanical ventilation. The patient is an 87-year-old female with a past medical history as outlined below who presented to [facility] Emergency room after a possible syncopal
[2022-09-12] MEDS: MAGNESIUM SULF 2 GM/WATER 50ML 2 GM/50 ML BAG IVPB (09:19)
[2022-09-12] MEDS: MINERAL OIL/WHITE PETROLATUM OINTMENT 1 APPLIC EACH EYE ×2 (09:34→21:01)
[2022-09-12] MEDS: FAMOTIDINE 20 MG/2 ML VIAL IV PUSH ×2 (09:34→21:00)
[2022-09-12 09:48] LABS: Alveolar/Arterial O2 Gradient 40.5 mmHg; Base Excess ABG -0.4 mEq/l (+/-2.0); Fractional Inspired Oxygen 21 %; HCO3 ABG 24.1 mEq/l (22.0-26.0); Oxygen Content ABG 11.6 %vol (16.0-22.0); Oxygen Saturation ABG 92.5 % (95.0-100.0); Oxyhemoglobin 90.1 % THb (90.0-100.0); PCO2 ABG 38.6 mmHg (35.0-45.0); Total Hemoglobin 9.1 g/dL (12.0-18.0); pH ABG 7.413 (7.350-7.450)
[2022-09-12 09:49] LABS: Device VENTILATOR; Modified Allen's Test Pass; Site Drawn RIGHT RADIAL
[2022-09-12 09:51] LABS: Arterial Blood Gas PEEP 5 cmH2O; Arterial Blood Gas Pressure Support 5 cmH2O; Arterial Blood Gas Vent Mode SPONTANEOUS
--- NOTE | 2022-09-12 10:57 | PCFNICU ---
Addendum entered by Korin Bacon RD, LDN 09/12/22 14:17: Spoke with nursing, plans to continue to trickle feed patient today with Vital AF 1.2 at 20 ml/hr. Flush 30 ml q 4hours. Will continue to monitor. Original Note: ICU Rounding Note: Pt current nutrition is NPO Last recorded weight is 74.1 kg. Bowel Motility: +Bm reported 09/12 Labs Reviewed:Glu 149, Cr 2.0,GFR 24, BUN 29, Na 134, Alb 2.9 Meds Noted:Pepcid, Precedex Skin:WNL Additional Notes: Patient has been extubated. Diet order: NPO at this time. Diet orders per surgery. Following daily in ICU rounds. Will monitor every 3 days.
--- NOTE | 2022-09-12 11:26 | PM.IMPN ---
Progress Note: A&P Assessment and Plan (1) Acute respiratory failure: Code(s): J96.00 - Acute respiratory failure, unspecified whether with hypoxia or hypercapnia Status: Acute Assessment and Plan: Acute Respiratory failure secondary to general anesthesia and hypotension 6/6 PSV weaning trial was attempted but patient became apneic and was not awake enough. Sedation was discontinue and transitioned to Precedex 6/ patient able to be extubated Continue Bronchodilators (2) Bowel obstruction: Qualifiers: Intestinal obstruction extent: partial Intestinal obstruction type: unspecified Qualified Code(s): K56.600 - Partial intestinal obstruction, unspecified as to cause Code(s): K56.609 - Unspecified intestinal obstruction, unspecified as to partial versus complete obstruction Status: Acute Assessment and Plan: Likely secondary to colon cancer vs stricture from chronic diverticulitis Now status post Left colectomy with creation end colostomy, Parish procedure, takedown splenic flexure 6/ Colostomy in place with stool output Bowel sounds are hypoactive Management per surgery TF to be started as trophic feedings. (3) Stricture of sigmoid colon: Code(s): K56.699 - Other intestinal obstruction unspecified as to partial versus complete obstruction Status: Acute Assessment and Plan: See above. Pathology pending (4) Hypotension: Code(s): I95.9 - Hypotension, unspecified Status: Acute Assessment and Plan: Likely secondary to general anesthesia and volume loss Status post IV fluid bolus and PRBC transfusion Blood pressure has improved and patient is not requiring any vasopressors Continue monitor closely Continue IV albumin (5) Delirium: Code(s): R41.0 - Disorientation, unspecified Status: Acute Assessment and Plan: Patient had issues with delirium prior to surgery while on the floor and pulled out lines and tubes multiple times. She was started on Seroquel which was held after surgery Continue Precedex. Resume Seroquel tonight (6) Acute on chronic renal failure: Code(s): N17.9 - Acute kidney failure, unspecified; N18.9 - Chronic kidney disease, unspecified Status: Acute Assessment and Plan: Patient has chronic kidney disease with baseline Cr 1.1-1.3 Creatinine 1.4 on admission but has climbed to 2.0 CT done recently did not show any stones or hydronephrosis CK level 1010 Likely multifactorial secondary to surgery hypotension and contrast Patient has received adequate amount of IV fluids. Will hold crystalloids but continue albumin for another 24 hours Consult nephrology Monitor urine output electrolytes and creatinine (7) Type 2 diabetes mellitus with diabetic chronic kidney disease: Qualifiers: Diabetes mellitus senior care insulin use: with senior care use Chronic kidney disease stage: stage 3 (moderate) Chronic kidney disease stage 3 subtype: stage 3b (GFR 30-44) Qualified Code(s): E11.22 - Type 2 diabetes mellitus with diabetic chronic kidney disease; N18.32 - Chronic kidney disease, stage 3b; Z79.4 - meterman (current) use of insulin Code(s): E11.22 - Type 2 diabetes mellitus with diabetic chronic kidney disease Status: Chronic Assessment and Plan: A1c 6.2. The patient's blood glucose was reviewed on 09/12 Glucose remains reasonably well controlled. Continue AccuCheks covering with sliding scale. Hypoglycemia protocol available as needed. Continue to monitor (8) Anemia: Code(s): D64.9 - Anemia, unspecified Status: Acute Assessment and Plan: Hgb 11 range prior to surgery. She had received 2 units of PRBC intraoperatively on 09/10 Hemoglobin trended down to 8.1 today No obvious signs of bleed Continue to monitor closely Transfuse as needed Plan DVT prophylaxis -SCDs Stress ulcer prophylaxis -Pepcid Nutrition -NPO Code Status
--- NOTE | 2022-09-12 12:15 | PM.PNGS ---
Progress Note: A&P Assessment and Plan (1) Stricture of sigmoid colon: Code(s): K56.699 - Other intestinal obstruction unspecified as to partial versus complete obstruction Status: Acute Assessment and Plan: Status post resection sigmoid and descending colon. Pathology is pending. End colostomy continues to have good output. (2) Bowel obstruction: Qualifiers: Intestinal obstruction extent: partial Intestinal obstruction type: unspecified Qualified Code(s): K56.600 - Partial intestinal obstruction, unspecified as to cause Code(s): K56.609 - Unspecified intestinal obstruction, unspecified as to partial versus complete obstruction Status: Acute Assessment and Plan: Resolved with end colostomy. No bowel sounds as yet. Discussed with wealth management advisor. Probably start some trickle feeds per NG tube for now. (3) Acute on chronic renal failure: Code(s): N17.9 - Acute kidney failure, unspecified; N18.9 - Chronic kidney disease, unspecified Status: Acute Assessment and Plan: Creatinine up to 2.0. Has baseline chronic renal insufficiency or chronic kidney disease. Continue to monitor closely. (4) alf (current) use of insulin: Code(s): Z79.4 - terminal press operator (current) use of insulin Status: Chronic (5) Type 2 diabetes mellitus with diabetic chronic kidney disease: Qualifiers: Diabetes mellitus long distance billing operator insulin use: with [facility] use Chronic kidney disease stage: stage 3 (moderate) Chronic kidney disease stage 3 subtype: stage 3b (GFR 30-44) Qualified Code(s): E11.22 - Type 2 diabetes mellitus with diabetic chronic kidney disease; N18.32 - Chronic kidney disease, stage 3b; Z79.4 - terminal press operator (current) use of insulin Code(s): E11.22 - Type 2 diabetes mellitus with diabetic chronic kidney disease Status: Chronic Subjective Subjective Date/Time Seen: 09/12/22 12:15 Post Op day: 2 Patient reports: bowel movement and afebrile Interval history: Extubated but confused. Has been hemodynamically stable Review of Systems Review of Systems: ROS unobtainable: Yes unobtainable due to mental status Exam Const: General: comfortable and awake Orientation/consciousness: confusion GI: Inspection: incision (Healing with minimal drainage) and other (Good colostomy output) GI Palp: Yes Soft to palpation and Yes Tenderness to palpation present (GI) Auscultation: absent bowel sounds Objective Data Vital Signs Vital Signs: Vital Signs - 24 hr 09/11/22 14:12 09/11/22 14:00 09/11/22 14:02 Temperature Pulse Rate 112 H 112 H 112 H Respiratory Rate 23 H 23 H 23 H Blood Pressure Pulse Oximetry Oxygen Delivery Fraction of Inspired Oxygen 09/11/22 14:00 09/11/22 14:06 09/11/22 16:00 Temperature 36.6 C Pulse Rate 96 105 H 100 Respiratory Rate 18 19 Blood Pressure 126/57 L 133/83 Pulse Oximetry 100 100 99 Oxygen Delivery Mechanical Ventilation Fraction of Inspired Oxygen 25 09/11/22 16:00 09/11/22 16:00 09/11/22 17:28 Temperature Pulse Rate 100 92 Respiratory Rate 19 18 Blood Pressure Pulse Oximetry Oxygen Delivery Fraction of Inspired Oxygen 21 09/11/22 18:12 09/11/22 16:00 09/11/22 14:00 Temperature Pulse Rate 98 100 Respiratory Rate 19 18 Blood Pressure Pulse Oximetry 100 Oxygen Delivery Mechanical Ventilation Fraction of Inspired Oxygen 21 09/11/22 16:00 09/11/22 18:00 09/11/22 17:40 Temperature Pulse Rate 104 H 93 93 Respiratory Rate 18 Blood Pressure 120/56 L Pulse Oximetry 100 99 Oxygen Delivery Mechanical Ventilation Fraction of Inspired Oxygen 21 09/11/22 19:27 09/11/22 20:00 09/11/22 21:04 Temperature 36.8 C Pulse Rate 97 98 98 Respiratory Rate 18 18 Blood Pressure 137/63 Pulse Oximetry 100 100 Oxygen Delivery Mechanical Ventilation Fraction of Inspired Oxygen 21 09/11/22 20:00 09/11/22 21:16 09/11/22 2
[2022-09-12 12:36] LABS: Hematocrit 24.7 % (37.0-47.0); Hemoglobin 8.2 g/dL (12.0-15.0); Mean Corpuscular HGB Conc 33.2 g/dl (32-36); Mean Corpuscular Volume 87.3 fl (80-100); Mean Platelet Volume 9.3 fl (7.4-10.4); Platelet Count Result 155 k/mm3 (150-375); Red Blood Count 2.83 M/mm3 (4.2-5.4); Red Cell Distribution Width 16.2 % (11.5-14.5); White Blood Count 11.7 K/mm3 (4.5-10.0)
[2022-09-12 12:41] LABS: Glucose Point of Care 144 mg/dl (65-105)
[2022-09-12] MEDS: oxyCODONE/ACETAMINOPHEN (*CRX) 5-325 MG TABLET 1 TABLET FEED TUBE (15:34)
[2022-09-12 17:13] LABS: Eosinophil Urine None Seen % (None Seen); Urine Eos QC 2nd Tech Confirmed
[2022-09-12 17:29] LABS: Glucose Point of Care 130 mg/dl (65-105)
[2022-09-12 18:14] LABS: Creatinine Urine 170.4 mg/dL
[2022-09-12 18:16] LABS: Creatinine Urine 173.1 mg/dL; Total Protein Urine Random 111 mg/dL; Ur Ttl Prot Creatinine Ratio 0.64 mg/mg (0-0.20); Urea Random Urine 568 MG/DL
[2022-09-12 18:30] LABS: Sodium Urine Random 30 meq/L
[2022-09-12 20:08] LABS: Hematocrit 23.9 % (37.0-47.0); Hemoglobin 7.7 g/dL (12.0-15.0); Mean Corpuscular HGB Conc 32.2 g/dl (32-36); Mean Corpuscular Hemoglobin 28.6 pg (26-34); Mean Corpuscular Volume 88.8 fl (80-100); Platelet Count Result 144 k/mm3 (150-375); Red Blood Count 2.69 M/mm3 (4.2-5.4); Red Cell Distribution Width 16.5 % (11.5-14.5); White Blood Count 11.4 K/mm3 (4.5-10.0)
[2022-09-12] MEDS: QUEtiapine FUMARATE 25 MG TABLET FEED TUBE (21:01)
[2022-09-12 21:11] LABS: Glucose Point of Care 120 mg/dl (65-105)
[2022-09-12] MEDS: ALBUMIN HUMAN 5% 25 GM/500 ML BTL IV CONT (22:10)
[2022-09-13] VITALS (15 sets, daily range): BP systolic 117–170; BP diastolic 52–96; PULSE 81–88; RESP 14–23; TEMP 36.4–36.9; O2SAT 95–100
[2022-09-13 00:25] LABS: Glucose Point of Care 158 mg/dl (65-105)
[2022-09-13] MEDS: hydrALAZINE HCL 20 MG/ML VIAL 10 MG IV PUSH (04:34)
[2022-09-13 04:52] LABS: Basophils Percent Auto 0.2 % (0.2-1.2); Eosinophils Absolute Auto 0.1 K/mm3 (0-0.3); Eosinophils Percent Auto 0.5 % (0-4.4); Hematocrit 24.2 % (37.0-47.0); Hemoglobin 7.6 g/dL (12.0-15.0); Immature Granulocyte Percent A 1.9 % (0-0.5); Lymphocytes Absolute Auto 0.52 K/mm3 (0.9-3.2); Lymphocytes Percent Auto 4.8 % (18.3-44.2); Mean Corpuscular HGB Conc 31.4 g/dl (32-36); Mean Corpuscular Hemoglobin 28.4 pg (26-34); Mean Corpuscular Volume 90.3 fl (80-100); Mean Platelet Volume 9.8 fl (7.4-10.4); Monocytes Absolute Auto 0.3 K/mm3 (0.1-0.6); Monocytes Percent Auto 2.9 % (2.6-8.5); Neutrophils Absolute Auto 9.6 K/mm3 (1.3-6.7); Neutrophils Percent Auto 89.7 % (45.5-73.1); Platelet Count Result 140 k/mm3 (150-375); Red Blood Count 2.68 M/mm3 (4.2-5.4); Red Cell Distribution Width 16.5 % (11.5-14.5); White Blood Count 10.7 K/mm3 (4.5-10.0)
[2022-09-13 05:07] LABS: Alveolar/Arterial O2 Gradient 40.1 mmHg; Base Excess ABG -2.5 mEq/l (+/-2.0); Carboxyhemoglobin 0.3 % THb (0-2.0); Fractional Inspired Oxygen 32 %; HCO3 ABG 22.5 mEq/l (22.0-26.0); Methemoglobin ABG 0.5 %THb (0-1.5); Oxygen Content ABG 12.4 %vol (16.0-22.0); Oxygen Saturation ABG 98.8 % (95.0-100.0); PCO2 ABG 39.5 mmHg (35.0-45.0); PO2 ABG 141.8 mmHg (80.0-100.0); PO2 FiO2 Ratio Arterial Blood 4.43 %; Reduced Hemoglobin 2.2 %THb (0-5.0); Total Hemoglobin 8.9 g/dL (12.0-18.0); pH ABG 7.374 (7.350-7.450)
[2022-09-13 05:08] LABS: Device NASAL CANNULA; Site Drawn LEFT BRACHIAL
[2022-09-13 05:12] LABS: Alanine Aminotransferase 14 U/L (6-35); Albumin Level 3.5 g/dL (3.5-5.1); Alkaline Phosphatase 39 U/L (38-126); Anion Gap 8 mmol/L (8-16); Aspartate Amino Transferase 46 U/L (14-36); Bilirubin,Total 0.6 mg/dL (0.2-1.3); Blood Urea Nitrogen 34 mg/dL (7-17); Calcium 7.9 mg/dL (8.4-10.2); Carbon Dioxide 23 mmol/L (22-30); Chloride 103 mmol/L (98-107); Estimated CRCL calculation 17 ml/min; Estimated Glomerular Filt Rate 24; Glucose 154 mg/dL (65-110); Sodium 134 mmol/L (137-145)
[2022-09-13 06:14] LABS: Glucose Point of Care 154 mg/dl (65-105)
[2022-09-13 07:26] LABS: Glucose Point of Care 163 mg/dl (65-105)
--- NOTE | 2022-09-13 08:13 | PM.PNGS ---
Progress Note: A&P Assessment and Plan (1) Bowel obstruction: Qualifiers: Intestinal obstruction extent: partial Intestinal obstruction type: unspecified Qualified Code(s): K56.600 - Partial intestinal obstruction, unspecified as to cause Code(s): K56.609 - Unspecified intestinal obstruction, unspecified as to partial versus complete obstruction Status: Acute Assessment and Plan: Large intestinal obstruction, relieved with resection and colostomy. Stoma working well. Some superficial slough at appliance changed yesterday but healthy otherwise. (2) Stricture of sigmoid colon: Code(s): K56.699 - Other intestinal obstruction unspecified as to partial versus complete obstruction Status: Acute Assessment and Plan: Pathology shows only diverticulitis. Stricture must have been due to diverticular disease. Excellent news. (3) Type 2 diabetes mellitus with diabetic chronic kidney disease: Qualifiers: Diabetes mellitus senior care insulin use: with manager terminal use Chronic kidney disease stage: stage 3 (moderate) Chronic kidney disease stage 3 subtype: stage 3b (GFR 30-44) Qualified Code(s): E11.22 - Type 2 diabetes mellitus with diabetic chronic kidney disease; N18.32 - Chronic kidney disease, stage 3b; Z79.4 - terminal operations supervisor (current) use of insulin Code(s): E11.22 - Type 2 diabetes mellitus with diabetic chronic kidney disease Status: Chronic (4) terminal operations supervisor (current) use of insulin: Code(s): Z79.4 - terminal operations supervisor (current) use of insulin Status: Chronic (5) Acute on chronic renal failure: Code(s): N17.9 - Acute kidney failure, unspecified; N18.9 - Chronic kidney disease, unspecified Status: Acute Assessment and Plan: Creatinine remains at 2.0. Making adequate urine. Subjective Subjective Date/Time Seen: 09/13/22 08:13 Post Op day: 2 Patient reports: no new complaints, feels better (Extubated and more talkative today), bowel movement (Per colostomy) and afebrile Interval history: Receiving trickle feeds per NG tube. Review of Systems Review of Systems: ROS unobtainable: Yes unobtainable due to mental status Exam Const: General: comfortable and awake GI: Inspection: incision (Dry and healing) and other (Colostomy working well, no leaks around appliance) GI Palp: Yes Soft to palpation and Yes Tenderness to palpation present (GI) Auscultation: Hypoactive bowel sounds present Objective Data Vital Signs Vital Signs: Vital Signs - 24 hr 09/12/22 10:15 09/12/22 10:00 09/12/22 12:00 Temperature 37.0 C Pulse Rate 88 81 89 Respiratory Rate 16 18 Blood Pressure 137/62 151/72 H Pulse Oximetry 100 93 100 Oxygen Delivery Oxygen Flow Rate Fraction of Inspired Oxygen 09/12/22 10:00 09/12/22 12:00 09/12/22 14:00 Temperature Pulse Rate 86 87 86 Respiratory Rate Blood Pressure Pulse Oximetry Oxygen Delivery Oxygen Flow Rate Fraction of Inspired Oxygen 09/12/22 12:00 09/12/22 16:00 09/12/22 16:00 Temperature Pulse Rate 91 Respiratory Rate Blood Pressure Pulse Oximetry 98 93 Oxygen Delivery Nasal Cannula Nasal Cannula Oxygen Flow Rate 2 1 Fraction of Inspired Oxygen 09/12/22 14:00 09/12/22 16:00 09/12/22 18:00 Temperature 37.4 C Pulse Rate 92 93 94 Respiratory Rate 21 H 24 H 24 H Blood Pressure 141/72 H 145/71 H 143/65 H Pulse Oximetry 99 98 Oxygen Delivery Oxygen Flow Rate Fraction of Inspired Oxygen 09/12/22 18:00 09/12/22 20:00 09/12/22 20:00 Temperature Pulse Rate 87 90 87 Respiratory Rate 24 H Blood Pressure Pulse Oximetry 98 Oxygen Delivery Nasal Cannula Oxygen Flow Rate 2 Fraction of Inspired Oxygen 21 09/12/22 20:00 09/12/22 22:00 09/12/22 22:00 Temperature 37.2 C Pulse Rate 90 87 86 Respiratory Rate 19 15 Blood Pressure 120/68 71/43 L Pulse Oximetry 92 100 Oxygen Delivery Oxygen Flow Rate Fr
[2022-09-13 08:14] LABS: Creatine Kinase 399 U/L (30-135)
--- NOTE | 2022-09-13 08:19 | WPDINTPN ---
Progress Note: A&P Assessment and Plan (1) Acute respiratory failure: Code(s): J96.00 - Acute respiratory failure, unspecified whether with hypoxia or hypercapnia Status: Acute Assessment and Plan: Acute Respiratory failure secondary to general anesthesia and hypotension 09/11 PSV weaning trial was attempted but patient became apneic was not awake enough. Sedation was discontinue and transition to Precedex 09/12 patient extubated Incentive spirometry Bronchodilators (2) Bowel obstruction: Qualifiers: Intestinal obstruction extent: partial Intestinal obstruction type: unspecified Qualified Code(s): K56.600 - Partial intestinal obstruction, unspecified as to cause Code(s): K56.609 - Unspecified intestinal obstruction, unspecified as to partial versus complete obstruction Status: Acute Assessment and Plan: Likely secondary to stricture or diverticulitis Now status post Left colectomy with creation end colostomy, Parish procedure, takedown splenic flexure Colostomy in place with stool output Bowel sounds are still absent Trickle tube feeds Management per surgery (3) Stricture of sigmoid colon: Code(s): K56.699 - Other intestinal obstruction unspecified as to partial versus complete obstruction Status: Acute Assessment and Plan: See above (4) Hypotension: Code(s): I95.9 - Hypotension, unspecified Status: Acute Assessment and Plan: Likely secondary to general anesthesia and volume loss Status post IV fluid bolus and PRBC transfusion Blood pressure has improved and patient is not requiring any vasopressors Continue monitor closely (5) Delirium: Code(s): R41.0 - Disorientation, unspecified Status: Acute Assessment and Plan: Patient had issues with delirium prior to surgery while on the floor and pulled out lines and tubes multiple times. She was started on Seroquel which was held for surgery Seroquel resumed (6) Acute on chronic renal failure: Code(s): N17.9 - Acute kidney failure, unspecified; N18.9 - Chronic kidney disease, unspecified Status: Acute Assessment and Plan: Patient has chronic kidney disease and creatinine is now elevated 2.0 Likely multifactorial secondary to surgery hypotension and contrast Patient has received adequate amount of IV fluids. Will hold further aggressive volume resuscitation Continue gentle IV fluid to prevent dehydration since p.o. intake is low CT done recently did not show any stones or hydronephrosis Repeat cK level Renal ultrasound shows normal kidneys with no hydronephrosis nephrology is following Monitor urine output electrolytes and creatinine (7) Type 2 diabetes mellitus with diabetic chronic kidney disease: Qualifiers: Diabetes mellitus terminal operations supervisor insulin use: with longterm use Chronic kidney disease stage: stage 3 (moderate) Chronic kidney disease stage 3 subtype: stage 3b (GFR 30-44) Qualified Code(s): E11.22 - Type 2 diabetes mellitus with diabetic chronic kidney disease; N18.32 - Chronic kidney disease, stage 3b; Z79.4 - exterminator termite (current) use of insulin Code(s): E11.22 - Type 2 diabetes mellitus with diabetic chronic kidney disease Status: Chronic Assessment and Plan: Sliding scale insulin (8) Anemia: Code(s): D64.9 - Anemia, unspecified Status: Acute Assessment and Plan: Multifactorial She had received 2 units of PRBC intraoperatively Hemoglobin has been gradually trending down but No obvious signs of bleed Continue to monitor closely Transfuse as needed Plan DVT prophylaxis -SCDs Stress ulcer prophylaxis -Pepcid Nutrition -trickle tube feeds, swallow evaluation today Code Status -patient is DNR PT OT consult Subjective Date/time seen: 09/13/22 Overnight events reviewed. Afebrile On room air this morning She had episode of low blood pressure last night which resolved with small fluid giulia
[2022-09-13] MEDS: LACTATED RINGERS 1,000 ML 50 ML IV CONT (08:36)
[2022-09-13] MEDS: CENTRAL LINE FLUSH 10 ML IV PUSH ×4 (08:38→20:53)
[2022-09-13] MEDS: FAMOTIDINE 20 MG/2 ML VIAL IV PUSH ×2 (08:38→20:51)
--- NOTE | 2022-09-13 09:20 | PCSTNOTE ---
Please refer to the Bedside Swallow Evaluation in the EMR. Please note, silent aspiration cannot be ruled out at bedside.
--- NOTE | 2022-09-13 10:28 | PC.NURSE ---
Susana Del Toroell took [facility] home with her on 09/12/22.
--- NOTE | 2022-09-13 11:31 | PM.IMPN ---
Progress Note: A&P Assessment and Plan (1) Acute respiratory failure: Code(s): J96.00 - Acute respiratory failure, unspecified whether with hypoxia or hypercapnia Status: Acute Assessment and Plan: Acute Respiratory failure secondary to general anesthesia and hypotension 09/11 Weaning trial was attempted but patient became apneic and was not awake enough. Sedation was discontinue and transitioned to Precedex 09/12 patient able to be extubated. Patient now weaned to room air. Encourage IS use (2) Bowel obstruction: Qualifiers: Intestinal obstruction extent: partial Intestinal obstruction type: unspecified Qualified Code(s): K56.600 - Partial intestinal obstruction, unspecified as to cause Code(s): K56.609 - Unspecified intestinal obstruction, unspecified as to partial versus complete obstruction Status: Acute Assessment and Plan: Patient found to have a sigmoid stricture and partial bowel obstruction. Now status post Left colectomy with creation end colostomy, Parish procedure, takedown splenic flexure 09/[address] with stool output Diet started. ADAT Pathology: diverticulitis with necrosis, calcification, perforation and fibrosis but negative for malignancy. Management per surgery WBC trending down. Not currently on abx. (3) Stricture of sigmoid colon: Code(s): K56.699 - Other intestinal obstruction unspecified as to partial versus complete obstruction Status: Acute Assessment and Plan: See above. (4) Hypotension: Code(s): I95.9 - Hypotension, unspecified Status: Acute Assessment and Plan: Likely secondary to general anesthesia and volume loss Status post IV fluid bolus and PRBC transfusion Blood pressure has improved and patient is not requiring any vasopressors Did require albumin for HoTN last night. IV fluid started. Continue monitor closely (5) Delirium: Code(s): R41.0 - Disorientation, unspecified Status: Acute Assessment and Plan: Patient had issues with delirium prior to surgery while on the floor and pulled out lines and tubes multiple times. She was started on Seroquel which was held after surgery Precedex stopped. Continue Seroquel (6) Acute on chronic renal failure: Code(s): N17.9 - Acute kidney failure, unspecified; N18.9 - Chronic kidney disease, unspecified Status: Acute Assessment and Plan: Patient has chronic kidney disease with baseline Cr 1.1-1.3 Creatinine 1.4 on admission but has climbed to 2.0 CT done recently did not show any stones or hydronephrosis CK level 1010 Likely multifactorial secondary to surgery, diverticulitis, hypotension and contrast Patient has received adequate amount of IV fluids. Treated with albumin IV fluids resumed Nephrology consulted and appreciate their input. Cr unchanged today. UOP still poor. Monitor urine output electrolytes and creatinine (7) Type 2 diabetes mellitus with diabetic chronic kidney disease: Qualifiers: Chronic kidney disease stage: stage 3 (moderate) Chronic kidney disease stage 3 subtype: stage 3b (GFR 30-44) Diabetes mellitus nursing home insulin use: with nursing home use Qualified Code(s): E11.22 - Type 2 diabetes mellitus with diabetic chronic kidney disease; N18.32 - Chronic kidney disease, stage 3b; Z79.4 - prison (current) use of insulin Code(s): E11.22 - Type 2 diabetes mellitus with diabetic chronic kidney disease Status: Chronic Assessment and Plan: A1c 6.2. The patient's blood glucose was reviewed on 09/13 Glucose remains reasonably well controlled. Continue AccuCheks covering with sliding scale. Hypoglycemia protocol available as needed. Continue to monitor (8) Anemia: Code(s): D64.9 - Anemia, unspecified Status: Acute Assessment and Plan: Hgb 11 range prior to surgery. She had received 2 units of PRBC intraoperatively on 09/10 Hemoglob
--- NOTE | 2022-09-13 11:56 | PCFNICU ---
ICU Rounding Note: Pt current nutrition is Clear liquids Nutrition recommendation: advance as tolerated to diabetic diet. Last recorded weight is 80.6 kg. Bowel Motility:+BM reported 09/13 Labs Reviewed:Glu 154, GFR 24, Cr 2.0,BUN 34 Meds Noted:Pepcid Skin: WNL Additional Notes: Patient has current with clear liquids diet. Bedside swallow performed 09/13 recommending advance as tolerated. Ensure clear is on trays providing an additional 240 kcals and 8 gms protein. Agree with diet orders. Following daily in ICU rounds. Will monitor every 3 days.
[2022-09-13 12:05] LABS: Hematocrit 24.6 % (37.0-47.0); Hemoglobin 7.8 g/dL (12.0-15.0); Mean Corpuscular HGB Conc 31.7 g/dl (32-36); Mean Corpuscular Hemoglobin 28.3 pg (26-34); Mean Corpuscular Volume 89.1 fl (80-100); Platelet Count Result 158 k/mm3 (150-375); Red Blood Count 2.76 M/mm3 (4.2-5.4); Red Cell Distribution Width 16.5 % (11.5-14.5); White Blood Count 12.1 K/mm3 (4.5-10.0)
[2022-09-13 12:12] LABS: Glucose Point of Care 140 mg/dl (65-105)
--- NOTE | 2022-09-13 12:41 | P.PNNP_ITS ---
Progress Note: A&P Assessment and Plan (1) IVAN (acute kidney injury): Code(s): N17.9 - Acute kidney failure, unspecified Status: Acute Assessment and Plan: * multifactorial: * recent surgery * hypotension/hemodyanamic instability * prerenal factors * ARB therapy WEL[employer] * contrast exposure (although less likely since that was on 09/07/22) * recent imaging of kidneys without obstruction * evaluation to date: * renal ultrasound without obstruction * urine electrolytes are prerenal * urine eosinophils negative * CPK mildly elevated but trending down - not high enough to affect kidneys * urine output still remains low * remains at risk for RCIS/dialysis * follow repeat labs and UOP (2) Chronic kidney disease, stage 3b: Code(s): N18.32 - Chronic kidney disease, stage 3b Status: Chronic Assessment and Plan: * baseline creatinine seems run around 1.1 - 1.4mg/dl in the last year or so * presumably secondary to hypertension, diabetes, vascular disease, and age-related changes (3) Bowel obstruction: Qualifiers: Intestinal obstruction extent: partial Intestinal obstruction type: unspecified Qualified Code(s): K56.600 - Partial intestinal obstruction, unspecified as to cause Code(s): K56.609 - Unspecified intestinal obstruction, unspecified as to partial versus complete obstruction Status: Acute Assessment and Plan: * due to colon cancer * s/p left colectomy with creation end colostomy, Parish procedure, and takedown splenic flexure * colostomy in place * await for return of bowel function * Surgery following (4) Acute respiratory failure: Code(s): J96.00 - Acute respiratory failure, unspecified whether with hypoxia or hypercapnia Status: Acute Assessment and Plan: * resolved - extubated * precipitated by general anesthesia and hypotension * follow respiratory status closely (5) Hypotension: Code(s): I95.9 - Hypotension, unspecified Status: Acute Assessment and Plan: * resolved * probably due to anesthesia and volume depletion * s/p IVFs and PRBC transfusion * BP better and no need for vasopressor therapy * PRN IV albumin * follow trend of hemodynamics (6) Type 2 diabetes mellitus with diabetic chronic kidney disease: Qualifiers: Chronic kidney disease stage: stage 3 (moderate) Chronic kidney disease stage 3 subtype: stage 3b (GFR 30-44) Diabetes mellitus emt intermediate insulin use: with emt intermediate use Qualified Code(s): E11.22 - Type 2 diabetes mellitus with diabetic chronic kidney disease; N18.32 - Chronic kidney disease, stage 3b; Z79.4 - termite control representative (current) use of insulin Code(s): E11.22 - Type 2 diabetes mellitus with diabetic chronic kidney disease Status: Chronic Assessment and Plan: * follow accu-checks * glycemic control per credentialing specialist Long extensive discussion (greater than 20 min) with the patient's [id number], Susana, regarding the patient's renal dysfunction and diminished urine output and my concerns that she may require renal replacement therapy/dialysis. She appeared to voice understanding. Will continue to follow. Subjective Date/time seen: 09/13/22 12:41 Interval history: Follow-up for acute kidney injury/acute renal failure on chronic kidney disease. Extubated yesterday morning and seems to be doing quite well; mentation has slowly improved as well per nursing; diet being advanced and no reported issues at this time; transient hypotension over
--- NOTE | 2022-09-13 12:41 | PM.PNNEP ---
Progress Note: A&P Assessment and Plan (1) IVAN (acute kidney injury): Code(s): N17.9 - Acute kidney failure, unspecified Status: Acute Assessment and Plan: multifactorial: recent surgery hypotension/hemodyanamic instability prerenal factors ARB therapy SEAFOOD MANAGER contrast exposure (although less likely since that was on 09/07/22) recent imaging of kidneys without obstruction evaluation to date: renal ultrasound without obstruction urine electrolytes are prerenal urine eosinophils negative CPK mildly elevated but trending down - not high enough to affect kidneys urine output still remains low remains at risk for HOLD WORKER/dialysis follow repeat labs and UOP (2) Chronic kidney disease, stage 3b: Code(s): N18.32 - Chronic kidney disease, stage 3b Status: Chronic Assessment and Plan: baseline creatinine seems run around 1.1 - 1.4mg/dl in the last year or so presumably secondary to hypertension, diabetes, vascular disease, and age-related changes (3) Bowel obstruction: Qualifiers: Intestinal obstruction extent: partial Intestinal obstruction type: unspecified Qualified Code(s): K56.600 - Partial intestinal obstruction, unspecified as to cause Code(s): K56.609 - Unspecified intestinal obstruction, unspecified as to partial versus complete obstruction Status: Acute Assessment and Plan: due to colon cancer s/p left colectomy with creation end colostomy, Parish procedure, and takedown splenic flexure colostomy in place await for return of bowel function Surgery following (4) Acute respiratory failure: Code(s): J96.00 - Acute respiratory failure, unspecified whether with hypoxia or hypercapnia Status: Acute Assessment and Plan: resolved - extubated precipitated by general anesthesia and hypotension follow respiratory status closely (5) Hypotension: Code(s): I95.9 - Hypotension, unspecified Status: Acute Assessment and Plan: resolved probably due to anesthesia and volume depletion s/p IVFs and PRBC transfusion BP better and no need for vasopressor therapy PRN IV albumin follow trend of hemodynamics (6) Type 2 diabetes mellitus with diabetic chronic kidney disease: Qualifiers: Chronic kidney disease stage: stage 3 (moderate) Chronic kidney disease stage 3 subtype: stage 3b (GFR 30-44) Diabetes mellitus senior care insulin use: with terminal manager use Qualified Code(s): E11.22 - Type 2 diabetes mellitus with diabetic chronic kidney disease; N18.32 - Chronic kidney disease, stage 3b; Z79.4 - extermination inspector (current) use of insulin Code(s): E11.22 - Type 2 diabetes mellitus with diabetic chronic kidney disease Status: Chronic Assessment and Plan: follow accu-checks glycemic control per director distribution Long extensive discussion (greater than 20 min) with the patient's [id number], Susana, regarding the patient's renal dysfunction and diminished urine output and my concerns that she may require renal replacement therapy/dialysis. She appeared to voice understanding. Will continue to follow. Subjective Date/time seen: 09/13/22 12:41 Interval history: Follow-up for acute kidney injury/acute renal failure on chronic kidney disease. Extubated yesterday morning and seems to be doing quite well; mentation has slowly improved as well per nursing; diet being advanced and no reported issues at this time; transient hypotension overnight but responded to IVF bolus and IV albumin; still not making much urine but remains hemodynamically stable; no apparent distress noted. Exam Narrative: General: elderly female in NAD Heart: normal S1 and S2; no rub Lungs: clear anteriorly Abdomen: soft with hypoactive bowel sounds; colostomy in place Extremities: no cyanosis or clubbing; no edema Skin: warm and dry Objective Data Vital Signs Vital Signs: Vital
[2022-09-13 16:47] LABS: Glucose Point of Care 111 mg/dl (65-105)
[2022-09-13 20:18] LABS: Hematocrit 24.8 % (37.0-47.0); Mean Corpuscular HGB Conc 32.3 g/dl (32-36); Mean Corpuscular Hemoglobin 28.7 pg (26-34); Mean Corpuscular Volume 88.9 fl (80-100); Mean Platelet Volume 9.1 fl (7.4-10.4); Platelet Count Result 144 k/mm3 (150-375); Red Blood Count 2.79 M/mm3 (4.2-5.4); Red Cell Distribution Width 16.4 % (11.5-14.5); White Blood Count 11.7 K/mm3 (4.5-10.0)
[2022-09-13] MEDS: QUEtiapine FUMARATE 25 MG TABLET FEED TUBE (20:51)
[2022-09-13] MEDS: MINERAL OIL/WHITE PETROLATUM OINTMENT 1 APPLIC EACH EYE (20:51)
[2022-09-13 20:59] LABS: Glucose Point of Care 120 mg/dl (65-105)
[2022-09-14] VITALS (14 sets, daily range): BP systolic 122–147; BP diastolic 43–82; PULSE 62–89; RESP 16–20; TEMP 36.3–36.7; O2SAT 98–100
[2022-09-14 01:33] LABS: Glucose Point of Care 112 mg/dl (65-105)
[2022-09-14 04:05] LABS: Glucose Point of Care 105 mg/dl (65-105)
[2022-09-14 04:14] LABS: Hematocrit 25.2 % (37.0-47.0); Mean Corpuscular HGB Conc 31.7 g/dl (32-36); Mean Corpuscular Hemoglobin 28.4 pg (26-34); Mean Corpuscular Volume 89.4 fl (80-100); Mean Platelet Volume 9.5 fl (7.4-10.4); Platelet Count Result 155 k/mm3 (150-375); Red Blood Count 2.82 M/mm3 (4.2-5.4); Red Cell Distribution Width 16.6 % (11.5-14.5); White Blood Count 9.1 K/mm3 (4.5-10.0)
[2022-09-14 04:29] LABS: Alanine Aminotransferase 14 U/L (6-35); Alkaline Phosphatase 49 U/L (38-126); Anion Gap 6 mmol/L (8-16); Aspartate Amino Transferase 34 U/L (14-36); Bilirubin,Total 0.8 mg/dL (0.2-1.3); Blood Urea Nitrogen 40 mg/dL (7-17); Calcium 8.1 mg/dL (8.4-10.2); Carbon Dioxide 25 mmol/L (22-30); Chloride 102 mmol/L (98-107); Estimated CRCL calculation 18 ml/min; Estimated Glomerular Filt Rate 24; Glucose 101 mg/dL (65-110); Magnesium 2.1 mg/dL (1.6-2.3); Potassium 3.5 mmol/L (3.4-5.0); Sodium 133 mmol/L (137-145)
[2022-09-14] MEDS: CENTRAL LINE FLUSH 10 ML IV PUSH ×4 (07:59→21:08)
[2022-09-14] MEDS: LACTATED RINGERS 1,000 ML 50 ML IV CONT (08:00)
[2022-09-14 08:03] LABS: Glucose Point of Care 105 mg/dl (65-105)
[2022-09-14] MEDS: POTASSIUM CHLORIDE 20 MEQ PACKET (FOR LIQUID) 40 MEQ PO (08:03)
[2022-09-14] MEDS: FAMOTIDINE 20 MG/2 ML VIAL IV PUSH (08:03)
[2022-09-14] MEDS: ACETAMINOPHEN 325 MG TABLET 650 MG FEED TUBE (08:10)
[2022-09-14] MEDS: ENOXAPARIN 30 MG/0.3 ML SYRINGE SUB-Q (08:26)
--- NOTE | 2022-09-14 09:46 | WPDINTPN ---
Progress Note: A&P Assessment and Plan (1) Acute respiratory failure: Code(s): J96.00 - Acute respiratory failure, unspecified whether with hypoxia or hypercapnia Status: Acute Assessment and Plan: Acute Respiratory failure secondary to general anesthesia and hypotension 09/11 PSV weaning trial was attempted but patient became apneic was not awake enough. Sedation was discontinue and transition to Precedex 09/12 patient extubated Currently on room air Continue incentive spirometry (2) Bowel obstruction: Qualifiers: Intestinal obstruction extent: partial Intestinal obstruction type: unspecified Qualified Code(s): K56.600 - Partial intestinal obstruction, unspecified as to cause Code(s): K56.609 - Unspecified intestinal obstruction, unspecified as to partial versus complete obstruction Status: Acute Assessment and Plan: Likely secondary to stricture or diverticulitis Now status post Left colectomy with creation end colostomy, Parish procedure, takedown splenic flexure Colostomy in place with stool output Bowel sounds are now present Advance diet Discussed with Dr. Fountain Management per surgery (3) Stricture of sigmoid colon: Code(s): K56.699 - Other intestinal obstruction unspecified as to partial versus complete obstruction Status: Acute Assessment and Plan: See above (4) Hypotension: Code(s): I95.9 - Hypotension, unspecified Status: Acute Assessment and Plan: Likely secondary to general anesthesia and volume loss Status post IV fluid bolus and PRBC transfusion Blood pressure has improved and patient is not requiring any vasopressors Continue monitor closely (5) Delirium: Code(s): R41.0 - Disorientation, unspecified Status: Acute Assessment and Plan: Patient had issues with delirium prior to surgery while on the floor and pulled out lines and tubes multiple times. She was started on Seroquel which was held for surgery Symptoms are significantly improved Continue Seroquel (6) Acute on chronic renal failure: Code(s): N17.9 - Acute kidney failure, unspecified; N18.9 - Chronic kidney disease, unspecified Status: Acute Assessment and Plan: Patient has chronic kidney disease and creatinine is now elevated 2.0 Likely multifactorial secondary to surgery hypotension and contrast Patient has received adequate amount of IV fluids. Will hold further aggressive volume resuscitation Continue gentle IV fluid to prevent dehydration since p.o. intake is low CT done recently did not show any stones or hydronephrosis Repeat cK level was improved Renal ultrasound shows normal kidneys with no hydronephrosis nephrology is following Monitor urine output electrolytes and creatinine (7) Type 2 diabetes mellitus with diabetic chronic kidney disease: Qualifiers: Diabetes mellitus [facility] insulin use: with [facility] use Chronic kidney disease stage: stage 3 (moderate) Chronic kidney disease stage 3 subtype: stage 3b (GFR 30-44) Qualified Code(s): E11.22 - Type 2 diabetes mellitus with diabetic chronic kidney disease; N18.32 - Chronic kidney disease, stage 3b; Z79.4 - watermelon inspector (current) use of insulin Code(s): E11.22 - Type 2 diabetes mellitus with diabetic chronic kidney disease Status: Chronic Assessment and Plan: Sliding scale insulin (8) Anemia: Code(s): D64.9 - Anemia, unspecified Status: Acute Assessment and Plan: Multifactorial She had received 2 units of PRBC intraoperatively Hemoglobin has been stable over last 2 days with No obvious signs of bleed Continue to monitor closely Transfuse as needed Plan DVT prophylaxis -SCDs Stress ulcer prophylaxis -Pepcid Nutrition -currently on clear liquid diet was advanced as tolerated Code Status -patient is DNR PT OT consult Transfer out of ICU today Subjective Date/time seen: 09/14/22 Overnight events review
--- NOTE | 2022-09-14 10:36 | PM.PNGS ---
Progress Note: A&P Assessment and Plan (1) Bowel obstruction: Qualifiers: Intestinal obstruction extent: partial Intestinal obstruction type: unspecified Qualified Code(s): K56.600 - Partial intestinal obstruction, unspecified as to cause Code(s): K56.609 - Unspecified intestinal obstruction, unspecified as to partial versus complete obstruction Status: Acute Assessment and Plan: Colonic obstruction. Patient also had chronic diverticulitis and significant inflammation from this. Obstruction relieved with resection and colostomy. Patient tolerating liquids, agree with advancement to soft diet. Okay to transfer to IMU. Discussed with Dr. 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 (3) Acute on chronic renal failure: Code(s): N17.9 - Acute kidney failure, unspecified; N18.9 - Chronic kidney disease, unspecified Status: Acute Assessment and Plan: Creatinine remains at 2.0 for the last 3 days. (4) Type 2 diabetes mellitus with diabetic chronic kidney disease: Qualifiers: Diabetes mellitus longwall foreman insulin use: with senior care use Chronic kidney disease stage: stage 3 (moderate) Chronic kidney disease stage 3 subtype: stage 3b (GFR 30-44) Qualified Code(s): E11.22 - Type 2 diabetes mellitus with diabetic chronic kidney disease; N18.32 - Chronic kidney disease, stage 3b; Z79.4 - [facility] (current) use of insulin Code(s): E11.22 - Type 2 diabetes mellitus with diabetic chronic kidney disease Status: Chronic (5) bed bug exterminator (current) use of insulin: Code(s): Z79.4 - [facility] (current) use of insulin Status: Chronic (6) Anemia: Code(s): D64.9 - Anemia, unspecified Status: Acute Assessment and Plan: Hemoglobin slowly increasing. No evidence of bleeding other than during surgery. Subjective Subjective Date/Time Seen: 09/14/22 10:36 Post Op day: 4 Patient reports: no new complaints, still having pain, tolerating liquids well, bowel movement (Per colostomy, some rectal output too) and afebrile Review of Systems Review of Systems: All systems reviewed & are unremarkable except as noted in HPI and below (HPI) Exam Const: General: comfortable, alert, awake and edematous GI: Inspection: incision (Dry and healing well) and other (Liquid stool from colostomy, no leakage) GI Palp: Yes Soft to palpation and Yes Tenderness to palpation present (GI) Auscultation: normal bowel sounds Objective Data Vital Signs Vital Signs: Vital Signs - 24 hr 09/13/22 12:00 09/13/22 12:00 09/13/22 12:00 Temperature 36.8 C Pulse Rate 84 84 Respiratory Rate 18 Blood Pressure 138/59 L Pulse Oximetry 100 95 Oxygen Delivery Room Air Fraction of Inspired Oxygen 09/13/22 14:00 09/13/22 16:00 09/13/22 14:00 Temperature Pulse Rate 81 81 81 Respiratory Rate 18 Blood Pressure 117/96 H Pulse Oximetry 98 Oxygen Delivery Fraction of Inspired Oxygen 09/13/22 16:00 09/13/22 16:00 09/13/22 18:00 Temperature 36.9 C Pulse Rate 83 83 Respiratory Rate 18 Blood Pressure 153/70 H Pulse Oximetry 100 100 Oxygen Delivery Room Air Fraction of Inspired Oxygen 09/13/22 18:00 09/13/22 20:00 09/13/22 20:00 Temperature Pulse Rate 88 88 84 Respiratory Rate 14 14 Blood Pressure 157/66 H Pulse Oximetry 100 100 Oxygen Delivery Room Air Fraction of Inspired Oxygen 09/13/22 20:00 09/13/22 22:00 09/13/22 22:00 Temperature 36.4 C Pulse Rate 84 83 83 Respiratory Rate 19 19 Blood Pressure 141/59 H 141/82 H Pulse Oximetry 100 100 Oxygen Delivery Fraction of Inspired Oxygen 09/14/22 00:00 09/14/22 00:00 09/14/22 00:00 Temperature 36.6 C Pul
--- NOTE | 2022-09-14 10:59 | P.PNNP_ITS ---
Progress Note: A&P Assessment and Plan (1) IVAN (acute kidney injury): Code(s): N17.9 - Acute kidney failure, unspecified Status: Acute Assessment and Plan: * multifactorial: * recent surgery. Recovering from this quite well. * hypotension/hemodynamic instability . Blood pressure seems better. * prerenal factors . He getting some IV fluids and eating and drinking better. * ARB therapy EXECUTIVE ADVISOR . This is on hold. * contrast exposure (although less likely since that was on 09/07/22) * recent imaging of kidneys without obstruction * evaluation to date: * renal ultrasound without obstruction * urine electrolytes are prerenal * urine eosinophils negative * CPK mildly elevated but trending down - not high enough to affect kidneys * urine output still remains low * In spite of this, the creatinine is stable. This may be reflective of her muscle mass. * BUN is on the rise but not to significant enough levels to consider dialysis at this point. * Hopefully renal function will improve before she needs that. (2) Chronic kidney disease, stage 3b: Code(s): N18.32 - Chronic kidney disease, stage 3b Status: Chronic Assessment and Plan: * baseline creatinine seems run around 1.1 - 1.4mg/dl in the last year or so * presumably secondary to hypertension, diabetes, vascular disease, and age- related changes (3) Bowel obstruction: Qualifiers: Intestinal obstruction extent: partial Intestinal obstruction type: unspecified Qualified Code(s): K56.600 - Partial intestinal obstruction, unspecified as to cause Code(s): K56.609 - Unspecified intestinal obstruction, unspecified as to partial versus complete obstruction Status: Acute Assessment and Plan: * due to colon cancer * s/p left colectomy with creation end colostomy, Parish procedure, and takedown splenic flexure * colostomy in place * Now on clear liquids. * Surgery following (4) Acute respiratory failure: Code(s): J96.00 - Acute respiratory failure, unspecified whether with hypoxia or hypercapnia Status: Acute Assessment and Plan: * resolved - extubated * Breathing fine sitting up in a chair. (5) Hypotension: Code(s): I95.9 - Hypotension, unspecified Status: Acute Assessment and Plan: * resolved * Blood pressure doing much better (6) Type 2 diabetes mellitus with diabetic chronic kidney disease: Qualifiers: Chronic kidney disease stage: stage 3 (moderate) Chronic kidney disease stage 3 subtype: stage 3b (GFR 30-44) Diabetes mellitus nursing home insulin use: with nursing home use Qualified Code(s): E11.22 - Type 2 diabetes mellitus with diabetic chronic kidney disease; N18.32 - Chronic kidney disease, stage 3b; Z79.4 - superintendent marine oil terminal (current) use of insulin Code(s): E11.22 - Type 2 diabetes mellitus with diabetic chronic kidney disease Status: Chronic Assessment and Plan: * follow accu-checks * glycemic control per technician semiconductor development Subjective Date/time seen: 09/14/22 10:59 Interval history: Scar is sitting up in a chair. Breathing comfortably. She ate some breakfast. [id number] is in the room Exam Narrative: General: elderly female in NAD Heart: normal S1 and S2; no rub or gallop Lungs: clear anteriorly Abdomen: soft with hypoactive bowel sounds; colostomy in place Extremities: no cyanosis or clubbing; no edema Skin: no rash
--- NOTE | 2022-09-14 10:59 | PM.PNNEP ---
Progress Note: A&P Assessment and Plan (1) IVAN (acute kidney injury): Code(s): N17.9 - Acute kidney failure, unspecified Status: Acute Assessment and Plan: multifactorial: recent surgery. Recovering from this quite well. hypotension/hemodynamic instability . Blood pressure seems better. prerenal factors . He getting some IV fluids and eating and drinking better. ARB therapy BOATSWAIN MATE . This is on hold. contrast exposure (although less likely since that was on 09/07/22) recent imaging of kidneys without obstruction evaluation to date: renal ultrasound without obstruction urine electrolytes are prerenal urine eosinophils negative CPK mildly elevated but trending down - not high enough to affect kidneys urine output still remains low In spite of this, the creatinine is stable. This may be reflective of her muscle mass. BUN is on the rise but not to significant enough levels to consider dialysis at this point. Hopefully renal function will improve before she needs that. (2) Chronic kidney disease, stage 3b: Code(s): N18.32 - Chronic kidney disease, stage 3b Status: Chronic Assessment and Plan: baseline creatinine seems run around 1.1 - 1.4mg/dl in the last year or so presumably secondary to hypertension, diabetes, vascular disease, and age-related changes (3) Bowel obstruction: Qualifiers: Intestinal obstruction extent: partial Intestinal obstruction type: unspecified Qualified Code(s): K56.600 - Partial intestinal obstruction, unspecified as to cause Code(s): K56.609 - Unspecified intestinal obstruction, unspecified as to partial versus complete obstruction Status: Acute Assessment and Plan: due to colon cancer s/p left colectomy with creation end colostomy, Parish procedure, and takedown splenic flexure colostomy in place Now on clear liquids. Surgery following (4) Acute respiratory failure: Code(s): J96.00 - Acute respiratory failure, unspecified whether with hypoxia or hypercapnia Status: Acute Assessment and Plan: resolved - extubated Breathing fine sitting up in a chair. (5) Hypotension: Code(s): I95.9 - Hypotension, unspecified Status: Acute Assessment and Plan: resolved Blood pressure doing much better (6) Type 2 diabetes mellitus with diabetic chronic kidney disease: Qualifiers: Chronic kidney disease stage: stage 3 (moderate) Chronic kidney disease stage 3 subtype: stage 3b (GFR 30-44) Diabetes mellitus shelter insulin use: with roasterman use Qualified Code(s): E11.22 - Type 2 diabetes mellitus with diabetic chronic kidney disease; N18.32 - Chronic kidney disease, stage 3b; Z79.4 - [facility] (current) use of insulin Code(s): E11.22 - Type 2 diabetes mellitus with diabetic chronic kidney disease Status: Chronic Assessment and Plan: follow accu-checks glycemic control per hardware trainer Subjective Date/time seen: 09/14/22 10:59 Interval history: Scar is sitting up in a chair. Breathing comfortably. She ate some breakfast. [id number] is in the room Exam Narrative: General: elderly female in NAD Heart: normal S1 and S2; no rub or gallop Lungs: clear anteriorly Abdomen: soft with hypoactive bowel sounds; colostomy in place Extremities: no cyanosis or clubbing; no edema Skin: no rash Objective Data Vital Signs Vital Signs: Vital Signs - 24 hr 09/13/22 12:00 09/13/22 12:00 09/13/22 12:00 Temperature 98.2 F Pulse Rate 84 84 Respiratory Rate 18 Blood Pressure 138/59 L Pulse Oximetry 100 95 Oxygen Delivery Room Air Fraction of Inspired Oxygen 09/13/22 14:00 09/13/22 16:00 09/13/22 14:00 Temperature Pulse Rate 81 81 81 Respiratory Rate 18 Blood Pressure 117/96 H Pulse Oximetry 98 Oxygen Delivery Fraction of Inspired Oxygen
--- NOTE | 2022-09-14 11:01 | PM.IMPN ---
Progress Note: A&P Assessment and Plan (1) Bowel obstruction: Qualifiers: Intestinal obstruction extent: partial Intestinal obstruction type: unspecified Qualified Code(s): K56.600 - Partial intestinal obstruction, unspecified as to cause Code(s): K56.609 - Unspecified intestinal obstruction, unspecified as to partial versus complete obstruction Status: Acute Assessment and Plan: Patient found to have a sigmoid stricture and partial bowel obstruction. Now status post Left colectomy with creation end colostomy, Parish procedure, takedown splenic flexure 6/ Colostomy in place with stool output Diet started. ADAT Pathology: diverticulitis with necrosis, calcification, perforation and fibrosis but negative for malignancy. Management per surgery WBC normal now. Not currently on abx. (2) Acute respiratory failure: Code(s): J96.00 - Acute respiratory failure, unspecified whether with hypoxia or hypercapnia Status: Acute Assessment and Plan: Acute Respiratory failure secondary to general anesthesia and hypotension. Patient able to be extubated on 09/12. Patient now weaned to room air. Encourage IS use. Resolved (3) Stricture of sigmoid colon: Code(s): K56.699 - Other intestinal obstruction unspecified as to partial versus complete obstruction Status: Acute Assessment and Plan: See above. (4) Hypotension: Code(s): I95.9 - Hypotension, unspecified Status: Acute Assessment and Plan: Likely secondary to general anesthesia and volume loss Status post IV fluid bolus and PRBC transfusion Blood pressure has improved and patient is not requiring any vasopressors Did require albumin for HoTN evening of 09/12. Remains on IV fluid at low dose. Continue monitor closely (5) Delirium: Code(s): R41.0 - Disorientation, unspecified Status: Acute Assessment and Plan: Patient had issues with delirium prior to surgery while on the floor and pulled out lines and tubes multiple times. She was started on Seroquel which was held after surgery but now resumed Precedex stopped. Continue Seroquel (6) Acute on chronic renal failure: Code(s): N17.9 - Acute kidney failure, unspecified; N18.9 - Chronic kidney disease, unspecified Status: Acute Assessment and Plan: Patient has chronic kidney disease with baseline Cr 1.1-1.3 Creatinine 1.4 on admission but has climbed to 2.0 CT done recently did not show any stones or hydronephrosis CK level 1010 Likely multifactorial secondary to surgery, diverticulitis, hypotension and contrast Patient has received adequate amount of IV fluids. Treated with albumin IV fluids resumed at low dose Nephrology consulted and appreciate their input. Cr unchanged today. UOP still poor. Monitor urine output electrolytes and creatinine (7) Type 2 diabetes mellitus with diabetic chronic kidney disease: Qualifiers: Chronic kidney disease stage: stage 3 (moderate) Chronic kidney disease stage 3 subtype: stage 3b (GFR 30-44) Diabetes mellitus correction insulin use: with correction use Qualified Code(s): E11.22 - Type 2 diabetes mellitus with diabetic chronic kidney disease; N18.32 - Chronic kidney disease, stage 3b; Z79.4 - assisted (current) use of insulin Code(s): E11.22 - Type 2 diabetes mellitus with diabetic chronic kidney disease Status: Chronic Assessment and Plan: A1c 6.2. The patient's blood glucose was reviewed on 09/14 Glucose remains well controlled. Continue AccuCheks covering with sliding scale. Hypoglycemia protocol available as needed. Continue to monitor (8) Anemia: Code(s): D64.9 - Anemia, unspecified Status: Acute Assessment and Plan: Hgb 11 range prior to surgery. She had received 2 units of PRBC intraoperatively on 09/10 Hemoglobin trended down to 7-8 range No obvious signs of bleed Continue to monitor closely [place]
--- NOTE | 2022-09-14 11:28 | PCNFU ---
Nutrition Follow-Up Complete: Severe Malnutrition related to inadequate protein-energy intake in the setting of acute disease (small bowel obstruction) as evidenced by < EER for > 7 days (NPO x 4 days and poor po intake reported at home <75% of estimated needs with significant weight loss of 6% in the past 1 month. Goal: Meet estimated nutritional needs Patient is progressing towards goal. We will continue current goal. Pt current nutrition is Full liquids advancing to Soft and Bite Sized, Level 6/DBCC Last recorded weight is 79.7 kg. Bowel Motility:+Bm reported 09/14 Labs Reviewed:Cr 2.0,GFR 24, BUN 40, NA 133, Alb 3.0 Meds Noted:LR, NovoLog Skin: WNL Additional Notes: Patient is tolerating clear liquids. Plans to advance as tolerated to soft and bite sized, Level 6/DBCC. Diet supplements of Glucerna shakes being added today BID for additional 240 kcals and 10 gms protein. Agree with diet orders. Will monitor weight, labs, oral intake every 3 days.
--- NOTE | 2022-09-14 12:27 | PCPTNOTE ---
On 09/14/22, the student, [Reina Christina], provided care and completed [facility] documentation on this patient. I have reviewed the student's documentation and agree with the findings.
[2022-09-14 12:34] LABS: Glucose Point of Care 164 mg/dl (65-105)
--- NOTE | 2022-09-14 13:39 | PCOTNOTE ---
Attempted to see pt. for occupational therapy evaluation. Pt. sleeping soundly in bed, waking up just enough to decline occupational therapy services at this time. Nursing aware. Following
[2022-09-14 17:13] LABS: Glucose Point of Care 148 mg/dl (65-105)
--- NOTE | 2022-09-14 19:13 | PC.NURSE ---
This patient, Scar Sewell, was transferred to [facility] on 09/14/22 at 1913. Personal belongings sent with patient. Report given to WILMA Bautista. Appropriate documentation sent with patient.
[2022-09-14 21:00] LABS: Glucose Point of Care 141 mg/dl (65-105)
[2022-09-14] MEDS: QUEtiapine FUMARATE 25 MG TABLET FEED TUBE (21:07)
[2022-09-14] MEDS: FAMOTIDINE 20 MG TABLET PO (21:07)
[2022-09-15] VITALS (16 sets, daily range): BP systolic 141–177; BP diastolic 52–80; PULSE 77–88; RESP 16–20; TEMP 36.3–36.9; O2SAT 95–99
[2022-09-15] MEDS: LACTATED RINGERS 1,000 ML 50 ML IV CONT ×2 (00:42→23:37)
[2022-09-15] MEDS: CENTRAL LINE FLUSH 10 ML IV PUSH ×4 (05:14→20:39)
[2022-09-15 05:25] LABS: Hematocrit 25.8 % (37.0-47.0); Hemoglobin 8.3 g/dL (12.0-15.0); Mean Corpuscular HGB Conc 32.2 g/dl (32-36); Mean Corpuscular Hemoglobin 28.8 pg (26-34); Mean Corpuscular Volume 89.6 fl (80-100); Mean Platelet Volume 9.5 fl (7.4-10.4); Platelet Count Result 171 k/mm3 (150-375); Red Blood Count 2.88 M/mm3 (4.2-5.4); Red Cell Distribution Width 16.4 % (11.5-14.5); White Blood Count 6.9 K/mm3 (4.5-10.0)
[2022-09-15 05:38] LABS: Alanine Aminotransferase 13 U/L (6-35); Albumin Level 2.7 g/dL (3.5-5.1); Alkaline Phosphatase 51 U/L (38-126); Anion Gap 2 mmol/L (8-16); Aspartate Amino Transferase 24 U/L (14-36); Bilirubin,Total 0.8 mg/dL (0.2-1.3); Blood Urea Nitrogen 40 mg/dL (7-17); Calcium 7.9 mg/dL (8.4-10.2); Carbon Dioxide 26 mmol/L (22-30); Chloride 104 mmol/L (98-107); Estimated CRCL calculation 22 ml/min; Estimated Glomerular Filt Rate 27; Glucose 119 mg/dL (65-110); Phosphorus 2.9 mg/dL (2.5-4.5); Potassium 3.9 mmol/L (3.4-5.0); Sodium 132 mmol/L (137-145)
[2022-09-15 08:25] LABS: Glucose Point of Care 110 mg/dl (65-105)
[2022-09-15] MEDS: ESCITALOPRAM OXALATE 10 MG TABLET PO (09:06)
[2022-09-15] MEDS: FAMOTIDINE 20 MG TABLET PO ×2 (09:06→20:39)
[2022-09-15] MEDS: ENOXAPARIN 30 MG/0.3 ML SYRINGE SUB-Q (09:07)
--- NOTE | 2022-09-15 09:19 | PCOTNOTE ---
Attempted to see for OT evaluation. Patient eating breakfast. Will continue to attempt.
--- NOTE | 2022-09-15 10:08 | P.PNNP_ITS ---
Progress Note: A&P Assessment and Plan (1) IVAN (acute kidney injury): Code(s): N17.9 - Acute kidney failure, unspecified Status: Acute Assessment and Plan: * acute kidney injury * etiology is most likely multifactorial: * recent surgery. Recovering from this quite well. * hypotension/hemodynamic instability . Blood pressure seems better. * prerenal factors . He getting some IV fluids and eating and drinking better. * ARB therapy BUILDING CARPENTER HELPER . This is on hold. * contrast exposure (although less likely since that was on 09/07/22) * recent imaging of kidneys without obstruction * evaluation to date: * renal ultrasound without obstruction * urine electrolytes are prerenal * urine eosinophils negative * CPK mildly elevated but trended down - not high enough to affect kidneys * urine output is improved. She had 600cc overnight. * Her creatinine has fallen and her BUN stopped rising. * Check another set of blood work tomorrow (2) Chronic kidney disease, stage 3b: Code(s): N18.32 - Chronic kidney disease, stage 3b Status: Chronic Assessment and Plan: * baseline creatinine seems run around 1.1 - 1.4mg/dl in the last year or so * presumably secondary to hypertension, diabetes, vascular disease, and age- related changes (3) Bowel obstruction: Qualifiers: Intestinal obstruction extent: partial Intestinal obstruction type: unspecified Qualified Code(s): K56.600 - Partial intestinal obstruction, unspecified as to cause Code(s): K56.609 - Unspecified intestinal obstruction, unspecified as to partial versus complete obstruction Status: Acute Assessment and Plan: * due to colon cancer * s/p left colectomy with creation end colostomy, Parish procedure, and takedown splenic flexure * colostomy in place * Now on clear liquids. * Surgery following (4) Acute respiratory failure: Code(s): J96.00 - Acute respiratory failure, unspecified whether with hypoxia or hypercapnia Status: Acute Assessment and Plan: * resolved (5) Hypotension: Code(s): I95.9 - Hypotension, unspecified Status: Acute Assessment and Plan: * resolved (6) Type 2 diabetes mellitus with diabetic chronic kidney disease: Qualifiers: Diabetes mellitus terminal superintendent insulin use: with alf use Chronic kidney disease stage: stage 3 (moderate) Chronic kidney disease stage 3 subtype: stage 3b (GFR 30-44) Qualified Code(s): E11.22 - Type 2 diabetes mellitus with diabetic chronic kidney disease; N18.32 - Chronic kidney disease, stage 3b; Z79.4 - [facility] (current) use of insulin Code(s): E11.22 - Type 2 diabetes mellitus with diabetic chronic kidney disease Status: Chronic Assessment and Plan: * follow accu-checks * glycemic control per echocardiograph tech Subjective Date/time seen: 09/15/22 10:08 Interval history: Scar is resting comfortably in bed. No chest pain or shortness of breath. Exam Narrative: General: elderly female in NAD Heart: normal S1 and S2; no rub or gallop Lungs: clear bilaterally Abdomen: soft with hypoactive bowel sounds; colostomy in place Extremities: no cyanosis or clubbing; no edema Skin: no rash Or subcu nodules Objective Data Vital Signs Vital Signs: Vital Signs - 24 hr 09/14/22 12:00 09/14/22 12:00 09/14/22 12:00 Temperature 97.4 F L
--- NOTE | 2022-09-15 10:08 | PM.PNNEP ---
Progress Note: A&P Assessment and Plan (1) IVAN (acute kidney injury): Code(s): N17.9 - Acute kidney failure, unspecified Status: Acute Assessment and Plan: acute kidney injury etiology is most likely multifactorial: recent surgery. Recovering from this quite well. hypotension/hemodynamic instability . Blood pressure seems better. prerenal factors . He getting some IV fluids and eating and drinking better. ARB therapy COMPUTER CLERK . This is on hold. contrast exposure (although less likely since that was on 09/07/22) recent imaging of kidneys without obstruction evaluation to date: renal ultrasound without obstruction urine electrolytes are prerenal urine eosinophils negative CPK mildly elevated but trended down - not high enough to affect kidneys urine output is improved. She had 600cc overnight. Her creatinine has fallen and her BUN stopped rising. Check another set of blood work tomorrow (2) Chronic kidney disease, stage 3b: Code(s): N18.32 - Chronic kidney disease, stage 3b Status: Chronic Assessment and Plan: baseline creatinine seems run around 1.1 - 1.4mg/dl in the last year or so presumably secondary to hypertension, diabetes, vascular disease, and age-related changes (3) Bowel obstruction: Qualifiers: Intestinal obstruction extent: partial Intestinal obstruction type: unspecified Qualified Code(s): K56.600 - Partial intestinal obstruction, unspecified as to cause Code(s): K56.609 - Unspecified intestinal obstruction, unspecified as to partial versus complete obstruction Status: Acute Assessment and Plan: due to colon cancer s/p left colectomy with creation end colostomy, Parish procedure, and takedown splenic flexure colostomy in place Now on clear liquids. Surgery following (4) Acute respiratory failure: Code(s): J96.00 - Acute respiratory failure, unspecified whether with hypoxia or hypercapnia Status: Acute Assessment and Plan: resolved (5) Hypotension: Code(s): I95.9 - Hypotension, unspecified Status: Acute Assessment and Plan: resolved (6) Type 2 diabetes mellitus with diabetic chronic kidney disease: Qualifiers: Diabetes mellitus fpc insulin use: with termite renewal inspector use Chronic kidney disease stage: stage 3 (moderate) Chronic kidney disease stage 3 subtype: stage 3b (GFR 30-44) Qualified Code(s): E11.22 - Type 2 diabetes mellitus with diabetic chronic kidney disease; N18.32 - Chronic kidney disease, stage 3b; Z79.4 - halfway (current) use of insulin Code(s): E11.22 - Type 2 diabetes mellitus with diabetic chronic kidney disease Status: Chronic Assessment and Plan: follow accu-checks glycemic control per route delivery manager Subjective Date/time seen: 09/15/22 10:08 Interval history: Scar is resting comfortably in bed. No chest pain or shortness of breath. Exam Narrative: General: elderly female in NAD Heart: normal S1 and S2; no rub or gallop Lungs: clear bilaterally Abdomen: soft with hypoactive bowel sounds; colostomy in place Extremities: no cyanosis or clubbing; no edema Skin: no rash Or subcu nodules Objective Data Vital Signs Vital Signs: Vital Signs - 24 hr 09/14/22 12:00 09/14/22 12:00 09/14/22 12:00 Temperature 97.4 F L Pulse Rate 79 75 Respiratory Rate 18 Blood Pressure 131/52 L Pulse Oximetry 100 100 Oxygen Delivery Room Air 09/14/22 14:00 09/14/22 14:00 09/14/22 16:00 Temperature Pulse Rate 76 75 76 Respiratory Rate 16 Blood Pressure 126/51 L Pulse Oximetry 100 Oxygen Delivery 09/14/22 16:00 09/14/22 16:00 09/14/22 18:00 Temperature 97.8 F Pulse Rate 76 81 Respiratory Rate 18 Blood Pressure 129/54 L Pulse Oximetry 100 100 Oxygen Delivery Room Air 09/14/22 18:00 09/14/22 20:28 09/14/22 20:00 Temperature
--- NOTE | 2022-09-15 10:32 | PM.PNGS ---
Progress Note: A&P Assessment and Plan (1) Bowel obstruction: Qualifiers: Intestinal obstruction extent: partial Intestinal obstruction type: unspecified Qualified Code(s): K56.600 - Partial intestinal obstruction, unspecified as to cause Code(s): K56.609 - Unspecified intestinal obstruction, unspecified as to partial versus complete obstruction Status: Acute Assessment and Plan: Continue soft diet Increase activity Continue monitoring wound and ostomy Start MiraLax daily (2) Stricture of sigmoid colon: Code(s): K56.699 - Other intestinal obstruction unspecified as to partial versus complete obstruction Status: Acute Assessment and Plan: 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 (3) Acute on chronic renal failure: Code(s): N17.9 - Acute kidney failure, unspecified; N18.9 - Chronic kidney disease, unspecified Status: Acute Assessment and Plan: Creatinine 1.8 this AM (4) Type 2 diabetes mellitus with diabetic chronic kidney disease: Qualifiers: Diabetes mellitus nursing home insulin use: with nursing home use Chronic kidney disease stage: stage 3 (moderate) Chronic kidney disease stage 3 subtype: stage 3b (GFR 30-44) Qualified Code(s): E11.22 - Type 2 diabetes mellitus with diabetic chronic kidney disease; N18.32 - Chronic kidney disease, stage 3b; Z79.4 - care home (current) use of insulin Code(s): E11.22 - Type 2 diabetes mellitus with diabetic chronic kidney disease Status: Chronic (5) foreman/pile driving and erection (current) use of insulin: Code(s): Z79.4 - care home (current) use of insulin Status: Chronic (6) Anemia: Code(s): D64.9 - Anemia, unspecified Status: Acute Assessment and Plan: Hemoglobin slowly increasing. No evidence of bleeding other than during surgery. Subjective Subjective Date/Time Seen: 09/15/22 10:32 Interval history: Patient now in IMU. Tolerating diet. No new events. Exam GI: Inspection: incision (intact with hipolito) GI Palp: Yes Soft to palpation, Yes Tenderness to palpation present (GI) (incisional) and No Guarding due to palpation present (GI) Other: Ostomy slightly fisher at periphery, but dark red in central portion. Patent and functioning with small amount of stool in bag. Objective Data Vital Signs Vital Signs: Vital Signs - 24 hr 09/14/22 12:00 09/14/22 12:00 09/14/22 12:00 Temperature 36.3 C L Pulse Rate 79 75 Respiratory Rate 18 Blood Pressure 131/52 L Pulse Oximetry 100 100 Oxygen Delivery Room Air 09/14/22 14:00 09/14/22 14:00 09/14/22 16:00 Temperature Pulse Rate 76 75 76 Respiratory Rate 16 Blood Pressure 126/51 L Pulse Oximetry 100 Oxygen Delivery 09/14/22 16:00 09/14/22 16:00 09/14/22 18:00 Temperature 36.6 C Pulse Rate 76 81 Respiratory Rate 18 Blood Pressure 129/54 L Pulse Oximetry 100 100 Oxygen Delivery Room Air 09/14/22 18:00 09/14/22 20:28 09/14/22 20:00 Temperature 36.4 C Pulse Rate 81 82 81 Respiratory Rate 18 20 Blood Pressure 140/57 L 145/43 H Pulse Oximetry 100 98 Oxygen Delivery 09/14/22 22:00 09/14/22 23:49 09/15/22 00:00 Temperature 36.4 C Pulse Rate 81 82 80 Respiratory Rate 20 Blood Pressure 134/51 L Pulse Oximetry 98 Oxygen Delivery 09/15/22 04:04 09/15/22 04:00 09/15/22 02:00 Temperature 36.4 C Pulse Rate 85 80 82 Respiratory Rate 20 Blood Pressure 141/52 H Pulse Oximetry 97 Oxygen Delivery 09/15/22 06:00 09/15/22 08:00 09/15/22 08:00 Temperature 36.9 C Pulse Rate 77 88 80 Respiratory Rate 18 Blood Pressure 163/68 H Pulse Oximetry 96 Oxygen Delivery 09/15/22 08:00 09/15/22 10:00 09/15/22 10:24 Temperature Pulse Rate 81 Respiratory Rate Blood Pressure Pulse Oximetry 95 Oxygen Delivery Room Air Room Air Intake/Output Intake/Output: Intake & Output
--- NOTE | 2022-09-15 11:28 | PM.IMPN ---
Progress Note: A&P Assessment and Plan (1) Bowel obstruction: Qualifiers: Intestinal obstruction extent: partial Intestinal obstruction type: unspecified Qualified Code(s): K56.600 - Partial intestinal obstruction, unspecified as to cause Code(s): K56.609 - Unspecified intestinal obstruction, unspecified as to partial versus complete obstruction Status: Acute Assessment and Plan: Patient found to have a sigmoid stricture and partial bowel obstruction status post Left colectomy with creation end colostomy, Parish procedure, takedown splenic flexure on 09/10. Colostomy in place with stool output Pathology: diverticulitis with necrosis, calcification, perforation and fibrosis but negative for malignancy. WBC remains normal. Diet advanced and tolerating this well. Management per surgery Continue PT/OT Remove Davis? Remove central line? (2) Acute respiratory failure: Code(s): J96.00 - Acute respiratory failure, unspecified whether with hypoxia or hypercapnia Status: Acute Assessment and Plan: Acute Respiratory failure secondary to general anesthesia and hypotension. Patient able to be extubated on 09/12. Patient now weaned to room air. Encourage IS use. Resolved (3) Acute on chronic renal failure: Code(s): N17.9 - Acute kidney failure, unspecified; N18.9 - Chronic kidney disease, unspecified Status: Acute Assessment and Plan: Patient has chronic kidney disease with baseline Cr 1.1-1.3 Creatinine 1.4 on admission but has climbed to 2.0 CT done recently did not show any stones or hydronephrosis CK level 1010 -> 399 Likely multifactorial secondary to surgery, diverticulitis, hypotension and contrast Patient has received adequate amount of IV fluids. Treated with albumin IV fluids resumed at low dose Nephrology consulted and appreciate their input. Cr better today. UOP still poor. Monitor urine output electrolytes and creatinine (4) Stricture of sigmoid colon: Code(s): K56.699 - Other intestinal obstruction unspecified as to partial versus complete obstruction Status: Acute Assessment and Plan: See above. (5) Hypotension: Code(s): I95.9 - Hypotension, unspecified Status: Acute Assessment and Plan: Likely secondary to general anesthesia and volume loss Status post IV fluid bolus and PRBC transfusion Blood pressure has improved and patient is not requiring any vasopressors Did require albumin for HoTN evening of 09/12. Remains on IV fluid at low dose. Continue monitor closely. Wean off IVF when able. (6) Delirium: Code(s): R41.0 - Disorientation, unspecified Status: Acute Assessment and Plan: Patient had issues with delirium prior to surgery while on the floor and pulled out lines and tubes multiple times. She was started on Seroquel which was held after surgery but now resumed. Precedex stopped. Mood stable Continue Seroquel (7) Type 2 diabetes mellitus with diabetic chronic kidney disease: Qualifiers: Chronic kidney disease stage: stage 3 (moderate) Chronic kidney disease stage 3 subtype: stage 3b (GFR 30-44) Diabetes mellitus shelter insulin use: with shelter use Qualified Code(s): E11.22 - Type 2 diabetes mellitus with diabetic chronic kidney disease; N18.32 - Chronic kidney disease, stage 3b; Z79.4 - terminal worker (current) use of insulin Code(s): E11.22 - Type 2 diabetes mellitus with diabetic chronic kidney disease Status: Chronic Assessment and Plan: A1c 6.2. The patient's blood glucose was reviewed on 09/15 Glucose remains well controlled. Continue AccuCheks covering with sliding scale. Hypoglycemia protocol available as needed. Continue to monitor (8) Anemia: Code(s): D64.9 - Anemia, unspecified Status: Acute Assessment and Plan: Hgb 11 range prior to surgery. She had received 2 units of PRBC intraoperatively on 09/10
[2022-09-15] MEDS: polyethylene glycoL 3350 17 GM POWD.PACK PO (11:46)
[2022-09-15 12:13] LABS: Glucose Point of Care 128 mg/dl (65-105)
--- NOTE | 2022-09-15 13:17 | PCPTNOTE ---
Patient declined therapy at this time stating she does not feel good. Patient was educated on the benefits of therapy however continued to decline. RN updated.
[2022-09-15 17:00] LABS: Glucose Point of Care 142 mg/dl (65-105)
[2022-09-15 19:41] LABS: Glucose Point of Care 142 mg/dl (65-105)
[2022-09-15] MEDS: QUEtiapine FUMARATE 25 MG TABLET FEED TUBE (20:40)
[2022-09-16] VITALS (15 sets, daily range): BP systolic 145–169; BP diastolic 51–63; PULSE 79–89; RESP 20–24; TEMP 36.3–36.8; O2SAT 95–98
[2022-09-16] MEDS: CENTRAL LINE FLUSH 20 ML IV PUSH (04:12)
[2022-09-16] MEDS: CENTRAL LINE FLUSH 10 ML IV PUSH (04:12)
[2022-09-16 04:20] LABS: Hematocrit 25.6 % (37.0-47.0); Hemoglobin 8.1 g/dL (12.0-15.0); Mean Corpuscular HGB Conc 31.6 g/dl (32-36); Mean Corpuscular Hemoglobin 28.4 pg (26-34); Mean Corpuscular Volume 89.8 fl (80-100); Mean Platelet Volume 9.7 fl (7.4-10.4); Platelet Count Result 193 k/mm3 (150-375); Red Blood Count 2.85 M/mm3 (4.2-5.4); White Blood Count 7.5 K/mm3 (4.5-10.0)
[2022-09-16] MEDS: hydrALAZINE HCL 20 MG/ML VIAL 10 MG IV PUSH (04:22)
[2022-09-16 04:31] LABS: Alanine Aminotransferase 13 U/L (6-35); Albumin Level 2.6 g/dL (3.5-5.1); Alkaline Phosphatase 59 U/L (38-126); Anion Gap 3 mmol/L (8-16); Aspartate Amino Transferase 21 U/L (14-36); Bilirubin,Total 0.8 mg/dL (0.2-1.3); Blood Urea Nitrogen 35 mg/dL (7-17); Calcium 7.7 mg/dL (8.4-10.2); Carbon Dioxide 25 mmol/L (22-30); Chloride 102 mmol/L (98-107); Estimated CRCL calculation 27 ml/min; Estimated Glomerular Filt Rate 33; Glucose 120 mg/dL (65-110); Magnesium 1.9 mg/dL (1.6-2.3); Phosphorus 2.6 mg/dL (2.5-4.5); Potassium 3.8 mmol/L (3.4-5.0); Sodium 130 mmol/L (137-145)
[2022-09-16 08:21] LABS: Glucose Point of Care 121 mg/dl (65-105)
--- NOTE | 2022-09-16 08:35 | P.PNNP_ITS ---
Progress Note: A&P Assessment and Plan (1) IVAN (acute kidney injury): Code(s): N17.9 - Acute kidney failure, unspecified Status: Acute Assessment and Plan: * acute kidney injury * etiology is most likely multifactorial: * recent surgery. Recovering from this quite well. * hypotension/hemodynamic instability . Blood pressure seems better. * prerenal factors . He getting some IV fluids and eating and drinking better. 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 * contrast exposure (although less likely since that was on 09/07/22 * evaluation to date: * renal ultrasound without obstruction * urine electrolytes are prerenal * urine eosinophils negative * CPK mildly elevated but trended down - not high enough to affect kidneys * urine output is improved. She had 1200cc yesterday. * Her creatinine continues to fall. * Repeat labs tomorrow (2) Chronic kidney disease, stage 3b: Code(s): N18.32 - Chronic kidney disease, stage 3b Status: Chronic Assessment and Plan: * baseline creatinine seems run around 1.1 - 1.4mg/dl in the last year or so * presumably secondary to hypertension, diabetes, vascular disease, and age- related changes (3) Bowel obstruction: Qualifiers: Intestinal obstruction extent: partial Intestinal obstruction type: unspecified Qualified Code(s): K56.600 - Partial intestinal obstruction, unspecified as to cause Code(s): K56.609 - Unspecified intestinal obstruction, unspecified as to partial versus complete obstruction Status: Acute Assessment and Plan: * due to colon cancer * s/p left colectomy with creation end colostomy, Parish procedure, and takedown splenic flexure * colostomy in place * Now on regular diet. * Surgery following (4) Acute respiratory failure: Code(s): J96.00 - Acute respiratory failure, unspecified whether with hypoxia or hypercapnia Status: Acute Assessment and Plan: * resolved (5) Hypotension: Code(s): I95.9 - Hypotension, unspecified Status: Acute Assessment and Plan: * resolved (6) Type 2 diabetes mellitus with diabetic chronic kidney disease: Qualifiers: Chronic kidney disease stage: stage 3 (moderate) Chronic kidney disease stage 3 subtype: stage 3b (GFR 30-44) Diabetes mellitus long term care administrator insulin use: with mcc use Qualified Code(s): E11.22 - Type 2 diabetes mellitus with diabetic chronic kidney disease; N18.32 - Chronic kidney disease, stage 3b; Z79.4 - superintendent terminal (current) use of insulin Code(s): E11.22 - Type 2 diabetes mellitus with diabetic chronic kidney disease Status: Chronic Assessment and Plan: * follow accu-checks * glycemic control per novelty dipper Subjective Date/time seen: 09/16/22 08:35 Interval history: Scar is resting comfortably in bed. No chest pain or shortness of breath. Exam Narrative: General: elderly female in NAD Heart: RRR no rub or gallop Lungs: clear to ausc Abdomen: soft with hypoactive bowel sounds; colostomy in place Extremities: no cyanosis or clubbing; no edema Skin: no rash Objective Data Vital Signs Vital Signs: Vital Signs - 24 hr 09/15/22 10:00 09/15/22 10:24 09/15/22 12:00 Temperature 97.6 F Pulse Rate 81 83 Respiratory Rate 20 Blood Pressure 151/56 H Pulse Oximetry
--- NOTE | 2022-09-16 08:35 | PM.PNNEP ---
Progress Note: A&P Assessment and Plan (1) IVAN (acute kidney injury): Code(s): N17.9 - Acute kidney failure, unspecified Status: Acute Assessment and Plan: acute kidney injury etiology is most likely multifactorial: recent surgery. Recovering from this quite well. hypotension/hemodynamic instability . Blood pressure seems better. prerenal factors . He getting some IV fluids and eating and drinking better. 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 contrast exposure (although less likely since that was on 09/07/22 evaluation to date: renal ultrasound without obstruction urine electrolytes are prerenal urine eosinophils negative CPK mildly elevated but trended down - not high enough to affect kidneys urine output is improved. She had 1200cc yesterday. Her creatinine continues to fall. Repeat labs tomorrow (2) Chronic kidney disease, stage 3b: Code(s): N18.32 - Chronic kidney disease, stage 3b Status: Chronic Assessment and Plan: baseline creatinine seems run around 1.1 - 1.4mg/dl in the last year or so presumably secondary to hypertension, diabetes, vascular disease, and age-related changes (3) Bowel obstruction: Qualifiers: Intestinal obstruction extent: partial Intestinal obstruction type: unspecified Qualified Code(s): K56.600 - Partial intestinal obstruction, unspecified as to cause Code(s): K56.609 - Unspecified intestinal obstruction, unspecified as to partial versus complete obstruction Status: Acute Assessment and Plan: due to colon cancer s/p left colectomy with creation end colostomy, Parish procedure, and takedown splenic flexure colostomy in place Now on regular diet. Surgery following (4) Acute respiratory failure: Code(s): J96.00 - Acute respiratory failure, unspecified whether with hypoxia or hypercapnia Status: Acute Assessment and Plan: resolved (5) Hypotension: Code(s): I95.9 - Hypotension, unspecified Status: Acute Assessment and Plan: resolved (6) Type 2 diabetes mellitus with diabetic chronic kidney disease: Qualifiers: Chronic kidney disease stage: stage 3 (moderate) Chronic kidney disease stage 3 subtype: stage 3b (GFR 30-44) Diabetes mellitus buttermaker insulin use: with buttermaker use Qualified Code(s): E11.22 - Type 2 diabetes mellitus with diabetic chronic kidney disease; N18.32 - Chronic kidney disease, stage 3b; Z79.4 - manager intermediate (current) use of insulin Code(s): E11.22 - Type 2 diabetes mellitus with diabetic chronic kidney disease Status: Chronic Assessment and Plan: follow accu-checks glycemic control per rn traveling Subjective Date/time seen: 09/16/22 08:35 Interval history: Scar is resting comfortably in bed. No chest pain or shortness of breath. Exam Narrative: General: elderly female in NAD Heart: RRR no rub or gallop Lungs: clear to ausc Abdomen: soft with hypoactive bowel sounds; colostomy in place Extremities: no cyanosis or clubbing; no edema Skin: no rash Objective Data Vital Signs Vital Signs: Vital Signs - 24 hr 09/15/22 10:00 09/15/22 10:24 09/15/22 12:00 Temperature 97.6 F Pulse Rate 81 83 Respiratory Rate 20 Blood Pressure 151/56 H Pulse Oximetry 95 99 Oxygen Delivery Room Air 09/15/22 12:00 09/15/22 12:00 09/15/22 14:00 Temperature Pulse Rate 82 85 Respiratory Rate Blood Pressure Pulse Oximetry Oxygen Delivery Room Air 09/15/22 16:00 09/15/22 16:00 09/15/22 16:00 Temperature 97.4 F L Pulse Rate 84 85 Respiratory Rate 16 Blood Pressure 177/66 H Pulse Oximetry 98 Oxygen Delivery Room Air 09/15/22 18:00 09/15/22 19:41 09/15/22 20:00 Temperature 97.6 F Pulse Rate 85 84 84 Respiratory Rate 20 20 Blood Pressure 142/67 H Pulse Oximetry 97 97 Oxygen Delivery Room Air
[2022-09-16] MEDS: ACETAMINOPHEN 325 MG TABLET 650 MG FEED TUBE (09:09)
[2022-09-16] MEDS: FAMOTIDINE 20 MG TABLET PO ×2 (09:10→20:41)
[2022-09-16] MEDS: polyethylene glycoL 3350 17 GM POWD.PACK PO (09:10)
[2022-09-16] MEDS: ENOXAPARIN 30 MG/0.3 ML SYRINGE SUB-Q (09:11)
[2022-09-16] MEDS: ESCITALOPRAM OXALATE 10 MG TABLET PO (09:11)
--- NOTE | 2022-09-16 09:48 | PM.IMPN ---
Progress Note: A&P Assessment and Plan (1) Bowel obstruction: Qualifiers: Intestinal obstruction extent: partial Intestinal obstruction type: unspecified Qualified Code(s): K56.600 - Partial intestinal obstruction, unspecified as to cause Code(s): K56.609 - Unspecified intestinal obstruction, unspecified as to partial versus complete obstruction Status: Acute Assessment and Plan: Patient found to have a sigmoid stricture and partial bowel obstruction status post left colectomy with creation of end colostomy, Parish procedure, takedown splenic flexure on 09/10. Colostomy in place with stool output Pathology: diverticulitis with necrosis, calcification, perforation and fibrosis but negative for malignancy. WBC remains normal. Diet advanced and tolerating this well. Management per surgery Continue PT/OT Remove central line. (2) Acute respiratory failure: Code(s): J96.00 - Acute respiratory failure, unspecified whether with hypoxia or hypercapnia Status: Acute Assessment and Plan: Acute Respiratory failure secondary to general anesthesia and hypotension. Patient able to be extubated on 09/12. Patient now weaned to room air. Encourage IS use. Resolved (3) Acute on chronic renal failure: Code(s): N17.9 - Acute kidney failure, unspecified; N18.9 - Chronic kidney disease, unspecified Status: Acute Assessment and Plan: Patient has chronic kidney disease with baseline Cr 1.1-1.3 Creatinine 1.4 on admission but has climbed to 2.0 CT done recently did not show any stones or hydronephrosis CK level 1010 -> 399 Likely multifactorial secondary to surgery, diverticulitis, hypotension and contrast Patient has received adequate amount of IV fluids and also treated with albumin IV fluids resumed at low dose Nephrology consulted and appreciate their input. UOP better. Cr better today at 1.5 Monitor urine output, electrolytes and creatinine. Remove Davis when okay with nephrology (4) Stricture of sigmoid colon: Code(s): K56.699 - Other intestinal obstruction unspecified as to partial versus complete obstruction Status: Acute Assessment and Plan: See above. (5) Hypotension: Code(s): I95.9 - Hypotension, unspecified Status: Acute Assessment and Plan: Likely secondary to general anesthesia and volume loss Status post IV fluid bolus and PRBC transfusion Blood pressure has improved and patient is not requiring any vasopressors Did require albumin for HoTN evening of 09/12 but nothing since. Remains on IV fluid at low dose. Continue monitor closely. Wean off IVF when able. (6) Delirium: Code(s): R41.0 - Disorientation, unspecified Status: Acute Assessment and Plan: Patient had issues with delirium prior to surgery while on the floor and pulled out lines and tubes multiple times. She was started on Seroquel which was held after surgery but now resumed. Precedex stopped. Mood stable but persistently somnolent Continue Seroquel but decrease dose (7) Type 2 diabetes mellitus with diabetic chronic kidney disease: Qualifiers: Chronic kidney disease stage: stage 3 (moderate) Chronic kidney disease stage 3 subtype: stage 3b (GFR 30-44) Diabetes mellitus half-way insulin use: with electrical power engineer use Qualified Code(s): E11.22 - Type 2 diabetes mellitus with diabetic chronic kidney disease; N18.32 - Chronic kidney disease, stage 3b; Z79.4 - community resource consultant (current) use of insulin Code(s): E11.22 - Type 2 diabetes mellitus with diabetic chronic kidney disease Status: Chronic Assessment and Plan: A1c 6.2. The patient's blood glucose was reviewed on 09/16 Glucose remains well controlled. Continue AccuCheks covering with sliding scale. Hypoglycemia protocol available as needed. Continue to monitor (8) Anemia: Code(s): D64.9 - Anemia, unspecified Status: Acute Assessmen
--- NOTE | 2022-09-16 10:00 | ECG_ITS ---
Measurements Intervals [place] Rate: 84 P: 38 AR: 150 QRS: -50 QRSD: 106 T: 50 QT: 389 QTc: 462 Interpretive Statements SINUS RHYTHM LEFT ANTERIOR FASCICULAR BLOCK OW QRS VOLTAGE IN EXTREMITY LEADS [QRS DEFLECTION < 0.5 mV IN LIMB LEADS] ABNORMAL ECG COMPARED TO ECG 09/07/2022 09:51:58 NO DIFFERENCE Electronically Signed On 09-17-2022 11:12:47 CDT by Kashif Wynn M.D.
--- NOTE | 2022-09-16 10:19 | PM.PNGS ---
Progress Note: A&P Assessment and Plan (1) Bowel obstruction: Qualifiers: Intestinal obstruction extent: partial Intestinal obstruction type: unspecified Qualified Code(s): K56.600 - Partial intestinal obstruction, unspecified as to cause Code(s): K56.609 - Unspecified intestinal obstruction, unspecified as to partial versus complete obstruction Status: Acute Assessment and Plan: Continue soft diet Increase activity Continue monitoring wound and ostomy Start MiraLax daily (2) Stricture of sigmoid colon: Code(s): K56.699 - Other intestinal obstruction unspecified as to partial versus complete obstruction Status: Acute Assessment and Plan: 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 (3) Acute on chronic renal failure: Code(s): N17.9 - Acute kidney failure, unspecified; N18.9 - Chronic kidney disease, unspecified Status: Acute Assessment and Plan: Creatinine 1.5 this AM (4) Type 2 diabetes mellitus with diabetic chronic kidney disease: Qualifiers: Diabetes mellitus penitentiary insulin use: with penitentiary use Chronic kidney disease stage: stage 3 (moderate) Chronic kidney disease stage 3 subtype: stage 3b (GFR 30-44) Qualified Code(s): E11.22 - Type 2 diabetes mellitus with diabetic chronic kidney disease; N18.32 - Chronic kidney disease, stage 3b; Z79.4 - correction (current) use of insulin Code(s): E11.22 - Type 2 diabetes mellitus with diabetic chronic kidney disease Status: Chronic (5) assistant terminal manager (current) use of insulin: Code(s): Z79.4 - correction (current) use of insulin Status: Chronic (6) Anemia: Code(s): D64.9 - Anemia, unspecified Status: Acute Assessment and Plan: Hemoglobin slowly increasing. No evidence of bleeding other than during surgery. Subjective Subjective Date/Time Seen: 09/16/22 10:19 Interval history: Tolerating diet. No new changes. Exam GI: Inspection: incision (intact with hipolito) GI Palp: Yes Soft to palpation, Yes Tenderness to palpation present (GI) (incisional) and No Guarding due to palpation present (GI) Other: Ostomy slightly fisher at periphery, but dark red in central portion. Patent and functioning with small amount of stool and gas in bag. Objective Data Vital Signs Vital Signs: Vital Signs - 24 hr 09/15/22 10:24 09/15/22 12:00 09/15/22 12:00 Temperature 36.4 C Pulse Rate 83 82 Respiratory Rate 20 Blood Pressure 151/56 H Pulse Oximetry 95 99 Oxygen Delivery Room Air 09/15/22 12:00 09/15/22 14:00 09/15/22 16:00 Temperature 36.3 C L Pulse Rate 85 84 Respiratory Rate 16 Blood Pressure 177/66 H Pulse Oximetry 98 Oxygen Delivery Room Air 09/15/22 16:00 09/15/22 16:00 09/15/22 18:00 Temperature Pulse Rate 85 85 Respiratory Rate Blood Pressure Pulse Oximetry Oxygen Delivery Room Air 09/15/22 19:41 09/15/22 20:00 09/15/22 23:33 Temperature 36.4 C 36.4 C L Pulse Rate 84 84 80 Respiratory Rate 20 20 20 Blood Pressure 142/67 H 144/80 H Pulse Oximetry 97 97 98 Oxygen Delivery Room Air 09/16/22 00:00 09/15/22 20:00 09/15/22 22:00 Temperature Pulse Rate 80 85 86 Respiratory Rate 20 Blood Pressure Pulse Oximetry 98 Oxygen Delivery Room Air 09/16/22 00:00 09/16/22 01:47 09/16/22 04:38 Temperature 36.3 C L Pulse Rate 82 82 79 Respiratory Rate 20 Blood Pressure 164/55 H Pulse Oximetry 98 Oxygen Delivery 09/16/22 04:00 09/16/22 04:00 09/16/22 05:11 Temperature Pulse Rate 79 82 81 Respiratory Rate 20 Blood Pressure Pulse Oximetry 98 Oxygen Delivery Room Air 09/16/22 08:00 Temperature 36.8 C Pulse Rate 84 Respiratory Rate 20 Blood Pressure 145/51 H Pulse Oximetry 96 Oxygen Delivery Intake/Output Intake/Output: Intake & Output 09/13/22 09/14/22 09/15/22 09/16/22 23:59 23:59 23:59 23:59
[2022-09-16] MEDS: MAGNESIUM SULF 1 GM/D5W 100 ML 1 GM/100 ML BAG IVPB (11:22)
[2022-09-16] MEDS: POTASSIUM CHLORIDE 20 MEQ ER TABLET PO (11:22)
[2022-09-16 12:15] LABS: Glucose Point of Care 135 mg/dl (65-105)
[2022-09-16] MEDS: ONDANSETRON INJ 4 MG/2 ML VIAL IV PUSH (17:15)
[2022-09-16 17:48] LABS: Glucose Point of Care 137 mg/dl (65-105)
[2022-09-16 19:44] LABS: Glucose Point of Care 139 mg/dl (65-105)
[2022-09-16] MEDS: LACTATED RINGERS 1,000 ML 50 ML IV CONT (20:38)
[2022-09-16] MEDS: QUEtiapine FUMARATE 12.5 MG TABLET FEED TUBE (20:41)
[2022-09-17] VITALS (17 sets, daily range): BP systolic 99–168; BP diastolic 50–60; PULSE 73–89; RESP 16–20; TEMP 36.3–36.8; O2SAT 95–100
--- NOTE | 2022-09-17 | ECHO_ITS ---
Patient Info Name: Scar Sewell Age: 87 years : 1935 Gender: Female Ht: 62 in Wt: 180 lbs BSA: 1.92 m2 HR: 80 bpm BP: 168 / 60 mmHg Heart Rhythm: Sinus Rhythm Technical Quality: Fair Exam Date: 09/17/2022 2:48 PM Exam Location: [facility] Patient Status: Inpatient Admit Date: 09/07/2022 Staff Ordering Physician: Zbigniew Mazariegos MD Nurse Manager: Rebeca Remy RDCS Attending Provider: Billy Levine MD Exam Type: CA echo doppler color flow Study Info Indications - EKG CHANGES - SVT Complete two-dimensional, color flow and Doppler transthoracic echocardiogram is performed. Summary 1. Complete two-dimensional, color flow and Doppler transthoracic echocardiogram is performed. 2. Left ventricular chamber dimension is normal. 3. Left ventricular systolic function is normal, estimated at 65-70%. 4. There is mildly increased left ventricular wall thickness. 5. Left ventricular septal wall motion is abnormal with septal motion related to bundle branch block. 6. Global longitudinal strain is moderately elevated at -12 %. 7. Left atrial chamber dimension is moderately enlarged. 8. There is no aortic valve stenosis. 9. There is trace mitral valve regurgitation. 10. There is trace tricuspid valve regurgitation. 11. Moderate pulmonary hypertension, estimated pulmonary arterial systolic pressure is 46 mmHg. Left Ventricle Left ventricular chamber dimension is normal. Left ventricular systolic function is normal, estimated at 65-70%. There is mildly increased left ventricular wall thickness. Left ventricular septal wall motion is abnormal with septal motion related to bundle branch block. Global longitudinal strain is moderately elevated at -12 %. Right Ventricle Right ventricular chamber dimension is normal. Right ventricular systolic function is normal. Left Atria Left atrial chamber dimension is moderately enlarged. Right Atria Right atrial chamber dimension is normal. Aortic Valve The aortic valve is probable trileaflet. There is no aortic valve stenosis. There is no aortic valve regurgitation. There is mild aortic valve calcification. Pulmonic Valve The pulmonic valve is not well visualized. Mitral Valve The mitral valve has thickened leaflets. There is trace mitral valve regurgitation. The mitral valve annulus is severely calcified. Tricuspid Valve The tricuspid valve leaflets are normal. There is trace tricuspid valve regurgitation. Moderate pulmonary hypertension, estimated pulmonary arterial systolic pressure is 46 mmHg. Pericardium/Pleural The pericardium appears epicardial fat pad. There is trivial pericardial effusion. Inferior Vena Cava Normal inferior vena cava with >50% collapse upon inspiration consistent with normal right atrial pressure, 5 mmHg. Aorta The aortic root size at the sinus of Valsalva is normal. There is mild-moderate aortic atherosclerosis. Tricuspid Valve Name Value Normal Estimated PAP/RSVP RA Pressure 5 mmHg <=5 PA Systolic Pressure 46 mmHg <36 Report Signatures
--- NOTE | 2022-09-17 04:21 | ECG_ITS ---
Measurements Intervals [place] Rate: 133 P: -9 [place]: 198 QRS: -85 QRSD: 108 T: 140 QT: 271 QTc: 403 Interpretive Statements PROBABLE SUPRAVENTRICULAR TACHYCARDIA LOW QRS VOLTAGE IN EXTREMITY LEADS [QRS DEFLECTION < 0.5 mV IN LIMB LEADS] CANNOT RULE OUT iNFERIOR MYOCARDIAL INFARCTION [40+ ms Q WAVE AND/OR ST/T ABNORMALITY IN II/aVF], PROBABLY OLD ST DEPRESSION, CONSIDER SUBENDOCARDIAL INJURY [0.1+ mV ST DEPRESSION] ABNORMAL ECG COMPARED TO ECG 09/16/2022 13:37:05 ST DEPRESSIONS ARE NEW IS SVT. Electronically Signed On 09-17-2022 17:00:22 CDT by Bertrand Gagnon M.D.
[2022-09-17 04:40] LABS: Basophils Absolute Auto 0.1 K/mm3 (0.0-0.1); Basophils Percent Auto 0.6 % (0.2-1.2); Eosinophils Absolute Auto 0.3 K/mm3 (0-0.3); Eosinophils Percent Auto 2.1 % (0-4.4); Hematocrit 28.7 % (37.0-47.0); Immature Granulocyte Absolute 0.16 K/mm3 (0.00-0.031); Immature Granulocyte Percent A 1.3 % (0-0.5); Lymphocytes Absolute Auto 0.88 K/mm3 (0.9-3.2); Lymphocytes Percent Auto 7.3 % (18.3-44.2); Mean Corpuscular HGB Conc 31.4 g/dl (32-36); Mean Corpuscular Hemoglobin 28.1 pg (26-34); Mean Corpuscular Volume 89.7 fl (80-100); Monocytes Absolute Auto 0.9 K/mm3 (0.1-0.6); Monocytes Percent Auto 7.1 % (2.6-8.5); Neutrophils Absolute Auto 9.9 K/mm3 (1.3-6.7); Neutrophils Percent Auto 81.6 % (45.5-73.1); Platelet Count Result 251 k/mm3 (150-375); Red Cell Distribution Width 15.9 % (11.5-14.5); White Blood Count 12.1 K/mm3 (4.5-10.0)
--- NOTE | 2022-09-17 04:45 | PC.NURSE ---
09/17/22 0408-Pt noted to have tachycardia with HR 140-150's. BP obtained showing 99/55. Pt has no C/O pain at this time. 0424-Stat EKG ordered. EKG showing some possible ST elevation and worsening ST depression compared to previous EKG. 0425- Dr. Bauman called and updated with Pt's condition. Dr. Bauman states that she will come to bedside to assess Pt and review EKG. 0427-Pt converted back to NSR w/HR 70-80's. Will continue to monitor Pt closely.
[2022-09-17 04:49] LABS: Albumin Level 2.8 g/dL (3.5-5.1); Anion Gap 5 mmol/L (8-16); Blood Urea Nitrogen 32 mg/dL (7-17); Calcium 7.8 mg/dL (8.4-10.2); Carbon Dioxide 23 mmol/L (22-30); Chloride 102 mmol/L (98-107); Estimated CRCL calculation 31 ml/min; Estimated Glomerular Filt Rate 39; Glucose 121 mg/dL (65-110); Phosphorus 3.4 mg/dL (2.5-4.5); Potassium 4.1 mmol/L (3.4-5.0); Sodium 130 mmol/L (137-145)
[2022-09-17 07:50] LABS: Glucose Point of Care 123 mg/dl (65-105)
--- NOTE | 2022-09-17 08:04 | P.PNNP_ITS ---
Progress Note: A&P Assessment and Plan (1) IVAN (acute kidney injury): Code(s): N17.9 - Acute kidney failure, unspecified Status: Acute Assessment and Plan: * acute kidney injury * etiology is most likely multifactorial: * recent surgery. Doing well postop * hypotension/hemodynamic instability . Blood pressure seems better. * prerenal factors . She is getting IV fluids. Because she is not eating will continue these. * ARB therapy LEVER TENDER . This is on hold. * contrast exposure (although less likely since that was on 09/07/22 * evaluation to date: * renal ultrasound without obstruction * urine electrolytes are prerenal * urine eosinophils negative * CPK mildly elevated but trended down - not high enough to affect kidneys * urine output was lower yesterday. * In spite of this, her creatinine continues to fall. * Continue IV fluids and she is not eating. * Repeat labs tomorrow (2) Chronic kidney disease, stage 3b: Code(s): N18.32 - Chronic kidney disease, stage 3b Status: Chronic Assessment and Plan: * baseline creatinine seems run around 1.1 - 1.4mg/dl in the last year or so * presumably secondary to hypertension, diabetes, vascular disease, and age- related changes (3) Bowel obstruction: Qualifiers: Intestinal obstruction extent: partial Intestinal obstruction type: unspecified Qualified Code(s): K56.600 - Partial intestinal obstruction, unspecified as to cause Code(s): K56.609 - Unspecified intestinal obstruction, unspecified as to partial versus complete obstruction Status: Acute Assessment and Plan: * due to colon cancer * s/p left colectomy with creation end colostomy, Parish procedure, and takedown splenic flexure * colostomy in place * Now on regular diet. * Surgery following (4) Acute respiratory failure: Code(s): J96.00 - Acute respiratory failure, unspecified whether with hypoxia or hypercapnia Status: Acute Assessment and Plan: * resolved (5) Hypotension: Code(s): I95.9 - Hypotension, unspecified Status: Acute Assessment and Plan: * resolved (6) Type 2 diabetes mellitus with diabetic chronic kidney disease: Qualifiers: Diabetes mellitus usp insulin use: with usp use Chronic kidney disease stage: stage 3 (moderate) Chronic kidney disease stage 3 subtype: stage 3b (GFR 30-44) Qualified Code(s): E11.22 - Type 2 diabetes mellitus with diabetic chronic kidney disease; N18.32 - Chronic kidney disease, stage 3b; Z79.4 - care home (current) use of insulin Code(s): E11.22 - Type 2 diabetes mellitus with diabetic chronic kidney disease Status: Chronic Assessment and Plan: * follow accu-checks * glycemic control per computer technology instructor Subjective Date/time seen: 09/17/22 08:04 Interval history: Scar is resting comfortably in bed. She is tired. No chest pain or shortness of breath. Not eating very well. Exam Narrative: General: elderly female in NAD Heart: RRR no rub or gallop Lungs: clear bilaterally Abdomen: soft with hypoactive bowel sounds; colostomy in place Extremities: no cyanosis or clubbing; no edema Skin: no rash or subQ nodules Objective Data Vital Signs Vital Signs: Vital Signs - 24 hr 09/16/22 10:00 09/16/22 12:00 09/16/22 12:00 Temperature 98.0 F
--- NOTE | 2022-09-17 08:04 | PM.PNNEP ---
Progress Note: A&P Assessment and Plan (1) IVAN (acute kidney injury): Code(s): N17.9 - Acute kidney failure, unspecified Status: Acute Assessment and Plan: acute kidney injury etiology is most likely multifactorial: recent surgery. Doing well postop hypotension/hemodynamic instability . Blood pressure seems better. prerenal factors . She is getting IV fluids. Because she is not eating will continue these. ARB therapy WORK CHECKER . This is on hold. contrast exposure (although less likely since that was on 09/07/22 evaluation to date: renal ultrasound without obstruction urine electrolytes are prerenal urine eosinophils negative CPK mildly elevated but trended down - not high enough to affect kidneys urine output was lower yesterday. In spite of this, her creatinine continues to fall. Continue IV fluids and she is not eating. Repeat labs tomorrow (2) Chronic kidney disease, stage 3b: Code(s): N18.32 - Chronic kidney disease, stage 3b Status: Chronic Assessment and Plan: baseline creatinine seems run around 1.1 - 1.4mg/dl in the last year or so presumably secondary to hypertension, diabetes, vascular disease, and age-related changes (3) Bowel obstruction: Qualifiers: Intestinal obstruction extent: partial Intestinal obstruction type: unspecified Qualified Code(s): K56.600 - Partial intestinal obstruction, unspecified as to cause Code(s): K56.609 - Unspecified intestinal obstruction, unspecified as to partial versus complete obstruction Status: Acute Assessment and Plan: due to colon cancer s/p left colectomy with creation end colostomy, Parish procedure, and takedown splenic flexure colostomy in place Now on regular diet. Surgery following (4) Acute respiratory failure: Code(s): J96.00 - Acute respiratory failure, unspecified whether with hypoxia or hypercapnia Status: Acute Assessment and Plan: resolved (5) Hypotension: Code(s): I95.9 - Hypotension, unspecified Status: Acute Assessment and Plan: resolved (6) Type 2 diabetes mellitus with diabetic chronic kidney disease: Qualifiers: Diabetes mellitus steam table attendant insulin use: with group home use Chronic kidney disease stage: stage 3 (moderate) Chronic kidney disease stage 3 subtype: stage 3b (GFR 30-44) Qualified Code(s): E11.22 - Type 2 diabetes mellitus with diabetic chronic kidney disease; N18.32 - Chronic kidney disease, stage 3b; Z79.4 - bindery supervisor (current) use of insulin Code(s): E11.22 - Type 2 diabetes mellitus with diabetic chronic kidney disease Status: Chronic Assessment and Plan: follow accu-checks glycemic control per commuter pilot Subjective Date/time seen: 09/17/22 08:04 Interval history: Scar is resting comfortably in bed. She is tired. No chest pain or shortness of breath. Not eating very well. Exam Narrative: General: elderly female in NAD Heart: RRR no rub or gallop Lungs: clear bilaterally Abdomen: soft with hypoactive bowel sounds; colostomy in place Extremities: no cyanosis or clubbing; no edema Skin: no rash or subQ nodules Objective Data Vital Signs Vital Signs: Vital Signs - 24 hr 09/16/22 10:00 09/16/22 12:00 09/16/22 12:00 Temperature 98.0 F Pulse Rate 80 84 Respiratory Rate 24 H Blood Pressure 163/56 H Pulse Oximetry 97 Oxygen Delivery Room Air 09/16/22 12:00 09/16/22 14:00 09/16/22 16:00 Temperature 97.8 F Pulse Rate 83 82 86 Respiratory Rate 20 Blood Pressure 169/58 H Pulse Oximetry 95 Oxygen Delivery 09/16/22 16:00 09/16/22 18:00 09/16/22 16:00 Temperature Pulse Rate 88 84 Respiratory Rate Blood Pressure Pulse Oximetry Oxygen Delivery Room Air 09/16/22 19:53 09/16/22 20:00 09/16/22 20:00 Temperature 97.8 F Pulse Rate 85 85 84 Respiratory Rate
--- NOTE | 2022-09-17 08:13 | PM.PNGS ---
Progress Note: A&P Assessment and Plan (1) Bowel obstruction: Qualifiers: Intestinal obstruction extent: partial Intestinal obstruction type: unspecified Qualified Code(s): K56.600 - Partial intestinal obstruction, unspecified as to cause Code(s): K56.609 - Unspecified intestinal obstruction, unspecified as to partial versus complete obstruction Status: Acute Assessment and Plan: Colonic obstruction, relieved (2) Stricture of sigmoid colon: Code(s): K56.699 - Other intestinal obstruction unspecified as to partial versus complete obstruction Status: Acute Assessment and Plan: Diverticulitis with diverticular stricture, this was the cause of the colonic obstruction, relieved by resection and colostomy. Postop day 7. Colostomy looks dusky but functioning. CT scan done yesterday was negative. Patient only eating small amounts. Will try full liquids. (3) IVAN (acute kidney injury): Code(s): N17.9 - Acute kidney failure, unspecified Status: Acute Assessment and Plan: Improving. (4) Leukocytosis: Qualifiers: Leukocytosis type: unspecified Qualified Code(s): D72.829 - Elevated white blood cell count, unspecified Code(s): D72.829 - Elevated white blood cell count, unspecified Status: Acute Assessment and Plan: White blood cell count up to 12,000 today. No fever or other signs of infection. Wound looks good. Recheck again tomorrow. (5) Type 2 diabetes mellitus with diabetic chronic kidney disease: Qualifiers: Diabetes mellitus rat exterminator insulin use: with skilled nursing use Chronic kidney disease stage: stage 3 (moderate) Chronic kidney disease stage 3 subtype: stage 3b (GFR 30-44) Qualified Code(s): E11.22 - Type 2 diabetes mellitus with diabetic chronic kidney disease; N18.32 - Chronic kidney disease, stage 3b; Z79.4 - intermission coordinator (current) use of insulin Code(s): E11.22 - Type 2 diabetes mellitus with diabetic chronic kidney disease Status: Chronic Subjective Subjective Date/Time Seen: 09/17/22 08:13 Post Op day: #7 Patient reports: still having pain, bowel movement (Small amount of stool per colostomy), afebrile and other (Confused) Review of Systems Review of Systems: ROS unobtainable: Yes unobtainable due to mental status Exam Const: General: comfortable, alert and awake Orientation/consciousness: No oriented to person, No oriented to place, oriented to time (2022) and confusion GI: Inspection: non-distended and incision (Dry and healing, colostomy dusky with stool in bag) GI Palp: Yes Soft to palpation, Yes Tenderness to palpation present (GI) and No Guarding due to palpation present (GI) Auscultation: Hypoactive bowel sounds present Objective Data Vital Signs Vital Signs: Vital Signs - 24 hr 09/16/22 10:00 09/16/22 12:00 09/16/22 12:00 Temperature 36.7 C Pulse Rate 80 84 Respiratory Rate 24 H Blood Pressure 163/56 H Pulse Oximetry 97 Oxygen Delivery Room Air 09/16/22 12:00 09/16/22 14:00 09/16/22 16:00 Temperature 36.6 C Pulse Rate 83 82 86 Respiratory Rate 20 Blood Pressure 169/58 H Pulse Oximetry 95 Oxygen Delivery 09/16/22 16:00 09/16/22 18:00 09/16/22 16:00 Temperature Pulse Rate 88 84 Respiratory Rate Blood Pressure Pulse Oximetry Oxygen Delivery Room Air 09/16/22 19:53 09/16/22 20:00 09/16/22 20:00 Temperature 36.6 C Pulse Rate 85 85 84 Respiratory Rate 20 20 Blood Pressure 147/63 H Pulse Oximetry 97 97 Oxygen Delivery Room Air 09/16/22 22:00 09/16/22 23:31 09/17/22 00:00 Temperature 36.6 C Pulse Rate 84 89 89 Respiratory Rate 20 20 Blood Pressure 150/63 H Pulse Oximetry 96 96 Oxygen Delivery Room Air 09/17/22 00:00 09/17/22 02:00 09/17/22 04:00 Temperature Pulse Rate 83 84 82 Respiratory Rate Blood Pressure Pulse Oximetry Oxygen Delivery 09/17/22 04:49
[2022-09-17] MEDS: ACETAMINOPHEN 325 MG TABLET 650 MG BY MOUTH (09:22)
[2022-09-17 09:23] LABS: Troponin I 0.654 ng/mL (0.000-0.034)
[2022-09-17] MEDS: FAMOTIDINE 20 MG TABLET PO ×2 (09:23→20:30)
[2022-09-17] MEDS: polyethylene glycoL 3350 17 GM POWD.PACK PO (09:24)
--- NOTE | 2022-09-17 09:28 | PM.IMPN ---
Progress Note: A&P Assessment and Plan (1) SVT (supraventricular tachycardia): Code(s): I47.1 - Supraventricular tachycardia Status: Acute Assessment and Plan: patient having runs of SVT. Mag 2.0 but potassium 4.1. Will continue to monitor on tele. Replace electrolytes as needed. Check Echo. Will add metoprolol. She is having chest pain but hx shows this is chronic. EKG reviewed personally and she does have EKG changes with ST depression in the anterior-lateral leads probably rate related. TSH mildly elevated but FT4 normal. Add ASA. Cardiology consult. Check Echo. Stop IV fluids. Make NPO. Add metoprol. CT scan last night showing evidence of fluid overload. Renal function better. Stop IV fluids and lasix IV once. (2) Bowel obstruction: Qualifiers: Intestinal obstruction extent: partial Intestinal obstruction type: unspecified Qualified Code(s): K56.600 - Partial intestinal obstruction, unspecified as to cause Code(s): K56.609 - Unspecified intestinal obstruction, unspecified as to partial versus complete obstruction Status: Acute Assessment and Plan: Patient found to have a sigmoid stricture and partial bowel obstruction status post left colectomy with creation of end colostomy, Parish procedure, takedown splenic flexure on 09/10. Pathology: diverticulitis with necrosis, calcification, perforation and fibrosis but negative for malignancy. Diet advanced and tolerating this well. Management per surgery Continue PT/OT CT A/P performed 09/16 due to nausea/vomiting: moderate ascites with possible liver cirrhosis and anasarca. WBC was normal but up to 12K today. Monitor. (3) Acute respiratory failure: Code(s): J96.00 - Acute respiratory failure, unspecified whether with hypoxia or hypercapnia Status: Acute Assessment and Plan: Acute Respiratory failure secondary to general anesthesia and hypotension. Patient able to be extubated on 09/12. Patient was weaned to room air but now on o2. CT scan showing bilateral pleural effusions and evidence of fluid overload. Stop IV fluids Encourage IS use. lasix once. (4) Acute on chronic renal failure: Code(s): N17.9 - Acute kidney failure, unspecified; N18.9 - Chronic kidney disease, unspecified Status: Acute Assessment and Plan: Patient has chronic kidney disease with baseline Cr 1.1-1.3 Creatinine 1.4 on admission but has climbed to 2.0 CT done recently did not show any stones or hydronephrosis CK level 1010 -> 399 Likely multifactorial secondary to surgery, diverticulitis, hypotension and contrast Patient has received adequate amount of IV fluids and also treated with albumin IV fluids resumed at low dose Nephrology consulted and appreciate their input. UOP better. Cr better today at 1.3 Monitor urine output, electrolytes and creatinine. Stop IV fluids. lasix once. (5) Stricture of sigmoid colon: Code(s): K56.699 - Other intestinal obstruction unspecified as to partial versus complete obstruction Status: Acute Assessment and Plan: See above. (6) Hypotension: Code(s): I95.9 - Hypotension, unspecified Status: Acute Assessment and Plan: Likely secondary to general anesthesia and volume loss Status post IV fluid bolus and PRBC transfusion Blood pressure has improved and patient is not requiring any vasopressors Did require albumin for HoTN evening of 09/12 but nothing since. Remains on IV fluid at low dose. BP stable. Continue monitor closely. (7) Delirium: Code(s): R41.0 - Disorientation, unspecified Status: Acute Assessment and Plan: Patient had issues with delirium prior to surgery while on the floor and pulled out lines and tubes multiple times. She was started on Seroquel which was held after surgery but now resumed. Precedex stopped. Mood stable but persistently somnolent so Seroquel dose decrease with clinical improvement.
[2022-09-17] MEDS: ENOXAPARIN 30 MG/0.3 ML SYRINGE SUB-Q (09:44)
--- NOTE | 2022-09-17 10:40 | PCPTNOTE ---
Nursing advised to hold therapy today due to cardiac changes. PT will continue per plan of care.
[2022-09-17] MEDS: ASPIRIN 81 MG CHEWABLE TABLET PO (10:59)
[2022-09-17] MEDS: FUROSEMIDE INJ 40 MG/4 ML VIAL 20 MG IV PUSH (10:59)
[2022-09-17] MEDS: METOPROLOL TARTRATE 12.5 MG TABLET PO ×2 (10:59→20:29)
[2022-09-17 11:34] LABS: Ammonia < 9 umol/L (9-30)
[2022-09-17 11:53] LABS: Troponin I 0.685 ng/mL (0.000-0.034)
[2022-09-17 12:01] LABS: Glucose Point of Care 111 mg/dl (65-105)
--- NOTE | 2022-09-17 13:02 | PCOTNOTE ---
The patient treatment was not able to be completed on September 17 due to Patient needing a medical hold per RN. Will plan to continue treatment per plan of care tomorrow.
--- NOTE | 2022-09-17 13:38 | PM.CNCAR ---
Assessment and Plan Assessment and plan (1) SVT (supraventricular tachycardia): Code(s): I47.1 - Supraventricular tachycardia Status: Acute Assessment and Plan: Asymptomatic periodic narrow complex tachycardia consistent with SVT likely reentrant tachycardia less likely atrial flutter. Toprol 12.5 mg twice daily. Continue telemetry to monitor stability and suppression of SVT. Continue to monitor renal function electrolytes. Magnesium and potassium have been stable, replete as warranted. Monitor BP closely. Likely exacerbated due to critical illness prolonged hospitalization, however, continue conservative management at this time. No indication for systemic anticoagulation based on the arrhythmia thus far. Would need to balance risk versus benefit in this regard even if warranted. I spent 70 minutes in the care of this patient at bedside including examination, discussions, chart review, medical decision making, discussion with colleagues, and documentation. (2) Elevated troponin: Code(s): R77.8 - Other specified abnormalities of plasma proteins Status: Acute Assessment and Plan: Mild elevation with fairly flat curve with patient experiencing postoperative anemia status post transfusions, intermittent hypotension and hypertension, acute on chronic renal failure now improved and multiple comorbidities increasing risk for with presence of underlying CAD. Patient is not reporting clear anginal symptoms nor did she have documented history of CAD. Conservative medical management at this time. Continue monitor clinically. ST abnormalities concerning for ischemia noted only during rapid narrow complex arrhythmia not observed previously likely demand ischemia. There is no clinical evidence for acute coronary syndrome and/or plaque rupture at this time. Repeat 12 lead ECG. Conservative medical management advised particularly given patient's complicated hospitalization, advanced age and DNR status. Patient would not be a good candidate to proceed with invasive angiography even if warranted given her clinical status. (3) Acute respiratory failure: Code(s): J96.00 - Acute respiratory failure, unspecified whether with hypoxia or hypercapnia Status: Acute Assessment and Plan: Status post intubation. Continue to monitor clinically. O2 supplementation as warranted. Wean as tolerated. Patient is not appear to be in decompensated heart failure. (4) Acute on chronic renal failure: Code(s): N17.9 - Acute kidney failure, unspecified; N18.9 - Chronic kidney disease, unspecified Status: Acute Assessment and Plan: Peak creatinine 2.0 now improved 1.3 with IV hydration. Avoid nephrotoxic agents. Losartan on hold. (5) Hypotension: Code(s): I95.9 - Hypotension, unspecified Status: Acute Assessment and Plan: BP improved no overall, hypertensive at times requiring intermittent IV hydralazine. Conservative management to avoid significant hypotension. If SBP greater than 180 mm Hg may cautiously control with IV hydralazine. Continue to hold home losartan (6) Bowel obstruction: Qualifiers: Intestinal obstruction extent: partial Intestinal obstruction type: unspecified Qualified Code(s): K56.600 - Partial intestinal obstruction, unspecified as to cause Code(s): K56.609 - Unspecified intestinal obstruction, unspecified as to partial versus complete obstruction Status: Acute Assessment and Plan: Management per Surgical Service. Advance diet as tolerated, follow H&H. Patient remains significantly anemic postoperatively. Transfuse as needed. Monitor leukocytosis which has increased significantly from that noted over the past few days. Patient afebrile. DVT prophylaxis. (7) Delirium: Code(s): R41.0 - Disorientation, unspecified Status: Acute Assessment and Plan: Improved but not completely resolved although somewhat of
--- NOTE | 2022-09-17 13:47 | PCNFU ---
Nutrition Follow-Up Complete: Severe Malnutrition related to inadequate protein-energy intake in the setting of acute disease (small bowel obstruction) as evidenced by < EER for > 7 days (NPO x 4 days and poor po intake reported at home <75% of estimanted needs with significant weight loss of 6% in the past 1 month. Goal:Meet estimated nutritional needs. Pt is NOT progressing towards goal. Pt current nutrition is NPO. Nutrition recommendation: Consider alternative nutrition support as pt has been NPO/Clear liquids for most of 10 days. Last recorded weight is 81.7 kg. Bowel Motility: small output in colostomy 09/17 Labs Reviewed: Hgb:9.0, HCT:28.7, NA:130, BUN:32, GFR:39 Cr:1.3, Glu:123 Meds Noted: maureen wilson Skin: Abdominal incision Additional Notes: Pt was on full liquids, had tachycardia this AM and is now NPO for cardiac eval. Pt has been NPO/clear liquids for most of 10 days at this time. May need to consider alternative nutrition support to meet nutritional needs. Consider NGT placement if able to utilize the gut, or PPN if necessary. Will monitor every in 1 day.
[2022-09-17 14:56] LABS: Troponin I 0.609 ng/mL (0.000-0.034)
--- NOTE | 2022-09-17 16:03 | PC.NURSE ---
Dietitian voiced concerns in regards to pts nutritional status. Nutrition status discussed with Dr. Fountain. Will advance to full liquid diet today and evaluate for further nutritional supplementation in the morning.
[2022-09-17 16:28] LABS: Glucose Point of Care 120 mg/dl (65-105)
[2022-09-17] MEDS: oxyCODONE/ACETAMINOPHEN (*CRX) 5-325 MG TABLET 1 TABLET BY MOUTH (20:29)
[2022-09-17] MEDS: QUEtiapine FUMARATE 12.5 MG TABLET BY MOUTH (20:29)
[2022-09-17 20:41] LABS: Glucose Point of Care 123 mg/dl (65-105)
[2022-09-18] VITALS (16 sets, daily range): BP systolic 119–149; BP diastolic 36–96; PULSE 73–81; RESP 16–20; TEMP 36.4–37.1; O2SAT 96–98
[2022-09-18 05:00] LABS: Hematocrit 26.8 % (37.0-47.0); Hemoglobin 8.4 g/dL (12.0-15.0); Mean Corpuscular HGB Conc 31.3 g/dl (32-36); Mean Corpuscular Volume 89.3 fl (80-100); Mean Platelet Volume 10.1 fl (7.4-10.4); Platelet Count Result 253 k/mm3 (150-375); White Blood Count 9.7 K/mm3 (4.5-10.0)
[2022-09-18 05:21] LABS: Alanine Aminotransferase 12 U/L (6-35); Albumin Level 2.5 g/dL (3.5-5.1); Alkaline Phosphatase 65 U/L (38-126); Anion Gap 4 mmol/L (8-16); Aspartate Amino Transferase 18 U/L (14-36); Bilirubin,Total 0.6 mg/dL (0.2-1.3); Blood Urea Nitrogen 33 mg/dL (7-17); Calcium 7.7 mg/dL (8.4-10.2); Carbon Dioxide 26 mmol/L (22-30); Chloride 101 mmol/L (98-107); Estimated CRCL calculation 24 ml/min; Estimated Glomerular Filt Rate 33; Glucose 105 mg/dL (65-110); Magnesium 1.9 mg/dL (1.6-2.3); Potassium 3.9 mmol/L (3.4-5.0); Sodium 131 mmol/L (137-145)
[2022-09-18] MEDS: MAGNESIUM SULF 1 GM/D5W 100 ML 1 GM/100 ML BAG IVPB (07:35)
[2022-09-18 07:58] LABS: Glucose Point of Care 120 mg/dl (65-105)
--- NOTE | 2022-09-18 08:00 | ECG_ITS ---
Measurements Intervals [place] Rate: 75 P: 35 [place]: 159 QRS: -46 QRSD: 106 T: 53 QT: 412 QTc: 461 Interpretive Statements SINUS RHYTHM MARKED LEFT AXIS DEVIATION [QRS AXIS < -30] LOW QRS VOLTAGE IN EXTREMITY LEADS [QRS DEFLECTION < 0.5 mV IN LIMB LEADS] CANNOT RULE OUT OLD INFERIOR INFARCTION NONSPECIFIC ST AND T WAVE ABNORMALITY COMPARED TO ECG 09/17/2022 04:24:24 SINUS RHYTHM NOW PRESENT Electronically Signed On 09-18-2022 14:57:00 CDT by Raul Vigil M.D.
--- NOTE | 2022-09-18 08:39 | PM.PNGS ---
Progress Note: A&P Assessment and Plan (1) Bowel obstruction: Qualifiers: Intestinal obstruction extent: partial Intestinal obstruction type: unspecified Qualified Code(s): K56.600 - Partial intestinal obstruction, unspecified as to cause Code(s): K56.609 - Unspecified intestinal obstruction, unspecified as to partial versus complete obstruction Status: Acute Assessment and Plan: Resolved after resection and colostomy. Patient is still not eating well. Eight days postop at this time. (2) Stricture of sigmoid colon: Code(s): K56.699 - Other intestinal obstruction unspecified as to partial versus complete obstruction Status: Acute Assessment and Plan: Diverticular in nature with history diverticulitis as well. (3) Protein-calorie malnutrition, severe: Code(s): E43 - Unspecified severe protein-calorie malnutrition Status: Acute Assessment and Plan: Will have PICC line placed and start on TPN until patient eating better. (4) Acute on chronic renal failure: Code(s): N17.9 - Acute kidney failure, unspecified; N18.9 - Chronic kidney disease, unspecified Status: Acute Assessment and Plan: Creatinine trending better but still 1.5. Creatinine clearance around 30. (5) Leukocytosis: Qualifiers: Leukocytosis type: unspecified Qualified Code(s): D72.829 - Elevated white blood cell count, unspecified Code(s): D72.829 - Elevated white blood cell count, unspecified Status: Acute Assessment and Plan: Decreased to 9.7 today, was over 12 yesterday. Etiology unclear. Follow. (6) Type 2 diabetes mellitus with diabetic chronic kidney disease: Qualifiers: Diabetes mellitus prison insulin use: with prison use Chronic kidney disease stage: stage 3 (moderate) Chronic kidney disease stage 3 subtype: stage 3b (GFR 30-44) Qualified Code(s): E11.22 - Type 2 diabetes mellitus with diabetic chronic kidney disease; N18.32 - Chronic kidney disease, stage 3b; Z79.4 - alf (current) use of insulin Code(s): E11.22 - Type 2 diabetes mellitus with diabetic chronic kidney disease Status: Chronic Assessment and Plan: Blood sugars have been good postoperatively. Subjective Subjective Date/Time Seen: 09/18/22 08:39 Post Op day: #8 Patient reports: pain is less, bowel movement (Still having small colostomy output), afebrile and other (Conversant but remains confused) Review of Systems Review of Systems: ROS unobtainable: Yes unobtainable due to mental status Exam Const: General: comfortable, no acute distress and awake Orientation/consciousness: confusion GI: Inspection: non-distended, incision (Dry and healing well) and other (Colostomy shows mucosal necrosis around periphery but pink in the center.) GI Palp: Yes Soft to palpation and Yes Tenderness to palpation present (GI) Auscultation: Hypoactive bowel sounds present Objective Data Vital Signs Vital Signs: Vital Signs - 24 hr 09/17/22 10:59 09/17/22 12:00 09/17/22 10:00 Temperature 36.6 C Pulse Rate 81 82 82 Respiratory Rate 18 Blood Pressure 137/50 L Pulse Oximetry 100 Oxygen Delivery Oxygen Flow Rate 09/17/22 12:00 09/17/22 12:00 09/17/22 14:00 Temperature Pulse Rate 79 81 Respiratory Rate Blood Pressure Pulse Oximetry 100 Oxygen Delivery Nasal Cannula Oxygen Flow Rate 2 09/17/22 16:00 09/17/22 16:00 09/17/22 16:00 Temperature 36.8 C Pulse Rate 82 80 Respiratory Rate 16 Blood Pressure 155/57 H Pulse Oximetry 98 98 Oxygen Delivery Nasal Cannula Oxygen Flow Rate 2 09/17/22 18:00 09/17/22 20:00 09/17/22 20:29 Temperature 36.3 C L Pulse Rate 75 73 78 Respiratory Rate 20 Blood Pressure 141/56 H Pulse Oximetry 98 Oxygen Delivery Oxygen Flow Rate 09/17/22 23:03 09/17/22 20:00 09/17/22 22:00 Temperature 36.4 C L Pulse Rate 76 74 78 Respi
[2022-09-18 09:06] LABS: Transferrin < 80 mg/dL (206-381)
[2022-09-18] MEDS: POTASSIUM CHLORIDE 20 MEQ ER TABLET PO (09:15)
[2022-09-18] MEDS: METOPROLOL TARTRATE 12.5 MG TABLET PO ×2 (09:15→20:26)
[2022-09-18] MEDS: FAMOTIDINE 20 MG TABLET PO ×2 (09:16→20:26)
[2022-09-18] MEDS: polyethylene glycoL 3350 17 GM POWD.PACK PO (09:16)
[2022-09-18] MEDS: BUMETANIDE INJ 1 MG/4 ML VIAL IV PUSH (09:16)
[2022-09-18] MEDS: ENOXAPARIN 30 MG/0.3 ML SYRINGE SUB-Q (09:16)
[2022-09-18] MEDS: ASPIRIN 81 MG CHEWABLE TABLET PO (09:25)
[2022-09-18 09:34] LABS: Partial Thromboplastin Time 40.4 SECONDS (22.3-36.8)
--- NOTE | 2022-09-18 10:55 | PCOTNOTE ---
Patient unable to be seen at this time due to having a PICC line placed, may not enter the room at this time. Therapist will attempt again at a later time.
[2022-09-18] MEDS: LIDOCAINE HCL 1% PF INJ 5 ML VIAL INFILTRATE (11:15)
[2022-09-18 12:09] LABS: Glucose Point of Care 134 mg/dl (65-105)
[2022-09-18] MEDS: AMINO ACIDS 5%/D15W/E-LYTES/CA 2,000 ML with MULTIVITAMINS-12 INJ VIAL 1 2.5 ML, MULTIV... 40 ML IV CONT (12:39)
[2022-09-18] MEDS: FAT EMULSIONS IV 20% 250 ML 20.83 ML IVPB (12:44)
--- NOTE | 2022-09-18 13:34 | PCNFU ---
Nutrition Follow-Up Complete: Severe Malnutrition related to inadequate protein-energy intake in the setting of acute disease (small bowel obstruction) as evidenced by < EER for > 7 days (NPO x 4 days and poor po intake reported at home <75% of estimanted needs with significant weight loss of 6% in the past 1 month. Goal: Meet estimated nutritional needs Pt current nutrition is soft and bite sized, level 6 / low fiber, TPN clinimix 5/15 @ 40ml/hr. Nutrition recommendation: continue with current plan of care. Last recorded weight is 81.4 kg. Bowel Motility: No BM recorded at this time Labs Reviewed: Hgb:9.0, HCT:28.7, NA:130, GFR:39, BUN:32, Glu:123 Meds Noted: lovenox, zofran, novolog Skin: abdominal incision Additional Notes: Pt diet advanced to low fiber / level 6. TPN also ordered. Pt to get a PICC line today and TPN to run at 40ml/hr = 1182kcals, 48g protein. This provides 65% of estimated needs for calories and protein. PO intake is minimal at this time at 10% average. Monitor intake, TPN, wt, labs. Follow up every Saturday and Saturday.
--- NOTE | 2022-09-18 13:50 | PCOTNOTE ---
Attempted to see Patient at this time. RN in the room, Patient just had an attempt with PT shortly ago, having decreased blood pressures and increased dizziness. Per Patient, declining to participate and RN stated check back tomorrow if able.
--- NOTE | 2022-09-18 15:10 | PM.IMPN ---
Progress Note: A&P Assessment and Plan (1) SVT (supraventricular tachycardia): Code(s): I47.1 - Supraventricular tachycardia Status: Acute Assessment and Plan: Patient was having runs of SVT. EKG at the time showing new ST depression in the anterior-lateral leads probably rate related. TSH mildly elevated but FT4 normal. Echo showing EF 65%-70% with moderate pulmonary HTN. Repeat EKG improved with back in normal sinus. ASA and Metoprolol added. Appreciate cardiology input Will continue to monitor on tele. Replace electrolytes as needed. (2) Bowel obstruction: Qualifiers: Intestinal obstruction extent: partial Intestinal obstruction type: unspecified Qualified Code(s): K56.600 - Partial intestinal obstruction, unspecified as to cause Code(s): K56.609 - Unspecified intestinal obstruction, unspecified as to partial versus complete obstruction Status: Acute Assessment and Plan: Patient found to have a sigmoid stricture and partial bowel obstruction status post left colectomy with creation of end colostomy, Parish procedure and takedown of splenic flexure on 09/10/22. Pathology showing diverticulitis with necrosis, calcification, perforation and fibrosis but negative for malignancy. CT A/P performed 09/16 due to nausea/vomiting: moderate ascites with possible liver cirrhosis and anasarca. Diet advanced and tolerating this well but eating mostly 10-25%. WBC back to normal Management per surgery Continue PT/OT TPN started (3) Acute respiratory failure: Code(s): J96.00 - Acute respiratory failure, unspecified whether with hypoxia or hypercapnia Status: Acute Assessment and Plan: Acute Respiratory failure secondary to general anesthesia and hypotension. Patient able to be extubated on 09/12. Patient was weaned to room air but now on O2. CT scan showing bilateral pleural effusions and evidence of fluid overload. IV fluids were stopped and lasix IV once given. Encourage IS use. Wean o2 as tolerated. (4) Acute on chronic renal failure: Code(s): N17.9 - Acute kidney failure, unspecified; N18.9 - Chronic kidney disease, unspecified Status: Acute Assessment and Plan: Patient has chronic kidney disease with baseline Cr 1.1-1.3 Creatinine 1.4 on admission but climbed to 2.0 CT done recently did not show any stones or hydronephrosis CK level 1010 -> 399 Likely multifactorial secondary to surgery, diverticulitis, hypotension and contrast Patient has received adequate amount of IV fluids and also treated with albumin IV fluids resumed at low dose but now stopped Nephrology consulted and appreciate their input. Cr up to 1.5 now but did receive Lasix yesterday Monitor urine output, electrolytes and creatinine. Consider Albumin with lasix. (5) Stricture of sigmoid colon: Code(s): K56.699 - Other intestinal obstruction unspecified as to partial versus complete obstruction Status: Acute Assessment and Plan: See above. (6) Hypotension: Code(s): I95.9 - Hypotension, unspecified Status: Acute Assessment and Plan: Likely secondary to general anesthesia and volume loss Status post IV fluid bolus and PRBC transfusion Blood pressure has improved and patient is not requiring any vasopressors Did require albumin for HoTN evening of 09/12 but nothing since. BP stable. Tolerating the metoprolol Continue monitor closely. (7) Delirium: Code(s): R41.0 - Disorientation, unspecified Status: Acute Assessment and Plan: Patient had issues with delirium prior to surgery while on the floor and pulled out lines and tubes multiple times. She was started on Seroquel which was held after surgery but now resumed. Precedex stopped. Mood stable but persistently somnolent so Seroquel dose decrease with clinical improvement. Ammonia <9. Continue Seroquel at current dose. (8) Type 2 diabetes mellitus with di
[2022-09-18 16:21] LABS: Glucose Point of Care 193 mg/dl (65-105)
[2022-09-18] MEDS: CENTRAL LINE FLUSH 10 ML IV PUSH ×2 (16:49→20:26)
--- NOTE | 2022-09-18 18:21 | P.PNNP_ITS ---
Progress Note: A&P Assessment and Plan (1) IVAN (acute kidney injury): Code(s): N17.9 - Acute kidney failure, unspecified Status: Acute Assessment and Plan: * acute kidney injury * etiology is most likely multifactorial: * recent surgery. Doing well postop * hypotension/hemodynamic instability . Blood pressure seems better. * prerenal factors . She is getting IV fluids. Because she is not eating will continue these. * ARB therapy CRAB PICKER . This is on hold. * contrast exposure (although less likely since that was on 09/07/22 * evaluation to date: * renal ultrasound without obstruction * urine electrolytes are prerenal * urine eosinophils negative * CPK mildly elevated but trended down - not high enough to affect kidneys * urine output 900cc yesterday. Not as much urine today. Bladder scan is being done. * Her creatinine is stable between 1.3 and 1.5. * She is now on TPN * Repeat labs tomorrow (2) Chronic kidney disease, stage 3b: Code(s): N18.32 - Chronic kidney disease, stage 3b Status: Chronic Assessment and Plan: * baseline creatinine seems run around 1.1 - 1.4mg/dl in the last year or so * presumably secondary to hypertension, diabetes, vascular disease, and age- related changes (3) Bowel obstruction: Qualifiers: Intestinal obstruction extent: partial Intestinal obstruction type: unspecified Qualified Code(s): K56.600 - Partial intestinal obstruction, unspecified as to cause Code(s): K56.609 - Unspecified intestinal obstruction, unspecified as to partial versus complete obstruction Status: Acute Assessment and Plan: * due to colon cancer * s/p left colectomy with creation end colostomy, Parish procedure, and takedown splenic flexure * colostomy in place * Now on regular diet. * Surgery following (4) Acute respiratory failure: Code(s): J96.00 - Acute respiratory failure, unspecified whether with hypoxia or hypercapnia Status: Acute Assessment and Plan: * resolved (5) Hypotension: Code(s): I95.9 - Hypotension, unspecified Status: Acute Assessment and Plan: * resolved (6) Type 2 diabetes mellitus with diabetic chronic kidney disease: Qualifiers: Diabetes mellitus chcf insulin use: with ocean transportation intermediary use Chronic kidney disease stage: stage 3 (moderate) Chronic kidney disease stage 3 subtype: stage 3b (GFR 30-44) Qualified Code(s): E11.22 - Type 2 diabetes mellitus with diabetic chronic kidney disease; N18.32 - Chronic kidney disease, stage 3b; Z79.4 - prison (current) use of insulin Code(s): E11.22 - Type 2 diabetes mellitus with diabetic chronic kidney disease Status: Chronic Assessment and Plan: * follow accu-checks * glycemic control per cone chocolate dipper Subjective Date/time seen: 09/18/22 18:21 Interval history: Scar is resting comfortably in bed. She got a PICC line no chest pain or shortness of breat Exam Narrative: General: elderly female in NAD Heart: RRR no rub or gallop Lungs: clear to auscultation Abdomen: soft with hypoactive bowel sounds; colostomy in place Extremities: no cyanosis or clubbing; no edema Skin: no rash Objective Data Vital Signs Vital Signs: Vital Signs - 24 hr 09/17/22 20:00 09/17/22 20:29 09/17/22 23:03 Temperature 97.4 F L 97.5 F L
--- NOTE | 2022-09-18 18:21 | PM.PNNEP ---
Progress Note: A&P Assessment and Plan (1) IVAN (acute kidney injury): Code(s): N17.9 - Acute kidney failure, unspecified Status: Acute Assessment and Plan: acute kidney injury etiology is most likely multifactorial: recent surgery. Doing well postop hypotension/hemodynamic instability . Blood pressure seems better. prerenal factors . She is getting IV fluids. Because she is not eating will continue these. ARB therapy [employer] . This is on hold. contrast exposure (although less likely since that was on 09/07/22 evaluation to date: renal ultrasound without obstruction urine electrolytes are prerenal urine eosinophils negative CPK mildly elevated but trended down - not high enough to affect kidneys urine output 900cc yesterday. Not as much urine today. Bladder scan is being done. Her creatinine is stable between 1.3 and 1.5. She is now on TPN Repeat labs tomorrow (2) Chronic kidney disease, stage 3b: Code(s): N18.32 - Chronic kidney disease, stage 3b Status: Chronic Assessment and Plan: baseline creatinine seems run around 1.1 - 1.4mg/dl in the last year or so presumably secondary to hypertension, diabetes, vascular disease, and age-related changes (3) Bowel obstruction: Qualifiers: Intestinal obstruction extent: partial Intestinal obstruction type: unspecified Qualified Code(s): K56.600 - Partial intestinal obstruction, unspecified as to cause Code(s): K56.609 - Unspecified intestinal obstruction, unspecified as to partial versus complete obstruction Status: Acute Assessment and Plan: due to colon cancer s/p left colectomy with creation end colostomy, Parish procedure, and takedown splenic flexure colostomy in place Now on regular diet. Surgery following (4) Acute respiratory failure: Code(s): J96.00 - Acute respiratory failure, unspecified whether with hypoxia or hypercapnia Status: Acute Assessment and Plan: resolved (5) Hypotension: Code(s): I95.9 - Hypotension, unspecified Status: Acute Assessment and Plan: resolved (6) Type 2 diabetes mellitus with diabetic chronic kidney disease: Qualifiers: Diabetes mellitus roasterman insulin use: with roasterman use Chronic kidney disease stage: stage 3 (moderate) Chronic kidney disease stage 3 subtype: stage 3b (GFR 30-44) Qualified Code(s): E11.22 - Type 2 diabetes mellitus with diabetic chronic kidney disease; N18.32 - Chronic kidney disease, stage 3b; Z79.4 - care home (current) use of insulin Code(s): E11.22 - Type 2 diabetes mellitus with diabetic chronic kidney disease Status: Chronic Assessment and Plan: follow accu-checks glycemic control per leather sponger Subjective Date/time seen: 09/18/22 18:21 Interval history: Scar is resting comfortably in bed. She got a PICC line no chest pain or shortness of breat Exam Narrative: General: elderly female in NAD Heart: RRR no rub or gallop Lungs: clear to auscultation Abdomen: soft with hypoactive bowel sounds; colostomy in place Extremities: no cyanosis or clubbing; no edema Skin: no rash Objective Data Vital Signs Vital Signs: Vital Signs - 24 hr 09/17/22 20:00 09/17/22 20:29 09/17/22 23:03 Temperature 97.4 F L 97.5 F L Pulse Rate 73 78 76 Respiratory Rate 20 20 Blood Pressure 141/56 H 144/54 H Pulse Oximetry 98 96 09/17/22 20:00 09/17/22 22:00 09/18/22 00:00 Temperature Pulse Rate 74 78 75 Respiratory Rate Blood Pressure Pulse Oximetry 09/18/22 02:00 09/18/22 04:00 09/18/22 04:00 Temperature 97.8 F Pulse Rate 75 78 77 Respiratory Rate 18 Blood Pressure 144/54 H Pulse Oximetry 96 09/18/22 06:00 09/18/22 08:00 09/18/22 08:29 Temperature 97.6 F Pulse Rate 77 75 Respiratory Rate 19 Blood Pressure 120/40 L 119/36 L Pulse Oximetry 9
[2022-09-18] MEDS: QUEtiapine FUMARATE 12.5 MG TABLET BY MOUTH (20:26)
[2022-09-18 23:29] LABS: Glucose Point of Care 227 mg/dl (65-105)
[2022-09-19] MEDS: INSULIN HUMAN REGULAR (*BKC) 100 UNITS/ML SUB-Q (00:19)
[2022-09-19 12:10] LABS: Glucose Point of Care 220 mg/dl (65-105)
--- NOTE | 2022-09-19 12:41 | PN_ITS ---
SUBJECTIVE The patient is resting comfortably in bed. ?She is on TPN now. ?She has no distress. ?She is breathing okay, and she is comfortable lying in bed. PHYSICAL EXAMINATION GENERAL: She is a well-developed, well-nourished female, lying in the hospital bed, in no acute distress. SKIN: Warm and dry. HEENT: ?Head, normocephalic and atraumatic. LUNGS: Symmetric and clear. HEART: Regular rate and rhythm. ?No rub or gallop. ABDOMEN: ?Bowel sounds are positive. ?Soft, nontender. EXTREMITIES: Show no cyanosis, clubbing, or edema. LABORATORY DATA Sodium 131, potassium 3.9, chloride 104, CO2 of 26, glucose 105, BUN 32, creatinine 1.5. ?Today, hemoglobin was 8.5. IMPRESSION The patient has acute renal failure. ?Creatinine was higher before, now it is ranging between 1.3 and 1.5. ?We will follow this along. ?She is getting some TPN.? Status post surgery. ?The patient is not eating well at all, so she is getting some TPN now until her gastrointestinal tract works a little bit better.? The patient has anemia. ?Hemoglobin is 8.5. ?We will check another one tomorrow.? MTDD
[2022-09-19] MEDS: FAT EMULSIONS IV 20% 250 ML 20.8 ML IVPB (12:55)
[2022-09-19] MEDS: AMINO ACIDS 5%/D15W/E-LYTES/CA 2,000 ML with MULTIVITAMINS-12 INJ VIAL 1 2.5 ML, MULTIV... 40 ML IV CONT (12:55)
[2022-09-19 17:03] LABS: Glucose Point of Care 204 mg/dl (65-105)
--- NOTE | 2022-09-19 17:24 | PC.NURSE ---
Paper documentation exists on this patient due to [employer] System downtime on 09/19/22 from 00:30 to 17:30.
[2022-09-19 17:29] LABS: Chloride Rand Ur 33 mmol/L (32-290); Chloride/Creatinine Rand Ur 20 (38-318); Creatinine Random Urine 162 mg/dL (20-275)
[2022-09-19 20:00] VITALS: BP 121/40; PULSE 71; PULSE 80; RESP 20; TEMP 36.4; O2SAT 97
[2022-09-19 20:20] VITALS: PULSE 69
[2022-09-19] MEDS: FAMOTIDINE 20 MG TABLET PO (20:20)
[2022-09-19] MEDS: METOPROLOL TARTRATE 12.5 MG TABLET PO (20:20)
[2022-09-19] MEDS: CENTRAL LINE FLUSH 10 ML IV PUSH (20:21)
[2022-09-19] MEDS: QUEtiapine FUMARATE 12.5 MG TABLET BY MOUTH (20:21)
[2022-09-19 20:45] VITALS: PULSE 72; O2SAT 98
[2022-09-19 22:00] VITALS: PULSE 74
[2022-09-19 23:27] VITALS: BP 109/55; PULSE 73; RESP 20; TEMP 36.4; O2SAT 97
[2022-09-19 23:28] LABS: Glucose Point of Care 175 mg/dl (65-105)
[2022-09-19] MEDS: oxyCODONE/ACETAMINOPHEN (*CRX) 5-325 MG TABLET 1 TABLET BY MOUTH (23:36)
[2022-09-20] VITALS (15 sets, daily range): BP systolic 102–172; BP diastolic 43–61; PULSE 68–74; RESP 18–22; TEMP 36.1–36.6; O2SAT 96–99
[2022-09-20 04:21] LABS: Basophils Absolute Auto 0.1 K/mm3 (0.0-0.1); Basophils Percent Auto 0.5 % (0.2-1.2); Eosinophils Absolute Auto 0.5 K/mm3 (0-0.3); Hematocrit 26.3 % (37.0-47.0); Hemoglobin 8.2 g/dL (12.0-15.0); Immature Granulocyte Absolute 0.23 K/mm3 (0.00-0.031); Lymphocytes Absolute Auto 0.68 K/mm3 (0.9-3.2); Mean Corpuscular HGB Conc 31.2 g/dl (32-36); Mean Corpuscular Hemoglobin 27.8 pg (26-34); Mean Corpuscular Volume 89.2 fl (80-100); Mean Platelet Volume 9.8 fl (7.4-10.4); Monocytes Absolute Auto 0.7 K/mm3 (0.1-0.6); Monocytes Percent Auto 6.3 % (2.6-8.5); Neutrophils Absolute Auto 9.2 K/mm3 (1.3-6.7); Neutrophils Percent Auto 81.2 % (45.5-73.1); Platelet Count Result 324 k/mm3 (150-375); Red Blood Count 2.95 M/mm3 (4.2-5.4); Red Cell Distribution Width 15.9 % (11.5-14.5); White Blood Count 11.4 K/mm3 (4.5-10.0)
[2022-09-20] MEDS: ACETAMINOPHEN 325 MG TABLET 650 MG BY MOUTH (04:37)
[2022-09-20] MEDS: CENTRAL LINE FLUSH 10 ML IV PUSH ×3 (04:38→20:09)
[2022-09-20 04:55] LABS: Alanine Aminotransferase 13 U/L (6-35); Albumin Level 2.5 g/dL (3.5-5.1); Alkaline Phosphatase 66 U/L (38-126); Anion Gap 6 mmol/L (8-16); Aspartate Amino Transferase 19 U/L (14-36); Bilirubin,Total 0.4 mg/dL (0.2-1.3); Blood Urea Nitrogen 46 mg/dL (7-17); Calcium 7.7 mg/dL (8.4-10.2); Carbon Dioxide 25 mmol/L (22-30); Chloride 97 mmol/L (98-107); Estimated CRCL calculation 23 ml/min; Estimated Glomerular Filt Rate 31; Glucose 224 mg/dL (65-110); Magnesium 1.9 mg/dL (1.6-2.3); Phosphorus 4.1 mg/dL (2.5-4.5); Potassium 4.4 mmol/L (3.4-5.0); Sodium 128 mmol/L (137-145)
[2022-09-20 06:00] LABS: Glucose Point of Care 238 mg/dl (65-105)
[2022-09-20] MEDS: INSULIN HUMAN REGULAR (*BKC) 100 UNITS/ML SUB-Q ×2 (06:02→16:59)
--- NOTE | 2022-09-20 08:25 | PC.NURSE ---
NA 128. Dr. Oropeza and Dr. Fountain notified. Dr. Oropeza will follow up with course of treatment.
--- NOTE | 2022-09-20 08:36 | PM.PNGS ---
Progress Note: A&P Assessment and Plan (1) Bowel obstruction: Qualifiers: Intestinal obstruction extent: partial Intestinal obstruction type: unspecified Qualified Code(s): K56.600 - Partial intestinal obstruction, unspecified as to cause Code(s): K56.609 - Unspecified intestinal obstruction, unspecified as to partial versus complete obstruction Status: Acute Assessment and Plan: Relieved with colon resection and colostomy. Colostomy functioning but patient not eating much. Seems pretty somnolent. 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 Resolved after resection and colostomy. (3) Protein-calorie malnutrition, severe: Code(s): E43 - Unspecified severe protein-calorie malnutrition Status: Acute Assessment and Plan: Continue TPN as patient still not eating. (4) Acute on chronic renal failure: Code(s): N17.9 - Acute kidney failure, unspecified; N18.9 - Chronic kidney disease, unspecified Status: Acute Assessment and Plan: A little better than a week ago. (5) Leukocytosis: Qualifiers: Leukocytosis type: unspecified Qualified Code(s): D72.829 - Elevated white blood cell count, unspecified Code(s): D72.829 - Elevated white blood cell count, unspecified Status: Acute Assessment and Plan: White blood cell count remains slightly elevated. (6) Type 2 diabetes mellitus with diabetic chronic kidney disease: Qualifiers: Diabetes mellitus rn long term care insulin use: with assisted use Chronic kidney disease stage: stage 3 (moderate) Chronic kidney disease stage 3 subtype: stage 3b (GFR 30-44) Qualified Code(s): E11.22 - Type 2 diabetes mellitus with diabetic chronic kidney disease; N18.32 - Chronic kidney disease, stage 3b; Z79.4 - long term care administrator (current) use of insulin Code(s): E11.22 - Type 2 diabetes mellitus with diabetic chronic kidney disease Status: Chronic Subjective Subjective Date/Time Seen: 09/19/22 06:46 Due to EMR unavailability on 09/19/2022, patient visit from that day at the above time is being entered into the computer on 09/20/2022. This is the report of yesterday's visit. Post Op day: #10 Patient reports: bowel movement, afebrile and other (Somnolent again today, still not eating very well) Review of Systems Review of Systems: ROS unobtainable: Yes unobtainable due to mental status (Somnolent) Exam Const: General: comfortable, no acute distress and tired appearing Nutritional Appearance: well nourished Orientation/consciousness: lethargic GI: Inspection: non-distended and incision (Continues to heal well) GI Palp: Yes Soft to palpation and Yes Tenderness to palpation present (GI) Objective Data Vital Signs Vital Signs: Vital Signs - 24 hr 09/19/22 20:00 09/19/22 20:20 09/19/22 20:00 Temperature 36.4 C Pulse Rate 80 69 Respiratory Rate 20 Blood Pressure 121/40 L Pulse Oximetry 97 Oxygen Delivery Room Air 09/19/22 20:00 09/19/22 20:45 09/19/22 22:00 Temperature Pulse Rate 71 72 74 Respiratory Rate Blood Pressure Pulse Oximetry 98 Oxygen Delivery Room Air 09/19/22 23:27 09/20/22 00:00 09/20/22 00:00 Temperature 36.4 C Pulse Rate 73 74 Respiratory Rate 20 Blood Pressure 109/55 L Pulse Oximetry 97 Oxygen Delivery Room Air 09/20/22 02:00 09/20/22 04:00 09/20/22 04:00 Temperature 36.6 C Pulse Rate 73 70 73 Respiratory Rate 20 Blood Pressure 118/43 L Pulse Oximetry 96 Oxygen Delivery 09/20/22 04:00 09/20/22 06:00 Temperature Pulse Rate 74 Respiratory Rate Blood Pressure Pulse Oximetry Oxygen Delivery Room Air Intake/Output Intake/Output: Intake & Output 09/17/22 09/18/22
--- NOTE | 2022-09-20 08:44 | PM.PNGS ---
Progress Note: A&P Assessment and Plan (1) Stricture of sigmoid colon: Code(s): K56.699 - Other intestinal obstruction unspecified as to partial versus complete obstruction Status: Resolved Assessment and Plan: Now 10 days status post left colectomy with distal transverse colostomy. Patient seems very somnolent. I wonder if her Seroquel is making her too sleepy to eat. Consider stopping Seroquel. Incision is healing well. Colostomy output is adequate. Probably remove abdominal wound hipolito tomorrow. (2) Protein-calorie malnutrition, severe: Code(s): E43 - Unspecified severe protein-calorie malnutrition Status: Acute Assessment and Plan: Continue TPN (3) Acute on chronic renal failure: Code(s): N17.9 - Acute kidney failure, unspecified; N18.9 - Chronic kidney disease, unspecified Status: Acute Assessment and Plan: Creatinine 1.6 today (4) Leukocytosis: Qualifiers: Leukocytosis type: unspecified Qualified Code(s): D72.829 - Elevated white blood cell count, unspecified Code(s): D72.829 - Elevated white blood cell count, unspecified Status: Acute Assessment and Plan: Persists, white blood cell count 42607. (5) Hyponatremia: Code(s): E87.1 - Hypo-osmolality and hyponatremia Status: Acute Assessment and Plan: Down to 128. Nephrology following. Will defer to their management Subjective Subjective Date/Time Seen: 09/20/22 08:44 Post Op day: #10 Patient reports: no new complaints (Patient very somnolent again this morning), tolerating liquids well (On a low-fiber diet but still not eating very much), bowel movement and afebrile Review of Systems Review of Systems: ROS unobtainable: Yes unobtainable due to mental status (Somnolent) Exam Const: General: comfortable, no acute distress and tired appearing Orientation/consciousness: lethargic GI: Inspection: non-distended and incision (Incision looks good, colostomy same, having output) GI Palp: Yes Soft to palpation and Yes Tenderness to palpation present (GI) (Incisional tenderness) Auscultation: normal bowel sounds Objective Data Vital Signs Vital Signs: Vital Signs - 24 hr 09/19/22 20:00 09/19/22 20:20 09/19/22 20:00 Temperature 36.4 C Pulse Rate 80 69 Respiratory Rate 20 Blood Pressure 121/40 L Pulse Oximetry 97 Oxygen Delivery Room Air 09/19/22 20:00 09/19/22 20:45 09/19/22 22:00 Temperature Pulse Rate 71 72 74 Respiratory Rate Blood Pressure Pulse Oximetry 98 Oxygen Delivery Room Air 09/19/22 23:27 09/20/22 00:00 09/20/22 00:00 Temperature 36.4 C Pulse Rate 73 74 Respiratory Rate 20 Blood Pressure 109/55 L Pulse Oximetry 97 Oxygen Delivery Room Air 09/20/22 02:00 09/20/22 04:00 09/20/22 04:00 Temperature 36.6 C Pulse Rate 73 70 73 Respiratory Rate 20 Blood Pressure 118/43 L Pulse Oximetry 96 Oxygen Delivery 09/20/22 04:00 09/20/22 06:00 Temperature Pulse Rate 74 Respiratory Rate Blood Pressure Pulse Oximetry Oxygen Delivery Room Air Intake/Output Intake/Output: Intake & Output 09/17/22 09/18/22 09/19/22 09/20/22 23:59 23:59 23:59 23:59 Intake Total 748 487 4291 1786 Output Total 900 300 100 Balance -411 242 1691 1686 Meds/Results Medications: Active Medications Generic Name Dose Route Start Last Admin Trade Name Freq PRN Reason Stop Dose Admin Acetaminophen 650 mg 09/17/22 08:13 09/20/22 04:37 Acetaminophen 325 Mg Tablet BY MOUTH 650 mg Q6H PRN Administration Mild Pain or Fever Aspirin 81 mg 09/17/22 10:10 09/19/22 19:45 Aspirin 81 Mg Chewable Tablet PO Not Given DAILY@0800 [facility] Dextrose 12.5 gm 09/07/22 23:34 Dextrose 50% 25 Gm/50 Ml Syringe IV PUSH PRN PRN Hypoglycemia Protocol Enoxaparin Sodium 30 mg 09/14/22 09:00 09/19/22 19:45 Enoxaparin 30 Mg/0.3 Ml Syringe SUB-Q No
[2022-09-20] MEDS: oxyCODONE/ACETAMINOPHEN (*CRX) 5-325 MG TABLET 1 TABLET BY MOUTH (09:33)
[2022-09-20] MEDS: polyethylene glycoL 3350 17 GM POWD.PACK PO (09:34)
[2022-09-20] MEDS: METOPROLOL TARTRATE 12.5 MG TABLET PO ×2 (09:34→20:08)
[2022-09-20] MEDS: FAMOTIDINE 20 MG TABLET PO ×2 (09:34→20:08)
[2022-09-20] MEDS: ASPIRIN 81 MG CHEWABLE TABLET PO (09:35)
[2022-09-20] MEDS: ENOXAPARIN 30 MG/0.3 ML SYRINGE SUB-Q (09:35)
--- NOTE | 2022-09-20 11:55 | P.PNNP_ITS ---
Progress Note: A&P Assessment and Plan (1) IVAN (acute kidney injury): Code(s): N17.9 - Acute kidney failure, unspecified Status: Acute Assessment and Plan: * acute kidney injury * This is better and she is now at baseline. * evaluation to date: * renal ultrasound without obstruction * urine electrolytes are prerenal * urine eosinophils negative * CPK mildly elevated but trended down - not high enough to affect kidneys * urine output not recorded for yesterday. * Her creatinine is stable between 1.3 and 1.5. * She is now on TPN * Repeat labs tomorrow (2) Chronic kidney disease, stage 3b: Code(s): N18.32 - Chronic kidney disease, stage 3b Status: Chronic Assessment and Plan: * baseline creatinine seems run around 1.1 - 1.4mg/dl in the last year or so * presumably secondary to hypertension, diabetes, vascular disease, and age- related changes (3) Bowel obstruction: Qualifiers: Intestinal obstruction extent: partial Intestinal obstruction type: unspecified Qualified Code(s): K56.600 - Partial intestinal obstruction, unspecified as to cause Code(s): K56.609 - Unspecified intestinal obstruction, unspecified as to partial versus complete obstruction Status: Acute Assessment and Plan: * due to colon cancer * s/p left colectomy with creation end colostomy, Parish procedure, and takedown splenic flexure * colostomy in place * She is now on TPN. * Surgery following (4) Acute respiratory failure: Code(s): J96.00 - Acute respiratory failure, unspecified whether with hypoxia or hypercapnia Status: Acute Assessment and Plan: * resolved (5) Hypotension: Code(s): I95.9 - Hypotension, unspecified Status: Acute Assessment and Plan: * resolved (6) Type 2 diabetes mellitus with diabetic chronic kidney disease: Qualifiers: Diabetes mellitus intermediate insulin use: with intermediate use Chronic kidney disease stage: stage 3 (moderate) Chronic kidney disease stage 3 subtype: stage 3b (GFR 30-44) Qualified Code(s): E11.22 - Type 2 diabetes mellitus with diabetic chronic kidney disease; N18.32 - Chronic kidney disease, stage 3b; Z79.4 - medical terminologist (current) use of insulin Code(s): E11.22 - Type 2 diabetes mellitus with diabetic chronic kidney disease Status: Chronic Assessment and Plan: * follow accu-checks * glycemic control per wall and floor tiler (7) Hyponatremia: Code(s): E87.1 - Hypo-osmolality and hyponatremia Status: Acute Assessment and Plan: this is most likely because of her mild renal insufficiency and also because of getting the TPN. Pharmacy says they cannot adjust the TPN. The patient does not look especially dry. Her blood pressure seems to be doing pretty well. This may just be an imbalance of salt plus water. She is not on any medications that do this. Just to be sure will check a TSH and cortisol level. She is getting other p.o. meds so will start sodium chloride twice a day. If she can't tolerate that then consider normal saline. The sodium continues to drop we can always give intermittent 3% saline. Subjective Date/time seen: 09/20/22 11:55 Interval history: Scar is resting comfortably in bed. She gets up in a chair every once in a while. She is getting TPN Exam Narrative: General: elderly female in NAD Heart: RRR no rub Lungs: clear b
--- NOTE | 2022-09-20 11:55 | PM.PNNEP ---
Progress Note: A&P Assessment and Plan (1) IVAN (acute kidney injury): Code(s): N17.9 - Acute kidney failure, unspecified Status: Acute Assessment and Plan: acute kidney injury This is better and she is now at baseline. evaluation to date: renal ultrasound without obstruction urine electrolytes are prerenal urine eosinophils negative CPK mildly elevated but trended down - not high enough to affect kidneys urine output not recorded for yesterday. Her creatinine is stable between 1.3 and 1.5. She is now on TPN Repeat labs tomorrow (2) Chronic kidney disease, stage 3b: Code(s): N18.32 - Chronic kidney disease, stage 3b Status: Chronic Assessment and Plan: baseline creatinine seems run around 1.1 - 1.4mg/dl in the last year or so presumably secondary to hypertension, diabetes, vascular disease, and age-related changes (3) Bowel obstruction: Qualifiers: Intestinal obstruction extent: partial Intestinal obstruction type: unspecified Qualified Code(s): K56.600 - Partial intestinal obstruction, unspecified as to cause Code(s): K56.609 - Unspecified intestinal obstruction, unspecified as to partial versus complete obstruction Status: Acute Assessment and Plan: due to colon cancer s/p left colectomy with creation end colostomy, Parish procedure, and takedown splenic flexure colostomy in place She is now on TPN. Surgery following (4) Acute respiratory failure: Code(s): J96.00 - Acute respiratory failure, unspecified whether with hypoxia or hypercapnia Status: Acute Assessment and Plan: resolved (5) Hypotension: Code(s): I95.9 - Hypotension, unspecified Status: Acute Assessment and Plan: resolved (6) Type 2 diabetes mellitus with diabetic chronic kidney disease: Qualifiers: Diabetes mellitus [facility] insulin use: with [facility] use Chronic kidney disease stage: stage 3 (moderate) Chronic kidney disease stage 3 subtype: stage 3b (GFR 30-44) Qualified Code(s): E11.22 - Type 2 diabetes mellitus with diabetic chronic kidney disease; N18.32 - Chronic kidney disease, stage 3b; Z79.4 - [facility] (current) use of insulin Code(s): E11.22 - Type 2 diabetes mellitus with diabetic chronic kidney disease Status: Chronic Assessment and Plan: follow accu-checks glycemic control per limnologist (7) Hyponatremia: Code(s): E87.1 - Hypo-osmolality and hyponatremia Status: Acute Assessment and Plan: this is most likely because of her mild renal insufficiency and also because of getting the TPN. Pharmacy says they cannot adjust the TPN. The patient does not look especially dry. Her blood pressure seems to be doing pretty well. This may just be an imbalance of salt plus water. She is not on any medications that do this. Just to be sure will check a TSH and cortisol level. She is getting other p.o. meds so will start sodium chloride twice a day. If she can't tolerate that then consider normal saline. The sodium continues to drop we can always give intermittent 3% saline. Subjective Date/time seen: 09/20/22 11:55 Interval history: Scar is resting comfortably in bed. She gets up in a chair every once in a while. She is getting TPN Exam Narrative: General: elderly female in NAD Heart: RRR no rub Lungs: clear bilaterally Abdomen: soft with hypoactive bowel sounds; colostomy in place Extremities: no cyanosis or clubbing; no edema Skin: no rash or gallop Objective Data Vital Signs Vital Signs: Vital Signs - 24 hr 09/19/22 20:00 09/19/22 20:20 09/19/22 20:00 Temperature 97.6 F Pulse Rate 80 69 Respiratory Rate 20 Blood Pressure 121/40 L Pulse Oximetry 97 Oxygen Delivery Room Air 09/19/22 20:00 09/19/22 20:45 09/19/22 22:00 Temperature Pulse Rate 71
--- NOTE | 2022-09-20 12:21 | PM.IMPN ---
Progress Note: A&P Assessment and Plan (1) Bowel obstruction: Qualifiers: Intestinal obstruction extent: partial Intestinal obstruction type: unspecified Qualified Code(s): K56.600 - Partial intestinal obstruction, unspecified as to cause Code(s): K56.609 - Unspecified intestinal obstruction, unspecified as to partial versus complete obstruction Status: Acute Assessment and Plan: Patient found to have a sigmoid stricture and partial bowel obstruction status post left colectomy with creation of end colostomy, Parish procedure and takedown of splenic flexure on 09/10/22. Pathology showing diverticulitis with necrosis, calcification, perforation and fibrosis but negative for malignancy. CT A/P performed 09/16 due to nausea/vomiting: moderate ascites with possible liver cirrhosis and anasarca. Diet advanced and tolerating this well but eating mostly 10-25%. WBC back to normal Management per surgery Continue PT/OT TPN started (2) SVT (supraventricular tachycardia): Code(s): I47.1 - Supraventricular tachycardia Status: Acute Assessment and Plan: Patient was having runs of SVT. EKG at the time showing new ST depression in the anterior-lateral leads probably rate related. TSH mildly elevated but FT4 normal. Echo showing EF 65%-70% with moderate pulmonary HTN. Repeat EKG improved with back in normal sinus. ASA and Metoprolol added. Appreciate cardiology input Will continue to monitor on tele. Replace electrolytes as needed. (3) Acute respiratory failure: Code(s): J96.00 - Acute respiratory failure, unspecified whether with hypoxia or hypercapnia Status: Acute Assessment and Plan: Acute Respiratory failure secondary to general anesthesia and hypotension. Patient able to be extubated on 09/12. Patient was weaned to room air but now on O2. CT scan showing bilateral pleural effusions and evidence of fluid overload. IV fluids were stopped and lasix IV once given. Encourage IS use. Wean o2 as tolerated. (4) Acute on chronic renal failure: Code(s): N17.9 - Acute kidney failure, unspecified; N18.9 - Chronic kidney disease, unspecified Status: Acute Assessment and Plan: Patient has chronic kidney disease with baseline Cr 1.1-1.3 Creatinine 1.4 on admission but climbed to 2.0 CT done recently did not show any stones or hydronephrosis CK level 1010 -> 399 Likely multifactorial secondary to surgery, diverticulitis, hypotension and contrast Patient has received adequate amount of IV fluids and also treated with albumin IV fluids resumed at low dose but now stopped Nephrology consulted and appreciate their input. Cr up to 1.5 now but did receive Lasix yesterday Monitor urine output, electrolytes and creatinine. Consider Albumin with lasix. (5) Stricture of sigmoid colon: Code(s): K56.699 - Other intestinal obstruction unspecified as to partial versus complete obstruction Status: Resolved Assessment and Plan: See above. (6) Hypotension: Code(s): I95.9 - Hypotension, unspecified Status: Acute Assessment and Plan: Likely secondary to general anesthesia and volume loss Status post IV fluid bolus and PRBC transfusion Blood pressure has improved and patient is not requiring any vasopressors Did require albumin for HoTN evening of 09/12 but nothing since. BP stable. Tolerating the metoprolol Continue monitor closely. (7) Delirium: Code(s): R41.0 - Disorientation, unspecified Status: Acute Assessment and Plan: Patient had issues with delirium prior to surgery while on the floor and pulled out lines and tubes multiple times. She was started on Seroquel which was held after surgery but now resumed. Precedex stopped. Mood stable but persistently somnolent so Seroquel dose decrease with clinical improvement. Ammonia <9. D/c seroquel at this time (8) Type 2 diabetes mellitus with diabet
[2022-09-20] MEDS: FAT EMULSIONS IV 20% 250 ML 20.8 ML IVPB (12:56)
[2022-09-20] MEDS: AMINO ACIDS 5%/D15W/E-LYTES/CA 2,000 ML with MULTIVITAMINS-12 INJ VIAL 1 2.5 ML, MULTIV... 40 ML IV CONT (12:57)
[2022-09-20 13:06] LABS: Hematocrit 27.9 % (37.0-47.0); Hemoglobin 8.5 g/dL (12.0-15.0); Mean Corpuscular HGB Conc 30.5 g/dl (32-36); Mean Corpuscular Hemoglobin 27.7 pg (26-34); Mean Corpuscular Volume 90.9 fl (80-100); Mean Platelet Volume 10.7 fl (7.4-10.4); Platelet Count Result 332 k/mm3 (150-375); Red Blood Count 3.07 M/mm3 (4.2-5.4); Red Cell Distribution Width 15.8 % (11.5-14.5)
[2022-09-20 14:52] LABS: Glucose Point of Care 188 mg/dl (65-105)
[2022-09-20] MEDS: SODIUM CHLORIDE 1 GM TABLET PO (16:57)
[2022-09-20 17:00] LABS: Glucose Point of Care 259 mg/dl (65-105)
[2022-09-20 17:15] LABS: Anion Gap 3 mmol/L (8-16); Blood Urea Nitrogen 38 mg/dL (7-17); Calcium 7.8 mg/dL (8.4-10.2); Carbon Dioxide 27 mmol/L (22-30); Chloride 100 mmol/L (98-107); Estimated CRCL calculation 24 ml/min; Estimated Glomerular Filt Rate 33; Glucose 178 mg/dL (65-110); Phosphorus 4.1 mg/dL (2.5-4.5); Potassium 4.2 mmol/L (3.4-5.0); Sodium 130 mmol/L (137-145); Triglycerides 95 mg/dL (<150)
[2022-09-20 23:48] LABS: Glucose Point of Care 136 mg/dl (65-105)
[2022-09-21] VITALS (14 sets, daily range): BP systolic 115–146; BP diastolic 43–61; PULSE 68–85; RESP 16–18; TEMP 36.4–36.7; O2SAT 96–100
[2022-09-21 02:20] LABS: Free T4 Free Thyroxine Reflex 1.55 ng/dL (0.78-2.19)
[2022-09-21 03:36] LABS: Total Triiodothyronine (T3) 0.76 NG/ML (0.97-1.69)
[2022-09-21] MEDS: CENTRAL LINE FLUSH 10 ML IV PUSH ×3 (04:28→22:15)
[2022-09-21 04:38] LABS: Hematocrit 25.7 % (37.0-47.0); Hemoglobin 7.9 g/dL (12.0-15.0); Mean Corpuscular HGB Conc 30.7 g/dl (32-36); Mean Corpuscular Hemoglobin 27.5 pg (26-34); Mean Corpuscular Volume 89.5 fl (80-100); Mean Platelet Volume 9.7 fl (7.4-10.4); Platelet Count Result 346 k/mm3 (150-375); Red Blood Count 2.87 M/mm3 (4.2-5.4); Red Cell Distribution Width 15.8 % (11.5-14.5); White Blood Count 11.8 K/mm3 (4.5-10.0)
[2022-09-21 04:56] LABS: Albumin Level 2.4 g/dL (3.5-5.1); Anion Gap 1 mmol/L (8-16); Blood Urea Nitrogen 57 mg/dL (7-17); Calcium 7.6 mg/dL (8.4-10.2); Carbon Dioxide 28 mmol/L (22-30); Chloride 96 mmol/L (98-107); Estimated CRCL calculation 20 ml/min; Estimated Glomerular Filt Rate 27; Glucose 173 mg/dL (65-110); Phosphorus 5.1 mg/dL (2.5-4.5); Potassium 4.5 mmol/L (3.4-5.0); Sodium 125 mmol/L (137-145); Triglycerides 93 mg/dL (<150)
[2022-09-21] MEDS: ACETAMINOPHEN 325 MG TABLET 650 MG BY MOUTH (08:21)
[2022-09-21] MEDS: METOPROLOL TARTRATE 12.5 MG TABLET PO ×2 (08:22→22:14)
[2022-09-21] MEDS: polyethylene glycoL 3350 17 GM POWD.PACK PO (08:22)
[2022-09-21] MEDS: ENOXAPARIN 30 MG/0.3 ML SYRINGE SUB-Q (08:23)
[2022-09-21] MEDS: FAMOTIDINE 20 MG TABLET PO ×2 (08:23→22:14)
[2022-09-21] MEDS: SODIUM CHLORIDE 1 GM TABLET PO ×2 (08:23→16:28)
--- NOTE | 2022-09-21 08:23 | P.PNIM_ITS ---
Progress Note: A&P Assessment and Plan (1) Bowel obstruction: Qualifiers: Intestinal obstruction extent: partial Intestinal obstruction type: unspecified Qualified Code(s): K56.600 - Partial intestinal obstruction, unspecified as to cause Code(s): K56.609 - Unspecified intestinal obstruction, unspecified as to partial versus complete obstruction Status: Acute Assessment and Plan: Patient found to have a sigmoid stricture and partial bowel obstruction status post left colectomy with creation of end colostomy, Parish procedure and takedown of splenic flexure on 09/10/22. Pathology showing diverticulitis with necrosis, calcification, perforation and fibrosis but negative for malignancy. CT A/P performed 09/16 due to nausea/vomiting: moderate ascites with possible liver cirrhosis and anasarca. Diet advanced and tolerating this well but eating mostly 10-25%. WBC back to normal Management per surgery Continue PT/OT TPN started 09/18 (2) SVT (supraventricular tachycardia): Code(s): I47.1 - Supraventricular tachycardia Status: Acute Assessment and Plan: Patient was having runs of SVT. EKG at the time showing new ST depression in the anterior-lateral leads probably rate related. TSH mildly elevated but FT4 normal. Echo showing EF 65%-70% with moderate pulmonary HTN. Repeat EKG improved with back in normal sinus. ASA and Metoprolol added. Appreciate cardiology input Will continue to monitor on tele. Replace electrolytes as needed. (3) Acute respiratory failure: Code(s): J96.00 - Acute respiratory failure, unspecified whether with hypoxia or hypercapnia Status: Acute Assessment and Plan: Acute Respiratory failure secondary to general anesthesia and hypotension. Patient able to be extubated on 09/12. Patient was weaned to room air but now on O2. CT scan showing bilateral pleural effusions and evidence of fluid overload. IV fluids were stopped and lasix IV once given. Encourage IS use. Wean o2 as tolerated. (4) Acute on chronic renal failure: Code(s): N17.9 - Acute kidney failure, unspecified; N18.9 - Chronic kidney disease, unspecified Status: Acute Assessment and Plan: Patient has chronic kidney disease with baseline Cr 1.1-1.3 Creatinine 1.4 on admission but climbed to 2.0 CT done recently did not show any stones or hydronephrosis CK level 1010 -> 399 Likely multifactorial secondary to surgery, diverticulitis, hypotension and contrast Patient has received adequate amount of IV fluids and also treated with albumin IV fluids resumed at low dose but now stopped Nephrology consulted and appreciate their input. (5) Stricture of sigmoid colon: Code(s): K56.699 - Other intestinal obstruction unspecified as to partial versus complete obstruction Status: Resolved Assessment and Plan: See above. (6) Hypotension: Code(s): I95.9 - Hypotension, unspecified Status: Acute Assessment and Plan: Likely secondary to general anesthesia and volume loss Status post IV fluid bolus and PRBC transfusion Resolved (7) Delirium: Code(s): R41.0 - Disorientation, unspecified Status: Acute Assessment and Plan: Patient had issues with delirium prior to surgery while on the floor and pulled out lines and tubes multiple times. She was started on Seroquel which was held after surgery but now resumed. Precedex stopped. Mood stable but persistently somnolent so Seroquel dose decrease with clinical improvement. Ammonia <9.
[2022-09-21] MEDS: ASPIRIN 81 MG CHEWABLE TABLET PO (08:24)
[2022-09-21 09:14] LABS: CRP 7.1 mg/dL (<1.0)
[2022-09-21 09:43] LABS: Procalcitonin 0.3 ng/mL
--- NOTE | 2022-09-21 10:49 | PM.PNGS ---
Progress Note: A&P Assessment and Plan (1) Stricture of sigmoid colon: Code(s): K56.699 - Other intestinal obstruction unspecified as to partial versus complete obstruction Status: Resolved (2) Bowel obstruction: Qualifiers: Intestinal obstruction extent: partial Intestinal obstruction type: unspecified Qualified Code(s): K56.600 - Partial intestinal obstruction, unspecified as to cause Code(s): K56.609 - Unspecified intestinal obstruction, unspecified as to partial versus complete obstruction Status: Acute Assessment and Plan: Patient had emesis this morning. Plain films of the chest and abdomen were negative. Will get CT scan abdomen and pelvis to further investigate. Has not been eating well for several days. (3) Protein-calorie malnutrition, severe: Code(s): E43 - Unspecified severe protein-calorie malnutrition Status: Acute Assessment and Plan: Continue TPN (4) Type 2 diabetes mellitus with diabetic chronic kidney disease: Qualifiers: Diabetes mellitus half-way insulin use: with half-way use Chronic kidney disease stage: stage 3 (moderate) Chronic kidney disease stage 3 subtype: stage 3b (GFR 30-44) Qualified Code(s): E11.22 - Type 2 diabetes mellitus with diabetic chronic kidney disease; N18.32 - Chronic kidney disease, stage 3b; Z79.4 - oil heaterman (current) use of insulin Code(s): E11.22 - Type 2 diabetes mellitus with diabetic chronic kidney disease Status: Chronic Subjective Subjective Date/Time Seen: 09/21/22 10:49 Post Op day: #11 Patient reports: still having pain (Abdominal pain), vomiting (Aid a small amount of breakfast and vomited.), afebrile and other (More awake but still very confused, very hard of hearing) Review of Systems Review of Systems: ROS unobtainable: Yes unobtainable due to mental status Exam Const: General: comfortable, no acute distress, alert (More alert this morning), tired appearing and other (Very hard of hearing) Orientation/consciousness: confusion GI: Inspection: non-distended, incision (Dry and continues to heal well) and other (Still having colostomy output, stoma black peripherally pink center) GI Palp: Yes Soft to palpation, Yes Tenderness to palpation present (GI) (Mild tenderness, nothing acute), No Guarding due to palpation present (GI), No Hepatomegaly present, No Splenomegaly present, No Hernia present, No Palpable mass present and No Rebound tenderness present Neuro: General: no focal motor deficits Cranial nerves: Yes facial symmetry, Yes Midline tongue present and Yes hard of hearing (Very hard of hearing) Extrem: General: no calf tenderness and no edema Objective Data Vital Signs Vital Signs: Vital Signs - 24 hr 09/20/22 12:00 09/20/22 12:00 09/20/22 14:00 Temperature 36.4 C L Pulse Rate 72 74 69 Respiratory Rate 20 Blood Pressure 102/61 Pulse Oximetry 96 Oxygen Delivery 09/20/22 12:00 09/20/22 16:00 09/20/22 16:00 Temperature 36.5 C Pulse Rate 72 68 Respiratory Rate 22 H Blood Pressure 172/61 H Pulse Oximetry 98 Oxygen Delivery Room Air 09/20/22 16:00 09/20/22 18:00 09/20/22 20:08 Temperature Pulse Rate 71 70 Respiratory Rate Blood Pressure Pulse Oximetry Oxygen Delivery Room Air 09/20/22 20:00 09/20/22 20:00 09/20/22 22:00 Temperature 36.1 C L Pulse Rate 71 69 73 Respiratory Rate 20 Blood Pressure 117/54 L Pulse Oximetry 99 Oxygen Delivery 09/20/22 20:00 09/20/22 23:39 09/21/22 00:00 Temperature 36.6 C Pulse Rate 74 Respiratory Rate 18 Blood Pressure 132/46 L Pulse Oximetry 99 Oxygen Delivery Room Air Room Air 09/21/22 00:00 09/21/22 02:00 09/21/22 04:00 Temperature 36.4 C Pulse Rate 71 71 71 Respiratory Rate 18 Blood Pressure 131/52 L Pulse Oximetry 99 Oxygen Delivery 09/21/22 04:00 09/21/22 04:00 09/21/22 06:00 Temperature Pulse Rate 71 68
[2022-09-21] MEDS: SODIUM CHLORIDE 0.9% IV 1,000 ML 75 ML IV CONT (10:57)
--- NOTE | 2022-09-21 11:49 | P.PNNP_ITS ---
Progress Note: A&P Assessment and Plan (1) IVAN (acute kidney injury): Code(s): N17.9 - Acute kidney failure, unspecified Status: Acute Assessment and Plan: * acute kidney injury * her creatinine had fallen to 1.3-1.5, however yesterday was 1.6 and today is 1.8. * Initial evaluation: * renal ultrasound without obstruction * urine electrolytes are prerenal * urine eosinophils negative * CPK mildly elevated but trended down - not high enough to affect kidneys * urine output is lower, at only 400. * intake is high with the TPN at 10/25/2054. * She has developed some swelling. * White counts not too bad. She is not running a fever. * It is unclear why the creatinine is worse if she is fluid overloaded. * Will check urine electrolytes. Repeat an ultrasound. Will give her some diuretics. (2) Chronic kidney disease, stage 3b: Code(s): N18.32 - Chronic kidney disease, stage 3b Status: Chronic Assessment and Plan: * baseline creatinine seems run around 1.1 - 1.4mg/dl in the last year or so * presumably secondary to hypertension, diabetes, vascular disease, and age- related changes (3) Bowel obstruction: Qualifiers: Intestinal obstruction extent: partial Intestinal obstruction type: unspecified Qualified Code(s): K56.600 - Partial intestinal obstruction, unspecified as to cause Code(s): K56.609 - Unspecified intestinal obstruction, unspecified as to partial versus complete obstruction Status: Acute Assessment and Plan: * due to colon cancer * s/p left colectomy with creation end colostomy, Parish procedure, and takedown splenic flexure * colostomy in place * She is now on TPN. * I saw Dr. Fountain's note. (4) Acute respiratory failure: Code(s): J96.00 - Acute respiratory failure, unspecified whether with hypoxia or hypercapnia Status: Acute Assessment and Plan: * resolved (5) Hypotension: Code(s): I95.9 - Hypotension, unspecified Status: Acute Assessment and Plan: * resolved (6) Type 2 diabetes mellitus with diabetic chronic kidney disease: Qualifiers: Diabetes mellitus intermediate frame tender insulin use: with senior living use Chronic kidney disease stage: stage 3 (moderate) Chronic kidney disease stage 3 subtype: stage 3b (GFR 30-44) Qualified Code(s): E11.22 - Type 2 diabetes mellitus with diabetic chronic kidney disease; N18.32 - Chronic kidney disease, stage 3b; Z79.4 - longterm (current) use of insulin Code(s): E11.22 - Type 2 diabetes mellitus with diabetic chronic kidney disease Status: Chronic Assessment and Plan: * follow accu-checks * glycemic control per parachute marker (7) Hyponatremia: Code(s): E87.1 - Hypo-osmolality and hyponatremia Status: Acute Assessment and Plan: The patient has hyponatremia. Patient is getting free water from the TPN. Her urine outputs not that great. So the sodium may be dilutional. The patient also has an elevated TSH this was barely elevated before but now is worse. Will start on some thyroid supplements. Cortisol level is only 12. Will check a Cortrosyn stim. She is on escitalopram which can also increase the risk for hyponatremia. Can this be stopped? At this point she is on salt tablets. I am going to add Lasix to help reduce the serum osmolality and get rid of some of the free water. This may also help offset some of the fluid she is getting from the TPN. Will get a chest x-ray to see where we
--- NOTE | 2022-09-21 11:49 | PM.PNNEP ---
Progress Note: A&P Assessment and Plan (1) IVAN (acute kidney injury): Code(s): N17.9 - Acute kidney failure, unspecified Status: Acute Assessment and Plan: acute kidney injury her creatinine had fallen to 1.3-1.5, however yesterday was 1.6 and today is 1.8. Initial evaluation: renal ultrasound without obstruction urine electrolytes are prerenal urine eosinophils negative CPK mildly elevated but trended down - not high enough to affect kidneys urine output is lower, at only 400. intake is high with the TPN at 10/25/2054. She has developed some swelling. White counts not too bad. She is not running a fever. It is unclear why the creatinine is worse if she is fluid overloaded. Will check urine electrolytes. Repeat an ultrasound. Will give her some diuretics. (2) Chronic kidney disease, stage 3b: Code(s): N18.32 - Chronic kidney disease, stage 3b Status: Chronic Assessment and Plan: baseline creatinine seems run around 1.1 - 1.4mg/dl in the last year or so presumably secondary to hypertension, diabetes, vascular disease, and age-related changes (3) Bowel obstruction: Qualifiers: Intestinal obstruction extent: partial Intestinal obstruction type: unspecified Qualified Code(s): K56.600 - Partial intestinal obstruction, unspecified as to cause Code(s): K56.609 - Unspecified intestinal obstruction, unspecified as to partial versus complete obstruction Status: Acute Assessment and Plan: due to colon cancer s/p left colectomy with creation end colostomy, Parish procedure, and takedown splenic flexure colostomy in place She is now on TPN. I saw Dr. Fountain's note. (4) Acute respiratory failure: Code(s): J96.00 - Acute respiratory failure, unspecified whether with hypoxia or hypercapnia Status: Acute Assessment and Plan: resolved (5) Hypotension: Code(s): I95.9 - Hypotension, unspecified Status: Acute Assessment and Plan: resolved (6) Type 2 diabetes mellitus with diabetic chronic kidney disease: Qualifiers: Diabetes mellitus terminologist insulin use: with terminologist use Chronic kidney disease stage: stage 3 (moderate) Chronic kidney disease stage 3 subtype: stage 3b (GFR 30-44) Qualified Code(s): E11.22 - Type 2 diabetes mellitus with diabetic chronic kidney disease; N18.32 - Chronic kidney disease, stage 3b; Z79.4 - intermediate frame tender (current) use of insulin Code(s): E11.22 - Type 2 diabetes mellitus with diabetic chronic kidney disease Status: Chronic Assessment and Plan: follow accu-checks glycemic control per software quality automation engineer (7) Hyponatremia: Code(s): E87.1 - Hypo-osmolality and hyponatremia Status: Acute Assessment and Plan: The patient has hyponatremia. Patient is getting free water from the TPN. Her urine outputs not that great. So the sodium may be dilutional. The patient also has an elevated TSH this was barely elevated before but now is worse. Will start on some thyroid supplements. Cortisol level is only 12. Will check a Cortrosyn stim. She is on escitalopram which can also increase the risk for hyponatremia. Can this be stopped? At this point she is on salt tablets. I am going to add Lasix to help reduce the serum osmolality and get rid of some of the free water. This may also help offset some of the fluid she is getting from the TPN. Will get a chest x-ray to see where we are with fluid status. If the sodium keeps dropping we can give her a small dose of 3% saline. Subjective Date/time seen: 09/21/22 11:49 Interval history: Scar is resting comfortably in bed. She is tired. She denies shortness of breath. She is not on oxygen. She has developed some swelling Exam Narrative: General: elderly female in NAD Heart: RRR no rub Lungs: clear bilaterally Abd
[2022-09-21 11:52] LABS: Glucose Point of Care 213 mg/dl (65-105)
[2022-09-21] MEDS: AMINO ACIDS 5%/D15W/E-LYTES/CA 2,000 ML with MULTIVITAMINS-12 INJ VIAL 1 2.5 ML, MULTIV... 40 ML IV CONT (12:17)
[2022-09-21] MEDS: FAT EMULSIONS IV 20% 250 ML 20.8 ML IVPB (12:21)
[2022-09-21] MEDS: INSULIN HUMAN REGULAR (*BKC) 100 UNITS/ML SUB-Q ×2 (12:25→18:36)
[2022-09-21] MEDS: COSYNTROPIN 0.25 MG/ML VIAL IV PUSH (12:37)
--- NOTE | 2022-09-21 12:58 | PC.NURSE ---
This patient, Scar Sewell, was transferred to [ [id number]] on 09/21/22 at 1251. Personal belongings sent with patient. Report given to [ Nola]. Appropriate documentation sent with patient.
--- NOTE | 2022-09-21 13:09 | PCNFU ---
Nutrition Follow-Up Complete: Severe Malnutrition related to inadequate protein-energy intake in the setting of acute disease (small bowel obstruction) as evidenced by < EER for > 7 days (NPO x 4 days and poor po intake reported at home <75% of estimanted needs with significant weight loss of 6% in the past 1 month. Goal:Meet estimated nutritional needs - Progressing to goal with TPN. Pt current nutrition is TPN Clinmix 5/15E with lipids. 1180 kcals, (~75% EER), 48 g protein, 1210 ml total volume. Soft and bite size level 6, low fiber diet with intakes 0-10% last 2 days. Nutrition recommendation: Do not recommend increasing the TPN at this time because of Na 125, need for Lasix. Continue with current orders Last recorded weight is 84.7 kg. Bowel Motility: +1 BM today 09/21 Labs Reviewed: Hgb 7.9, Hct 25.7, Alb 2.4, Na 125, BUN 57, Cre 1.8, Glu 173 Meds Noted: Lasix, Lovenox, Zofran, Skin:Abdomen incision Additional Notes: Creatinine jumped to 1.8, Na 125. No additional volume for TPN recommended. Pt vomited this morning and has not been eating much the last couple of days. Continue with current orders for TPN and PO diet as tolerated. Agree with orders. Will monitor every 3 days.
[2022-09-21] MEDS: CENTRAL LINE FLUSH 20 ML IV PUSH ×2 (13:10→13:43)
[2022-09-21 14:22] LABS: Appearance Urine Clear (Clear); Bacteria Urine None Seen /hpf; Bilirubin Urine Negative (Negative); Blood Urine Negative (Negative); Color Urine Dark Yellow (Yellow); Glucose Urine UA Negative (Negative); Hyaline Casts Urine Present /lpf; Ketones Urine Negative (Negative); Leukocyte Esterase Ur 1+ LEU/UL (NEGATIVE); Nitrate Urine Positive (Negative); Non Pathogenic Casts 0-2; Protein Urine Trace mg/dL (Negative); RBC Urine 0-2 /hpf (0-2); Specific Grav Ur 1.014 (1.001-1.035); Squamous Epithelial Cell Urine None seen /hpf (Few); Urobilinogen Urine 0.2 mg/dL (<2.0); WBC Urine 21-50 /hpf (0-3)
[2022-09-21 14:23] LABS: Add Urine Microscopic? YES
[2022-09-21] MEDS: LEVOTHYROXINE SODIUM 50 MCG TABLET PO (14:42)
[2022-09-21] MEDS: PIPERACILLIN/TAZ 2.25G/NS 50ML 2.25 GM/50 ML BAG IVPB ×2 (14:54→19:47)
[2022-09-21] MEDS: FUROSEMIDE 40 MG TABLET PO (16:28)
[2022-09-21 16:38] LABS: Sodium Urine Random 18 meq/L
[2022-09-21 17:03] LABS: Sodium 120 mmol/L (137-145)
[2022-09-21 17:55] LABS: Anion Gap 5 mmol/L (8-16); Blood Urea Nitrogen 61 mg/dL (7-17); Calcium 7.6 mg/dL (8.4-10.2); Carbon Dioxide 26 mmol/L (22-30); Chloride 96 mmol/L (98-107); Estimated CRCL calculation 20 ml/min; Estimated Glomerular Filt Rate 25; Glucose 217 mg/dL (65-110); Potassium 5.1 mmol/L (3.4-5.0); Sodium 127 mmol/L (137-145)
[2022-09-21 18:28] LABS: Glucose Point of Care 223 mg/dl (65-105)
[2022-09-22] VITALS (13 sets, daily range): BP systolic 122–146; BP diastolic 44–60; PULSE 67–74; RESP 18; TEMP 36.1–36.5; O2SAT 93–100
[2022-09-22 00:29] LABS: Glucose Point of Care 223 mg/dl (65-105)
[2022-09-22] MEDS: INSULIN HUMAN REGULAR (*BKC) 100 UNITS/ML SUB-Q ×3 (00:31→17:23)
[2022-09-22] MEDS: PIPERACILLIN/TAZ 2.25G/NS 50ML 2.25 GM/50 ML BAG IVPB ×4 (00:31→17:17)
[2022-09-22] MEDS: SODIUM CHLORIDE 0.9% IV 1,000 ML 75 ML IV CONT ×2 (04:16→18:14)
[2022-09-22 05:22] LABS: Glucose Point of Care 220 mg/dl (65-105)
[2022-09-22] MEDS: CENTRAL LINE FLUSH 10 ML IV PUSH ×3 (05:44→20:44)
[2022-09-22 05:45] LABS: Hematocrit 22.9 % (37.0-47.0); Hemoglobin 7.3 g/dL (12.0-15.0); Mean Corpuscular HGB Conc 31.9 g/dl (32-36); Mean Corpuscular Hemoglobin 28.4 pg (26-34); Mean Corpuscular Volume 89.1 fl (80-100); Mean Platelet Volume 9.9 fl (7.4-10.4); Platelet Count Result 416 k/mm3 (150-375); Red Blood Count 2.57 M/mm3 (4.2-5.4); Red Cell Distribution Width 15.5 % (11.5-14.5); White Blood Count 10.4 K/mm3 (4.5-10.0)
[2022-09-22] MEDS: CENTRAL LINE FLUSH 20 ML IV PUSH (05:45)
[2022-09-22] MEDS: LEVOTHYROXINE SODIUM 50 MCG TABLET PO (05:48)
[2022-09-22 06:05] LABS: Albumin Level 2.2 g/dL (3.5-5.1); Anion Gap 3 mmol/L (8-16); Blood Urea Nitrogen 58 mg/dL (7-17); Calcium 7.5 mg/dL (8.4-10.2); Carbon Dioxide 26 mmol/L (22-30); Chloride 99 mmol/L (98-107); Estimated CRCL calculation 21 ml/min; Estimated Glomerular Filt Rate 27; Glucose 198 mg/dL (65-110); Potassium 4.5 mmol/L (3.4-5.0); Sodium 128 mmol/L (137-145)
[2022-09-22] MEDS: METOPROLOL TARTRATE 12.5 MG TABLET PO ×2 (08:46→20:43)
[2022-09-22] MEDS: FUROSEMIDE 40 MG TABLET PO ×2 (08:47→17:09)
[2022-09-22] MEDS: SODIUM CHLORIDE 1 GM TABLET PO ×2 (08:47→17:09)
[2022-09-22] MEDS: FAMOTIDINE 20 MG TABLET PO ×2 (08:47→20:43)
[2022-09-22] MEDS: ENOXAPARIN 30 MG/0.3 ML SYRINGE SUB-Q (08:47)
[2022-09-22] MEDS: ASPIRIN 81 MG CHEWABLE TABLET PO (08:58)
[2022-09-22] MEDS: ONDANSETRON INJ 4 MG/2 ML VIAL IV PUSH (08:58)
--- NOTE | 2022-09-22 10:01 | P.PNNP_ITS ---
Progress Note: A&P Assessment and Plan (1) IVAN (acute kidney injury): Code(s): N17.9 - Acute kidney failure, unspecified Status: Acute Assessment and Plan: * acute kidney injury * her creatinine had fallen to 1.3-1.5, however in the last few days stacey to 1.8 go 1.9. * Initial evaluation: * renal ultrasound without obstruction * urine electrolytes are prerenal * urine eosinophils negative * CPK mildly elevated but trended down - not high enough to affect kidneys * yesterday she was noted to have a distended bladder and mild blateral hydronephrosis on repeat u/s. * payton was placed and she had a liter of urine in the bladder. * intake is high with the TPN I/O 1255/1610. overnight U.O. 900. It looks like things are better since payton was placed. * New IVAN due to urinary retention. * will repeat labs tomorrow. (2) Chronic kidney disease, stage 3b: Code(s): N18.32 - Chronic kidney disease, stage 3b Status: Chronic Assessment and Plan: * baseline creatinine seems run around 1.1 - 1.4mg/dl in the last year or so * presumably secondary to hypertension, diabetes, vascular disease, and age- related changes (3) Bowel obstruction: Qualifiers: Intestinal obstruction extent: partial Intestinal obstruction type: unspecified Qualified Code(s): K56.600 - Partial intestinal obstruction, unspecified as to cause Code(s): K56.609 - Unspecified intestinal obstruction, unspecified as to partial versus complete obstruction Status: Acute Assessment and Plan: * due to colon cancer * s/p left colectomy with creation end colostomy, Parish procedure, and takedown splenic flexure * colostomy in place * She is now on TPN. * has a tray. hopefully she will eat some (4) Acute respiratory failure: Code(s): J96.00 - Acute respiratory failure, unspecified whether with hypoxia or hypercapnia Status: Acute Assessment and Plan: * resolved (5) Hypotension: Code(s): I95.9 - Hypotension, unspecified Status: Acute Assessment and Plan: * resolved (6) Type 2 diabetes mellitus with diabetic chronic kidney disease: Qualifiers: Diabetes mellitus termite treater helper insulin use: with termite treater helper use Chronic kidney disease stage: stage 3 (moderate) Chronic kidney disease stage 3 subtype: stage 3b (GFR 30-44) Qualified Code(s): E11.22 - Type 2 diabetes mellitus with diabetic chronic kidney disease; N18.32 - Chronic kidney disease, stage 3b; Z79.4 - terminal gauger supervisor (current) use of insulin Code(s): E11.22 - Type 2 diabetes mellitus with diabetic chronic kidney disease Status: Chronic Assessment and Plan: * follow accu-checks * glycemic control per commercial front load operator (7) Hyponatremia: Code(s): E87.1 - Hypo-osmolality and hyponatremia Status: Acute Assessment and Plan: The patient has hyponat louise stimi normal likely multifactorial with contribution from renal insufficiency, hypothyroidiam, antidepressant, free water intake, yesterday her sodium was only 120 but repeat showed 127 and today 128. possibly 120 was due to drawing above the tpn? cxr shows no excess fluid. now on lasix and salt tabs to balance free water from TPN. will watch I/O and sodium level. Subjective Date/time seen: 09/22/22 10:01 Interval history: Scar is resting comfortably in bed. She is tired. she looks better today. belly doing okay today. no sob. Exam
--- NOTE | 2022-09-22 10:01 | PM.PNNEP ---
Progress Note: A&P Assessment and Plan (1) IVAN (acute kidney injury): Code(s): N17.9 - Acute kidney failure, unspecified Status: Acute Assessment and Plan: acute kidney injury her creatinine had fallen to 1.3-1.5, however in the last few days stacey to 1.8 go 1.9. Initial evaluation: renal ultrasound without obstruction urine electrolytes are prerenal urine eosinophils negative CPK mildly elevated but trended down - not high enough to affect kidneys yesterday she was noted to have a distended bladder and mild blateral hydronephrosis on repeat u/s. payton was placed and she had a liter of urine in the bladder. intake is high with the TPN I/O 1255/1610. overnight U.O. 900. It looks like things are better since payton was placed. New IVAN due to urinary retention. will repeat labs tomorrow. (2) Chronic kidney disease, stage 3b: Code(s): N18.32 - Chronic kidney disease, stage 3b Status: Chronic Assessment and Plan: baseline creatinine seems run around 1.1 - 1.4mg/dl in the last year or so presumably secondary to hypertension, diabetes, vascular disease, and age-related changes (3) Bowel obstruction: Qualifiers: Intestinal obstruction extent: partial Intestinal obstruction type: unspecified Qualified Code(s): K56.600 - Partial intestinal obstruction, unspecified as to cause Code(s): K56.609 - Unspecified intestinal obstruction, unspecified as to partial versus complete obstruction Status: Acute Assessment and Plan: due to colon cancer s/p left colectomy with creation end colostomy, Parish procedure, and takedown splenic flexure colostomy in place She is now on TPN. has a tray. hopefully she will eat some (4) Acute respiratory failure: Code(s): J96.00 - Acute respiratory failure, unspecified whether with hypoxia or hypercapnia Status: Acute Assessment and Plan: resolved (5) Hypotension: Code(s): I95.9 - Hypotension, unspecified Status: Acute Assessment and Plan: resolved (6) Type 2 diabetes mellitus with diabetic chronic kidney disease: Qualifiers: Diabetes mellitus medical terminologist insulin use: with fci use Chronic kidney disease stage: stage 3 (moderate) Chronic kidney disease stage 3 subtype: stage 3b (GFR 30-44) Qualified Code(s): E11.22 - Type 2 diabetes mellitus with diabetic chronic kidney disease; N18.32 - Chronic kidney disease, stage 3b; Z79.4 - halfway (current) use of insulin Code(s): E11.22 - Type 2 diabetes mellitus with diabetic chronic kidney disease Status: Chronic Assessment and Plan: follow accu-checks glycemic control per admissions assistant (7) Hyponatremia: Code(s): E87.1 - Hypo-osmolality and hyponatremia Status: Acute Assessment and Plan: The patient has hyponat louise stimi normal likely multifactorial with contribution from renal insufficiency, hypothyroidiam, antidepressant, free water intake, yesterday her sodium was only 120 but repeat showed 127 and today 128. possibly 120 was due to drawing above the tpn? cxr shows no excess fluid. now on lasix and salt tabs to balance free water from TPN. will watch I/O and sodium level. Subjective Date/time seen: 09/22/22 10:01 Interval history: Scar is resting comfortably in bed. She is tired. she looks better today. belly doing okay today. no sob. Exam Narrative: General: elderly female in NAD Heart: RRR no rub or gallop Lungs: clear to ausc Abdomen: soft with hypoactive bowel sounds; colostomy in place Extremities: 1+ bilateral pre sacral edema Skin: no rash or gallop Objective Data Vital Signs Vital Signs: Vital Signs - 24 hr 09/21/22 12:00 09/21/22 13:40 09/21/22 16:00 Temperature 97.6 F Pulse Rate 71 72 70 Respiratory Rate 16 Blood Pressure 146/43 H Pulse Oximetry 100 Oxygen
[2022-09-22 11:48] LABS: Glucose Point of Care 176 mg/dl (65-105)
[2022-09-22] MEDS: AMINO ACIDS 5%/D15W/E-LYTES/CA 2,000 ML with MULTIVITAMINS-12 INJ VIAL 1 2.5 ML, MULTIV... 40 ML IV CONT (12:58)
[2022-09-22] MEDS: FAT EMULSIONS IV 20% 250 ML 20.8 ML IVPB (12:58)
[2022-09-22 17:18] LABS: Glucose Point of Care 223 mg/dl (65-105)
--- NOTE | 2022-09-22 17:33 | PM.PNGS ---
Progress Note: A&P Assessment and Plan (1) Stricture of sigmoid colon: Code(s): K56.699 - Other intestinal obstruction unspecified as to partial versus complete obstruction Status: Resolved Assessment and Plan: s/p L colectomy and colostomy, seems better today, cont to encourage po, OOB/IS, cont TPN for now Subjective Subjective Date/Time Seen: 09/22/22 17:33 Interval history: feels better today, seems more alert and justice low fiber diet Review of Systems Review of Systems: All systems reviewed & are unremarkable except as noted in HPI and below Exam Const: General: cooperative, comfortable and no acute distress GI: Inspection: normal to inspection, non-distended and incision GI Palp: Yes abdominal tenderness, Yes Soft to palpation, Yes Tenderness to palpation present (GI), No Guarding due to palpation present (GI) and No Rigid due to palpation Other: ostomy - viable, +fxn Objective Data Vital Signs Vital Signs: Vital Signs - 24 hr 09/21/22 19:59 09/21/22 22:14 09/22/22 00:00 Temperature 36.7 C 36.4 C L Pulse Rate 69 69 73 Respiratory Rate 18 18 Blood Pressure 117/61 137/60 Pulse Oximetry 96 98 Oxygen Delivery 09/21/22 22:00 09/21/22 20:00 09/22/22 00:00 Temperature Pulse Rate 73 73 Respiratory Rate Blood Pressure Pulse Oximetry Oxygen Delivery Room Air 09/22/22 04:56 09/21/22 22:36 09/22/22 04:00 Temperature 36.5 C Pulse Rate 73 71 Respiratory Rate 18 Blood Pressure 146/49 H Pulse Oximetry 98 98 Oxygen Delivery Room Air 09/22/22 08:46 09/22/22 08:47 09/22/22 08:00 Temperature Pulse Rate 69 69 Respiratory Rate 18 Blood Pressure Pulse Oximetry 98 Oxygen Delivery Room Air 09/22/22 12:04 09/22/22 13:55 09/22/22 16:00 Temperature 36.4 C Pulse Rate 68 67 74 Respiratory Rate 18 Blood Pressure 122/48 L Pulse Oximetry 100 Oxygen Delivery Intake/Output Intake/Output: Intake & Output 09/19/22 09/20/22 09/21/22 09/22/22 23:59 23:59 23:59 23:59 Intake Total 2255 2755 1250 4005 Output Total 400 1610 2450 Balance 2255 7575 -379 1555 Meds/Results Medications: Active Medications Generic Name Dose Route Start Last Admin Trade Name Alex PRN Reason Stop Dose Admin Acetaminophen 650 mg 09/17/22 08:13 09/21/22 08:21 Acetaminophen 325 Mg Tablet BY MOUTH 650 mg Q6H PRN Administration Mild Pain or Fever Aspirin 81 mg 09/17/22 10:10 09/22/22 08:58 Aspirin 81 Mg Chewable Tablet PO 81 mg DAILY@0800 SLOAN Administration Dextrose 12.5 gm 09/07/22 23:34 Dextrose 50% 25 Gm/50 Ml Syringe IV PUSH PRN PRN Hypoglycemia Protocol Enoxaparin Sodium 30 mg 09/14/22 09:00 09/22/22 08:47 Enoxaparin 30 Mg/0.3 Ml Syringe SUB-Q 30 mg DAILY SLOAN Administration Escitalopram Oxalate 10 mg 09/10/22 09:00 09/16/22 09:11 Escitalopram Oxalate 10 Mg Tablet PO 10 mg DAILY SLOAN Administration Famotidine 20 mg 09/14/22 21:00 09/22/22 08:47 Famotidine 20 Mg Tablet PO 20 mg Q12HR SLOAN Administration Furosemide 40 mg 09/21/22 17:00 09/22/22 17:09 Furosemide 40 Mg Tablet PO 40 mg BID SLOAN Administration Glucagon 1 mg 09/07/22 23:34 Glucagon For Inj 1 Mg Vial IM PRN PRN Hypoglycemia Protocol Hydralazine HCl 10 mg 09/08/22 16:37 09/16/22 04:22 Hydralazine Hcl 20 Mg/Ml Vial IV PUSH 10 mg Q6HR PRN Administration Blood Pressure - High Dextrose 1,000 mls @ 100 mls/hr 09/07/22 23:34 Dextrose 5% 1,000 Ml IVPB PRN PRN Hypoglycemia Protocol Multivitamins 2.5 ml/ 2,005 mls @ 40 mls/hr 09/18/22 12:00 09/22/22 12:58 Multivitamins 2.5 ml/ Amino IV CONT 40 mls/hr Acids/Electrolytes/Dextrose .Q24H SLOAN Administration Protocol Dextrose 1,000 mls @ 50 mls/hr 09/18/22 08:29 Dextrose 10% IV CONT .Q20H PRN if PN is interrupted Fat Emulsion Intravenous 250 mls @ 20.833
--- NOTE | 2022-09-22 17:57 | PM.IMPN ---
Progress Note: A&P Assessment and Plan (1) Bowel obstruction: Qualifiers: Intestinal obstruction extent: partial Intestinal obstruction type: unspecified Qualified Code(s): K56.600 - Partial intestinal obstruction, unspecified as to cause Code(s): K56.609 - Unspecified intestinal obstruction, unspecified as to partial versus complete obstruction Status: Acute Assessment and Plan: Patient found to have a sigmoid stricture and partial bowel obstruction status post left colectomy with creation of end colostomy, Parish procedure and takedown of splenic flexure on 09/10/22. Pathology showing diverticulitis with necrosis, calcification, perforation and fibrosis but negative for malignancy. CT A/P performed 09/16 due to nausea/vomiting: moderate ascites with possible liver cirrhosis and anasarca. Diet advanced and tolerating this well but eating mostly 10-25%. WBC back to normal Management per surgery Continue PT/OT TPN started 09/18 (2) SVT (supraventricular tachycardia): Code(s): I47.1 - Supraventricular tachycardia Status: Acute Assessment and Plan: Patient was having runs of SVT. EKG at the time showing new ST depression in the anterior-lateral leads probably rate related. TSH mildly elevated but FT4 normal. Echo showing EF 65%-70% with moderate pulmonary HTN. Repeat EKG improved with back in normal sinus. ASA and Metoprolol added. Appreciate cardiology input Will continue to monitor on tele. Replace electrolytes as needed. (3) Acute respiratory failure: Code(s): J96.00 - Acute respiratory failure, unspecified whether with hypoxia or hypercapnia Status: Acute Assessment and Plan: Acute Respiratory failure secondary to general anesthesia and hypotension. Patient able to be extubated on 09/12. Patient was weaned to room air but now on O2. CT scan showing bilateral pleural effusions and evidence of fluid overload. IV fluids were stopped and lasix IV once given. Encourage IS use. Wean o2 as tolerated. (4) Acute on chronic renal failure: Code(s): N17.9 - Acute kidney failure, unspecified; N18.9 - Chronic kidney disease, unspecified Status: Acute Assessment and Plan: Patient has chronic kidney disease with baseline Cr 1.1-1.3 Creatinine 1.4 on admission but climbed to 2.0 CT done recently did not show any stones or hydronephrosis CK level 1010 -> 399 Likely multifactorial secondary to surgery, diverticulitis, hypotension and contrast Patient has received adequate amount of IV fluids and also treated with albumin IV fluids resumed at low dose but now stopped Nephrology consulted and appreciate their input. (5) Stricture of sigmoid colon: Code(s): K56.699 - Other intestinal obstruction unspecified as to partial versus complete obstruction Status: Resolved Assessment and Plan: See above. (6) Hypotension: Code(s): I95.9 - Hypotension, unspecified Status: Acute Assessment and Plan: Likely secondary to general anesthesia and volume loss Status post IV fluid bolus and PRBC transfusion Resolved (7) Delirium: Code(s): R41.0 - Disorientation, unspecified Status: Acute Assessment and Plan: Patient had issues with delirium prior to surgery while on the floor and pulled out lines and tubes multiple times. She was started on Seroquel which was held after surgery but now resumed. Precedex stopped. Mood stable but persistently somnolent so Seroquel dose decrease with clinical improvement. Ammonia <9. D/c seroquel at this time, much improved (8) Type 2 diabetes mellitus with diabetic chronic kidney disease: Qualifiers: Diabetes mellitus lobsterman insulin use: with lobsterman use Chronic kidney disease stage: stage 3 (moderate) Chronic kidney disease stage 3 subtype: stage 3b (GFR 30-44) Qualified Code(s): E11.22 - Type 2 diabetes mellitus with diabetic chronic kid
[2022-09-23] VITALS (12 sets, daily range): BP systolic 109–147; BP diastolic 44–56; PULSE 61–74; RESP 16–20; TEMP 36.1–36.6; O2SAT 96–100
[2022-09-23] MEDS: PIPERACILLIN/TAZ 2.25G/NS 50ML 2.25 GM/50 ML BAG IVPB ×4 (00:20→17:12)
[2022-09-23 00:26] LABS: Glucose Point of Care 186 mg/dl (65-105)
[2022-09-23 05:19] LABS: Hematocrit 22.2 % (37.0-47.0); Mean Corpuscular HGB Conc 30.6 g/dl (32-36); Mean Corpuscular Hemoglobin 27.6 pg (26-34); Mean Corpuscular Volume 90.2 fl (80-100); Mean Platelet Volume 9.6 fl (7.4-10.4); Platelet Count Result 420 k/mm3 (150-375); Red Blood Count 2.46 M/mm3 (4.2-5.4); Red Cell Distribution Width 15.6 % (11.5-14.5); White Blood Count 8.8 K/mm3 (4.5-10.0)
[2022-09-23 05:23] LABS: Glucose Point of Care 198 mg/dl (65-105)
[2022-09-23 05:27] LABS: Hemoglobin 6.8 g/dL (12.0-15.0)
[2022-09-23 05:33] LABS: Albumin Level 2.1 g/dL (3.5-5.1); Blood Urea Nitrogen 54 mg/dL (7-17); CRP 4.1 mg/dL (<1.0); Calcium 7.4 mg/dL (8.4-10.2); Carbon Dioxide 27 mmol/L (22-30); Chloride 101 mmol/L (98-107); Estimated CRCL calculation 22 ml/min; Estimated Glomerular Filt Rate 28
[2022-09-23 05:34] LABS: Anion Gap 3 mmol/L (8-16); Glucose 191 mg/dL (65-110); Phosphorus 5.1 mg/dL (2.5-4.5); Potassium 4.5 mmol/L (3.4-5.0); Sodium 131 mmol/L (137-145); Triglycerides 75 mg/dL (<150)
[2022-09-23] MEDS: CENTRAL LINE FLUSH 20 ML IV PUSH ×2 (05:36→12:14)
[2022-09-23] MEDS: CENTRAL LINE FLUSH 10 ML IV PUSH ×3 (05:36→21:38)
[2022-09-23] MEDS: LEVOTHYROXINE SODIUM 50 MCG TABLET PO (05:37)
[2022-09-23 07:45] LABS: Procalcitonin 0.2 ng/mL
[2022-09-23 07:49] LABS: Glucose Point of Care 190 mg/dl (65-105)
[2022-09-23] MEDS: ENOXAPARIN 30 MG/0.3 ML SYRINGE SUB-Q (09:39)
[2022-09-23] MEDS: FUROSEMIDE 40 MG TABLET PO ×2 (09:39→17:12)
[2022-09-23] MEDS: ASPIRIN 81 MG CHEWABLE TABLET PO (09:39)
[2022-09-23] MEDS: FAMOTIDINE 20 MG TABLET PO ×2 (09:39→21:38)
[2022-09-23] MEDS: SODIUM CHLORIDE 1 GM TABLET PO ×2 (09:39→17:12)
[2022-09-23] MEDS: METOPROLOL TARTRATE 12.5 MG TABLET PO ×2 (09:39→21:38)
[2022-09-23] MEDS: ACETAMINOPHEN 325 MG TABLET 650 MG BY MOUTH (09:46)
--- NOTE | 2022-09-23 09:50 | P.PNNP_ITS ---
Progress Note: A&P Assessment and Plan (1) IVAN (acute kidney injury): Code(s): N17.9 - Acute kidney failure, unspecified Status: Acute Assessment and Plan: * acute kidney injury * her creatinine had fallen to 1.3-1.5, however in the last few days stacey to 1.9. today down to 1.7. * Initial evaluation: * renal ultrasound without obstruction * urine electrolytes are prerenal * urine eosinophils negative * CPK mildly elevated but trended down - not high enough to affect kidneys * She is still making urine. The creatinine has improved since the Davis catheter was placed. * intake is high with the TPN I/O is positive. Will stop the normal saline. We do not need this anymore since she is on salt tablets. * New IVAN due to urinary retention. * will repeat labs tomorrow. (2) Chronic kidney disease, stage 3b: Code(s): N18.32 - Chronic kidney disease, stage 3b Status: Chronic Assessment and Plan: * baseline creatinine seems run around 1.1 - 1.4mg/dl in the last year or so * presumably secondary to hypertension, diabetes, vascular disease, and age-re lated changes (3) Bowel obstruction: Qualifiers: Intestinal obstruction extent: partial Intestinal obstruction type: unspecified Qualified Code(s): K56.600 - Partial intestinal obstruction, unspecified as to cause Code(s): K56.609 - Unspecified intestinal obstruction, unspecified as to partial versus complete obstruction Status: Acute Assessment and Plan: * due to colon cancer * s/p left colectomy with creation end colostomy, Parish procedure, and takedown splenic flexure * colostomy in place * She is now on TPN. * has a tray. hopefully she will eat More so she can come off TPN. She does not have much of an appetite today but I encouraged her to eat. (4) Type 2 diabetes mellitus with diabetic chronic kidney disease: Qualifiers: Diabetes mellitus supervisor intermediates insulin use: with supervisor intermediates use Chronic kidney disease stage: stage 3 (moderate) Chronic kidney disease stage 3 subtype: stage 3b (GFR 30-44) Qualified Code(s): E11.22 - Type 2 diabetes mellitus with diabetic chronic kidney disease; N18.32 - Chronic kidney disease, stage 3b; Z79.4 - rat exterminator (current) use of insulin Code(s): E11.22 - Type 2 diabetes mellitus with diabetic chronic kidney disease Status: Chronic Assessment and Plan: * follow accu-checks * glycemic control per manager channel (5) Hyponatremia: Code(s): E87.1 - Hypo-osmolality and hyponatremia Status: Acute Assessment and Plan: The patient has hyponatremia louise stimulation test was normal likely multifactorial with contribution from renal insufficiency, hypothyroidiam, antidepressant, free water intake, Sodium is up to 131. cxr shows no excess fluid. now on lasix and salt tabs to balance free water from TPN. will watch I/O and sodium level. Subjective Date/time seen: 09/23/22 09:50 Interval history: Scar is resting comfortably in bed. Not in any mood to eat. No shortness of breath Exam Narrative: General: elderly female in NAD Heart: RRR no rub or gallop Lungs: clear bilaterally Abdomen: soft with hypoactive bowel sounds; colostomy in place Extremities: 1+ bilateral pre sacral edema Skin: no rash Objective Data Vital Signs Vital Signs: Vital Signs - 24 hr 09/22/22
--- NOTE | 2022-09-23 09:50 | PM.PNNEP ---
Progress Note: A&P Assessment and Plan (1) IVAN (acute kidney injury): Code(s): N17.9 - Acute kidney failure, unspecified Status: Acute Assessment and Plan: acute kidney injury her creatinine had fallen to 1.3-1.5, however in the last few days stacey to 1.9. today down to 1.7. Initial evaluation: renal ultrasound without obstruction urine electrolytes are prerenal urine eosinophils negative CPK mildly elevated but trended down - not high enough to affect kidneys She is still making urine. The creatinine has improved since the Davis catheter was placed. intake is high with the TPN I/O is positive. Will stop the normal saline. We do not need this anymore since she is on salt tablets. New IVAN due to urinary retention. will repeat labs tomorrow. (2) Chronic kidney disease, stage 3b: Code(s): N18.32 - Chronic kidney disease, stage 3b Status: Chronic Assessment and Plan: baseline creatinine seems run around 1.1 - 1.4mg/dl in the last year or so presumably secondary to hypertension, diabetes, vascular disease, and age-related changes (3) Bowel obstruction: Qualifiers: Intestinal obstruction extent: partial Intestinal obstruction type: unspecified Qualified Code(s): K56.600 - Partial intestinal obstruction, unspecified as to cause Code(s): K56.609 - Unspecified intestinal obstruction, unspecified as to partial versus complete obstruction Status: Acute Assessment and Plan: due to colon cancer s/p left colectomy with creation end colostomy, Parish procedure, and takedown splenic flexure colostomy in place She is now on TPN. has a tray. hopefully she will eat More so she can come off TPN. She does not have much of an appetite today but I encouraged her to eat. (4) Type 2 diabetes mellitus with diabetic chronic kidney disease: Qualifiers: Diabetes mellitus terminal manager insulin use: with half-way use Chronic kidney disease stage: stage 3 (moderate) Chronic kidney disease stage 3 subtype: stage 3b (GFR 30-44) Qualified Code(s): E11.22 - Type 2 diabetes mellitus with diabetic chronic kidney disease; N18.32 - Chronic kidney disease, stage 3b; Z79.4 - MCC (current) use of insulin Code(s): E11.22 - Type 2 diabetes mellitus with diabetic chronic kidney disease Status: Chronic Assessment and Plan: follow accu-checks glycemic control per planer hand (5) Hyponatremia: Code(s): E87.1 - Hypo-osmolality and hyponatremia Status: Acute Assessment and Plan: The patient has hyponatremia louise stimulation test was normal likely multifactorial with contribution from renal insufficiency, hypothyroidiam, antidepressant, free water intake, Sodium is up to 131. cxr shows no excess fluid. now on lasix and salt tabs to balance free water from TPN. will watch I/O and sodium level. Subjective Date/time seen: 09/23/22 09:50 Interval history: Scar is resting comfortably in bed. Not in any mood to eat. No shortness of breath Exam Narrative: General: elderly female in NAD Heart: RRR no rub or gallop Lungs: clear bilaterally Abdomen: soft with hypoactive bowel sounds; colostomy in place Extremities: 1+ bilateral pre sacral edema Skin: no rash Objective Data Vital Signs Vital Signs: Vital Signs - 24 hr 09/22/22 12:04 09/22/22 13:55 09/22/22 16:00 Temperature 97.6 F Pulse Rate 68 67 74 Respiratory Rate 18 Blood Pressure 122/48 L Pulse Oximetry 100 Oxygen Delivery 09/22/22 20:42 09/22/22 20:43 09/22/22 20:54 Temperature 96.9 F L Pulse Rate 70 70 71 Respiratory Rate 18 Blood Pressure 124/44 L Pulse Oximetry 93 97 Oxygen Delivery Room Air 09/23/22 00:00 09/22/22 20:00 09/23/22 00:00 Temperature 96.9 F L Pulse Rate 70 67 70 Respiratory Rate 18 Blood Pressure 109/44 L Pulse Oximetry 98 Ox
--- NOTE | 2022-09-23 11:28 | PM.PNGS ---
Progress Note: A&P Assessment and Plan (1) Stricture of sigmoid colon: Code(s): K56.699 - Other intestinal obstruction unspecified as to partial versus complete obstruction Status: Resolved Assessment and Plan: cont postop care, seems to be slowly improving, encourage po, cont TPN for now, OOB/IS Subjective Subjective Date/Time Seen: 09/23/22 11:28 Interval history: no acute issues, states she feels pretty good, more appetite Review of Systems Review of Systems: All systems reviewed & are unremarkable except as noted in HPI and below Exam Const: General: cooperative, comfortable and no acute distress Resp: Auscultation: clear to auscultation bilaterally Cardio: Rate: regular rate Rhythm: regular rhythm GI: Inspection: normal to inspection and incision GI Palp: Yes abdominal tenderness and Yes Soft to palpation Other: colostomy - +fxn Objective Data Vital Signs Vital Signs: Vital Signs - 24 hr 09/22/22 12:04 09/22/22 13:55 09/22/22 16:00 Temperature 36.4 C Pulse Rate 68 67 74 Respiratory Rate 18 Blood Pressure 122/48 L Pulse Oximetry 100 Oxygen Delivery 09/22/22 20:42 09/22/22 20:43 09/22/22 20:54 Temperature 36.1 C L Pulse Rate 70 70 71 Respiratory Rate 18 Blood Pressure 124/44 L Pulse Oximetry 93 97 Oxygen Delivery Room Air 09/23/22 00:00 09/22/22 20:00 09/23/22 00:00 Temperature 36.1 C L Pulse Rate 70 67 70 Respiratory Rate 18 Blood Pressure 109/44 L Pulse Oximetry 98 Oxygen Delivery 09/22/22 20:30 09/23/22 03:49 09/23/22 04:00 Temperature 36.1 C L Pulse Rate 73 72 Respiratory Rate 20 Blood Pressure 125/44 L Pulse Oximetry 96 Oxygen Delivery Room Air 09/23/22 09:37 09/23/22 09:39 09/23/22 08:00 Temperature 36.5 C Pulse Rate 72 74 70 Respiratory Rate 18 Blood Pressure 130/54 L Pulse Oximetry 97 Oxygen Delivery 09/23/22 09:45 Temperature Pulse Rate Respiratory Rate Blood Pressure Pulse Oximetry Oxygen Delivery Room Air Intake/Output Intake/Output: Intake & Output 09/20/22 09/21/22 09/22/22 09/23/22 23:59 23:59 23:59 23:59 Intake Total 2755 1250 5175 790 Output Total 400 1610 2500 1600 Balance 3195 360 0144 -955 Meds/Results Medications: Active Medications Generic Name Dose Route Start Last Admin Trade Name Freq PRN Reason Stop Dose Admin Acetaminophen 650 mg 09/17/22 08:13 09/23/22 09:46 Acetaminophen 325 Mg Tablet BY MOUTH 650 mg Q6H PRN Administration Mild Pain or Fever Aspirin 81 mg 09/17/22 10:10 09/23/22 09:39 Aspirin 81 Mg Chewable Tablet PO 81 mg DAILY@0800 SLOAN Administration Dextrose 12.5 gm 09/07/22 23:34 Dextrose 50% 25 Gm/50 Ml Syringe IV PUSH PRN PRN Hypoglycemia Protocol Enoxaparin Sodium 30 mg 09/14/22 09:00 09/23/22 09:39 Enoxaparin 30 Mg/0.3 Ml Syringe SUB-Q 30 mg DAILY SLOAN Administration Escitalopram Oxalate 10 mg 09/10/22 09:00 09/16/22 09:11 Escitalopram Oxalate 10 Mg Tablet PO 10 mg DAILY SLOAN Administration Famotidine 20 mg 09/14/22 21:00 09/23/22 09:39 Famotidine 20 Mg Tablet PO 20 mg Q12HR SLOAN Administration Furosemide 40 mg 09/21/22 17:00 09/23/22 09:39 Furosemide 40 Mg Tablet PO 40 mg BID SLOAN Administration Glucagon 1 mg 09/07/22 23:34 Glucagon For Inj 1 Mg Vial IM PRN PRN Hypoglycemia Protocol Hydralazine HCl 10 mg 09/08/22 16:37 09/16/22 04:22 Hydralazine Hcl 20 Mg/Ml Vial IV PUSH 10 mg Q6HR PRN Administration Blood Pressure - High Dextrose 1,000 mls @ 100 mls/hr 09/07/22 23:34 Dextrose 5% 1,000 Ml IVPB PRN PRN Hypoglycemia Protocol Multivitamins 2.5 ml/ 2,005 mls @ 40 mls/hr 09/18/22 12:00 09/22/22 12:58 Multivitamins 2.5 ml/ Amino IV CONT 40 mls/hr Acids/Electrolytes/Dextrose .Q24H SLOAN Administration Protocol Dextrose 1,000 mls @ 50 mls/hr 09/18/22 08:
--- NOTE | 2022-09-23 11:29 | PM.IMPN ---
Progress Note: A&P Assessment and Plan (1) Bowel obstruction: Qualifiers: Intestinal obstruction extent: partial Intestinal obstruction type: unspecified Qualified Code(s): K56.600 - Partial intestinal obstruction, unspecified as to cause Code(s): K56.609 - Unspecified intestinal obstruction, unspecified as to partial versus complete obstruction Status: Acute Assessment and Plan: Patient found to have a sigmoid stricture and partial bowel obstruction status post left colectomy with creation of end colostomy, Parish procedure and takedown of splenic flexure on 09/10/22. Pathology showing diverticulitis with necrosis, calcification, perforation and fibrosis but negative for malignancy, CT A/P performed 09/16 due to nausea/vomiting: moderate ascites with possible liver cirrhosis and anasarca, WBC back to normal, management per surgery, continue PT/OT, TPN started 09/18 (2) SVT (supraventricular tachycardia): Code(s): I47.1 - Supraventricular tachycardia Status: Acute Assessment and Plan: Patient was having runs of SVT. EKG at the time showing new ST depression in the anterior-lateral leads probably rate related. TSH mildly elevated but FT4 normal. Echo showing EF 65%-70% with moderate pulmonary HTN. Repeat EKG improved with back in normal sinus. ASA and Metoprolol added. Appreciate cardiology input. Will continue to monitor on tele. Replace electrolytes as needed. (3) Acute respiratory failure: Code(s): J96.00 - Acute respiratory failure, unspecified whether with hypoxia or hypercapnia Status: Acute Assessment and Plan: Acute Respiratory failure secondary to general anesthesia and hypotension. Patient able to be extubated on 09/12. Patient was weaned to room air but now on O2. CT scan showing bilateral pleural effusions and evidence of fluid overload. IV fluids were stopped and lasix IV once given, encourage IS use, wean O2 as tolerated. (4) Acute on chronic renal failure: Code(s): N17.9 - Acute kidney failure, unspecified; N18.9 - Chronic kidney disease, unspecified Status: Acute Assessment and Plan: Patient has chronic kidney disease with baseline Cr 1.1-1.3 Creatinine 1.4 on admission but climbed to 2.0 CT done recently did not show any stones or hydronephrosis CK level 1010 -> 399 Likely multifactorial secondary to surgery, diverticulitis, hypotension and contrast Patient has received adequate amount of IV fluids and also treated with albumin IV fluids resumed at low dose but now stopped, nephrology consulted and appreciate their input (5) Stricture of sigmoid colon: Code(s): K56.699 - Other intestinal obstruction unspecified as to partial versus complete obstruction Status: Resolved Assessment and Plan: See above (6) Hypotension: Code(s): I95.9 - Hypotension, unspecified Status: Acute Assessment and Plan: Likely secondary to general anesthesia and volume loss Status post IV fluid bolus and PRBC transfusion Resolved (7) Delirium: Code(s): R41.0 - Disorientation, unspecified Status: Acute Assessment and Plan: Patient had issues with delirium prior to surgery while on the floor and pulled out lines and tubes multiple times. She was started on Seroquel which was held after surgery but now resumed. Precedex stopped. Mood stable but persistently somnolent so Seroquel dose decrease with clinical improvement. Ammonia <9. D/c seroquel, much improved (8) Type 2 diabetes mellitus with diabetic chronic kidney disease: Qualifiers: Diabetes mellitus care home insulin use: with intermediate frame tender use Chronic kidney disease stage: stage 3 (moderate) Chronic kidney disease stage 3 subtype: stage 3b (GFR 30-44) Qualified Code(s): E11.22 - Type 2 diabetes mellitus with diabetic chronic kidney disease; N18.32 - Chronic kidney disease, stage 3b; Z79.4 - termite control representative (current) use of
[2022-09-23 11:51] LABS: Glucose Point of Care 239 mg/dl (65-105)
[2022-09-23] MEDS: INSULIN HUMAN REGULAR (*BKC) 100 UNITS/ML SUB-Q ×2 (12:10→17:12)
[2022-09-23] MEDS: AMINO ACIDS 5%/D15W/E-LYTES/CA 2,000 ML with MULTIVITAMINS-12 INJ VIAL 1 2.5 ML, MULTIV... 40 ML IV CONT (12:47)
[2022-09-23] MEDS: FAT EMULSIONS IV 20% 250 ML 20.8 ML IVPB (12:47)
[2022-09-23 12:59] LABS: Hematocrit 23.4 % (37.0-47.0); Hemoglobin 7.3 g/dL (12.0-15.0); Immature Reticulocyte Fraction 16.8 % (3.0-15.9); Reticulocyte Hemoglobin Conten 27.3 pg (28.2-35.7); Reticulocyte Percent 1.74 % (0.7-4.3); Reticulocytes Absolute 0.05 M/mm3 (0.02-0.1)
[2022-09-23 13:40] LABS: Iron 22 ug/dL (37-170); Percent Iron Saturation 13 % (20-50)
[2022-09-23 14:17] LABS: Folic Acid 10.5 ng/mL (2.76->20)
[2022-09-23 14:27] LABS: Vitamin D 25 Hydroxy < 12.8 ng/mL
[2022-09-23 17:01] LABS: Glucose Point of Care 201 mg/dl (65-105)
[2022-09-23 22:23] LABS: Glucose Point of Care 158 mg/dl (65-105)
[2022-09-24] VITALS (11 sets, daily range): BP systolic 107–114; BP diastolic 40–43; PULSE 64–88; RESP 17–20; TEMP 36.3–36.5; O2SAT 94–98
[2022-09-24] MEDS: PIPERACILLIN/TAZ 2.25G/NS 50ML 2.25 GM/50 ML BAG IVPB ×5 (00:15→23:52)
[2022-09-24 00:21] LABS: Glucose Point of Care 161 mg/dl (65-105)
[2022-09-24 05:24] LABS: Glucose Point of Care 197 mg/dl (65-105)
[2022-09-24] MEDS: CENTRAL LINE FLUSH 20 ML IV PUSH (05:40)
[2022-09-24] MEDS: CENTRAL LINE FLUSH 10 ML IV PUSH ×4 (05:40→20:20)
[2022-09-24] MEDS: LEVOTHYROXINE SODIUM 50 MCG TABLET PO (05:47)
[2022-09-24 05:48] LABS: Basophils Absolute Auto 0.1 K/mm3 (0.0-0.1); Basophils Percent Auto 1.2 % (0.2-1.2); Eosinophils Absolute Auto 0.5 K/mm3 (0-0.3); Eosinophils Percent Auto 5.1 % (0-4.4); Hematocrit 22.5 % (37.0-47.0); Hemoglobin 7.1 g/dL (12.0-15.0); Immature Granulocyte Absolute 0.21 K/mm3 (0.00-0.031); Immature Granulocyte Percent A 2.3 % (0-0.5); Lymphocytes Absolute Auto 0.86 K/mm3 (0.9-3.2); Lymphocytes Percent Auto 9.3 % (18.3-44.2); Mean Corpuscular HGB Conc 31.6 g/dl (32-36); Mean Corpuscular Hemoglobin 28.3 pg (26-34); Mean Corpuscular Volume 89.6 fl (80-100); Mean Platelet Volume 9.8 fl (7.4-10.4); Monocytes Percent Auto 11.1 % (2.6-8.5); Neutrophils Absolute Auto 6.6 K/mm3 (1.3-6.7); Platelet Count Result 484 k/mm3 (150-375); Red Blood Count 2.51 M/mm3 (4.2-5.4); Red Cell Distribution Width 15.8 % (11.5-14.5); White Blood Count 9.3 K/mm3 (4.5-10.0)
[2022-09-24 06:00] LABS: INR 1.2; Prothrombin Time 15.7 Seconds (11.1-14.7)
[2022-09-24 06:01] LABS: Alanine Aminotransferase 14 U/L (6-35); Albumin Level 2.4 g/dL (3.5-5.1); Alkaline Phosphatase 85 U/L (38-126); Anion Gap 3 mmol/L (8-16); Aspartate Amino Transferase 20 U/L (14-36); Bilirubin,Total 0.4 mg/dL (0.2-1.3); Blood Urea Nitrogen 52 mg/dL (7-17); Calcium 7.6 mg/dL (8.4-10.2); Carbon Dioxide 28 mmol/L (22-30); Chloride 101 mmol/L (98-107); Estimated CRCL calculation 23 ml/min; Estimated Glomerular Filt Rate 31; Glucose 184 mg/dL (65-110); Magnesium 1.6 mg/dL (1.6-2.3); Partial Thromboplastin Time 44.3 SECONDS (22.3-36.8); Potassium 4.4 mmol/L (3.4-5.0); Sodium 132 mmol/L (137-145)
[2022-09-24 06:08] LABS: Transferrin 85 mg/dL (206-381)
[2022-09-24] MEDS: FUROSEMIDE 40 MG TABLET PO ×2 (08:14→16:28)
[2022-09-24] MEDS: ENOXAPARIN 30 MG/0.3 ML SYRINGE SUB-Q (08:14)
[2022-09-24] MEDS: FAMOTIDINE 20 MG TABLET PO ×2 (08:14→20:18)
[2022-09-24] MEDS: SODIUM CHLORIDE 1 GM TABLET PO ×2 (08:14→16:28)
[2022-09-24] MEDS: ASPIRIN 81 MG CHEWABLE TABLET PO (08:14)
[2022-09-24] MEDS: METOPROLOL TARTRATE 12.5 MG TABLET PO ×2 (08:14→20:18)
[2022-09-24] MEDS: oxyCODONE/ACETAMINOPHEN (*CRX) 5-325 MG TABLET 1 TABLET BY MOUTH (09:35)
[2022-09-24] MEDS: ONDANSETRON INJ 4 MG/2 ML VIAL IV PUSH (09:35)
--- NOTE | 2022-09-24 10:11 | PM.IMPN ---
Progress Note: A&P Assessment and Plan (1) Bowel obstruction: Qualifiers: Intestinal obstruction extent: partial Intestinal obstruction type: unspecified Qualified Code(s): K56.600 - Partial intestinal obstruction, unspecified as to cause Code(s): K56.609 - Unspecified intestinal obstruction, unspecified as to partial versus complete obstruction Status: Resolved Assessment and Plan: Patient found to have a sigmoid stricture and partial bowel obstruction status post left colectomy with creation of end colostomy, Parish procedure and takedown of splenic flexure on 09/10/22. Pathology showing diverticulitis with necrosis, calcification, perforation and fibrosis but negative for malignancy, CT A/P performed 09/16 due to nausea/vomiting: moderate ascites with possible liver cirrhosis and anasarca, WBC back to normal, management per surgery, continue PT/OT, TPN started 09/18 09/24: still only eating 10-20%, cont TPN, would add remeron, but concern for somnolence at this time, cont to monitor, slowly progressing (2) SVT (supraventricular tachycardia): Code(s): I47.1 - Supraventricular tachycardia Status: Acute Assessment and Plan: Patient was having runs of SVT. EKG at the time showing new ST depression in the anterior-lateral leads probably rate related. TSH mildly elevated but FT4 normal. Echo showing EF 65%-70% with moderate pulmonary HTN. Repeat EKG improved with back in normal sinus. ASA and Metoprolol added. Appreciate cardiology input. Will continue to monitor on tele. Replace electrolytes as needed. Resolved (3) Acute respiratory failure: Code(s): J96.00 - Acute respiratory failure, unspecified whether with hypoxia or hypercapnia Status: Acute Assessment and Plan: Acute Respiratory failure secondary to general anesthesia and hypotension. Patient able to be extubated on 09/12. Patient was weaned to room air but now on O2. CT scan showing bilateral pleural effusions and evidence of fluid overload. IV fluids were stopped and lasix IV once given, encourage IS use, wean O2 as tolerated. Resolved (4) Acute on chronic renal failure: Code(s): N17.9 - Acute kidney failure, unspecified; N18.9 - Chronic kidney disease, unspecified Status: Acute Assessment and Plan: Patient has chronic kidney disease with baseline Cr 1.1-1.3 Creatinine 1.4 on admission but climbed to 2.0 CT done recently did not show any stones or hydronephrosis CK level 1010 -> 399 Likely multifactorial secondary to surgery, diverticulitis, hypotension and contrast Patient has received adequate amount of IV fluids and also treated with albumin IV fluids resumed at low dose but now stopped, nephrology consulted and appreciate their input Resolved (5) Stricture of sigmoid colon: Code(s): K56.699 - Other intestinal obstruction unspecified as to partial versus complete obstruction Status: Resolved Assessment and Plan: See above (6) Hypotension: Code(s): I95.9 - Hypotension, unspecified Status: Acute Assessment and Plan: Likely secondary to general anesthesia and volume loss Status post IV fluid bolus and PRBC transfusion Resolved (7) Delirium: Code(s): R41.0 - Disorientation, unspecified Status: Acute Assessment and Plan: Patient had issues with delirium prior to surgery while on the floor and pulled out lines and tubes multiple times. She was started on Seroquel which was held after surgery but now resumed. Precedex stopped. Mood stable but persistently somnolent so Seroquel dose decrease with clinical improvement. Ammonia <9. D/c seroquel, much improved (8) Type 2 diabetes mellitus with diabetic chronic kidney disease: Qualifiers: Chronic kidney disease stage: stage 3 (moderate) Chronic kidney disease stage 3 subtype: stage 3b (GFR 30-44) Diabetes mellitus intermediate teacher insulin use: with long
[2022-09-24] MEDS: AMINO ACIDS 5%/D15W/E-LYTES/CA 2,000 ML with MULTIVITAMINS-12 INJ VIAL 1 2.5 ML, MULTIV... 40 ML IV CONT (11:41)
[2022-09-24 11:53] LABS: Glucose Point of Care 201 mg/dl (65-105)
[2022-09-24] MEDS: FAT EMULSIONS IV 20% 250 ML 20.8 ML IVPB (11:55)
[2022-09-24] MEDS: INSULIN HUMAN REGULAR (*BKC) 100 UNITS/ML SUB-Q (11:55)
--- NOTE | 2022-09-24 12:01 | P.PNNP_ITS ---
Progress Note: A&P Assessment and Plan (1) IVAN (acute kidney injury): Code(s): N17.9 - Acute kidney failure, unspecified Status: Acute Assessment and Plan: * acute kidney injury * her creatinine had fallen to 1.3-1.5, however in the last few days stacey to 1.9. today down to 1.7. * Initial evaluation: * renal ultrasound without obstruction * urine electrolytes are prerenal * urine eosinophils negative * CPK mildly elevated but trended down - not high enough to affect kidneys * Intake/output is even. * Creatinine is stable (2) Chronic kidney disease, stage 3b: Code(s): N18.32 - Chronic kidney disease, stage 3b Status: Chronic Assessment and Plan: * baseline creatinine seems run around 1.1 - 1.4mg/dl in the last year or so * presumably secondary to hypertension, diabetes, vascular disease, and age- related changes (3) Bowel obstruction: Qualifiers: Intestinal obstruction extent: partial Intestinal obstruction type: unspecified Qualified Code(s): K56.600 - Partial intestinal obstruction, unspecified as to cause Code(s): K56.609 - Unspecified intestinal obstruction, unspecified as to partial versus complete obstruction Status: Acute Assessment and Plan: * due to colon cancer * s/p left colectomy with creation end colostomy, Parish procedure, and takedown splenic flexure * colostomy in place * She is now on TPN. * has a tray. hopefully she will eat More so she can come off TPN. She does not have much of an appetite today but I encouraged her to eat. (4) Type 2 diabetes mellitus with diabetic chronic kidney disease: Qualifiers: Diabetes mellitus snf insulin use: with snf use Chronic kidney disease stage: stage 3 (moderate) Chronic kidney disease stage 3 subtype: stage 3b (GFR 30-44) Qualified Code(s): E11.22 - Type 2 diabetes mellitus with diabetic chronic kidney disease; N18.32 - Chronic kidney disease, stage 3b; Z79.4 - joint terminal attack controller (current) use of insulin Code(s): E11.22 - Type 2 diabetes mellitus with diabetic chronic kidney disease Status: Chronic Assessment and Plan: * follow accu-checks * glycemic control per public relations account executive (5) Hyponatremia: Code(s): E87.1 - Hypo-osmolality and hyponatremia Status: Acute Assessment and Plan: The patient has hyponatremia louise stimulation test was normal likely multifactorial with contribution from renal insufficiency, hypothyroidiam, antidepressant, free water intake, Sodium is up to 132 will continue same management. Subjective Date/time seen: 09/24/22 12:01 Interval history: Scar is resting comfortably in bed. no cp or sob ate some yesterday she says Exam Narrative: General: elderly female in NAD Heart: RRR no rub or gallop Lungs: clear bilaterally Abdomen: soft with hypoactive bowel sounds; colostomy in place Extremities: 1+ bilateral pre sacral edema Skin: no rash or sq nodules Objective Data Vital Signs Vital Signs: Vital Signs - 24 hr 09/23/22 13:50 09/23/22 16:00 09/23/22 19:47 Temperature 97.4 F L 97.9 F Pulse Rate 70 61 70 Respiratory Rate 16 18 Blood Pressure 147/52 H 118/56 L Pulse Oximetry 100 100 Oxygen Delivery 09/23/22 21:38 09/24/22 06:00 09/23/22 20:00 Temp
--- NOTE | 2022-09-24 12:01 | PM.PNNEP ---
Progress Note: A&P Assessment and Plan (1) IVAN (acute kidney injury): Code(s): N17.9 - Acute kidney failure, unspecified Status: Acute Assessment and Plan: acute kidney injury her creatinine had fallen to 1.3-1.5, however in the last few days stacey to 1.9. today down to 1.7. Initial evaluation: renal ultrasound without obstruction urine electrolytes are prerenal urine eosinophils negative CPK mildly elevated but trended down - not high enough to affect kidneys Intake/output is even. Creatinine is stable (2) Chronic kidney disease, stage 3b: Code(s): N18.32 - Chronic kidney disease, stage 3b Status: Chronic Assessment and Plan: baseline creatinine seems run around 1.1 - 1.4mg/dl in the last year or so presumably secondary to hypertension, diabetes, vascular disease, and age-related changes (3) Bowel obstruction: Qualifiers: Intestinal obstruction extent: partial Intestinal obstruction type: unspecified Qualified Code(s): K56.600 - Partial intestinal obstruction, unspecified as to cause Code(s): K56.609 - Unspecified intestinal obstruction, unspecified as to partial versus complete obstruction Status: Acute Assessment and Plan: due to colon cancer s/p left colectomy with creation end colostomy, Parish procedure, and takedown splenic flexure colostomy in place She is now on TPN. has a tray. hopefully she will eat More so she can come off TPN. She does not have much of an appetite today but I encouraged her to eat. (4) Type 2 diabetes mellitus with diabetic chronic kidney disease: Qualifiers: Diabetes mellitus intermediate designer insulin use: with intermediate designer use Chronic kidney disease stage: stage 3 (moderate) Chronic kidney disease stage 3 subtype: stage 3b (GFR 30-44) Qualified Code(s): E11.22 - Type 2 diabetes mellitus with diabetic chronic kidney disease; N18.32 - Chronic kidney disease, stage 3b; Z79.4 - meterman (current) use of insulin Code(s): E11.22 - Type 2 diabetes mellitus with diabetic chronic kidney disease Status: Chronic Assessment and Plan: follow accu-checks glycemic control per grocery store courtesy clerk (5) Hyponatremia: Code(s): E87.1 - Hypo-osmolality and hyponatremia Status: Acute Assessment and Plan: The patient has hyponatremia louise stimulation test was normal likely multifactorial with contribution from renal insufficiency, hypothyroidiam, antidepressant, free water intake, Sodium is up to 132 will continue same management. Subjective Date/time seen: 09/24/22 12:01 Interval history: Scar is resting comfortably in bed. no cp or sob ate some yesterday she says Exam Narrative: General: elderly female in NAD Heart: RRR no rub or gallop Lungs: clear bilaterally Abdomen: soft with hypoactive bowel sounds; colostomy in place Extremities: 1+ bilateral pre sacral edema Skin: no rash or sq nodules Objective Data Vital Signs Vital Signs: Vital Signs - 24 hr 09/23/22 13:50 09/23/22 16:00 09/23/22 19:47 Temperature 97.4 F L 97.9 F Pulse Rate 70 61 70 Respiratory Rate 16 18 Blood Pressure 147/52 H 118/56 L Pulse Oximetry 100 100 Oxygen Delivery 09/23/22 21:38 09/24/22 06:00 09/23/22 20:00 Temperature 97.3 F L Pulse Rate 70 70 68 Respiratory Rate 17 Blood Pressure 114/43 L Pulse Oximetry 94 Oxygen Delivery 09/24/22 00:00 09/24/22 04:00 09/23/22 21:20 Temperature Pulse Rate 79 75 Respiratory Rate Blood Pressure Pulse Oximetry Oxygen Delivery Room Air 09/24/22 08:14 09/24/22 08:00 09/24/22 08:24 Temperature Pulse Rate 72 70 Respiratory Rate Blood Pressure Pulse Oximetry Oxygen Delivery Room Air Intake/Output Intake/Output: Intake & Output 09/21/22 09/22/22 09/23/22 09/24/22 23:59 23:59 23:59 23:59 Intake Total 9900 2361 4046 1450
--- NOTE | 2022-09-24 12:28 | PM.PNGS ---
Progress Note: A&P Assessment and Plan (1) Bowel obstruction: Qualifiers: Intestinal obstruction extent: partial Intestinal obstruction type: unspecified Qualified Code(s): K56.600 - Partial intestinal obstruction, unspecified as to cause Code(s): K56.609 - Unspecified intestinal obstruction, unspecified as to partial versus complete obstruction Status: Resolved Assessment and Plan: Colonic obstruction relieved with resection of diverticulitis and sigmoid stricture with creation of colostomy. Today is 14 days since her surgery. We will remove her wound hipolito and placed Steri-Strips. Colostomy is working well. Patient ate better yesterday. If does well again today can possibly have TPN discontinued. Continues to receive Lasix twice a day for diuresis. Potassium 4.4 and sodium better at 1:32 a.m. (2) Stricture of sigmoid colon: Code(s): K56.699 - Other intestinal obstruction unspecified as to partial versus complete obstruction Status: Resolved (3) Type 2 diabetes mellitus with diabetic chronic kidney disease: Qualifiers: Diabetes mellitus correction insulin use: with correction use Chronic kidney disease stage: stage 3 (moderate) Chronic kidney disease stage 3 subtype: stage 3b (GFR 30-44) Qualified Code(s): E11.22 - Type 2 diabetes mellitus with diabetic chronic kidney disease; N18.32 - Chronic kidney disease, stage 3b; Z79.4 - radiology ct technologist (current) use of insulin Code(s): E11.22 - Type 2 diabetes mellitus with diabetic chronic kidney disease Status: Chronic Assessment and Plan: Creatinine slowly improving last 4 days. Currently down to 1.6 even with diuresis. Continue Davis catheter as CT scan on 09/21/2022 showed very distended bladder with mild bilateral hydronephrosis. (4) Leukocytosis: Qualifiers: Leukocytosis type: unspecified Qualified Code(s): D72.829 - Elevated white blood cell count, unspecified Code(s): D72.829 - Elevated white blood cell count, unspecified Status: Acute Assessment and Plan: Resolved yesterday and only 9300 today. Started on Zosyn empirically on 09/21/2022. No clear source of infection. Patient did have hydronephrosis and evidence of bladder outlet obstruction before Davis catheter placed on 09/21/2022. CT scan of the abdomen and pelvis on 09/21 did not show any sign of abscess or wound infection. Subjective Subjective Date/Time Seen: 09/24/22 12:28 Post Op day: #14 Patient reports: no new complaints, bowel movement, afebrile and other (Sleeping when I saw her at 11:30 a.m.) Review of Systems Review of Systems: ROS unobtainable: Yes unobtainable due to mental status (Memory impairment) Exam Const: General: cooperative, comfortable, no acute distress, awake (Aroused easily), lethargic and tired appearing GI: Inspection: non-distended and incision (Wound healing well. Colostomy working well) GI Palp: Yes Soft to palpation, Yes Tenderness to palpation present (GI) (Mild tenderness at incision), No Hernia present and No Palpable mass present Auscultation: normal bowel sounds Objective Data Vital Signs Vital Signs: Vital Signs - 24 hr 09/23/22 13:50 09/23/22 16:00 09/23/22 19:47 Temperature 36.3 C L 36.6 C Pulse Rate 70 61 70 Respiratory Rate 16 18 Blood Pressure 147/52 H 118/56 L Pulse Oximetry 100 100 Oxygen Delivery 09/23/22 21:38 09/24/22 06:00 09/23/22 20:00 Temperature 36.3 C L Pulse Rate 70 70 68 Respiratory Rate 17 Blood Pressure 114/43 L Pulse Oximetry 94 Oxygen Delivery 09/24/22 00:00 09/24/22 04:00 09/23/22 21:20 Temperature Pulse Rate 79 75 Respiratory Rate Blood Pressure Pulse Oximetry Oxygen Delivery Room Air 09/24/22 08:14 09/24/22 08:00 09/24/22 08:24 Temperature Pulse Rate 72 70 Respiratory Rate Blood Pressure Pulse Oximetry Oxygen Delivery Room Air Intake/Output Intake/Output:
[2022-09-24 18:55] LABS: Glucose Point of Care 162 mg/dl (65-105)
[2022-09-24 20:35] LABS: Glucose Point of Care 184 mg/dl (65-105)
[2022-09-24 23:23] LABS: Glucose Point of Care 196 mg/dl (65-105)
[2022-09-25] VITALS (11 sets, daily range): BP systolic 114–133; BP diastolic 47–50; PULSE 67–88; RESP 16–18; TEMP 36.5–36.8; O2SAT 98–100
[2022-09-25] MEDS: PIPERACILLIN/TAZ 2.25G/NS 50ML 2.25 GM/50 ML BAG IVPB ×4 (05:54→23:49)
[2022-09-25] MEDS: LEVOTHYROXINE SODIUM 50 MCG TABLET PO (05:54)
[2022-09-25] MEDS: CENTRAL LINE FLUSH 10 ML IV PUSH ×4 (05:54→20:32)
[2022-09-25] MEDS: ACETAMINOPHEN 325 MG TABLET 650 MG BY MOUTH (05:59)
[2022-09-25 06:05] LABS: Triglycerides 66 mg/dL (<150)
[2022-09-25 06:16] LABS: Glucose Point of Care 209 mg/dl (65-105)
[2022-09-25] MEDS: INSULIN HUMAN REGULAR (*BKC) 100 UNITS/ML SUB-Q ×3 (06:16→23:49)
[2022-09-25 06:18] LABS: Albumin Level 2.4 g/dL (3.5-5.1); Anion Gap 3 mmol/L (8-16); Blood Urea Nitrogen 53 mg/dL (7-17); Calcium 7.8 mg/dL (8.4-10.2); Carbon Dioxide 31 mmol/L (22-30); Chloride 97 mmol/L (98-107); Estimated CRCL calculation 22 ml/min; Estimated Glomerular Filt Rate 28; Glucose 199 mg/dL (65-110); Phosphorus 5.5 mg/dL (2.5-4.5); Potassium 4.2 mmol/L (3.4-5.0); Sodium 131 mmol/L (137-145)
[2022-09-25] MEDS: ENOXAPARIN 30 MG/0.3 ML SYRINGE SUB-Q (08:27)
[2022-09-25] MEDS: FUROSEMIDE 40 MG TABLET PO ×2 (08:28→16:22)
[2022-09-25] MEDS: METOPROLOL TARTRATE 12.5 MG TABLET PO ×2 (08:28→20:31)
[2022-09-25] MEDS: FAMOTIDINE 20 MG TABLET PO ×2 (08:28→20:32)
[2022-09-25] MEDS: ASPIRIN 81 MG CHEWABLE TABLET PO (08:28)
[2022-09-25] MEDS: SODIUM CHLORIDE 1 GM TABLET PO ×2 (08:28→16:22)
[2022-09-25] MEDS: ESCITALOPRAM OXALATE 10 MG TABLET PO (08:29)
--- NOTE | 2022-09-25 09:27 | P.PNNP_ITS ---
Progress Note: A&P Assessment and Plan (1) IVAN (acute kidney injury): Code(s): N17.9 - Acute kidney failure, unspecified Status: Acute Assessment and Plan: * acute kidney injury * her creatinine had fallen to 1.3-1.5, however in the last few days stacey to 1.9. today down to 1.7. * Initial evaluation: * renal ultrasound without obstruction * urine electrolytes are prerenal * urine eosinophils negative * CPK mildly elevated but trended down - not high enough to affect kidneys * Intake/output is negative, but her TPN was much lower yesterday than it had been. She is still on TPN so possibly the intake is not completely documented. * Creatinine is stable . * Continue same medications. (2) Chronic kidney disease, stage 3b: Code(s): N18.32 - Chronic kidney disease, stage 3b Status: Chronic Assessment and Plan: * baseline creatinine seems run around 1.1 - 1.4mg/dl in the last year or so * presumably secondary to hypertension, diabetes, vascular disease, and age- related changes (3) Bowel obstruction: Qualifiers: Intestinal obstruction extent: partial Intestinal obstruction type: unspecified Qualified Code(s): K56.600 - Partial intestinal obstruction, unspecified as to cause Code(s): K56.609 - Unspecified intestinal obstruction, unspecified as to partial versus complete obstruction Status: Resolved Assessment and Plan: * due to colon cancer * s/p left colectomy with creation end colostomy, Parish procedure, and takedown splenic flexure * colostomy in place * She is now on TPN. * has a tray. hopefully she will eat More so she can come off TPN. She does not have much of an appetite today but I encouraged her to eat. (4) Type 2 diabetes mellitus with diabetic chronic kidney disease: Qualifiers: Diabetes mellitus long-term insulin use: with long-term use Chronic kidney disease stage: stage 3 (moderate) Chronic kidney disease stage 3 subtype: stage 3b (GFR 30-44) Qualified Code(s): E11.22 - Type 2 diabetes mellitus with diabetic chronic kidney disease; N18.32 - Chronic kidney disease, stage 3b; Z79.4 - residential (current) use of insulin Code(s): E11.22 - Type 2 diabetes mellitus with diabetic chronic kidney disease Status: Chronic Assessment and Plan: * follow accu-checks * glycemic control per dietitian therapeutic (5) Hyponatremia: Code(s): E87.1 - Hypo-osmolality and hyponatremia Status: Acute Assessment and Plan: The patient has hyponatremia louise stimulation test was normal likely multifactorial with contribution from renal insufficiency, hypothyroidiam, antidepressant, free water intake, Currently on salt tablets plus Lasix to balance the free water in the TPN Sodium is stable at 131. will continue same management. Subjective Date/time seen: 09/25/22 09:27 Interval history: Scar is resting comfortably in bed. weak. No appetite. Exam Narrative: General: elderly female in NAD Heart: RRR no rub or gallop Lungs: clear to auscultation Abdomen: soft with hypoactive bowel sounds; colostomy in place Extremities: 1+ bilateral pre sacral edema Skin: no rash Objective Data Vital Signs Vital Signs: Vital Signs - 24 hr 09/24/22 14:01 09/24/22 12:04 09/24/22 16:01 Temperature 97.5 F L Pulse Rate 64 69 67
--- NOTE | 2022-09-25 09:27 | PM.PNNEP ---
Progress Note: A&P Assessment and Plan (1) IVAN (acute kidney injury): Code(s): N17.9 - Acute kidney failure, unspecified Status: Acute Assessment and Plan: acute kidney injury her creatinine had fallen to 1.3-1.5, however in the last few days stacey to 1.9. today down to 1.7. Initial evaluation: renal ultrasound without obstruction urine electrolytes are prerenal urine eosinophils negative CPK mildly elevated but trended down - not high enough to affect kidneys Intake/output is negative, but her TPN was much lower yesterday than it had been. She is still on TPN so possibly the intake is not completely documented. Creatinine is stable . Continue same medications. (2) Chronic kidney disease, stage 3b: Code(s): N18.32 - Chronic kidney disease, stage 3b Status: Chronic Assessment and Plan: baseline creatinine seems run around 1.1 - 1.4mg/dl in the last year or so presumably secondary to hypertension, diabetes, vascular disease, and age-related changes (3) Bowel obstruction: Qualifiers: Intestinal obstruction extent: partial Intestinal obstruction type: unspecified Qualified Code(s): K56.600 - Partial intestinal obstruction, unspecified as to cause Code(s): K56.609 - Unspecified intestinal obstruction, unspecified as to partial versus complete obstruction Status: Resolved Assessment and Plan: due to colon cancer s/p left colectomy with creation end colostomy, Parish procedure, and takedown splenic flexure colostomy in place She is now on TPN. has a tray. hopefully she will eat More so she can come off TPN. She does not have much of an appetite today but I encouraged her to eat. (4) Type 2 diabetes mellitus with diabetic chronic kidney disease: Qualifiers: Diabetes mellitus ferry terminal supervisor insulin use: with ferry terminal supervisor use Chronic kidney disease stage: stage 3 (moderate) Chronic kidney disease stage 3 subtype: stage 3b (GFR 30-44) Qualified Code(s): E11.22 - Type 2 diabetes mellitus with diabetic chronic kidney disease; N18.32 - Chronic kidney disease, stage 3b; Z79.4 - director long term care (current) use of insulin Code(s): E11.22 - Type 2 diabetes mellitus with diabetic chronic kidney disease Status: Chronic Assessment and Plan: follow accu-checks glycemic control per pitching coach (5) Hyponatremia: Code(s): E87.1 - Hypo-osmolality and hyponatremia Status: Acute Assessment and Plan: The patient has hyponatremia louise stimulation test was normal likely multifactorial with contribution from renal insufficiency, hypothyroidiam, antidepressant, free water intake, Currently on salt tablets plus Lasix to balance the free water in the TPN Sodium is stable at 131. will continue same management. Subjective Date/time seen: 09/25/22 09:27 Interval history: Scar is resting comfortably in bed. weak. No appetite. Exam Narrative: General: elderly female in NAD Heart: RRR no rub or gallop Lungs: clear to auscultation Abdomen: soft with hypoactive bowel sounds; colostomy in place Extremities: 1+ bilateral pre sacral edema Skin: no rash Objective Data Vital Signs Vital Signs: Vital Signs - 24 hr 09/24/22 14:01 09/24/22 12:04 09/24/22 16:01 Temperature 97.5 F L Pulse Rate 64 69 67 Respiratory Rate 18 Blood Pressure 107/40 L Pulse Oximetry 97 Oxygen Delivery Fraction of Inspired Oxygen 09/24/22 19:41 09/24/22 20:18 09/24/22 20:00 Temperature 97.7 F Pulse Rate 70 88 70 Respiratory Rate 20 Blood Pressure 114/41 L Pulse Oximetry 98 Oxygen Delivery Fraction of Inspired Oxygen 09/24/22 20:00 09/25/22 00:00 09/25/22 04:00 Temperature Pulse Rate 88 75 79 Respiratory Rate 20 Blood Pressure Pulse Oximetry 98 Oxygen Delivery Room Air Fraction of Inspired Oxygen 21 09/25/22 06:06
--- NOTE | 2022-09-25 09:37 | PM.PNGS ---
Progress Note: A&P Assessment and Plan (1) Bowel obstruction: Qualifiers: Intestinal obstruction extent: partial Intestinal obstruction type: unspecified Qualified Code(s): K56.600 - Partial intestinal obstruction, unspecified as to cause Code(s): K56.609 - Unspecified intestinal obstruction, unspecified as to partial versus complete obstruction Status: Resolved (2) Stricture of sigmoid colon: Code(s): K56.699 - Other intestinal obstruction unspecified as to partial versus complete obstruction Status: Resolved Assessment and Plan: Diverticulitis with stricture as cause of colonic obstruction. Resolved status post left colectomy with distal transverse colostomy and rectal stump, Parish procedure. Wound is healing well. Az are out and no sign of infection. Colostomy looks very good and seems to be functioning adequately. Can participate in physical therapy as needed to improve her physical condition. No restrictions on physical therapy. Favor more time up in chair or at least on side of bed. (3) Protein-calorie malnutrition, severe: Code(s): E43 - Unspecified severe protein-calorie malnutrition Status: Acute Assessment and Plan: A pretty well 2 days ago but ate almost nothing yesterday. Will bump up TPN to 50 cc/hour. (4) Major depressive disorder, recurrent, unspecified: Qualifiers: Active/Remission status: remission status unspecified Qualified Code(s): F33.9 - Major depressive disorder, recurrent, unspecified Code(s): F33.9 - Major depressive disorder, recurrent, unspecified Status: Chronic Assessment and Plan: Discussed with Dr. Medrano. Patient seems very depressed, voices that she wants to . While hospice may be a consideration, I would favor treatment of depression. Defer choice of treatment to hospitalist service. (5) Type 2 diabetes mellitus with diabetic chronic kidney disease: Qualifiers: Diabetes mellitus mcc insulin use: with mcc use Chronic kidney disease stage: stage 3 (moderate) Chronic kidney disease stage 3 subtype: stage 3b (GFR 30-44) Qualified Code(s): E11.22 - Type 2 diabetes mellitus with diabetic chronic kidney disease; N18.32 - Chronic kidney disease, stage 3b; Z79.4 - watermaster (current) use of insulin Code(s): E11.22 - Type 2 diabetes mellitus with diabetic chronic kidney disease Status: Chronic Assessment and Plan: Seems stable, patient receiving Lasix twice a day. May need diuretics while on TPN. Subjective Subjective Date/Time Seen: 09/25/22 09:37 Post Op day: #15 Patient reports: no new complaints, still having pain, bowel movement, afebrile and other (A little more alert this morning but still tends to be very lethargic and sleepy) Interval history: Ate very little yesterday Review of Systems Review of Systems: ROS unobtainable: Yes unobtainable due to mental status Exam Const: General: cooperative, comfortable, no acute distress and awake GI: Inspection: non-distended, incision (Ulysses out, wound looks great.) and other (Some skin separation lower aspect colostomy but overall looks very good) GI Palp: Yes Soft to palpation, Yes Tenderness to palpation present (GI) (Minimal tenderness), No Hernia present and No Palpable mass present Auscultation: normal bowel sounds Objective Data Vital Signs Vital Signs: Vital Signs - 24 hr 09/24/22 14:01 09/24/22 12:04 09/24/22 16:01 Temperature 36.4 C L Pulse Rate 64 69 67 Respiratory Rate 18 Blood Pressure 107/40 L Pulse Oximetry 97 Oxygen Delivery Fraction of Inspired Oxygen 09/24/22 19:41 09/24/22 20:18 09/24/22 20:00 Temperature 36.5 C Pulse Rate 70 88 70 Respiratory Rate 20 Blood Pressure 114/41 L Pulse Oximetry 98 Oxygen Delivery Fraction of Inspired Oxygen 09/24/22 20:00 09/25/22 00:00 09/25/22 04:00 Temperature Pulse Rate 88 75 79 R
--- NOTE | 2022-09-25 10:10 | PCOTNOTE ---
Attempted to see Patient at this time. Patient's daughter in-law in room with Patient. She verbalized she is waiting on the doctor to come have a talk with her, her mother, the nurse. Patient is not interested in having services anymore, has not been eating and just wants to be left alone to sleep. Patient's family declined treatment at this time,and asked if we could check back at a later time after they have spoke with the doctor.
[2022-09-25] MEDS: oxyCODONE/ACETAMINOPHEN (*CRX) 5-325 MG TABLET 1 TABLET BY MOUTH (10:44)
--- NOTE | 2022-09-25 11:38 | PCNFU ---
Nutrition Follow-Up Complete: Severe Malnutrition related to inadequate protein-energy intake in the setting of acute disease (small bowel obstruction) as evidenced by < EER for > 7 days (NPO x 4 days and poor po intake reported at home <75% of estimated needs with significant weight loss of 6% in the past 1 month. Goal: Meet estimated nutritional needs Patient will continue with current goal. Pt current nutrition is Soft and Bite Sized, Level 6/Low Fiber with Clinimix 5/15 E at 50 ml/hr and 250 ml of 20% Lipid Emulsion. Last recorded weight is 84.7 kg. Bowel Motility:+BM reported 09/25 Labs Reviewed:Glu 199, BUN 53,Cr 1.7,Alb 2.4 Meds Noted:Lasix, Lopressor,Clinimix 5/15 E at 50 ml/hr and 250 ml of 20% Lipid Emulsion Skin: WNL Additional Notes: Patient remains on TPN which is providing 1352 kcals/60 gms protein. 84% energy needs and 97% protein needs. Spoke with family today regarding food likes. Patient is not hungry, eating bites only of foods. Discussions with nursing for possible appetite stimulant. Diet supplements of Ensure compact BID continue providing an additional 220 kcals and 8 gms protein. PO intake encouraged. Will monitor weight,labs,skin, oral intake every Saturday and Saturday.
--- NOTE | 2022-09-25 12:00 | PCOTNOTE ---
Attempted to see Patient at this time. Patient's RN verbalized, the family is speaking about hospice. Patient declined to participate in any activity this date. Patient verbalized, I'm done, let me sleep .
[2022-09-25] MEDS: AMINO ACIDS 5%/D15W/E-LYTES/CA 2,000 ML with MULTIVITAMINS-12 INJ VIAL 1 2.5 ML, MULTIV... 50 ML IV CONT (12:32)
[2022-09-25 12:33] LABS: Glucose Point of Care 221 mg/dl (65-105)
[2022-09-25] MEDS: FAT EMULSIONS IV 20% 250 ML 20.8 ML IVPB (12:34)
[2022-09-25] MEDS: ONDANSETRON INJ 4 MG/2 ML VIAL IV PUSH (17:51)
--- NOTE | 2022-09-25 18:03 | PM.IMPN ---
Progress Note: A&P Assessment and Plan (1) Bowel obstruction: Qualifiers: Intestinal obstruction extent: partial Intestinal obstruction type: unspecified Qualified Code(s): K56.600 - Partial intestinal obstruction, unspecified as to cause Code(s): K56.609 - Unspecified intestinal obstruction, unspecified as to partial versus complete obstruction Status: Resolved Assessment and Plan: Patient found to have a sigmoid stricture and partial bowel obstruction status post left colectomy with creation of end colostomy, Parish procedure and takedown of splenic flexure on 09/10/22. 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 Will also consult hospice to discuss options with family as they are unwilling to place a PEG tube and would like to get her home as soon as possible. (2) SVT (supraventricular tachycardia): Code(s): I47.1 - Supraventricular tachycardia Status: Acute Assessment and Plan: Patient was having runs of SVT. EKG at the time showing new ST depression in the anterior-lateral leads probably rate related. TSH mildly elevated but FT4 normal. Echo showing EF 65%-70% with moderate pulmonary HTN. Repeat EKG improved with back in normal sinus. ASA and Metoprolol added. Appreciate cardiology input. Will continue to monitor on tele. Replace electrolytes as needed. Resolved (3) Acute respiratory failure: Code(s): J96.00 - Acute respiratory failure, unspecified whether with hypoxia or hypercapnia Status: Acute Assessment and Plan: Acute Respiratory failure secondary to general anesthesia and hypotension. Patient able to be extubated on 09/12. Patient was weaned to room air but now on O2. CT scan showing bilateral pleural effusions and evidence of fluid overload. IV fluids were stopped and lasix IV once given, encourage IS use, wean O2 as tolerated. Resolved (4) Acute on chronic renal failure: Code(s): N17.9 - Acute kidney failure, unspecified; N18.9 - Chronic kidney disease, unspecified Status: Acute Assessment and Plan: Patient has chronic kidney disease with baseline Cr 1.1-1.3 Creatinine 1.4 on admission but climbed to 2.0 CT done recently did not show any stones or hydronephrosis CK level 1010 -> 399 Likely multifactorial secondary to surgery, diverticulitis, hypotension and contrast Patient has received adequate amount of IV fluids and also treated with albumin IV fluids resumed at low dose but now stopped, nephrology consulted and appreciate their input Resolved (5) Stricture of sigmoid colon: Code(s): K56.699 - Other intestinal obstruction unspecified as to partial versus complete obstruction Status: Resolved Assessment and Plan: See above (6) Hypotension: Code(s): I95.9 - Hypotension, unspecified Status: Acute Assessment and Plan: Likely secondary to general anesthesia and volume loss Status post IV fluid bolus and PRBC transfusion Resolved (7) Delirium: Code(s): R41.0 - Disorientation, unspecified Status: Acute Assessment and Plan: Patient had issues with delirium prior to surgery while on the floor and pulled out lines and tubes multiple times. She was started on Seroquel which was held after surgery but now resumed. Precedex sto
[2022-09-25 18:49] LABS: Glucose Point of Care 188 mg/dl (65-105)
[2022-09-25] MEDS: MIRTAZAPINE 7.5 MG TABLET PO (20:32)
[2022-09-25 23:43] LABS: Glucose Point of Care 228 mg/dl (65-105)
[2022-09-26] VITALS (8 sets, daily range): BP systolic 104–126; BP diastolic 45–66; PULSE 73–78; RESP 14–16; TEMP 36.8–37.2; O2SAT 94–99
[2022-09-26] MEDS: PIPERACILLIN/TAZ 2.25G/NS 50ML 2.25 GM/50 ML BAG IVPB ×3 (05:55→17:39)
[2022-09-26] MEDS: INSULIN HUMAN REGULAR (*BKC) 100 UNITS/ML SUB-Q ×2 (05:55→12:45)
[2022-09-26] MEDS: LEVOTHYROXINE SODIUM 50 MCG TABLET PO (05:57)
[2022-09-26] MEDS: CENTRAL LINE FLUSH 10 ML IV PUSH ×3 (05:57→21:25)
[2022-09-26 06:03] LABS: Glucose Point of Care 241 mg/dl (65-105)
[2022-09-26 06:16] LABS: Anion Gap 5 mmol/L (8-16); Blood Urea Nitrogen 55 mg/dL (7-17); Calcium 7.8 mg/dL (8.4-10.2); Carbon Dioxide 31 mmol/L (22-30); Chloride 96 mmol/L (98-107); Estimated CRCL calculation 21 ml/min; Estimated Glomerular Filt Rate 27; Glucose 214 mg/dL (65-110); Sodium 132 mmol/L (137-145)
[2022-09-26] MEDS: ENOXAPARIN 30 MG/0.3 ML SYRINGE SUB-Q (08:52)
[2022-09-26] MEDS: SODIUM CHLORIDE 1 GM TABLET PO ×2 (08:52→17:55)
[2022-09-26] MEDS: FAMOTIDINE 20 MG TABLET PO ×2 (08:52→21:24)
[2022-09-26] MEDS: FUROSEMIDE 40 MG TABLET PO ×2 (08:52→17:55)
[2022-09-26] MEDS: ASPIRIN 81 MG CHEWABLE TABLET PO (08:53)
[2022-09-26] MEDS: ESCITALOPRAM OXALATE 10 MG TABLET PO (08:53)
[2022-09-26] MEDS: METOPROLOL TARTRATE 12.5 MG TABLET PO ×2 (08:53→21:24)
[2022-09-26] MEDS: ONDANSETRON INJ 4 MG/2 ML VIAL IV PUSH (08:56)
[2022-09-26] MEDS: oxyCODONE/ACETAMINOPHEN (*CRX) 5-325 MG TABLET 1 TABLET BY MOUTH (08:56)
--- NOTE | 2022-09-26 09:27 | PM.IMPN ---
Progress Note: A&P Assessment and Plan (1) Bowel obstruction: Qualifiers: Intestinal obstruction extent: partial Intestinal obstruction type: unspecified Qualified Code(s): K56.600 - Partial intestinal obstruction, unspecified as to cause Code(s): K56.609 - Unspecified intestinal obstruction, unspecified as to partial versus complete obstruction Status: Resolved Assessment and Plan: Patient found to have a sigmoid stricture and partial bowel obstruction status post left colectomy with creation of end colostomy, Parish procedure and takedown of splenic flexure on 09/10/22. 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 Will also consult hospice to discuss options with family as they are unwilling to place a PEG tube and would like to get her home as soon as possible. 09/26: Continue TPN. Hospice consult (2) SVT (supraventricular tachycardia): Code(s): I47.1 - Supraventricular tachycardia Status: Acute Assessment and Plan: Patient was having runs of SVT. EKG at the time showing new ST depression in the anterior-lateral leads probably rate related. TSH mildly elevated but FT4 normal. Echo showing EF 65%-70% with moderate pulmonary HTN. Repeat EKG improved with back in normal sinus. ASA and Metoprolol added. Appreciate cardiology input. Resolved. Stop tele (3) Acute respiratory failure: Code(s): J96.00 - Acute respiratory failure, unspecified whether with hypoxia or hypercapnia Status: Acute Assessment and Plan: Acute Respiratory failure secondary to general anesthesia and hypotension. Patient able to be extubated on 09/12. Patient was weaned to room air but now on O2. CT scan showing bilateral pleural effusions and evidence of fluid overload. IV fluids were stopped and lasix IV once given, encourage IS use, wean O2 as tolerated. Resolved (4) Acute on chronic renal failure: Code(s): N17.9 - Acute kidney failure, unspecified; N18.9 - Chronic kidney disease, unspecified Status: Acute Assessment and Plan: Patient has chronic kidney disease with baseline Cr 1.1-1.3 Creatinine 1.4 on admission but climbed to 2.0 CT done recently did not show any stones or hydronephrosis CK level 1010 -> 399 Likely multifactorial secondary to surgery, diverticulitis, hypotension and contrast Patient has received adequate amount of IV fluids and also treated with albumin IV fluids resumed at low dose but now stopped, nephrology consulted and appreciate their input Resolved (5) Stricture of sigmoid colon: Code(s): K56.699 - Other intestinal obstruction unspecified as to partial versus complete obstruction Status: Resolved Assessment and Plan: See above (6) Hypotension: Code(s): I95.9 - Hypotension, unspecified Status: Acute Assessment and Plan: Likely secondary to general anesthesia and volume loss Status post IV fluid bolus and PRBC transfusion Resolved (7) Delirium: Code(s): R41.0 - Disorientation, unspecified Status: Acute Assessment and Plan: Patient had issues with delirium prior to surgery while on the floor and pulled out lines and tubes multiple times. She was started on Seroquel which was held after surgery but now resumed. Precedex stopped. Mood stable
[2022-09-26] MEDS: FAT EMULSIONS IV 20% 250 ML 20.8 ML IVPB (12:29)
[2022-09-26 12:39] LABS: Glucose Point of Care 224 mg/dl (65-105)
--- NOTE | 2022-09-26 13:52 | PM.PNGS ---
Progress Note: A&P Assessment and Plan (1) Bowel obstruction: Qualifiers: Intestinal obstruction extent: partial Intestinal obstruction type: unspecified Qualified Code(s): K56.600 - Partial intestinal obstruction, unspecified as to cause Code(s): K56.609 - Unspecified intestinal obstruction, unspecified as to partial versus complete obstruction Status: Resolved Assessment and Plan: Patient transferred to hospice care. Sounds like this is a good decision. Wounds have healed well and colostomy is working well. I will go ahead and sign off. (2) Stricture of sigmoid colon: Code(s): K56.699 - Other intestinal obstruction unspecified as to partial versus complete obstruction Status: Resolved Subjective Subjective Date/Time Seen: 09/26/22 13:52 Interval history: Patient is sleeping. Family present and tells me that patient will be going under hospice care. She has been depressed for a long time and they feel this is her best management. Exam Const: General: tired appearing GI: Inspection: non-distended and incision (Healing well, colostomy okay) GI Palp: Yes Soft to palpation and No Tenderness to palpation present (GI) Objective Data Vital Signs Vital Signs: Vital Signs - 24 hr 09/25/22 14:46 09/25/22 16:01 09/25/22 20:26 Temperature 36.5 C 36.8 C Pulse Rate 68 67 74 Respiratory Rate 16 18 Blood Pressure 114/50 L 133/48 L Pulse Oximetry 98 100 Oxygen Delivery Fraction of Inspired Oxygen 09/25/22 20:31 09/25/22 20:00 09/25/22 20:00 Temperature Pulse Rate 88 73 88 Respiratory Rate 18 Blood Pressure Pulse Oximetry 100 Oxygen Delivery Room Air Fraction of Inspired Oxygen 21 09/26/22 00:00 09/26/22 04:00 09/26/22 08:53 Temperature Pulse Rate 76 78 77 Respiratory Rate Blood Pressure Pulse Oximetry Oxygen Delivery Fraction of Inspired Oxygen 09/26/22 10:10 09/26/22 08:00 09/26/22 08:00 Temperature 37.2 C Pulse Rate 75 75 Respiratory Rate 16 Blood Pressure 108/47 L Pulse Oximetry 94 Oxygen Delivery Room Air Fraction of Inspired Oxygen Intake/Output Intake/Output: Intake & Output 09/23/22 09/24/22 09/25/22 09/26/22 23:59 23:59 23:59 23:59 Intake Total 3615 1554 2512 470 Output Total 3254 3650 8368 1200 Balance 931 -2856 -2488 -730 Meds/Results Medications: Active Medications Generic Name Dose Route Start Last Admin Trade Name Zelalemq PRN Reason Stop Dose Admin Acetaminophen 650 mg 09/17/22 08:13 09/25/22 05:59 Acetaminophen 325 Mg Tablet BY MOUTH 650 mg Q6H PRN Administration Mild Pain or Fever Aspirin 81 mg 09/17/22 10:10 09/26/22 08:53 Aspirin 81 Mg Chewable Tablet PO 81 mg DAILY@0800 SLOAN Administration Dextrose 12.5 gm 09/07/22 23:34 Dextrose 50% 25 Gm/50 Ml Syringe IV PUSH PRN PRN Hypoglycemia Protocol Enoxaparin Sodium 30 mg 09/14/22 09:00 09/26/22 08:52 Enoxaparin 30 Mg/0.3 Ml Syringe SUB-Q 30 mg DAILY SLOAN Administration Escitalopram Oxalate 10 mg 09/10/22 09:00 09/26/22 08:53 Escitalopram Oxalate 10 Mg Tablet PO 10 mg DAILY SLOAN Administration Famotidine 20 mg 09/14/22 21:00 09/26/22 08:52 Famotidine 20 Mg Tablet PO 20 mg Q12HR SLOAN Administration Furosemide 40 mg 09/21/22 17:00 09/26/22 08:52 Furosemide 40 Mg Tablet PO 40 mg BID SLOAN Administration Glucagon 1 mg 09/07/22 23:34 Glucagon For Inj 1 Mg Vial IM PRN PRN Hypoglycemia Protocol Hydralazine HCl 10 mg 09/08/22 16:37 09/16/22 04:22 Hydralazine Hcl 20 Mg/Ml Vial IV PUSH 10 mg Q6HR PRN Administration Blood Pressure - High Dextrose 1,000 mls @ 100 mls/hr 09/07/22 23:34 Dextrose 5% 1,000 Ml IVPB PRN PRN Hypoglycemia Protocol Multivitamins 2.5 ml/ 2,005 mls @ 50 mls/hr 09/18/22 12:00 09/25/22 12:32 Multivitamins 2.5 ml/ Amino IV CONT 50 mls/hr Acids/Electro
[2022-09-26 18:42] LABS: Glucose Point of Care 199 mg/dl (65-105)
[2022-09-26] MEDS: MIRTAZAPINE 7.5 MG TABLET PO (21:24)
[2022-09-27 00:34] LABS: Glucose Point of Care 245 mg/dl (65-105)
[2022-09-27] MEDS: INSULIN HUMAN REGULAR (*BKC) 100 UNITS/ML SUB-Q ×2 (00:47→05:58)
[2022-09-27] MEDS: PIPERACILLIN/TAZ 2.25G/NS 50ML 2.25 GM/50 ML BAG IVPB ×2 (00:50→05:53)
[2022-09-27 05:39] LABS: Glucose Point of Care 210 mg/dl (65-105)
[2022-09-27] MEDS: AMINO ACIDS 5%/D15W/E-LYTES/CA 2,000 ML with MULTIVITAMINS-12 INJ VIAL 1 2.5 ML, MULTIV... 50 ML IV CONT (05:51)
[2022-09-27] MEDS: CENTRAL LINE FLUSH 10 ML IV PUSH (05:53)
[2022-09-27] MEDS: LEVOTHYROXINE SODIUM 50 MCG TABLET PO (05:53)
[2022-09-27 06:11] LABS: Basophils Absolute Auto 0.1 K/mm3 (0.0-0.1); Basophils Percent Auto 0.8 % (0.2-1.2); Eosinophils Absolute Auto 0.3 K/mm3 (0-0.3); Eosinophils Percent Auto 2.5 % (0-4.4); Hematocrit 21.2 % (37.0-47.0); Immature Granulocyte Absolute 0.18 K/mm3 (0.00-0.031); Immature Granulocyte Percent A 1.7 % (0-0.5); Lymphocytes Absolute Auto 0.82 K/mm3 (0.9-3.2); Lymphocytes Percent Auto 7.6 % (18.3-44.2); Mean Corpuscular HGB Conc 31.1 g/dl (32-36); Mean Corpuscular Hemoglobin 27.7 pg (26-34); Mean Corpuscular Volume 89.1 fl (80-100); Mean Platelet Volume 10.1 fl (7.4-10.4); Monocytes Absolute Auto 1.5 K/mm3 (0.1-0.6); Monocytes Percent Auto 13.7 % (2.6-8.5); Neutrophils Percent Auto 73.7 % (45.5-73.1); Platelet Count Result 437 k/mm3 (150-375); Red Blood Count 2.38 M/mm3 (4.2-5.4); Red Cell Distribution Width 15.7 % (11.5-14.5); White Blood Count 10.8 K/mm3 (4.5-10.0)
[2022-09-27 06:14] LABS: Hemoglobin 6.6 g/dL (12.0-15.0)
[2022-09-27 06:16] LABS: Alanine Aminotransferase 14 U/L (6-35); Albumin Level 2.6 g/dL (3.5-5.1); Alkaline Phosphatase 106 U/L (38-126); Anion Gap 5 mmol/L (8-16); Aspartate Amino Transferase 17 U/L (14-36); Bilirubin,Total 0.4 mg/dL (0.2-1.3); Blood Urea Nitrogen 63 mg/dL (7-17); Calcium 7.7 mg/dL (8.4-10.2); Carbon Dioxide 31 mmol/L (22-30); Chloride 95 mmol/L (98-107); Estimated CRCL calculation 20 ml/min; Estimated Glomerular Filt Rate 25; Glucose 203 mg/dL (65-110); Magnesium 1.7 mg/dL (1.6-2.3); Potassium 3.9 mmol/L (3.4-5.0); Sodium 131 mmol/L (137-145); Triglycerides 57 mg/dL (<150)
--- NOTE | 2022-09-27 06:27 | PC.NURSE ---
Dr Watters notified patient Hgb is 6.6 this morning and that patient stated that she does not want to receive a transfusion at this time. Patient and family meeting with hospice consult today.
[2022-09-27 06:59] VITALS: BP 121/68; PULSE 80; RESP 16; TEMP 36.7; O2SAT 95
[2022-09-27 09:19] VITALS: TEMP 38.1
[2022-09-27] MEDS: ACETAMINOPHEN 325 MG TABLET 650 MG BY MOUTH (09:19)
[2022-09-27 09:46] VITALS: TEMP 38.1
--- NOTE | 2022-09-27 11:23 | PM.DS ---
DS: Admitting Diagnosis Discharge Date 09/27/22 Admitting Diagnosis Syncopal episode DS: Discharge Diagnosis Discharge Diagnosis (1) Bowel obstruction: Qualifiers: Intestinal obstruction extent: partial Intestinal obstruction type: unspecified Qualified Code(s): K56.600 - Partial intestinal obstruction, unspecified as to cause Code(s): K56.609 - Unspecified intestinal obstruction, unspecified as to partial versus complete obstruction Status: Resolved (2) SVT (supraventricular tachycardia): Code(s): I47.1 - Supraventricular tachycardia Status: Acute (3) Acute respiratory failure: Code(s): J96.00 - Acute respiratory failure, unspecified whether with hypoxia or hypercapnia Status: Acute (4) Acute on chronic renal failure: Code(s): N17.9 - Acute kidney failure, unspecified; N18.9 - Chronic kidney disease, unspecified Status: Acute (5) Stricture of sigmoid colon: Code(s): K56.699 - Other intestinal obstruction unspecified as to partial versus complete obstruction Status: Resolved (6) Hypotension: Code(s): I95.9 - Hypotension, unspecified Status: Acute (7) Delirium: Code(s): R41.0 - Disorientation, unspecified Status: Acute (8) Type 2 diabetes mellitus with diabetic chronic kidney disease: Qualifiers: Chronic kidney disease stage: stage 3 (moderate) Chronic kidney disease stage 3 subtype: stage 3b (GFR 30-44) Diabetes mellitus extermination inspector insulin use: with residential use Qualified Code(s): E11.22 - Type 2 diabetes mellitus with diabetic chronic kidney disease; N18.32 - Chronic kidney disease, stage 3b; Z79.4 - extermination inspector (current) use of insulin Code(s): E11.22 - Type 2 diabetes mellitus with diabetic chronic kidney disease Status: Chronic (9) Anemia: Code(s): D64.9 - Anemia, unspecified Status: Acute (10) Hyponatremia: Code(s): E87.1 - Hypo-osmolality and hyponatremia Status: Acute (11) Leukocytosis: Qualifiers: Leukocytosis type: unspecified Qualified Code(s): D72.829 - Elevated white blood cell count, unspecified Code(s): D72.829 - Elevated white blood cell count, unspecified Status: Acute DS: Summary Hospital Course Reason for hospitalization: 87yo female with history of diverticulosis and diabetes is presenting with a syncopal episode and found to have sigmoid stricture and partial bowel obstruction. Please see H&P for details. Hospital Course: Patient presents after a syncopal episode and workup revealed a sigmoid stricture and partial bowel obstruction. She was seen by General Surgery and underwent a post left colectomy with creation of end colostomy, Parish procedure and takedown of splenic flexure on 09/10/22. Acute Respiratory failure secondary to general anesthesia and hypotension post-operatively. Patient able to be extubated on 09/12 and was weaned to room air. Patient has chronic kidney disease with baseline Cr 1.1-1.3 but Cr climbed to 2.0. CT did not show any stones or hydronephrosis CK level 1010 and this trended down. Cr remained elevated Pathology showing diverticulitis with necrosis, calcification, perforation and fibrosis but negative for malignancy, CT A/P performed 09/16 due to nausea/vomiting: moderate ascites with possible liver cirrhosis and anasarca. She continued to have poor oral intake so TPN eventually started. Patient was having runs of SVT. EKG at the time showing new ST depression in the anterior-lateral leads probably rate related. TSH mildly elevated but FT4 normal. Echo showing EF 65%-70% with moderate pulmonary HTN. Repeat EKG improved with back in normal sinus. ASA and Metoprolol added. Cardiology was involved in her care. Hgb 11 range prior to surgery. She received 2 units of PRBC intraoperatively on 09/10. Hemoglobin stable in the 7-8 range but dropped to 6.6 but family declined transfusion since patient is being mov
[2022-09-27] MEDS: NEOMYCIN/POLYMYXIN/BACITRACIN OINTMENT PACKET 1 PACKET (11:40)
[2022-09-27 12:13] LABS: Glucose Point of Care 178 mg/dl (65-105)
== END 2022-09-27 13:45 | disposition hospice, inpatient (51) | DRG 329 ==
LOC: ANHED 13:52 → ANH2MED 14:30 → ANHICU 09-10 18:53 → ANHIMU 09-14 18:31 → ANH2MED 09-21 12:50
PROVIDERS: Anesthesiology; General Practice; Internal Medicine; Internal Medicine Nephrology; Nurse Practitioner; Nurse Practitioner Family; Student in an Organized Health Care Education/Training Program; Surgery; Admitting Provider Internal Medicine; Emergency Provider Nurse Practitioner Family; PCP Family Medicine; Visit Provider Internal Medicine
PROC: 0D1L0Z4 Bypass Transverse Colon to Cutaneous, Open Approach (ICD-10-PCS; CPT 44143; principal; 2022-09-10 15:00)
DX: K56.690 Other partial intestinal obstruction (principal); E43 Unspecified severe protein-calorie malnutrition; J95.821 Acute postprocedural respiratory failure; E87.1 Hypo-osmolality and hyponatremia; K57.20 Diverticulitis of large intestine with perforation and abscess without bleeding; N17.9 Acute kidney failure, unspecified; I47.1 Supraventricular tachycardia; I97.191 Other postprocedural cardiac functional disturbances following other surgery; K57.90 Diverticulosis of intestine, part unspecified, without perforation or abscess without bleeding; R55 Syncope and collapse; I95.81 Postprocedural hypotension; R41.0 Disorientation, unspecified; I27.20 Pulmonary hypertension, unspecified; I12.9 Hypertensive chronic kidney disease with stage 1 through stage 4 chronic kidney disease, or unspecified chronic kidney disease; D63.1 Anemia in chronic kidney disease; E86.0 Dehydration; E78.00 Pure hypercholesterolemia, unspecified; E11.22 Type 2 diabetes mellitus with diabetic chronic kidney disease; E11.319 Type 2 diabetes mellitus with unspecified diabetic retinopathy without macular edema; F32.A Depression, unspecified; I70.0 Atherosclerosis of aorta; I67.2 Cerebral atherosclerosis; H91.90 Unspecified hearing loss, unspecified ear; K74.60 Unspecified cirrhosis of liver; M43.16 Spondylolisthesis, lumbar region; M47.816 Spondylosis without myelopathy or radiculopathy, lumbar region; N18.32 Chronic kidney disease, stage 3b; Z66 Do not resuscitate; Z79.4 Long term (current) use of insulin; Z68.31 Body mass index [BMI] 31.0-31.9, adult; Z90.49 Acquired absence of other specified parts of digestive tract; Z90.710 Acquired absence of both cervix and uterus
CPT/HCPCS: 36415; 36430; 36569; 36600; 70450; 71045; 71275; 72125; 74018; 74019; 74176; 74177; 74270; 76775; 80048; 80053; 80061; 80069; 80076; 81001; 81050; 82140; 82306; 82375; 82378; 82436; 82533; 82550; 82570; 82607; 82728; 82746; 82805; 82948; 83036; 83050; 83540; 83550; 83605; 83690; 83735; 83880; 84100; 84145; 84156; 84295; 84300; 84439; 84443; 84466; 84478; 84480; 84484; 84540; 85014; 85018; 85025; 85027; 85046; 85384; 85610; 85730; 85999; 86140; 86850; 86900; 86901; 86923; 87040; 87081; 87086; 88309; 92610; 93005; 93306; 94002; 94003; 96372; 96374; 96375; 97110; 97161; 97166; 97530; 97535; 99285; A9270; C1713; C1729; C1751; J0360; J0500; J0690; J0834; J1650; J1815; J1940; J2060; J2250; J2405; J2543; J3010; J3475; J7030; J7042; J7120; P9016; P9045; P9047; Q9967